=== PATIENT | female | born 1955 | race Caucasian/White ===

== ENCOUNTER 2020-12-14 09:30 | Outpatient (RCR) | payer MEDICARE, SELFPAY ==
--- NOTE | 2020-11-09 15:17 | PTOPEVAL ---
PHYSICAL THERAPY EVALUATION AND PLAN OF CARE 11-09-2020 Thank you for referring Aleida Mendez to [facility] for the diagnosis of vertigo.? Aleida is scheduled to be seen for therapy? 0-2 x/week for 5 weeks. She did not want to have treatment the week of . Then will see her 1-2x/week, with progression as needed for vestibular issues. Please review, sign, date and return this plan of care LYNETTE. I agree with and certify that the following plan of care is medically necessary. Referring Physician Date Attending Provider: Mercy Olivia NP PT Outpatient Evaluation Start: 11/09/20 14:04 Document 11/09/20 14:00 KATHARINE (Rec: 11/09/20 15:17 KATHARINE [id number]) Therapy Assessment Status Outpatient Past Medical History Past Medical History Source of Past Medical History Patient Neurological History Hx Neurological Disorders No Significant History Cardiovascular History Hx Other Cardiac Disorders Yes: low heart rate; Respiratory History Hx Respiratory Disorders No Significant History Gastrointestinal History Hx Gastrointestinal Disorders No Significant History Genitourinary History Hx Genitourinary Disorders No Significant History Musculoskeletal History Hx Arthritis Yes: knee Hx Joint Replacement Yes: L TKR; Hx Orthopedic Surgery Yes: L ACL repair; Other History Hx Cancer Yes: melanoma right calf, lymph node removal Evaluation Information Problem Diagnosis dizziness Onset October 10, 2020 Prior Level of Function Activity Level (Last 3 Months) Occupation retired Medications Home Meds (Include: OTC, RX, Vitamins, benadryl before bedtime-- to Herbals, Dose, Route,and Frequency) assess effect on dizziness, Query Text:Home Med Entries Will No woke up stuffy and stopped Longer Recall From Past Visits. Home taking, did not affect Meds Must Be Re-entered With Each Visit. dizziness; no prescription meds; Comments Additional Prior Level of Function active lifestyle when do not Comments have dizzy spells; Pain Assessment Timing of Pain Assessment Timing of Pain Assessment Assessment Pain Scale Pain Scale Used Numeric (1 - 10) Self Report Pain Assessment Bilateral Head, Occiptial Reported Pain Level 0 Pain Description Pressure,Throbbing Other Pain Description when dizziness passes, have throbbing headache back of head, 1-2 hr Lowest Pain Intensity 0 Greatest Pain Intensity 6 Pain Score Pain Score 0: Self Report Cervical and Lumbar ROM Cervical ROM Cervical ROM Comments sitting active cervical ROM WNL without pain Gait Assessment Gait Assessment Ambulation Assistive Devices None
--- NOTE | 2020-12-14 10:01 | PTOPEVAL ---
PHYSICAL THERAPY DISCHARGE 12-14-20 Refer to the clinical summary below. The PT goals were achieved, therefore, she will be discharged from PT at this time. Thank you for referring Aleida Mendez to [facility].? Please review, sign, date and return this discharge report LYNETTE. I agree with and certify that the following plan of care is medically necessary. Referring Physician Date Attending Provider: Mercy Olivia NP Document 12/14/20 09:30 KATHARINE (Rec: 12/14/20 10:01 KATHARINE [id number]) Assessment Status Discharge Subjective Information Aleida reports: feeling better Query Text:As Reported By Patient/ , less dizziness, when do have Family dizziness- clears in few seconds; at home, is doing all of her usual activities, except not doing yoga since gym closed; dizzy with quick head motions; no problems getting up out of bed or moving in bed; had a follow up appointment with , have orders for MRI, but since she is feeling better, does not need that she is going to have the MRI done; self assessment with the Dizziness Handicap Index is 10/100; Pain Assessment Timing of Pain Assessment Timing of Pain Assessment Assessment Self Report Self Report Pain Level 0 Pain Score Pain Score 0: Self Report Vestibular Evaluation Vestibular Testing Vestibular Testing Comments - pick something up off floor without any s/s - 360' turn to R and L without any s/s - walk 50' with head turn R/L without any s/s; with head turn up/down with report unsteady in legs - gaze stabilization with walking forward/backwards with head movements up/down and R/ L without any s/s; no loss of balance with activities; Safety Assessment Patient Safety Factors Affecting Safety No Concerns Rehab Teaching Rehab Teaching Teaching Topic Rehab Teaching Topic Components Exercise,Home Program As Pertains To Plan of Care Discussion Recipient Patient Learning Preferences Audio,Demonstration,Discussion
== END 2020-12-15 08:09 | disposition home or self-care (01) ==
LOC: ANHPT 09:30
PROVIDERS: PCP Internal Medicine; Referring Provider Nurse Practitioner; Visit Provider Nurse Practitioner
DX: R42 Dizziness and giddiness (principal)
CPT/HCPCS: 97110; 97162

== ENCOUNTER → 2021-03-02 00:41 | Outpatient (CLI) | payer MEDICARE, SELFPAY ==
[2021-03-02 19:49] LABS: SARS-CoV-2 RNA PCR Negative
== END ==
PROVIDERS: PCP Internal Medicine; Visit Provider Internal Medicine Gastroenterology
DX: Z01.812 Encounter for preprocedural laboratory examination (principal); Z20.822 Contact with and (suspected) exposure to COVID-19
CPT/HCPCS: C9803; U0003; U0005

== ENCOUNTER 2021-03-05 00:28 | Day surgery (SDC) | payer MEDICARE, SELFPAY ==
[2021-02-15 13:49] VITALS: BMI 30.2
[2021-03-05 06:17] VITALS: BMI 31.1
[2021-03-05 06:19] VITALS: BP 137/87; PULSE 54; RESP 16; TEMP 36.4; O2SAT 100
[2021-03-05] MEDS: LACTATED RINGERS 1,000 ML 150 ML IV CONT (06:30)
--- NOTE | 2021-03-05 07:12 | WPDANESEPPF ---
Anes - Initial Pre Proc Eval Procedure: Operation Date: 03/05/21 07:30 Proposed Procedures p Screening Colonoscopy - Isaac Nicholas MD Date/Time: 03/05/21 07:12 Surgeon: Isaac Nicholas MD Pre Op Diagnosis: Neoplasm Screening Patient Data Age: 65 Gender: F Height: 5 ft 2 in Weight: 77.2 kg Last Vital Signs Temp 97.5 F L 03/05/21 06:19 Pulse 54 L 03/05/21 06:19 Resp 16 03/05/21 06:19 BP 137/87 03/05/21 06:19 Pulse Ox 100 03/05/21 06:19 Allergies Allergy/AdvReac Type Severity Reaction Status Date / Time olopatadine Allergy Mild itchy OU Verified 03/05/21 06:16 Home Medications Medication Instructions Recorded Confirmed Type valacyclovir 1 gram tablet 2,000 mg PO Q12H PRN #30 tablet 12/07/20 02/15/21 Rx triamcinolone acetonide 1 applic TOPICAL BID PRN 02/15/21 02/15/21 History Patient hx anesthesia problems: none Family hx anesthesia problems: none PMFSH Past Medical History Medical History (Updated 12/07/20 @ 09:03 by Mercy Olivia NP) ACL tear 1998 Allergies Arthritis Melanoma Surgical History Surgical History (Updated 10/27/20 @ 07:53 by Marquita Mercado) History of knee replacement 2019 History of tubal ligation 1987 Family History Family History (Updated 10/27/20 @ 07:56 by Marquita Mercado) Father Cerebrovascular accident Hypertension Grandparent Parkinsons Heart disease Cancer Social History Social History (Updated 10/27/20 @ 07:54 by Marquita Mercado) Smoking status: Never smoker Alcohol intake: current Drinks per week: 3 Substance use: never Living arrangements: with family Gender identity (if verbalized by the patient): Female Spiritual care concerns: No Anes - Eval Final PreProcedure Day of Procedure 03/05/21 07:12 Patient weight: overweight Heart: bradycardia Lungs: clear to auscultation Airway: Mallampati scale class II Neurological: alert and oriented Last oral intake: >/= 8 hours ASA classification: II Emergent: no Anesthetic plan: proceed Anesthesia type and monitoring: general GIVS and standard monitoring Informed Consent: The patient's anesthetic plan and its attendant risks and benefits were discussed with the patient/family/POA. Questions were solicited and answers provided to the satisfaction of the patient/family/POA.
--- NOTE | 2021-03-05 07:29 | PM.HPGS ---
History of Present Illness History of Present Illness Consent: Risks, benefits, and alternatives have been discussed and questions answered. Patient agrees to proceed with procedure. Chief complaint: Neoplasm Screening Narrative: Aleida Mendez is a 65 year old female with colon polyps about 4 years ago. Review of Systems Constitutional: Constitutional: Denies headache(s) and Denies weakness Eyes: Eyes: Denies blurry vision ENT: Reports Normal hearing present, Denies headache(s) and Denies neck pain Cardiovascular: Cardiovascular: Denies chest pain and Denies dyspnea Respiratory: Respiratory: Denies dyspnea Gastrointestinal: Gastrointestinal: Reports no additional gastrointestinal complaints Genitourinary: Genitourinary: Denies dysuria Musculoskeletal: Musculoskeletal: Denies neck pain Integumentary/Breasts: Skin/Breast: Denies dry skin Neurologic: Reports Normal hearing present, Denies headache(s) and Denies weakness Psychiatric: Psychiatric: Denies anxiety Endocrine: Endocrine: Denies change in body appearance Hematologic/Lymphatic: Hematologic/Lymphatic: Denies easy bleeding Allergic/Immunologic: Allergic/Immunologic: Denies urticaria PMFSH Past Medical History Medical History (Updated 03/05/21 @ 07:29 by Isaac Nicholas MD) ACL tear 1998 Adenomatous colon polyp Allergies Arthritis Melanoma Surgical History Surgical History (Updated 10/27/20 @ 07:53 by Marquita Mercado) History of knee replacement 2019 History of tubal ligation 1987 Family History Family History (Updated 10/27/20 @ 07:56 by Marquita Mercado) Father Cerebrovascular accident Hypertension Grandparent Parkinsons Heart disease Cancer Social History Social History (Updated 10/27/20 @ 07:54 by Marquita Mercado) Smoking status: Never smoker Alcohol intake: current Drinks per week: 3 Substance use: never Living arrangements: with family Gender identity (if verbalized by the patient): Female Spiritual care concerns: No Meds Home Medications and Allergies Home Medications Medication Instructions Recorded Confirmed Type valacyclovir 1 gram tablet 2,000 mg PO Q12H PRN #30 tablet 12/07/20 02/15/21 Rx triamcinolone acetonide 1 applic TOPICAL BID PRN 02/15/21 02/15/21 History Allergies Allergy/AdvReac Type Severity Reaction Status Date / Time olopatadine Allergy Mild itchy OU Verified 03/05/21 06:16 Vital Signs Vital Signs - 24 hr 03/05/21 06:19 Temperature 97.5 F L Pulse Rate 54 L Respiratory Rate 16 Blood Pressure 137/87 Pulse Oximetry 100 Exam Const: General: comfortable and no acute distress HENMT: General nose exam: Normal nares present Eyes: General: appearance normal, both eyes and all related structures Neck: Neck: no JVD Resp: Auscultation: clear to auscultation bilaterally Cardio: Rate: regular rate Rhythm: regular rhythm GI: Inspection: non-distended GI Palp: Yes Soft to palpation Skin: General skin exam: normal color Neuro: General: gait normal Speech: normal speech Extrem: General: normal to inspection Psych: Mental Status: mental status grossly normal Assessment and Plan Assessment and plan (1) Adenomatous colon polyp: Code(s): D12.6 - Benign neoplasm of colon, unspecified Status: Acute Assessment and Plan: proceed with colonoscopy
[2021-03-05 07:43] VITALS: BP 109/60; PULSE 54; RESP 16; O2SAT 98
[2021-03-05 07:53] VITALS: BP 91/44; PULSE 49; RESP 23; O2SAT 100
[2021-03-05 08:03] VITALS: BP 105/69; PULSE 51; RESP 20; O2SAT 98
== END 2021-03-05 08:18 | disposition home or self-care (01) ==
PROVIDERS: PCP Internal Medicine; Visit Provider Internal Medicine Gastroenterology
PROC: 0DJD8ZZ Inspection of Lower Intestinal Tract, Via Natural or Artificial Opening Endoscopic (ICD-10-PCS; CPT 45378; principal; 2021-03-05 07:30)
DX: Z12.11 Encounter for screening for malignant neoplasm of colon (principal); K64.8 Other hemorrhoids; M19.90 Unspecified osteoarthritis, unspecified site; Z86.010 Personal history of colon polyps; Z85.820 Personal history of malignant melanoma of skin
CPT/HCPCS: G0105; J2704; J7120

== ENCOUNTER → 2021-03-15 11:00 | Outpatient (CLI) | payer MEDICARE, SELFPAY ==
--- NOTE | ~2021-03-15 | MM_ITS ---
EXAMINATION: MM screening anay BI w yamile HISTORY: Screening mammogram, family history of breast cancer in her sister. TECHNIQUE: Craniocaudal and mediolateral oblique 3-D tomosynthesis images were obtained and synthetic 2-D images were generated. CAD analysis was submitted and interpreted. COMPARISON: No prior mammogram is available for comparison at this institution. BREAST PARENCHYMAL COMPOSITION: There are scattered areas of fibroglandular density. FINDINGS: RIGHT BREAST: There is focal asymmetry in the middle third of the upper outer quadrant of the breast and a possible mass in the anterior third of the inner breast. LEFT BREAST: There is no evidence of suspicious mass, calcification, or architectural distortion to s uggest malignancy. IMPRESSION: 1. Right breast findings as above which may represent the patient's baseline however no comparison is currently available. 2. Comparison with prior mammograms is necessary. BI-RADS Category 0: Incomplete: Needs comparison with prior mammograms. Reviewed, dictated and finalized at location A. IMPRESSION: 1. Right breast findings as above which may represent the patient's baseline ho wever no comparison is currently available. 2. Comparison with prior mammograms is necessary. BI-RADS Category 0: Incomplete: Needs comparison with prior mammograms.
--- NOTE | ~2021-03-15 | DEXA_ITS ---
Bone Density Report Name: Aleida Mendez Age: 65 Sex: Female Ethnicity: White Date of : 1955 Indication: postmenopausal; screening for osteoporosis; Referring Provider: Mercy Olivia Study: Bone densitometry was performed. Exam Date: March 15, 2021 Accession number: [id number] Bone Density: Region BMD T-score Z-score Classification AP Spine (L1-L4) 1.119 0.7 2.5 Normal Femoral Neck (Left) 0.804 -0.4 1.1 Normal Total Hip (Left) 0.915 -0.2 1.0 Normal Femoral Neck (Right) 0.786 -0.6 1.0 Normal Total Hip (Right) 0.926 -0.1 1.1 Normal Total Hip Mean 0.921 -0.2 1.1 Normal World Health Organization criteria for BMD impression classify patients as: Normal (T-score at or above -1.0), Osteopenia (T-score between -1.0 and -2.5), or Osteoporosis (T-score at or below -2.5). 10-year Fracture Risk: FRAX not reported because: All T-scores for Spine Total, Hip Total, Femoral Neck at or above -1.0 Clinical Information Provided by Patient: Has used the following medications: Vitamin D, Calcium Patient maximum height was 62 Menopause Age: 47 Drinks caffeinated beverages Onset of menses at age 11 Number of children 3 Impression: The patient has normal bone mass. Discussion: BONE DENSITY IS ABOVE THE MINIMUM DESIRABLE LEVEL AT ALL SKELETAL SITES TESTED. This patient?s bone mineral density is above the minimum desirable level (T-score -1.0 or better) at all sites measured. The patient should follow a healthful lifestyle (good nutrition with adequate calcium and vitamin D, and appropriate weight-bearing exercise). Follow-Up: Consider repeating this study in 5 years or sooner if there is some new clinical indication. Reported by: [facility] on 03/15/2021 11:33:00 AM. Reviewed, dictated and finalized at location ABritta WILKINS
== END ==
PROVIDERS: PCP Internal Medicine; Visit Provider Nurse Practitioner
DX: Z12.31 Encounter for screening mammogram for malignant neoplasm of breast (principal); Z78.0 Asymptomatic menopausal state; R92.8 Other abnormal and inconclusive findings on diagnostic imaging of breast
CPT/HCPCS: 77063; 77067; 77080

== ENCOUNTER 2022-01-19 13:22 | Outpatient (CLI) | payer MEDICARE, SELFPAY ==
--- NOTE | ~2022-01-19 | MR_ITS ---
EXAMINATION: MR shoulder RT wo con DATE: 01/19/2022 14:19 INDICATION: Right shoulder pain. TECHNIQUE: Magnetic resonance imaging (MRI) of the right shoulder was performed without intravenous c ontrast. Sequences included axial PD-weighted FS FSE, coronal oblique PD-weighted FS FSE and T2-weigh fredis FS FSE, and sagittal oblique T2-weighted FS FSE and T1-weighted FSE. COMPARISON: None. FINDINGS: Coracoacromial arch: The acromion undersurface is curved in morphology (type II). There is moderate acromioclavicular join t osteoarthritis. There is mild subacromial/subdeltoid bursitis. Rotator cuff: There are small interstitial tears of distal supraspinatus tendon. There is mild infraspinatus tendin opathy. Teres minor tendon is normal. There is mild subscapularis tendinopathy. There is no asymmetri c fatty atrophy of the rotator cuff muscle bellies. Biceps tendon and glenoid labrum: Biceps tendon is in bicipital groove. There is a longitudinal split tear of biceps tendon. There is d egenerative tearing of glenoid labrum. Fluid: There is a small glenohumeral joint effusion. Bones/cartilage: There is full-thickness cartilage loss of central and anterior glenoid with subchondral cyst and oste ophytes. There is deep partial thickness cartilage loss of humeral head superiorly. There are margina l osteophytes of humeral head. IMPRESSION: 1. Severe glenohumeral joint chondrosis. 2. Moderate acromioclavicular joint osteoarthritis. 3. Small interstitial tears in distal supraspinatus tendon. 4. Longitudinal split tear of biceps tendon. 5. Mild subacromial/subdeltoid bursitis. 6. Small glenohumeral joint effusion. Reviewed, dictated and finalized at location A. ENGINEER
== END 2022-01-19 13:23 | disposition home or self-care (01) ==
PROVIDERS: PCP Internal Medicine; Visit Provider Nurse Practitioner
DX: M19.011 Primary osteoarthritis, right shoulder (principal); M75.51 Bursitis of right shoulder; M25.411 Effusion, right shoulder
CPT/HCPCS: 73221

== ENCOUNTER 2022-02-03 08:09 | Emergency (ER) | payer MEDICARE, SELFPAY ==
--- NOTE | ~2022-02-03 | CT_ITS ---
EXAMINATION: CT abdomen pelvis w con DATE: 02/03/2022 10:56 INDICATION: Abdominal pain. Nausea and vomiting. TECHNIQUE: Computed tomography (CT) of the abdomen and pelvis was performed with 100 mL Omnipaque 350 intravenous contrast. Automated exposure control and iterative reconstruction technique were employe d. The dose-length product was 750.58 mGy-cm. COMPARISON: None. FINDINGS: The visualized portions of the lung bases demonstrate mild atelectasis and mild chronic morro g disease. A calcified left lung nodule is consistent with old granulomatous disease. No pleural effu chichi. The heart size is normal. No pericardial effusion. There is a moderate-sized sliding hiatal her arian. There are cysts in the liver measuring up to 1.9 cm. The gallbladder, spleen, pancreas, adrenal glands are normal. There are cysts in the kidneys measuring up to 5 mm on the right. There is a calci fied fibroid uterus. The periuterine veins and left ovarian veins are enlarged, consistent with pelvi c venous insufficiency. The appendix is normal. There are many fluid-filled loops of small bowel diane uring normal caliber. There is mesenteric edema involving some of the small bowel loops. There is a s mall volume of pelvic ascites. There are no pathologically enlarged lymph nodes. There are surgical c lips along the right external iliac lymph node chain. There is mild lumbar spondylosis. IMPRESSION: 1. Multiple fluid-filled loops of small bowel with mesenteric edema, likely enteritis. 2. Small volume of ascites. 3. Moderate-sized sliding hiatal hernia. Reviewed, dictated and finalized at location A. IMPRESSION: 1. Multiple fluid-filled loops of small bowel with mesenteric edema, likely ent eritis. 2. Small volume of ascites. 3. Moderate-sized sliding hiatal hernia.
[2022-02-03 08:18] VITALS: BP 151/93; PULSE 56; RESP 16; TEMP 36.8; O2SAT 98
[2022-02-03 08:29] LABS: Basophils Absolute Auto 0.1 K/mm3 (0.0-0.1); Basophils Percent Auto 0.8 % (0.2-1.2); Eosinophils Percent Auto 0.5 % (0-4.4); Hematocrit 45.4 % (37.0-47.0); Hemoglobin 14.9 g/dL (12.0-15.0); Immature Granulocyte Absolute 0.03 K/mm3 (0.00-0.031); Immature Granulocyte Percent A 0.4 % (0-0.5); Lymphocytes Absolute Auto 0.93 K/mm3 (0.9-3.2); Lymphocytes Percent Auto 11.8 % (18.3-44.2); Mean Corpuscular HGB Conc 32.8 g/dl (32-36); Mean Corpuscular Hemoglobin 29.6 pg (26-34); Mean Corpuscular Volume 90.1 fl (80-100); Mean Platelet Volume 9.7 fl (7.4-10.4); Monocytes Absolute Auto 0.3 K/mm3 (0.1-0.6); Monocytes Percent Auto 3.5 % (2.6-8.5); Neutrophils Absolute Auto 6.6 K/mm3 (1.3-6.7); Platelet Count Result 216 k/mm3 (150-375); Red Blood Count 5.04 M/mm3 (4.2-5.4); Red Cell Distribution Width 13.2 % (11.5-14.5); White Blood Count 7.9 K/mm3 (4.5-10.0)
[2022-02-03 08:39] LABS: Alanine Aminotransferase 16 U/L (4-35); Albumin Level 4.6 g/dL (3.5-5.1); Alkaline Phosphatase 58 U/L (38-126); Anion Gap 5 mmol/L (8-16); Aspartate Amino Transferase 33 U/L (14-36); Bilirubin,Total 0.4 mg/dL (0.2-1.3); Blood Urea Nitrogen 28 mg/dL (7-17); Calcium 9.5 mg/dL (8.4-10.2); Carbon Dioxide 28 mmol/L (22-30); Chloride 106 mmol/L (98-107); Estimated CRCL calculation 47 ml/min; Estimated Glomerular Filt Rate 55; Glucose 140 mg/dL (65-110); Lipase 178 U/L (23-300); Potassium 4.7 mmol/L (3.4-5.0); Sodium 139 mmol/L (137-145)
--- NOTE | 2022-02-03 08:48 | ED.ABDPAIN ---
HPI - Abdominal Pain General Chief Complaint: Abdominal Pain Stated Complaint: Abd pain, vomiting Time Seen by Provider: 02/03/22 08:47 Source: patient Mode of arrival: ambulatory Limitations: no limitations History of Present Illness HPI narrative: Patient is a 66-year-old female presenting to the emergency department for evaluation of nausea, vomiting, abdominal cramping. Pt states that symptoms began last night and into this morning. Pt denies fever, but reports chills overnight. She reports cramping abdominal pain. Denies abdominal distention. Denies diarrhea or constipation. Patient reports eating tomato soup, sandwich last night. Denies any food indiscretions. No recent sick contacts. Patient denies dysuria, hematuria, frequency, hesitancy. Patient reports a stomach pain only occurs prior to her vomiting. She denies any current severe pain. Related Data Home Medications Medication Instructions Recorded Confirmed fluorouracil 5 % topical cream 1 applic TOPICAL BID 01/11/22 01/11/22 Allergies Allergy/AdvReac Type Severity Reaction Status Date / Time olopatadine Allergy Mild itchy OU Verified 03/05/21 06:16 Review of Systems Review of Systems: CONSTITUTIONAL: Denies fever, reports chills EYES: Denies visual changes, redness, or discharge. ENT: Denies rhinorrhea, congestion, sore throat, or otalgia. CARDIOVASCULAR: Denies chest pain, palpitations, or edema. RESPIRATORY: Denies cough or dyspnea. GASTROINTESTINAL: Reports abdominal pain, nausea and vomiting GENITOURINARY: Denies dysuria or hematuria. SKIN: Denies rash or itching. MUSCULOSKELETAL: Denies back pain, joint pain, or myalgia. NEUROLOGIC: Denies headache, numbness, or weakness. [facility] Past Medical History Medical History ACL tear 1998 Adenomatous colon polyp Allergies Arthritis Melanoma Surgical History Surgical History History of knee replacement 2019 History of tubal ligation 1986 Family History Family History Father Cerebrovascular accident Hypertension Grandparent Parkinsons Heart disease Cancer Social History Social History Smoking status: Never smoker Alcohol intake: current Drinks per week: 3 Substance use: never Gender identity (if verbalized by the patient): Female Spiritual care concerns: No Exam Narrative: GENERAL: Awake, alert, conversant HEAD: Normocephalic, atraumatic. EYES: PERRLA and EOMI. ENT: Nares clear, no rhinorrhea or epistaxis. Mucous membranes dry NECK: Supple. CHEST: No respiratory distress, breathing even and non labored HEART: Regular rate, sinus rhythm ABDOMEN:Non distended, nontender in all 4 quadrants, normoactive bowel sounds without borborygmi no rebound EXTREMITIES: Normal range of motion. No edema. SKIN: Warm, dry, no rash. NEURO:No focal deficits. Alert and oriented x3 Course Vital Signs Vital signs: Vital Signs Temperature 36.8 C 02/03/22 08:18 Pulse Rate 56 L 02/03/22 08:18 Respiratory Rate 16 02/03/22 08:18 Blood Pressure 151/93 H 02/03/22 08:18 Pulse Oximetry 98 02/03/22 08:18 Temperature 36.8 C 02/03/22 08:18 Pulse Rate 56 L 02/03/22 08:18 Respiratory Rate 16 02/03/22 08:18 Blood Pressure 151/93 H 02/03/22 08:18 Pulse Oximetry 98 02/03/22 08:18 MDM - Abdominal Pain MDM Narrative Medical decision making narrative: Patient presenting for evaluation of nausea, vomiting, abdominal cramping which is resolved at the time of assessment. Patient is not tachycardic, hypotensive or febrile. No pain on exam and normal active bowel sounds. IV access obtained and labs are drawn. Patient was given 2 L of IV fluids, antiemetic, pain medication and Bentyl. Patient labs are reassuring. No significant leukocytosis.
[2022-02-03] MEDS: ONDANSETRON INJ 4 MG/2 ML VIAL IV PUSH (09:23)
[2022-02-03] MEDS: SODIUM CHLORIDE 0.9% IV 1,000 ML 999 ML IV CONT ×2 (09:23→10:42)
[2022-02-03] MEDS: DICYCLOMINE HCL INJ 20 MG/2 ML VIAL IM (09:23)
[2022-02-03] MEDS: MORPHINE SULFATE (*CRX) 4 MG/ML INJ 2 MG IV PUSH (09:23)
--- NOTE | 2022-02-03 11:24 | PC.NURSE ---
Pt doing PO challenge at this time.
[2022-02-03 11:38] VITALS: BP 102/52; PULSE 52; RESP 18; O2SAT 99
--- NOTE | 2022-02-03 11:38 | PC.NURSE ---
Pt states she has mild cramping in her abdomen. IVF still infusing, will reevaluate after IVF administration.
--- NOTE | 2022-02-03 11:55 | PC.NURSE ---
Pt states she is ready for d/c.
== END 2022-02-03 11:57 | disposition home or self-care (01) ==
PROVIDERS: Emergency Provider Emergency Medicine; PCP Internal Medicine
DX: K52.9 Noninfective gastroenteritis and colitis, unspecified (principal); M19.90 Unspecified osteoarthritis, unspecified site; Z86.010 Personal history of colon polyps; Z96.659 Presence of unspecified artificial knee joint; K44.9 Diaphragmatic hernia without obstruction or gangrene
CPT/HCPCS: 36415; 74177; 80053; 83690; 85025; 96361; 96372; 96374; 96375; 99284; J0500; J2270; J2405; J7030; Q9967

== ENCOUNTER → 2022-05-10 14:20 | Outpatient (CLI) | payer MEDICARE, SELFPAY ==
--- NOTE | ~2022-05-10 | MM_ITS ---
EXAMINATION: MM screening anay BI w yamile HISTORY: Screening TECHNIQUE: Craniocaudal and mediolateral oblique 3-D tomosynthesis images were obtained and synthetic 2-D images were generated. CAD analysis was submitted and interpreted. COMPARISON: Comparison to multiple prior studies sequentially, with oldest reviewed study dated 11/2014. BREAST PARENCHYMAL COMPOSITION: There are scattered areas of fibroglandular density. FINDINGS: There is no evidence of suspicious mass, calcification, or architectural distortion to sugg est malignancy in either breast. There has been no suspicious interval change. IMPRESSION: 1. No mammographic evidence of malignancy. 2. Recommend routine screening mammography in one year. BI-RADS Category 1: Negative Reviewed, dictated and finalized at location A.
== END ==
PROVIDERS: PCP Internal Medicine; Visit Provider Nurse Practitioner
DX: Z12.31 Encounter for screening mammogram for malignant neoplasm of breast (principal)
CPT/HCPCS: 77063; 77067

== ENCOUNTER 2022-09-04 14:51 | Outpatient (CLI) | payer MEDICARE, SELFPAY ==
[2022-09-04 19:30] LABS: Basophils Absolute Auto 0.1 K/mm3 (0.0-0.1); Basophils Percent Auto 1.4 % (0.2-1.2); Eosinophils Absolute Auto 0.2 K/mm3 (0-0.3); Eosinophils Percent Auto 3.5 % (0-4.4); Hematocrit 40.7 % (37.0-47.0); Hemoglobin 13.5 g/dL (12.0-15.0); Immature Granulocyte Absolute 0.01 K/mm3 (0.00-0.031); Immature Granulocyte Percent A 0.2 % (0-0.5); Lymphocytes Absolute Auto 1.64 K/mm3 (0.9-3.2); Lymphocytes Percent Auto 28.4 % (18.3-44.2); Mean Corpuscular HGB Conc 33.2 g/dl (32-36); Mean Corpuscular Hemoglobin 29.5 pg (26-34); Mean Corpuscular Volume 88.9 fl (80-100); Monocytes Absolute Auto 0.4 K/mm3 (0.1-0.6); Monocytes Percent Auto 7.1 % (2.6-8.5); Neutrophils Absolute Auto 3.4 K/mm3 (1.3-6.7); Neutrophils Percent Auto 59.4 % (45.5-73.1); Platelet Count Result 215 k/mm3 (150-375); Red Blood Count 4.58 M/mm3 (4.2-5.4); Red Cell Distribution Width 13.2 % (11.5-14.5); White Blood Count 5.8 K/mm3 (4.5-10.0)
[2022-09-04 20:05] LABS: Alanine Aminotransferase 39 U/L (6-35); Albumin Level 4.5 g/dL (3.5-5.1); Alkaline Phosphatase 53 U/L (38-126); Anion Gap 11 mmol/L (8-16); Aspartate Amino Transferase 47 U/L (14-36); Bilirubin,Total 0.4 mg/dL (0.2-1.3); Blood Urea Nitrogen 19 mg/dL (7-17); Calcium 9.4 mg/dL (8.4-10.2); Carbon Dioxide 26 mmol/L (22-30); Chloride 103 mmol/L (98-107); Estimated Glomerular Filt Rate 55; Glucose 100 mg/dL (65-110); Potassium 3.7 mmol/L (3.4-5.0); Sodium 140 mmol/L (137-145)
== END 2022-09-04 14:52 | disposition home or self-care (01) ==
LOC: ANHGOSHLAB 14:52
PROVIDERS: PCP Internal Medicine; Visit Provider Nurse Practitioner
DX: R00.1 Bradycardia, unspecified (principal); G89.29 Other chronic pain; M25.511 Pain in right shoulder; Z01.818 Encounter for other preprocedural examination
CPT/HCPCS: 36415; 80053; 85025

== ENCOUNTER 2022-09-19 11:42 | Outpatient (CLI) | payer MEDICARE, SELFPAY ==
[2022-09-19 19:36] LABS: Alanine Aminotransferase 35 U/L (6-35); Albumin Level 4.5 g/dL (3.5-5.1); Alkaline Phosphatase 64 U/L (38-126); Aspartate Amino Transferase 41 U/L (14-36); Bilirubin,Total 0.4 mg/dL (0.2-1.3)
== END 2022-09-19 11:43 | disposition home or self-care (01) ==
LOC: ANHGOSHLAB 11:46
PROVIDERS: PCP Internal Medicine; Visit Provider Nurse Practitioner
DX: R74.8 Abnormal levels of other serum enzymes (principal)
CPT/HCPCS: 36415; 80076

== ENCOUNTER 2022-12-18 12:30 | Outpatient (RCR) | payer MEDICARE, SELFPAY ==
--- NOTE | 2022-10-03 11:58 | PTOPEVAL1 ---
Assessment and note entered by Melina Jackson, PT, DPT Evaluation Information Assessment Status Evaluation Diagnosis R shoulder repair Onset 09/26/22 Subjective Information Pt states she underwent a R RTC repair. She states there was too much damage when they went in that they were unable to repair the RTC and ended up just performing a biceps release. Per the pt, she will probably need a total shoulder replacement in 5-10 years. She states she has not been wearing her sling when sitting at home, and has been doing her post-op exercises diligently. Reported Pain Level Pain Score 2: Self Report Assessment PT Clinical Summary Aleida presents to therapy today for her initial evaluation following a R shoulder debridement with biceps tendon release performed on 09/26/22. She reports well managed pain without pain medication. Today she demonstrates decreased passive ROM with active shoulder flexion to 45 deg . Skilled physical therapy services are indicated to improve active and passive ROM, to improve functional strength, to improve functional mobility, to manage pain, and to return to baseline function. Plan of Care Interventions Electrical Stimulation,Hot Pack/Cold Pack,Manual Therapy,Neuro Re-education,Patient/Caregiver Educati,Therapeutic Activities,Therapeutic Exercise PT Services Indicated Yes Treatment Frequency and 2x/wk for 5 wks Duration These treatments will address the objective and functional deficits as defined above. The patient will be advanced safely and appropriately in order for the patient to progress towards his/her prior level of function. Additional exercises will be introduced and as well as a comprehensive home exercise program upon discharge, if needed, ?to ensure carryover of functional gains achieved in the clinic. This treatment plan has been reviewed and agreement upon by the patient.
[2022-11-07 10:05] VITALS: BP_SYST 125
--- NOTE | 2022-11-07 11:49 | PTOPPROG ---
Assessment and note entered by Melina Jackson, PT, DPT Evaluation Information Assessment Status Progress Diagnosis R shoulder repair Onset 09/26/22 Subjective Information Pt states her mobility has improved. She states her pain has improved but she still has pain, especially at night. She reports good compliance with her HEP. Pt reports 45% improvement in overall symptoms. She states her biggest limitation is strength and her shoulder locking up regularly. Assessment PT Clinical Summary Aleida presents to therapy today for her progress report following 7 visits of skilled therapy to treat her post-op R shoulder arthroscopic debridement and biceps tendon release. Today she demonstrates improved active ROM compared to her initial visit. Her strength, pain, ROM, and overall mobility is progressing as expected. She reports good compliance with her HEP and is progressing well towards her therapy goals. Continuation of skilled therapy services are indicated to continue progressing towards goals, to progress through surgical protocol, to improve impairment, and to promote unlimited functional mobility. Plan of Care Interventions Electrical Stimulation,Hot Pack/Cold Pack,Manual Therapy,Neuro Re-education,Patient/Caregiver Educati,Therapeutic Activities,Therapeutic Exercise PT Services Indicated Yes Treatment Frequency and 2x/wk for 5 wks Duration These treatments will address the objective and functional deficits as defined above. The patient will be advanced safely and appropriately in order for the patient to progress towards his/her prior level of function. Additional exercises will be introduced and as well as a comprehensive home exercise program upon discharge, if needed, ?to ensure carryover of functional gains achieved in the clinic. This treatment plan has been reviewed and agreement upon by the patient.
[2022-12-13 08:56] VITALS: BP_SYST 165
--- NOTE | 2022-12-13 09:41 | PTOPPROG ---
Assessment and note entered by Isis Suárez DPT Evaluation Information Assessment Status Progress Diagnosis R shoulder repair Onset 09/26/22 Subjective Information Pt reports highest pain in the last week 2/10. Continued difficulty with lifting heavy like laundry baskets, mixing bowls, and reports she has dropped a few things recently. Difficulty driving and turning the wheel or putting a coat on. Cannot curl the back of her hair. Generally aches in the evening, some trouble sleeping. Not doing her typical exercise routine yet. Overall feels improvements, is able to do more and is having less pain. Reports she is not yet 100% , thinks she is about 75% back to normal. Assessment PT Clinical Summary The patient has made good progress overall in therapy. She reports decreased pain to 2/10 at the highest and is able to do more at home. She demonstrates improved shoulder range of motion and strength. She continues to lack full strength compared to her left, and reports difficulty with activities at home like lifting heavy bowls, laundry baskets, etc. Due to her progress but continued pain and limitations she will benefit from further therapy to return to prior level of function. Plan of Care Interventions Electrical Stimulation,Hot Pack/Cold Pack,Manual Therapy,Neuro Re-education,Patient/Caregiver Education,Therapeutic Activities,Therapeutic Exercise,Self-Care/Home Management PT Services Indicated Yes Treatment Frequency and 1-2 times a week for 4 weeks Duration These treatments will address the objective and functional deficits as defined above. The patient will be advanced safely and appropriately in order for the patient to progress towards his/her prior level of function. Additional exercises will be introduced and as well as a comprehensive home exercise program upon discharge, if needed, ?to ensure carryover of functional gains achieved in the clinic. This treatment plan has been reviewed and agreement upon by the patient.
--- NOTE | 2022-12-23 14:34 | PCPTNOTE ---
Patient called & cancelled both scheduled appointments this week d/t being out of town.
--- NOTE | 2022-12-27 17:01 | PCPTNOTE ---
This treatment is being continued on visit number [id number]. Please see documentation on both accounts to view progress. Completed interventions, outcomes, and problems have been marked as Inactive to facilitate the copying of the Care plan routine for recurring accounts.
== END 2022-12-27 09:03 | disposition home or self-care (01) ==
LOC: ANHGOSHPT 12:30
PROVIDERS: PCP Internal Medicine; Visit Provider Orthopaedic Surgery
DX: S43.431D Superior glenoid labrum lesion of right shoulder, subsequent encounter (principal); M75.101 Unspecified rotator cuff tear or rupture of right shoulder, not specified as traumatic; Z98.890 Other specified postprocedural states
CPT/HCPCS: 97014; 97110; 97112; 97140; 97161; G0283

== ENCOUNTER 2023-01-07 09:27 | Outpatient (CLI) | payer MEDICARE, SELFPAY ==
[2023-01-07 15:34] LABS: Basophils Absolute Auto 0.1 K/mm3 (0.0-0.1); Basophils Percent Auto 1.8 % (0.2-1.2); Eosinophils Absolute Auto 0.1 K/mm3 (0-0.3); Eosinophils Percent Auto 2.9 % (0-4.4); Hematocrit 41.2 % (37.0-47.0); Hemoglobin 13.7 g/dL (12.0-15.0); Immature Granulocyte Absolute 0.01 K/mm3 (0.00-0.031); Immature Granulocyte Percent A 0.2 % (0-0.5); Lymphocytes Absolute Auto 1.64 K/mm3 (0.9-3.2); Lymphocytes Percent Auto 36.4 % (18.3-44.2); Mean Corpuscular HGB Conc 33.3 g/dl (32-36); Mean Corpuscular Hemoglobin 29.8 pg (26-34); Mean Corpuscular Volume 89.6 fl (80-100); Monocytes Absolute Auto 0.3 K/mm3 (0.1-0.6); Monocytes Percent Auto 6.9 % (2.6-8.5); Neutrophils Absolute Auto 2.3 K/mm3 (1.3-6.7); Neutrophils Percent Auto 51.8 % (45.5-73.1); Platelet Count Result 220 k/mm3 (150-375); Red Cell Distribution Width 13.1 % (11.5-14.5); White Blood Count 4.5 K/mm3 (4.5-10.0)
[2023-01-07 15:50] LABS: Alanine Aminotransferase 21 U/L (6-35); Albumin Level 4.4 g/dL (3.5-5.1); Alkaline Phosphatase 62 U/L (38-126); Anion Gap 5 mmol/L (8-16); Aspartate Amino Transferase 31 U/L (14-36); Bilirubin,Total 0.4 mg/dL (0.2-1.3); Blood Urea Nitrogen 15 mg/dL (7-17); Calcium 8.6 mg/dL (8.4-10.2); Carbon Dioxide 29 mmol/L (22-30); Chloride 103 mmol/L (98-107); Cholesterol 196 mg/dL (0-200); Estimated Glomerular Filt Rate > 60; Glucose 101 mg/dL (65-110); HDL Direct 58 mg/dL; Potassium 4.2 mmol/L (3.4-5.0); Sodium 137 mmol/L (137-145); Triglycerides 60 mg/dL (<150)
[2023-01-07 16:01] LABS: LDL Cholesterol Direct 93 mg/dL
[2023-01-07 19:45] LABS: Iron 61 ug/dL (37-170)
[2023-01-07 21:21] LABS: Percent Iron Saturation 18 % (20-50)
[2023-01-07 21:40] LABS: Thyroid Stimulating Hormone Reflex 0.967 uIU/mL (0.465-4.68)
== END 2023-01-07 09:28 | disposition home or self-care (01) ==
LOC: ANHGOSHLAB 09:29
PROVIDERS: Clinical Nurse Specialist; PCP Internal Medicine; Visit Provider Internal Medicine
DX: R74.8 Abnormal levels of other serum enzymes (principal); Z13.220 Encounter for screening for lipoid disorders; E55.9 Vitamin D deficiency, unspecified; R00.1 Bradycardia, unspecified; R23.8 Other skin changes
CPT/HCPCS: 36415; 80053; 80061; 82248; 82306; 82728; 83540; 83550; 84443; 85025; 97110; 97112

== ENCOUNTER 2023-01-15 09:00 | Outpatient (RCR) | payer MEDICARE, SELFPAY ==
--- NOTE | 2022-12-27 17:01 | PCPTNOTE ---
The treatment documented on this account is a continuation of the treatment documented on visit number [id number]. Please see documentation on both accounts to view progress. The Plan of Care has been transitioned and updated within the new V#. I have addressed and agree with the discipline specific Problems, Interventions, and Goals for the current certification period. Completed interventions, outcomes, and problems have been marked as Inactive to facilitate the copying of the Care plan routine for recurring accounts.
--- NOTE | 2022-12-30 08:08 | PCPTNOTE ---
Patient called & cancelled scheduled appointment this date due to being sick.
--- NOTE | 2023-01-15 12:51 | PTOPDC ---
Assessment and note entered by Melina Jackson, PT, DPT Evaluation Information Diagnosis R shoulder debridement and biceps tendon release Onset 09/26/23 Subjective Information Overall pt states she is doing really well. Pt states in the last couple weeks she has seen a lot of improvement and can do just about everything . She states she is a little sore today because she increased her exercises. She reports no neck pain, and very minimal shoulder soreness. She reports 75% return to baseline function. Reported Pain Level Pain Score 2: Self Report Assessment PT Clinical Summary Aleida presents to therapy today for her progress report following 21 visits of skilled therapy to treat her R shoulder debridement with biceps tendon release. Today she demonstrates R shoulder active ROM that is within 10 deg of her L shoulder and strength that is 80-90% of her uninvolved side. She reports no functional limitations at this time and has met all of the goals of her surgical protocol. She will therefore be discharged from skilled therapy services at this time. Plan of Care PT Services Indicated No Treatment Frequency and to be discharged Duration
== END 2023-02-10 11:02 | disposition home or self-care (01) ==
LOC: ANHGOSHPT 09:00
PROVIDERS: PCP Internal Medicine; Visit Provider Orthopaedic Surgery
DX: S43.431D Superior glenoid labrum lesion of right shoulder, subsequent encounter (principal); M75.101 Unspecified rotator cuff tear or rupture of right shoulder, not specified as traumatic; M19.011 Primary osteoarthritis, right shoulder; Z98.890 Other specified postprocedural states
CPT/HCPCS: 97110; 97112; 97530

== ENCOUNTER → 2023-02-19 08:58 | Outpatient (CLI) | payer MEDICARE, SELFPAY ==
--- NOTE | ~2023-02-19 | MMUS_ITS ---
EXAMINATION: MM diagnostic anay BI w yamile, US breast LT limited HISTORY: Left breast pain TECHNIQUE: Additional 3-D tomosynthesis images of the breasts were performed and synthetic 2-D images were generated. CAD analysis was submitted and interpreted. High resolution Limited left breast ultr asound was performed. COMPARISON: Comparison to multiple prior studies sequentially, with oldest reviewed study dated 09/25. BREAST PARENCHYMAL COMPOSITION: Breast composed of scattered areas of fibroglandular density FINDINGS: MAMMOGRAPHIC FINDINGS: The breasts are stable without suspicious mass, clustered calcifications or architectural distortion in either breast to suggest malignancy. ULTRASOUND: Limited left breast ultrasound: Normal heterogeneous echotexture without focal mass. IMPRESSION: 1. No evidence for malignancy in either breast. 2. Routine yearly screening mammogram and regular clinical breast examination are recommended. BI-RADS Category 1: Negative Reviewed, dictated and finalized at location A. IMPRESSION: 1. No evidence for malignancy in either breast. 2. Routine yearly screening mammogram and regular clinical breast examination a re recommended. BI-RADS Category 1: Negative
== END ==
PROVIDERS: PCP Internal Medicine; Visit Provider Nurse Practitioner
DX: R92.8 Other abnormal and inconclusive findings on diagnostic imaging of breast (principal)
CPT/HCPCS: 76642; 77062; 77066; G0279

== ENCOUNTER 2023-11-05 01:46 | Day surgery (SDC) | payer MEDICARE, SELFPAY ==
[2023-10-22 15:26] VITALS: BMI 32.8
--- NOTE | 2023-11-03 11:40 | SUR.PREOP ---
Patient called regarding upcoming procedure. Message left on patient's voicemail regarding preop instructions, appointment times, and procedure prep.
[2023-11-05 10:10] VITALS: BP 147/86; PULSE 57; RESP 18; TEMP 36.6; O2SAT 99; BMI 33.1
[2023-11-05] MEDS: LACTATED RINGERS 1,000 ML 150 ML IV CONT (10:30)
--- NOTE | 2023-11-05 11:04 | PM.HPGS ---
History of Present Illness History of Present Illness Consent: Risks, benefits, and alternatives have been discussed and questions answered. Patient agrees to proceed with procedure. Chief complaint: GERD without esophagitis Narrative: Aleida Mendez is a 68 year old female with gerd and regurgitation sensation after bending over, using omeprazole 20 mg but she says that 40 mg dose was helping more. Had EGD but many years ago. Review of Systems Constitutional: Constitutional: Denies headache(s) and Denies weakness Eyes: Eyes: Denies blurry vision ENT: Reports Normal hearing present, Denies headache(s) and Denies neck pain Cardiovascular: Cardiovascular: Denies chest pain and Denies dyspnea Respiratory: Respiratory: Denies dyspnea Gastrointestinal: Gastrointestinal: Reports no additional gastrointestinal complaints Genitourinary: Genitourinary: Denies dysuria Musculoskeletal: Musculoskeletal: Denies neck pain Integumentary/Breasts: Skin/Breast: Denies dry skin Neurologic: Reports Normal hearing present, Denies headache(s) and Denies weakness Psychiatric: Psychiatric: Denies anxiety Endocrine: Endocrine: Denies change in body appearance Hematologic/Lymphatic: Hematologic/Lymphatic: Denies easy bleeding Allergic/Immunologic: Allergic/Immunologic: Denies urticaria PMFSH Past Medical History Medical History ACL tear 1998 Adenomatous colon polyp Allergies Arthritis Basal cell carcinoma (BCC) Encounter for Papanicolaou smear for cervical cancer screening Melanoma Surgical History Surgical History History of knee replacement 2019 History of tubal ligation 1987 Status post reverse arthroplasty of right shoulder Family History Family History Father Cerebrovascular accident Hypertension Grandparent Parkinsons Heart disease Cancer Social History Social History Smoking status: Never smoker Alcohol intake: current Drinks per week: 3 Alcohol use details: GLASSES WINE Substance use: never Substance use type: does not use Lack of Transportation: No Lack of Food: Never True Current Housing: I Have Housing Concerned About Future Housing: No Difficulty Paying Gas/Electric Bills: No Difficulty Paying for Meds: No Currently Unemployed: No Education: Bachelor's Degree Difficulty w/ Childcare or Family Care: No Living arrangements: with family Additional living arrangements comments: Occupation/Education: retired Gender identity (if verbalized by the patient): Female Sexual Orientation (if Verbalized by the Patient): Straight or Heterosexual Spiritual care concerns: No Meds Home Medications and Allergies Home Medications Medication Instructions Recorded Confirmed Type valacyclovir 1 gram tablet 2,000 mg PO Q12H PRN cold sores 03/03/23 11/05/23 Rx #30 tabs omeprazole 20 mg capsule,delayed 20 mg PO DAILY PRN abdominal 07/21/23 11/05/23 Rx release discomfort #90 caps Elderberry 100 mg PO DAILY 10/22/23 11/05/23 History ascorbic acid (vitamin C) 250 mg 250 mg PO DAILY 10/22/23 11/05/23 History tablet vitamin B complex 1 cap PO DAILY 10/22/23 11/05/23 History Allergies Allergy/AdvReac Type Severity Reaction Status Date / Time olopatadine Allergy Mild itchy OU Verified 11/05/23 10:16 Vital Signs Vital Signs - 24 hr 11/05/23 10:10 Temperature 97.8 F Pulse Rate 57 L Respiratory Rate 18 Blood Pressure 147/86 H Pulse Oximetry 99 Oxygen Delivery Room Air Exam Const: General: comfortable and no acute distress HENMT: Face/Nose/Sinus: Normal nares present Eyes: General: appearance normal, both eyes and all related structures Neck: Neck: no JVD Resp: Auscultation: clear to auscultation bilaterally Car
--- NOTE | 2023-11-05 11:07 | WPDANESEPPF ---
Anes - Initial Pre Proc Eval Procedure: Operation Date: 11/05/23 11:00 Proposed Procedures p Esophagogastroduodenoscopy - Isaac Nicholas MD Date/Time: 11/05/23 11:07 Surgeon: Isaac Nicholas MD Pre Op Diagnosis: GERD without esophagitis Patient Data Age: 68 Gender: F Height: 1.57 m Weight: 82.2 kg Last Vital Signs Temp 97.8 F 11/05/23 10:10 Pulse 57 L 11/05/23 10:10 Resp 18 11/05/23 10:10 BP 147/86 H 11/05/23 10:10 Pulse Ox 99 11/05/23 10:10 O2 Del Method Room Air 11/05/23 10:10 Allergies Allergy/AdvReac Type Severity Reaction Status Date / Time olopatadine Allergy Mild itchy OU Verified 11/05/23 10:16 Home Medications Medication Instructions Recorded Confirmed Type valacyclovir 1 gram tablet 2,000 mg PO Q12H PRN cold sores 03/03/23 11/05/23 Rx #30 tabs Elderberry 100 mg PO DAILY 10/22/23 11/05/23 History ascorbic acid (vitamin C) 250 mg 250 mg PO DAILY 10/22/23 11/05/23 History tablet vitamin B complex 1 cap PO DAILY 10/22/23 11/05/23 History omeprazole 40 mg capsule,delayed 40 mg PO .daily #90 caps 11/05/23 11/05/23 Rx release Patient hx anesthesia problems: none Family hx anesthesia problems: none Results Review: All pre-operative results and documents have been reviewed as part of the pre-operative evaluation. [facility] Past Medical History Medical History ACL tear 1998 Adenomatous colon polyp Allergies Arthritis Basal cell carcinoma (BCC) Encounter for Papanicolaou smear for cervical cancer screening Melanoma Surgical History Surgical History History of knee replacement 2019 History of tubal ligation 1987 Status post reverse arthroplasty of right shoulder Family History Family History Father Cerebrovascular accident Hypertension Grandparent Parkinsons Heart disease Cancer Social History Social History Smoking status: Never smoker Alcohol intake: current Drinks per week: 3 Alcohol use details: GLASSES WINE Substance use: never Substance use type: does not use Lack of Transportation: No Lack of Food: Never True Current Housing: I Have Housing Concerned About Future Housing: No Difficulty Paying Gas/Electric Bills: No Difficulty Paying for Meds: No Currently Unemployed: No Education: Bachelor's Degree Difficulty w/ Childcare or Family Care: No Living arrangements: with family Additional living arrangements comments: Occupation/Education: retired Gender identity (if verbalized by the patient): Female Sexual Orientation (if Verbalized by the Patient): Straight or Heterosexual Spiritual care concerns: No Anes - Eval Final PreProcedure Day of Procedure 11/05/23 11:07 Patient weight: obese Heart: regular rate and rhythm Lungs: clear to auscultation Airway: Mallampati scale class II Neurological: alert and oriented Last oral intake: >/= 8 hours ASA classification: III Emergent: no Anesthetic plan: proceed Anesthesia type and monitoring: general GIVS and standard monitoring Results Review: All pre-operative results and documents have been reviewed as part of the pre-operative evaluation. Informed Consent: The patient's anesthetic plan and its attendant risks and benefits were discussed with the patient/family/POA. Questions were solicited and answers provided to the satisfaction of the patient/family/POA.
[2023-11-05 11:24] VITALS: BP 114/66; PULSE 51; RESP 20; O2SAT 99
[2023-11-05 11:34] VITALS: BP 125/63; PULSE 51; RESP 25; O2SAT 100
[2023-11-05 11:44] VITALS: BP 139/81; PULSE 53; RESP 20; O2SAT 100
== END 2023-11-05 11:50 | disposition home or self-care (01) ==
PROVIDERS: PCP Internal Medicine; Visit Provider Internal Medicine Gastroenterology
PROC: 0DJ08ZZ Inspection of Upper Intestinal Tract, Via Natural or Artificial Opening Endoscopic (ICD-10-PCS; CPT 43235; principal; 2023-11-05 11:00)
DX: K21.00 Gastro-esophageal reflux disease with esophagitis, without bleeding (principal); K44.9 Diaphragmatic hernia without obstruction or gangrene; K29.50 Unspecified chronic gastritis without bleeding; E66.9 Obesity, unspecified; Z68.33 Body mass index [BMI] 33.0-33.9, adult
CPT/HCPCS: 43239; 88305; J2704; J7120

== ENCOUNTER 2024-01-13 08:14 | Outpatient (CLI) | payer MEDICARE, SELFPAY ==
[2024-01-13 14:19] LABS: Basophils Absolute Auto 0.1 K/mm3 (0.0-0.1); Basophils Percent Auto 1.3 % (0.2-1.2); Eosinophils Absolute Auto 0.1 K/mm3 (0-0.3); Hematocrit 42.6 % (37.0-47.0); Hemoglobin 13.8 g/dL (12.0-15.0); Immature Granulocyte Absolute 0.01 K/mm3 (0.00-0.031); Immature Granulocyte Percent A 0.2 % (0-0.5); Lymphocytes Absolute Auto 1.75 K/mm3 (0.9-3.2); Mean Corpuscular HGB Conc 32.4 g/dl (32-36); Mean Corpuscular Hemoglobin 28.9 pg (26-34); Mean Corpuscular Volume 89.1 fl (80-100); Mean Platelet Volume 10.1 fl (7.4-10.4); Monocytes Absolute Auto 0.3 K/mm3 (0.1-0.6); Monocytes Percent Auto 6.8 % (2.6-8.5); Neutrophils Absolute Auto 2.5 K/mm3 (1.3-6.7); Neutrophils Percent Auto 51.7 % (45.5-73.1); Platelet Count Result 202 k/mm3 (150-375); Red Blood Count 4.78 M/mm3 (4.2-5.4); Red Cell Distribution Width 13.2 % (11.5-14.5); White Blood Count 4.7 K/mm3 (4.5-10.0)
[2024-01-13 15:04] LABS: Alanine Aminotransferase 21 U/L (6-35); Albumin Level 4.4 g/dL (3.5-5.1); Alkaline Phosphatase 56 U/L (38-126); Anion Gap 5 mmol/L (8-16); Aspartate Amino Transferase 66 U/L (14-36); Bilirubin,Total 0.5 mg/dL (0.2-1.3); Blood Urea Nitrogen 21 mg/dL (7-17); Calcium 9.5 mg/dL (8.4-10.2); Carbon Dioxide 26 mmol/L (22-30); Chloride 108 mmol/L (98-107); Cholesterol 198 mg/dL (0-200); Estimated Glomerular Filt Rate 55; Glucose 90 mg/dL (65-110); HDL Direct 54 mg/dL; Sodium 139 mmol/L (137-145); Triglycerides 78 mg/dL (<150)
[2024-01-13 15:17] LABS: Vitamin D 25 Hydroxy 49.2 ng/mL
[2024-01-13 15:20] LABS: LDL Cholesterol Direct 100 mg/dL
[2024-01-16 03:11] LABS: Thyroid Peroxidase Antibodies <1 IU/mL (<9)
== END 2024-01-13 08:15 | disposition home or self-care (01) ==
PROVIDERS: PCP Internal Medicine; Visit Provider Clinical Nurse Specialist
DX: R00.1 Bradycardia, unspecified (principal); Z13.29 Encounter for screening for other suspected endocrine disorder; R42 Dizziness and giddiness; R53.83 Other fatigue; E55.9 Vitamin D deficiency, unspecified; R74.8 Abnormal levels of other serum enzymes; Z13.220 Encounter for screening for lipoid disorders
CPT/HCPCS: 36415; 80053; 80061; 82306; 84443; 85025; 86376

== ENCOUNTER 2024-01-29 07:39 | Outpatient (CLI) | payer MEDICARE, SELFPAY ==
--- NOTE | ~2024-01-29 | MM_ITS ---
EXAMINATION: MM screening anay BI w yamile HISTORY: Screening mammogram TECHNIQUE: Craniocaudal and mediolateral oblique 3-D tomosynthesis images were obtained and synthetic 2-D images were generated. CAD analysis was submitted and interpreted. COMPARISON: 02/19/2023 diagnostic bilateral mammogram and limited left breast ultrasound 05/10/2022, 03/15/2021 bilateral screening mammogram examinations BREAST PARENCHYMAL COMPOSITION: There are scattered areas of fibroglandular density. FINDINGS: There is no evidence of suspicious mass, calcification, or architectural distortion to sugg est malignancy in either breast. There has been no suspicious interval change. IMPRESSION: 1. No mammographic evidence of malignancy. 2. Recommend routine screening mammography in one year. BI-RADS Category 1: Negative Reviewed, dictated and finalized at location A. ER MACHINE
== END 2024-01-29 07:40 | disposition home or self-care (01) ==
PROVIDERS: PCP Internal Medicine; Visit Provider Nurse Practitioner
DX: Z12.31 Encounter for screening mammogram for malignant neoplasm of breast (principal)
CPT/HCPCS: 77063; 77067

== ENCOUNTER 2024-03-25 10:00 | Outpatient (CLI) | payer MEDICARE, SELFPAY ==
[2024-03-25 19:17] LABS: Alanine Aminotransferase 18 U/L (6-35); Albumin Level 4.3 g/dL (3.5-5.1); Alkaline Phosphatase 60 U/L (38-126); Aspartate Amino Transferase 37 U/L (14-36); Bilirubin,Total 0.5 mg/dL (0.2-1.3)
[2024-03-25 20:55] LABS: Hepatitis C Virus Antibody Negative (Negative)
== END 2024-03-25 10:01 | disposition home or self-care (01) ==
PROVIDERS: PCP Nurse Practitioner; Visit Provider Nurse Practitioner
DX: R74.8 Abnormal levels of other serum enzymes (principal)
CPT/HCPCS: 36415; 80076; 86803

== ENCOUNTER 2024-07-27 13:15 | Outpatient (RCR) | payer MEDICARE, SELFPAY ==
--- NOTE | 2024-06-28 16:13 | OPREHPOC ---
Outpatient Therapy Plan of Care This is a Multidisciplinary Plan of Care that may contain components documented by all disciplines (PT, OT, and ST.) PT Problem 1 PT Problem #1 Knowledge Deficit PT Goal 1 Goal Pt to be IND with issued HEP Target Visit 2 PT Problem 2 PT Problem #2 Pain PT Goal 1 Goal Pt to report 75% improvement in overall symptoms. Target Visit 8 PT Goal 2 Goal Pt to report R shoulder pain no greater than 3/10 in the last week. Target Visit 8 PT Problem 3 PT Problem #3 Impaired Range of Motion PT Goal 1 Goal Pt to improve R shoulder abduction ROM to 140 deg. Target Visit 6 PT Goal 2 Goal Pt to report equal stretch sensations with cervical ROM PT Problem 4 PT Problem #4 Impaired Strength PT Goal 1 Goal Pt to be able to lift 10lb overhead without an increase in pain. Target Visit 6
--- NOTE | 2024-06-28 16:13 | PTOPEVAL1 ---
Assessment and note entered by Melina Jackson, PT, DPT Evaluation Information Assessment Status Evaluation Diagnosis R pectoralis muscle strain ICD-10 Condition Codes (PT) M25.511 Subjective Information Pt states about 6 weeks ago she was doing yardwork and got a pain in her anterior shoulder. She states she has been to her ortho doctor since and they do not think she has damaged her RTC. She had a R RTC release and debridement 09/2022. She states she gets intermittent pain into the R side of her neck. She states the pain has gotten progressively better but is still lingering. She enjoys playing golf, momo classes, and doing land scaping. Reported Pain Level Pain Score 0: Self Report Assessment PT Clinical Summary Pt presents to therapy today for her initial evaluation with a diagnosis of a R pectoralis muscle strain. Today she demonstrates decreased cervical and R shoulder ROM with pain felt in the anterior R shoulder. She demonstrate equal strength zahra with a minor increase in pain on the R side. She has forward and rounded shoulders zahra. Skilled therapy services are indicated to address the deficits noted above, to limit pain, and to return to PLOF. Plan of Care Interventions Electrical Stimulation,Hot Pack/Cold Pack,Manual Therapy,Neuro Re-education,Patient/Caregiver Educati,Therapeutic Activities,Therapeutic Exercise PT Services Indicated Yes Treatment Frequency and 1x/wk for 6 visits Duration These treatments will address the objective and functional deficits as defined above. The patient will be advanced safely and appropriately in order for the patient to progress towards his/her prior level of function. Additional exercises will be introduced and as well as a comprehensive home exercise program upon discharge, if needed, ?to ensure carryover of functional gains achieved in the clinic. This treatment plan has been reviewed and agreement upon by the patient.
--- NOTE | 2024-07-14 10:07 | PCPTNOTE ---
Patient was canceled 07/12/24 due to therapist out of clinic.
--- NOTE | 2024-07-27 13:51 | PTOPDC ---
Assessment and note entered by Melina Jackson, PT, DPT Evaluation Information Assessment Status Discharge Diagnosis R pectoralis muscle strain ICD-10 Condition Codes (PT) M25.511 Subjective Information Pt states she is doing as well as she can expect. She states she still wakes up a little sore but states she is from how she sleeps at night. She states she has only had pain once time in the last week and this was when lifting a heavy box. Pt reports 99% return to PLOF. Reported Pain Level Pain Score 0: Self Report Assessment PT Clinical Summary Pt has completed 4 visits of skilled therapy to treat her R pec strain. Today she demonstrates ROM and strength that is back to her baseline, just slightly decreased from her L side. She has met or progressed well towards all her therapy goals and no longer requires skilled services. She will be d/c'ed at this time.
== END 2024-07-27 16:09 | disposition home or self-care (01) ==
LOC: ANHGOSHPT 13:15
PROVIDERS: PCP Nurse Practitioner; Visit Provider Physician Assistant
DX: S29.011A Strain of muscle and tendon of front wall of thorax, initial encounter (principal); Z98.890 Other specified postprocedural states
CPT/HCPCS: 97110; 97112; 97161; 97530

== ENCOUNTER 2024-08-03 15:49 | Emergency (ER) | payer MEDICARE, SELFPAY ==
[2024-08-03 16:05] VITALS: BP 129/90; PULSE 91; RESP 24; TEMP 36.5; O2SAT 100
--- NOTE | 2024-08-03 16:06 | ED.DIZZY ---
HPI - Dizziness General Chief Complaint: Dizziness Stated Complaint: Lightheaded Time Seen by Provider: 08/03/24 16:06 Source: patient, RN notes reviewed and old records reviewed Mode of arrival: ambulatory Limitations: no limitations History of Present Illness HPI Narrative: patient presents with complaints of tachycardia, dizziness, shortness of breath with exertion today. Patient is an avid cyclist, has had a workup for bradycardia in the past. Reports normal heart rate is in the 50s. She states that past couple of time she has written her bike she has experienced near syncope, chest discomfort, and tachycardia. She reports that most recent incident was about 45 minutes prior to arrival. She still uncomfortable on her arrival today. She denies any chest pain, but does complain of some discomfort. She reports that she had some associated nausea earlier, this has since subsided. She voices no other concerns or complaints today. MD elicited complaint: dizziness, lightheadedness and near syncope Onset (ago): hour(s) Timing: sudden onset Severity: similar to previous episodes Description: lightheadedness, off-balance and near-syncope Context: exertion Related Data Home Medications Medication Instructions Recorded Confirmed ascorbic acid (vitamin C) 250 mg 250 mg PO DAILY 10/22/23 08/03/24 tablet folic acid 1 mg tablet 1 mg PO DAILY 06/03/24 08/03/24 methotrexate sodium 2.5 mg tablet 15 mg PO WEEKLY 06/03/24 08/03/24 famotidine 20 mg tablet 20 mg PO DAILY 08/03/24 08/03/24 Allergies Allergy/AdvReac Type Severity Reaction Status Date / Time olopatadine Allergy Mild itchy OU Verified 08/03/24 16:02 Review of Systems Review of Systems: All systems reviewed & are unremarkable except as noted in HPI and below Constitutional: Constitutional: Reports as per HPI and Reports no additional constitutional complaints ENT: Reports system reviewed and no additional complaints, except as documented and Reports as per HPI Cardiovascular: Cardiovascular: Reports as per HPI, Reports no additional cardiovascular complaints, Reports rapid heart rate, Reports palpitations, Reports dyspnea and Reports dyspnea on exertion Respiratory: Respiratory: Reports as per HPI, Reports no additional respiratory complaints and Reports dyspnea on exertion Gastrointestinal: Gastrointestinal: Reports no additional gastrointestinal complaints PMFSH Past Medical History Medical History ACL tear 1998 Adenomatous colon polyp Allergies Arthritis Basal cell carcinoma (BCC) Encounter for Papanicolaou smear for cervical cancer screening Lichenoid dermatitis Melanoma Surgical History Surgical History History of knee replacement 2018 History of tubal ligation 1987 Status post reverse arthroplasty of right shoulder Family History Family History Father Cerebrovascular accident Hypertension Grandparent Parkinsons Heart disease Cancer Social History Social History Smoking status: Never smoker Alcohol intake: current Drinks per week: 3 Alcohol use details: GLASSES WINE Substance use: never Substance use type: does not use Lack of Transportation: No Lack of Food: Never True Current Housing: I Have Housing Concerned About Future Housing: No Difficulty Paying Gas/Electric Bills: No Difficulty Paying for Meds: No Currently Unemployed: No Education: Bachelor's Degree Difficulty w/ Childcare or Family Care: No Living arrangements: with family Additional living arrangements comments: Occupation/Education: retired Gender identity (if verbalized by the patient): Female Sexual Orientation (if Verbalized by the Patient): Straight or Heterosexual Spiritual care concerns: No C
--- NOTE | 2024-08-03 16:12 | ECG_ITS ---
Test Date: 2024-08-03 16:23:18 Measurements Intervals [place] Rate: 73 P: 44 NM: 154 QRS: -19 QRSD: 90 T: 40 QT: 394 QTc: 434 Interpretive Statements SINUS RHYTHM POSSIBLE LEFT ATRIAL ENLARGEMENT INCOMPLETE RIGHT BUNDLE BRANCH BLOCK POOR R WAVE PROGRESSION BASELINE ARTIFACT- II, III, AVF BORDERLINE ECG No previous ECG available for comparison Electronically Signed On 08-03-2024 16:52:38 CDT by Benedict Cortez D.O.
== END 2024-08-03 16:43 | disposition short-term general hospital (02) ==
PROVIDERS: Emergency Provider Nurse Practitioner Family; PCP Internal Medicine
DX: R55 Syncope and collapse (principal); M19.90 Unspecified osteoarthritis, unspecified site; Z85.828 Personal history of other malignant neoplasm of skin; Z85.820 Personal history of malignant melanoma of skin
CPT/HCPCS: 93005; 99215; G0463

== ENCOUNTER 2024-08-03 17:10 | Emergency (ER) | payer MEDICARE, SELFPAY ==
[2024-08-03 17:11] VITALS: BP 139/82; PULSE 71; RESP 16; TEMP 36.9; O2SAT 100
--- NOTE | 2024-08-03 17:28 | PC.NURSE ---
PT DECIDED TO LEAVE D/T WAIT TIME, WILL FOLLOW UP WITH PCP AND ASSET PROTECTION REPRESENTATIVE IN AM
== END 2024-08-03 18:12 | disposition left against medical advice (07) ==
LOC: ANHED 17:56
PROVIDERS: PCP Internal Medicine
DX: R42 Dizziness and giddiness (principal)
CPT/HCPCS: 99199

== ENCOUNTER 2024-09-29 10:05 | Outpatient (CLI) | payer MEDICARE, SELFPAY ==
--- NOTE | 2024-09-29 10:23 | EST_ITS ---
Patient Info Name: Aleida Mendez Age: 69 years : 1955 Gender: Female Ht: 62 in Wt: 180 lbs BSA: 1.92 m2 HR: 54 bpm BP: 114 / 67 mmHg Exam Date: 09/29/2024 10:32 AM Exam Location: Echo Lab Patient Status: Outpatient Admit Date: 09/29/2024 Staff Ordering Physician: Benedict Cortez DO Attending Provider: Benedict Cortez DO Exercise Technologist: Disha Hendrickson RDCS Exercise Physician: Benedict Cortez DO Exam Type: CA stress test treadmill Study Info A treadmill exercise stress test was performed. Summary 1. 1. Negative Noe exercise stress test for ischemic ST changes by ECG criteria. 2. 2. Reduced functional capacity, achieving 7 METs of workload. 3. 3. Appropriate HR response to exercise. 4. 4. Appropriate HR recovery at 1 minute post exercise. 5. 5. No imaging with stress testing. 6. 6. Patient informed of the above results. Protocol: Noe Stress ECG Details Stage: REST Duration (min): 5 min : 55 sec Speed (mph): 0.0 Grade (%): 0 HR (bpm): 54 SBP (mmHg): 114 DBP (mmHg): 67 METS: --- Stage: REST Duration (min): 11 min : 20 sec Speed (mph): 0.0 Grade (%): 0 HR (bpm): 68 SBP (mmHg): 114 DBP (mmHg): 67 METS: --- Stage: STAGE 1 Duration (min): 1 min : 0 sec Speed (mph): 1.7 Grade (%): 10 HR (bpm): 99 SBP (mmHg): 114 DBP (mmHg): 67 METS: --- Stage: STAGE 1 Duration (min): 2 min : 0 sec Speed (mph): 1.7 Grade (%): 10 HR (bpm): 124 SBP (mmHg): 114 DBP (mmHg): 67 METS: --- Stage: STAGE 1 Duration (min): 3 min : 0 sec Speed (mph): 1.7 Grade (%): 10 HR (bpm): 130 SBP (mmHg): 157 DBP (mmHg): 75 METS: --- Stage: STAGE 2 Duration (min): 1 min : 0 sec Speed (mph): 2.5 Grade (%): 12 HR (bpm): 134 SBP (mmHg): 157 DBP (mmHg): 75 METS: --- Stage: STAGE 2 Duration (min): 2 min : 0 sec Speed (mph): 2.5 Grade (%): 12 HR (bpm): 139 SBP (mmHg): 137 DBP (mmHg): 55 METS: --- Stage: STAGE 2 Duration (min): 2 min : 0 sec Speed (mph): 2.5 Grade (%): 12 HR (bpm): 139 SBP (mmHg): 137 DBP (mmHg): 55 METS: --- Stage: RECOVERY Duration (min): 0 min : 59 sec Speed (mph): 0.0 Grade (%): 0 HR (bpm): 113 SBP (mmHg): 137 DBP (mmHg): 55 METS: --- Stage: RECOVERY Duration (min): 1 min : 59 sec Speed (mph): 0.0 Grade (%): 0 HR (bpm): 90 SBP (mmHg): 137 DBP (mmHg): 55 METS: --- Stage: RECOVERY Duration (min): 2 min : 59 sec Speed (mph): 0.0 Grade (%): 0 HR (bpm): 73 SBP (mmHg): 146 DBP (mmHg): 67 METS: --- Stage: RECOVERY Duration (min): 3 min : 13 sec Speed (mph): 0.0 Grade (%): 0 HR (bpm): 76 SBP (mmHg): 146 DBP (mmHg): 67 METS: --- Rest HR: 68 bpm Peak HR: 139 bpm Rest Sys BP: 114 mmHg Peak Sys BP: 157 mmHg Max Pred HR: 151 bpm % Max Pred HR: 92 % Target HR: 128 bpm Max RPP: 21,823 bpm*mmHg Garcia Score: 1 Termination Reason: Reached target heart rate or workload Cardiac Symptoms: Shortness of breath Max ST Seg Deviation: -0.80 mm Total Time: 5 min : 0 sec Rest Carvalho BP: 67 mmHg Peak Carvalho BP: 75 mmHg Angina Score: None Total METS: 7.1 Resting ECG Sinus rhythm, IRBBB. Stress ECG No ST changes. Arrhythmias None. Report Signatures
--- NOTE | 2024-09-29 10:23 | ECHO_ITS ---
Patient Info Name: Aleida Mendez Age: 69 years : 1955 Gender: Female Ht: 62 in Wt: 180 lbs BSA: 1.92 m2 HR: 62 bpm BP: 114 / 67 mmHg Heart Rhythm: Sinus Rhythm Technical Quality: Good Exam Date: 09/29/2024 10:36 AM Exam Location: Echo Lab Patient Status: Outpatient Admit Date: 09/29/2024 Staff Ordering Physician: Benedict Cortez DO Acute Care Registered Nurse: Disha Hendrickson RDCS Attending Provider: Benedict Cortez DO Referring Physician: Diego LORENZ; Exam Type: CA echo doppler color flow Study Info Indications R06.09 - Other forms of dyspnea Complete two-dimensional, color flow and Doppler transthoracic echocardiogram is performed. Summary 1. Complete two-dimensional, color flow and Doppler transthoracic echocardiogram is performed. 2. Left ventricular chamber dimension is normal. 3. Left ventricular systolic function is normal, estimated at 60-65%. 4. The left ventricular diastolic function is grade I diastolic dysfunction. 5. E/e' 5 is not elevated. 6. There is trace mitral valve regurgitation. 7. No pulmonary hypertension, estimated pulmonary arterial systolic pressure is 23 mmHg. 8. There is trace pulmonic regurgitation. Left Ventricle E/e' 5 is not elevated. Left ventricular chamber dimension is normal. Left ventricular systolic function is normal, estimated at 60-65%. The left ventricular diastolic function is grade I diastolic dysfunction. Right Ventricle Right ventricular systolic function is normal and with normal TAPSE 2.1 cm. Right ventricular chamber dimension is normal. Left Atria Left atrial chamber dimension is normal. Right Atria Right atrial chamber dimension is normal. Aortic Valve The aortic valve is trileaflet. There is no aortic valve stenosis. There is no aortic valve regurgitation. Pulmonic Valve There is trace pulmonic regurgitation. Mitral Valve There is no mitral valve stenosis. There is trace mitral valve regurgitation. Tricuspid Valve There is no tricuspid valve regurgitation. No pulmonary hypertension, estimated pulmonary arterial systolic pressure is 23 mmHg. Pericardium/Pleural There is no pericardial effusion. Inferior Vena Cava Normal inferior vena cava with >50% collapse upon inspiration consistent with normal right atrial pressure, 5 mmHg. Aorta The aortic root size at the sinus of Valsalva is normal. Left Ventricular Outflow Tract Name Value Normal LVOT 2D LVOT Diameter 2.0 cm LVOT Doppler LVOT Peak Gradient 4 mmHg LVOT Mean Gradient 2 mmHg LVOT VTI 22 cm LVOT VTI/AV VTI Ratio 0.7 LVOT Stroke Volume 65 ml LVOT CO 3.4 l/min LVOT CI 1.8 l/min/m2 Pulmonic Valve Name Value Normal RVOT Doppler RVOT Peak Gradient 1 mmHg PV Doppler PV Peak Gradient 3 mmHg Mitral Valve Name Value Normal MV Doppler MV Decel Dukes 181 cm/s2 MV PHT 67 ms MV Area (PHT) 3.3 cm2 4.0-5.0 MV Diastolic Function MV E Peak Velocity 42 cm/s MV A Peak Velocity 54 cm/s MV E/A 0.8 MV Decel Time 231 ms MV Annular TDI MV E/e' (Septal) 5.9 <=8.0 MV E/e' (Lateral) 4.5 <=8.0 MV E/e' (Average) 5.2 Tricuspid Valve Name Value Normal TV Regurgitation Doppler TR Peak Velocity 215 cm/s TR Peak Gradient 18 mmHg Estimated PAP/RSVP RA Pressure 5 mmHg <=5 PA Systolic Pressure 23 mmHg <36 RV Systolic Pressure 23 mmHg <36 Aorta Name Value Normal Ascending Aorta Ao Root Diameter (MM) 2.5 cm Ao Root Diam Index (MM) 1.3 cm/m2 Aortic Valve Name Value Normal AV Doppler AV Peak Velocity 152 cm/s AV Peak Gradient 9 mmHg AV Mean Gradient 5 mmHg AV VTI 30 cm AV Area (Cont Eq VTI) 2.2 cm2 >=3.0 AV Area (Cont Eq Reagan) 2.0 cm2 AV Regurgitation 2D LVOT Area 3.0 cm2 Ventricles Name Value Normal LV Dimensions 2D/MM IVS Diastolic Thickness (2D) 1.0 cm 0.6-1.0 LVID Diastole (2D) 4.4 cm 3.8-5.2 LVIW Diastolic Thickness (2D) 0.9 cm 0.6-0.9 LVID Systole (2D) 2.4 cm 2.2-3.5 LVOT Diameter 2.0 cm LV Mass (2D Cubed) 133.47 g 67.00-162.00 LV Mass Index (2D Cubed) 69 g/m2 43-95 Relative Wall Thickness (2D) 0.41 LV Fractional Shortening/Ejection Fraction 2D/MM LV Fractional Shortening (2D) 46 % 27-45 LV EF (2D Teicholz) 78 % 54-74 LV Diastolic Volume (4C MOD) 63 ml LV EF (4C MOD) 72 % LV Diastolic Volume (2C MOD) 54 ml LV EF (2C MOD) 71 % LV Diastolic Volume (BP MOD) 59 ml 46-106 LV Diastolic Volume Index (BP MOD) 31 ml/m2 29-61 LV Systolic Volume (BP MOD) 17 ml 14-42 LV Systolic Volume Index (BP MOD) 9 ml/m2 8-24 LV EF (BP MOD) 71 % 54-74 LV Diastolic Length (4C) 7.5 cm LV Systolic Length (4C) 6.2 cm LV Stroke Volume (4C MOD) 45 ml Atria Name Value Normal LA Dimensions LA Dimension (MM) 4.5 cm 2.7-3.8 LA Volume (4C A-L) 46 ml LA Volume (BP A-L) 46 ml RA Dimensions RA Area (4C) 11.9 cm2 <=18.0 Report Signatures
== END 2024-09-29 10:06 | disposition home or self-care (01) ==
LOC: ANHCARD 10:09
PROVIDERS: PCP Internal Medicine; Visit Provider Internal Medicine Cardiovascular Disease
DX: R06.09 Other forms of dyspnea (principal)
CPT/HCPCS: 93017; 93306

== ENCOUNTER 2024-10-15 10:56 | Emergency (ER) | payer MEDICARE, SELFPAY ==
--- NOTE | ~2024-10-15 | XR_ITS ---
EXAMINATION: XR chest 2V DATE: 10/15/2024 11:31 INDICATION: Cough and congestion TECHNIQUE: frontal and lateral views of the chest were obtained. COMPARISON: None FINDINGS: Mild linear opacities in the bilateral lower lung zones and favor discoid atelectasis over pneumonia. No pulmonary edema, pleural effusion or pneumothorax. The cardiomediastinal silhouette is normal. Mi ld thoracic spondylosis. IMPRESSION: 1. Mild linear opacities in the bilateral lower lung zones and favor discoid atelectasis over pneumon ia. Reviewed, dictated and finalized at location B. PING COORDINATOR IMPRESSION: 1. Mild linear opacities in the bilateral lower lung zones and favor discoid at electasis over pneumonia.
--- NOTE | 2024-10-15 11:08 | ED.URI ---
HPI - URI/Sore Throat General Chief Complaint: Upper Respiratory Infection Stated Complaint: cold symptoms Time Seen by Provider: 10/15/24 11:09 Source: patient Mode of arrival: ambulatory Limitations: no limitations History of Present Illness HPI Narrative: Aleida is a 69-year-old female patient presenting to the clinic today with complaints of productive cough, chest congestion, fatigue, shortness of breath, and body aches. She reports symptoms have been going on over the past 2-3 days. She reports that she was seen at the end of July/beginning of August and was prescribed doxycycline for a upper respiratory infection. States she does take methotrexate. She denies any fever or chills. MD elicited complaint: cough, nasal congestion and other ( chest congestion) Related Data Home Medications Medication Instructions Recorded Confirmed ascorbic acid (vitamin C) 250 mg 250 mg PO DAILY 10/22/23 10/15/24 tablet folic acid 1 mg tablet 1 mg PO DAILY 06/03/24 10/15/24 methotrexate sodium 2.5 mg tablet 15 mg PO WEEKLY 06/03/24 10/15/24 famotidine 20 mg tablet 20 mg PO DAILY 08/03/24 10/15/24 Allergies Allergy/AdvReac Type Severity Reaction Status Date / Time olopatadine Allergy Mild itchy OU Verified 10/15/24 11:10 Review of Systems Review of Systems: Pertinent positives per HPI. Patient denies any fever, chills, rash, headache, visual changes, dizziness, shortness of breath, chest pain, palpitations, nausea, vomiting, diarrhea, constipation, abdominal pain, or any urinary issues. [facility] Past Medical History Medical History ACL tear 1998 Adenomatous colon polyp Allergies Arthritis Basal cell carcinoma (BCC) Encounter for Papanicolaou smear for cervical cancer screening Lichenoid dermatitis Melanoma Surgical History Surgical History History of knee replacement 2019 History of tubal ligation 1987 Status post reverse arthroplasty of right shoulder Family History Family History Father Cerebrovascular accident Hypertension Grandparent Parkinsons Heart disease Cancer Social History Social History Smoking status: Never smoker Alcohol intake: current Drinks per week: 3 Alcohol use details: GLASSES WINE Substance use: never Substance use type: does not use Do You Feel Safe in your Home?: Yes Lack of Transportation: No Lack of Food: Never True Current Housing: I Have Housing Concerned About Future Housing: No Difficulty Paying Gas/Electric Bills: No Difficulty Paying for Meds: No Currently Unemployed: No Education: Bachelor's Degree Difficulty w/ Childcare or Family Care: No Living arrangements: with family Additional living arrangements comments: Occupation/Education: retired Gender identity (if verbalized by the patient): Female Sexual Orientation (if Verbalized by the Patient): Straight or Heterosexual Spiritual care concerns: No Comments At the time of my signature, I reviewed and agree with the nursing past medical, surgical, social, and family history. There is no relevant family history pertinent to the patient complaint. Exam Narrative: General: Well-developed, well nourished, in no apparent distress Head: Normocephalic, atraumatic Eyes: Pupils equally round and reactive to light bilaterally, EOM intact, sclera and conjunctive clear, no discharge, lids normal Ears: TMs intact and clear, ear canals clear, no drainage, grossly hearing normal. Nose: Nares patent, clear nasal discharge, no inflammation, no sinus tenderness. Mouth: Oral pharynx without lesions or masses, good dentition, MMM. Neck: Supple, trachea midline, no enlargement of anterior or posterior cervical nodes, no thyroid masses or goiter palpable. Cardio: Regular rate and rhythm, s1 and s2 normal, no murmur appreciated. Resp: Fine expiratory crackles and bilateral posterior lobe, no rhonchi, wheezing or rubs Course Course Emergency Course: Portions of this record may have been created with voice recognition software. Level of Care: Express Care Visit Vital Signs Vital signs: Vital Signs Temperature 37.4 C 10/15/24 11:14 Pulse Rate 74 10/15/24 11:14 Respiratory Rate 16 10/15/24 11:14 Blood Pressure 133/88 10/15/24 11:14 Pulse Oximetry 97 10/15/24 11:14 Temperature 37.4 C 10/15/24 11:14 Pulse Rate 74 10/15/24 11:14 Respiratory Rate 16 10/15/24 11:14 Blood Pressure 133/88 10/15/24 11:14 Pulse Oximetry 97 10/15/24 11:14 Vital signs reviewed MDM - URI/Sore Throat MDM Narrative Medical decision making narrative: At the time of visit patient is resting comfortably on the exam table. Patient appears to be nontoxic. Labs: COVID and influenza testing was negative in the clinic today. Diagnostics: Chest x-ray shows favoring discoid atelectasis over pneumonia. Plan: Patient is immunocompromised. I suspect patient has URI with cough and congestion as well has discoid atelectasis. Prescription for azithromycin, prednisone, and albuterol inhaler was sent to the pharmacy. Recommend patient contact her brand engineer who is prescribing her methotrexate to be sure that prednisone is okay for her to take at this time. She voiced understanding. Supportive measures were discussed with the patient and they voiced understanding discharge instructions and agrees to treatment plan. Return precautions reviewed Differential Diagnosis Differential diagnosis: Likely upper respiratory infection, otitis media, sinusitis, viral infection, bronchitis, influenza, pharyngitis and other (COVID) Lab Data Labs: Lab Results 10/15/24 Range/Units 11:44 POC Influenza A Ag Negative (Negative) POC Influenza B Ag Negative (Negative) POC SARS CoV-2 Ag Negative (Negative) Imaging Data Radiologist's impression: ITS Impressions Chest X-Ray 10/15/24 12:20 IMPRESSION: 1. Mild linear opacities in the bilateral lower lung zones and favor discoid atelectasis over pneumonia. Discharge Plan Discharge Clinical Impression: Upper respiratory infection with cough and congestion, Acute atelectasis Patient Disposition: Home, Self-Care Condition: Stable Instructions: Antibiotic Form, Cold Symptoms (ED), Atelectasis (ED) Additional Instructions: Chest x-ray shows likely discoid atelectasis over pneumonia COVID and influenza testing was negative in the clinic today Take prescription medications only as prescribed-prednisone, azithromycin, and albuterol inhaler Increase fluids and stay well hydrated Tylenol/motrin for pain/fever Flonase and OTC antihistamines as directed Vicks vapor rub to open sinuses Sinus rinses for congestion Cepacol spray, cough drops, throat lozenges, warm tea with honey/lemon, gargle salt water to soothe throat BRAT diet for diarrhea Clear liquids x 24 hours then advance as tolerated for nausea/vomiting Go to the ED if you develop a worsening in your condition- high fever not controlled by Tylenol or Motrin, dehydration, weakness, lethargy, shortness of breath, or chest pain. Follow up with your PCP in 3-5 days if symptoms persist. Prescriptions: New azithromycin 250 mg tablet See Rx Instructions .ROUTE .COMPLEX Qty: 6 0RF Rx Instructions: For 250 mg dose pack: take 500 mg today (day 1), then 250 mg for 4 days (days 2-5) prednisone 20 mg tablet 40 mg PO DAILY 5 Days Qty: 10 0RF albuterol sulfate 90 mcg/actuation HFA aerosol inhaler 2 puff inhalation Q4-6H PRN (Reason: shortness of breath or wheezing) 30 Days Qty: 8.5 0RF No Action famotidine 20 mg Tablet 20 mg PO DAILY ascorbic acid (vitamin C) 250 mg Tablet 250 mg PO DAILY valacyclovir 1 gram tablet 2,000 mg PO Q12H PRN (Reason: cold sores) Qty: 30 1RF Rx Instructions: Take 2000 mg PO q 12 hours x 1 day for cold sore flare methotrexate sodium 2.5 mg tablet 15 mg PO WEEKLY folic acid 1 mg tablet 1 mg PO DAILY venlafaxine 75 mg capsule,extended release 24hr 75 mg PO DAILY Qty: 90 1RF Follow-up/Referrals: Lance Agee DO [Primary Care Provider] - Time of Disposition: 12:33 Quality NIHSS Nursing Documentation ED NIHSS nursing documentation: reviewed/agree
[2024-10-15 11:14] VITALS: BP 133/88; PULSE 74; RESP 16; TEMP 37.4; O2SAT 97
[2024-10-15 11:47] LABS: EDCOVIDSCREEN Negative (Negative); EDINFLUASCREEN Negative (Negative); EDINFLUBSCREEN Negative (Negative)
== END 2024-10-15 12:38 | disposition home or self-care (01) ==
PROVIDERS: Emergency Provider Nurse Practitioner Family; PCP Internal Medicine
DX: J06.9 Acute upper respiratory infection, unspecified (principal); J98.11 Atelectasis; Z79.899 Other long term (current) drug therapy
CPT/HCPCS: 71046; 87426; 87804; 99213; G0463

== ENCOUNTER 2024-11-27 13:06 | Emergency (ER) | payer MEDICARE, SELFPAY ==
--- NOTE | 2024-11-27 13:15 | ED_ITS ---
HPI - URI/Sore Throat General Chief Complaint: Upper Respiratory Infection Stated Complaint: Cold Symptoms Time Seen by Provider: 11/27/24 13:10 Source: patient Mode of arrival: ambulatory Limitations: no limitations History of Present Illness HPI Narrative: Patient is a 69-year-old female who presents with burning sensation in chest and cough that started yesterday. Patient has taken anything for symptoms. Patient had similar symptoms the beginning of October and was seen by PCP. Patient was not prescribed anything at that time. Patient was given azithromycin and steroids 10/15 from this Urgent Care. Denies any fever, chills, nausea, diarrhea. Related Data Home Medications ?Medication ?Instructions ?Recorded ?Confirmed ?Last Taken ?Type ascorbic acid (vitamin C) 250 mg 250 mg PO DAILY 10/22/23 10/25/24 Unknown History tablet folic acid 1 mg tablet 1 mg PO DAILY 06/03/24 10/25/24 Unknown History methotrexate sodium 2.5 mg tablet 15 mg PO WEEKLY 06/03/24 10/25/24 Unknown History famotidine 20 mg tablet 20 mg PO DAILY 08/03/24 10/25/24 Unknown History Allergies Allergy/AdvReac Type Severity Reaction Status Date / Time olopatadine Allergy Mild itchy OU Verified 10/25/24 14:05 Review of Systems Review of Systems: All systems reviewed & are unremarkable except as noted in HPI and below Constitutional: Constitutional: Denies body ache(s), Denies chills, Denies fatigue, Denies fever(s), Denies headache(s), Denies malaise and Denies weakness Eyes: Eyes: Denies blurry vision, Denies itchy eyes and Denies loss of vision ENT: Denies otalgia, Denies headache(s), Denies nasal congestion, Denies sinus pain and Denies sore throat Cardiovascular: Cardiovascular: Denies chest pain, Denies irregular heart rhythm and Denies dyspnea Respiratory: Respiratory: Reports cough and Denies dyspnea Gastrointestinal: Gastrointestinal: Denies abdominal pain, Denies diarrhea, Denies nausea and Denies vomiting Musculoskeletal: Musculoskeletal: Denies back pain, Denies myalgias and Denies arthralgias Integumentary/Breasts: Skin/Breast: Denies pruritus and Denies rash Neurologic: Denies headache(s), Denies loss of vision and Denies weakness Psychiatric: Psychiatric: Reports no additional psychiatric complaints Endocrine: Endocrine: Denies fatigue Allergic/Immunologic: Allergic/Immunologic: Denies itchy eyes PMFSH Past Medical History Medical History Lichenoid dermatitis Basal cell carcinoma (BCC) Encounter for Papanicolaou smear for cervical cancer screening Adenomatous colon polyp Arthritis Melanoma Allergies ACL tear 1998 Surgical History Surgical History Status post reverse arthroplasty of right shoulder History of tubal ligation 1987 History of knee replacement 2019 Family History Family History Father Cerebrovascular accident Hypertension Grandparent Parkinsons Heart disease Cancer Social History Social History Smoking status: Never smoker Alcohol intake: current Drinks per week: 3 Alcohol use details: GLASSES WINE Substance use: never Substance use type: does not use Do You Feel Safe in your Home?: Yes Lack of Transportation: No Lack of Food: Never True Current Housing: I Have Housing Concerned About Future Housing: No Difficulty Paying Gas/Electric Bills: No Difficulty Paying for Meds: No Currently Unemployed: No Education: Bachelor's Degree Difficulty w/ Childcare or Family Care: No Living arrangements: with family Additional living arrangements comments: Occupation/Education: retired Gender identity (if verbalized by the patient): Female Sexual Orientation (if Verbalized by the Patient): Straight or Heterosexual Spiritual care concerns: No Comments At time of signature, agree with nursing past medical, surgical, social and family history. There is no relevant family history pertinent to the presenting complaint. Exam Const: General: cooperative, healthy appearing, comfortable, no acute distress and well nourished Nutritional Appearance: well nourished Orientation/consciousness: patient oriented x3 Limitations: no limitations HENMT: Head: normal to inspection, normocephalic and atraumatic Ears: hearing grossly normal bilaterally, external ears normal, TM's normal bilaterally, EAC's normal and no periauricular adenopathy Face/Nose/Sinus: Normal external nose present, Normal nasal mucous membranes and turbinates present, normal facial exam, sinuses nontender and face symmetric Face and sinus: normal facial exam, sinuses nontender and face symmetric Mouth: Yes Normal oral and palatal mucosa present, Yes lip normal, Yes tongue normal, Yes Normal salivary glands and ducts present, Yes oropharynx normal and Yes moist mucous membranes Teeth and gingiva: dentition normal Throat: posterior oropharynx normal, tonsils normal and uvula midline Eyes: General: appearance normal, both eyes and all related structures Alignment and Position: alignment normal and position normal Periorbital: periorbital findings normal Eyelids: eyelids normal Pupils: Equal, round and reactive pupils present Neck: Neck: normal visual inspection, full ROM, no lymphadenopathy and supple Chest: Chest palpation & inspection: normal inspection of the chest and normal palpation of entire chest wall Resp: Effort & Inspection: normal respiratory effort and able to speak in complete sentences Auscultation: clear to auscultation bilaterally, no crackles, no rales, no rhonchi and no wheezes Cardio: Rate: regular rate Rhythm: regular rhythm Heart sounds: S1 normal heart sound present and S2 normal heart sound present GI: Inspection: normal to inspection Skin: General skin exam: normal color and no rashes or lesions noted Neuro: General: patient oriented x3 and moves all extremities Cranial nerves: Yes Equal, round and reactive pupils present Speech: normal speech Gait exam (Neuro): Normal gait present Extrem: General: normal to inspection, full ROM and no edema Psych: Appearance: grossly normal and well kempt Mental Status: mental status grossly normal Speech and movement: Normal speech and movement present Affect: normal affect Attitude: cooperative Thought process: Normal thought process present Course Course Emergency Course: Discharge instructions reviewed with patient, as well as provided in writing per nursing staff. The instructions also include specific and strict return/GO TO THE ER as well as f/u information. All questions have been answered, and the patient deny any further questions with discharge and discharge plan. Portions of this record may have been created with voice recognition software Level of Care: Express Care Visit Vital Signs Vital signs: Vital Signs Temperature 37.3 C 11/27/24 13:18 Pulse Rate 66 11/27/24 13:18 Respiratory Rate 16 11/27/24 13:18 Pulse Oximetry 98 11/27/24 13:18 Temperature 37.3 C 11/27/24 13:18 Pulse Rate 66 11/27/24 13:18 Respiratory Rate 16 11/27/24 13:18 Blood Pressure 130/79 11/27/24 13:33 Pulse Oximetry 98 11/27/24 13:18 Reviewed MDM - URI/Sore Throat MDM Narrative Medical decision making narrative: Pt well hydrated appearing, in no respiratory distress, hemodynamically stable. Recommend supportive care. The patient is stable at time of discharge the clinical impression was discussed and the patient was given the opportunity to ask questions, which were addressed as completely as possible given the information available at present. Anticipatory guidance and return to care precautions were discussed and the importance of primary care follow-up was stressed and encouraged. The patient voiced understanding of the plan, indications to return, and the need for follow-up. Differential diagnosis considered: [place] virus, strep pharyngitis, allergic rhinitis, upper respiratory tract infection, sinusitis, rhinosinusitis, nasopharyngitis. viral pharyngitis, otitis media, otitis externa, otitis effusion, foreign body, cerumen impaction, viral syndrome, and influenza.? Exam findings show no acute concerns or changes; patient is non-toxic appearing and is in no distress.? Patient is appropriate for outpatient treatment and follow- up.? Medical Records Attestation: I reviewed the patient's medical records. Discharge Plan Discharge Clinical Impression: Upper respiratory infection Qualifiers: URI type: unspecified viral URI Qualified Code(s): J06.9 - Acute upper respiratory infection, unspecified Patient Disposition: Home, Self-Care Condition: Stable Instructions: Upper Respiratory Infection (ED) Additional Instructions: use Tessalon Perles as needed for cough. use at home Inhaler regularly. Your symptoms are likely due to a viral illness, which is not treated with antibiotics. Viral symptoms can be present for up to a few weeks. -Alternate Tylenol and Motrin per package directions for fever or pain. -Antihistamine medication such as Benadryl/Zyrtec at night and Claritin/Jasmyn during the day can help improve symptoms. -Use Flonase twice a day for 5 days then daily to help reduce the inflammation and dry up your sinuses. -You can also use Sudafed behind the pharmacy counter(12 or 24 hour). Be sure to drink plenty of water with these medications at least 8 ounces with every dose and it is important to drink 8 to 10 glasses of water per day. Water is a natural decongestant -Eat and drink things that are easy to swallow, like tea or soup, or popsicles. -Oral rinses such as: Salt water gargles and/or may use topical anesthetic (eg. Chloraseptic spray) or lozenges to relieve dryness or throat pain). -Frequent hand washing or hand plastic surgery technician is one of the best ways to prevent spr ead of infection. -Using a vaporizer or humidifier at night will also help thin secretions and help with coughing up phlegm. -Follow up with primary care provider in 3-5 days if condition is not improving - For new or worsening symptoms go directly to the nearest ER Patient Language: Frisian Prescriptions: New benzonatate 100 mg capsule 100 mg PO BID PRN (Reason: cough) Qty: 14 0RF No Action famotidine 20 mg Tablet 20 mg PO DAILY albuterol sulfate 90 mcg/actuation HFA aerosol inhaler 2 puff inhalation Q4-6H PRN (Reason: shortness of breath or wheezing) 30 Days Qty: 8.5 0RF ascorbic acid (vitamin C) 250 mg Tablet 250 mg PO DAILY methotrexate sodium 2.5 mg tablet 15 mg PO WEEKLY folic acid 1 mg tablet 1 mg PO DAILY venlafaxine 75 mg capsule,extended release 24hr 75 mg PO DAILY Qty: 90 1RF valacyclovir 1 gram tablet 2,000 mg PO Q12H PRN (Reason: cold sores) Qty: 30 1RF Rx Instructions: Take 2000 mg PO q 12 hours x 1 day for cold sore flare Follow-up/Referrals: Lance Agee DO [Primary Care Provider] - 3 Days Time of Disposition: 13:29
[2024-11-27 13:18] VITALS: PULSE 66; RESP 16; TEMP 37.3; O2SAT 98
[2024-11-27 13:33] VITALS: BP 130/79
== END 2024-11-27 13:34 | disposition home or self-care (01) ==
PROVIDERS: Emergency Provider Nurse Practitioner Family; PCP Internal Medicine
DX: J06.9 Acute upper respiratory infection, unspecified (principal); M19.90 Unspecified osteoarthritis, unspecified site; Z85.820 Personal history of malignant melanoma of skin; Z85.828 Personal history of other malignant neoplasm of skin
CPT/HCPCS: 99213; G0463

== ENCOUNTER 2024-12-14 15:10 | Outpatient (CLI) | payer MEDICARE, SELFPAY ==
[2024-12-14 19:53] LABS: Basophils Absolute Auto 0.1 K/mm3 (0.0-0.1); Eosinophils Absolute Auto 0.1 K/mm3 (0-0.3); Eosinophils Percent Auto 2.4 % (0-4.4); Hematocrit 38.2 % (37.0-47.0); Hemoglobin 12.4 g/dL (12.0-15.0); Immature Granulocyte Absolute 0.01 K/mm3 (0.00-0.031); Immature Granulocyte Percent A 0.2 % (0-0.5); Lymphocytes Absolute Auto 1.47 K/mm3 (0.9-3.2); Lymphocytes Percent Auto 24.7 % (18.3-44.2); Mean Corpuscular HGB Conc 32.5 g/dl (32-36); Mean Corpuscular Volume 95.5 fl (80-100); Mean Platelet Volume 10.2 fl (7.4-10.4); Monocytes Absolute Auto 0.3 K/mm3 (0.1-0.6); Monocytes Percent Auto 5.4 % (2.6-8.5); Neutrophils Absolute Auto 3.9 K/mm3 (1.3-6.7); Neutrophils Percent Auto 66.3 % (45.5-73.1); Platelet Count Result 240 k/mm3 (150-375); Red Cell Distribution Width 14.5 % (11.5-14.5); White Blood Count 5.9 K/mm3 (4.5-10.0)
[2024-12-14 19:58] LABS: Alanine Aminotransferase 36 U/L (6-35); Alkaline Phosphatase 47 U/L (38-126); Anion Gap 8 mmol/L (4-12); Aspartate Amino Transferase 41 U/L (14-36); Bilirubin,Total 0.5 mg/dL (0.2-1.3); Blood Urea Nitrogen 27 mg/dL (7-17); Calcium 9.1 mg/dL (8.4-10.2); Carbon Dioxide 28 mmol/L (22-30); Chloride 102 mmol/L (98-107); Estimated Glomerular Filt Rate 53; Glucose 91 mg/dL (65-110); Potassium 4.1 mmol/L (3.4-5.0); Sodium 138 mmol/L (137-145)
[2024-12-14 20:49] LABS: Erythrocyte Sedimentation Rate 14 mm/hr (0-20)
--- OUTSIDE RECORDS SUMMARY | 2024-12-16 19:35 | XMS_ITS | Clinical Summary ---
Author Organization [facility] [employer] Address [address] [place] [address] Care Team Providers Care Charrer Name Role Phone Lance Agee DO Primary Care Provider [phone] Source Comments [facility],non-owned Affiliates and Associated Physician Practices is amultiple site organization consisting of ambulatory clinics and hospital sitesin [place], [place], [place] and [place]. This disclosure is being madepursuant to the Care Everywhere program and may not contain all information available regarding this patient. Last updated 18.[facility] [employer] Allergies Active Allergy Reactions Criticality Noted Date Comments Olopatadine Eye Itching 11/28/2022 Medications * Be aware that medications may not be up to date on this document. Alwaysverify current medications with the patient. Medication Sig Dispensed Refills Start Date End Date Status valACYclovir (VALTREX) 1 GM tablet Take 1 (one) tablet by mouth as needed Active fluorouracil (EFUDEX) 5 % cream Apply to affected area twice daily for 2-3 weeks, or as tolerated. 40 g 11/22/2021 Active meloxicam (Mobic) 15 MG tablet Take 1 (one) tablet by mouth as needed Active venlafaxine XR 24hr (Effexor XR) 75 MG capsule Take 1 (one) capsule by mouth daily with breakfast Active clobetasol (Temovate) 0.05 % solutionIndications: Rash and other nonspecific skin eruption,Scalp itch Apply to affected scalp daily as needed. 30 days supply. 50 mL 1 04/14/2024 Active betamethasone dipropionate augmented (Diprolene Af) 0.05 % creamIndications:Patrick h and other nonspecific skin eruption APPLY TOPICALLY TO THE AFFECTED AREA TWICE DAILY 50 g 5 04/20/2024 Active famotidine (Pepcid) 40 MG tablet Take 1 (one) tablet by mouth once daily Active folic acid (Folvite) 1 MG tabletIndications:Li chenoid dermatitis Take 1 (one) tablet by mouth once daily 100 tablet 5 05/26/2024 Active methotrexate 2.5 MG tabletIndications:Li chenoid dermatitis Take 6 (six) tablets by mouth every 7 days 78 tablet 10/29/2024 Active albuterol HFA (Proventil; Ventolin; Proair) 108 (90 Base) MCG/ACT inhaler INHALE 2 PUFFS BY MOUTH EVERY 4 TO 6 HOURS NEEDED FOR SHORTNESS OF BREATH OR WHEEZING 10/15/2024 Active Active Problems Problem Noted Date Diagnosed Date Scar of eyelid 12/04/2023 Actinic keratosis 07/19/2022 Neoplasm of uncertain behavior of skin 2 History of nonmelanoma skin cancer 07/19/2022 Seborrheic keratoses 07/19/2022 Lentigines 07/19/2022 Multiple benign melanocytic nevi of upper and lower extremities and trunk 07/19/2022 Basal cell carcinoma (BCC) of left side of nose 10/09/2021 Osteoarthritis of left knee 11/05/2019 Mechanical low back pain 01/29/2019 Personal history of malignant melanoma of skin 0 01/11/2005 Overview (07/19/2022): Melanoma-R lower oneal Dx 03/2002 No path report Cough, unspecified 04/04/2004 Overview (07/19/2022): COUGH (04/04/2004) Skin cancer 11/16/2003 Overview (07/19/2022): BASAL CELL CARCINOMA (11/16/2003) Postmenopausal bleeding 09/16/2003 Overview (07/19/2022): POST MENOPAUSAL BLEEDING (09/16/2003) Menopausal symptoms 08/26/2003 Overview (07/19/2022): MENOPAUSE (08/26/2003) Encounters Date Type Department Care Team Description 11/12/2024 9:50 AM HOME APPLIANCES MECHANIC Office Visit [facility] - Dermatology [address] [place] [address] Opal Ladd MD Actinic keratosis (Primary Dx); Rash; Seborrheic keratoses; Lentigines; Multiple benign melanocytic nevi; Scar 11/12/2024 Travel 10/29/2024 Orders Only [facility] [address] [place] [address] Opal Ladd MD Lichenoid dermatitis 10/28/2024 Orders Only [facility] Dermatology [address] [place] [address] Opal Ladd MD 10/06/2024 1:20 PM HOME APPLIANCES MECHANIC - 10/06/2024 11:59 PM HOME APPLIANCES MECHANIC Hospital Encounter [facility] [address] [place] [address] Lance Agee, DO Discharge Disposition: Home or Self Care 10/06/2024 Travel from Last 3 Months Immunizations Name Administration Dates Next Due Covid Pfizer primary monoval ent 12+ yr 0.3mL Purple cap 10/19/2021,01/26/2021,12/27/2020 INFLUENZA VACCINE 09/02/2022,09/02/2020 Family History Medical History Relation Name Comments None Known Brother None Known Father None Known Maternal Aunt None Known Maternal Grandfather None Known Maternal Grandmother None Known Maternal Uncle None Known Mother None Known Other None Known Paternal Aunt None Known Paternal Grandfather None Known Paternal Grandmother None Known Paternal Uncle None Known Sister Asthma Neg Hx CVA Neg Hx Cancer - Breast Neg Hx Cancer - Other Neg Hx Cancer - Skin, Melanoma Neg Hx Cancer - Skin, Non Melanoma Neg Hx Eczema Neg Hx Hemophilia Neg Hx Psoriasis Neg Hx Relation Name Status Comments Brother Father Maternal Aunt Maternal Grandfather Maternal Grandmother Maternal Uncle Mother Other Paternal Aunt Paternal Grandfather Paternal Grandmother Paternal Uncle Sister Social History Tobacco Use Types Packs/Day Years Used Date Smoking Tobacco: Never Smokeless Tobacco: Never Tobacco Cessation:Counseling Given: Not Answered Alcohol Use Standard Drinks/Week Comments Yes 3 (1 standard drink = 0.6 oz pur e alcohol) Sex and Gender Information Value Date Recorded Sex Assigned at Not on file Gender Identity Not on file Sexual Orientation Not on file Last Filed Vital Signs Vital Sign Reading Time Taken Comments Blood Pressure 145/57 10/09/2021 3:32 PM HOME APPLIANCES MECHANIC Pulse 52 10/09/2021 3:32 PM HOME APPLIANCES MECHANIC Temperature - - Respiratory Rate - - Oxygen Saturation - - Inhaled Oxygen Concentration - - Weight 74.8 kg (165 lb) 10/09/2021 8:25 AM HOME APPLIANCES MECHANIC Height 157.5 cm (5' 2 ) 10/09/2021 8:25 AM HOME APPLIANCES MECHANIC Body Mass Index 30.18 10/09/2021 8:25 AM HOME APPLIANCES MECHANIC Plan of Treatment Upcoming Encounters Date Type Department Care Team (Late st Contact Info) Description 03/11/2025 9:40 AM CDT Office Visit [facility] - Dermatology [address] [place] [address], [facility] [place] [address] Opal Ladd MD [address] [place] [address] [place] [address] Health Maintenance Due Date Last Done Comments BONE DENSITY TESTING 1955 COLOGUARD (AGES 45-75) - COLON CA SCREENING 1955 COLON MONITORING 1955 COLONOSCOPY - COLON CA SCREENING 1955 CT COLONOGRAPHY - COLON CA SCREENING 1955 Colorectal Cancer Screening 1955 FIT - COLON CA SCREENING 1955 FLEX SIG - COLON CA SCREENING 1955 LIPID TESTING 1955 MAMMOGRAM 1955 MEDICARE AWV ? 12 MONTHS 1955 DTAP/TDAP/TD VACCINES (1 - Tdap) 1974 PNEUMOCOCCAL VACCINE 50+ (1 of 1 - PCV) 2005 ZOSTER VACCINE (1 of 2) 2005 COVID-19 VACCINE (4 - season) 2024 10/19/2021, 01/26/2021, 12/27/2020 INFLUENZA VACCINE (#1) 2024 2, 09/21/2021, 09/02/2020, Additional history exists DEPRESSION SCREENING 11/24/2024 Respiratory Syncytial Virus (RSV) Vaccine Pt: or over 60 yrs (1 - 1-dose 75+ series) 2030 HEPATITIS C SCREENING Completed 05/21/2024 HEPATITIS B VACCINE Aged Out No longe r eligible based on patient's age to complete this topic HIB VACCINE Aged Out No longer eligi ble based on patient's age to complete this topic HPV VACCINE Aged Out No longer eligi ble based on patient's age to complete this topic MENINGOCOCCAL (Group B) VACCINE Aged Out No longer eligible based on patient's age to complete this topic MENINGOCOCCAL VACCINE Aged Out No nuvia ivana eligible based on patient's age to complete this topic Procedures Procedure Name Priority Date/Time Associated Diagnosis Comments [place] DESTROY PREMALIG LESION, 2-14 Routine 11/12/2024 11:18 AM HOME APPLIANCES MECHANIC Actinic keratosis AZ DESTROY PREMALIG LESION, 1ST LESION Routine 11/12/2024 11:18 AM HOME APPLIANCES MECHANIC Actinic keratosis CBC W AUTO DIFFERENTIAL 10/28/2024 1:04 PM HOME APPLIANCES MECHANIC COMPREHENSIVE METABOLIC PANEL 10/28/2024 1:04 PM HOME APPLIANCES MECHANIC HEPATITIS C AB SCREEN RFLX NAAT QUANT Routine 05/21/2024 11:38 AM CDT Lichenoid dermatitis from Last 3 Months or Most Recently Relevant to Health Maintenance Results * AZ DESTROY PREMALIG LESION, 1ST LESION, [place] DESTROY PREMALIG LESION, 2-14 (11/12/2024 11:18 AM HOME APPLIANCES MECHANIC) Opla Yeh MD - 11/12/2024 11:18 AM HOME APPLIANCES MECHANIC Opal Ladd MD ? 11/12/2024 11:18 AM Liquid nitrogen was applied for 10-12 seconds to the 13 actinic keratosis and the expected blistering or scabbing reaction explained. Do not pick at the area. Patient reminded to expect hypopigmented scars from the procedure. Return if lesion fails to fully resolve. Opal Ladd MD PROCEDURE/MAHENDRA R SURGICAL ORDERABLES * (ABNORMAL) CBC WITH DIFFERENTIAL (10/28/2024 1:04 PM HOME APPLIANCES MECHANIC) White Blood Cell Count 7.4 3.8 - 10.8 Thousand/ uL [facility] RBC 4.28 3.80 - 5.10 Million/u L [facility] Hemoglobin 13.1 11.7 - 15.5 g/dL [facility] Hematocrit 41.1 35.0 - 45.0 % [facility] MCV 96.0 80.0 - 100.0 fL [facility] MCH 30.6 27.0 - 33.0 pg [facility] MCHC 31.9(L) 32.0 - 36.0 g/dL [facility] Comment: For adults, a slight decrease in the calculated MCHC value (in the range of 30 to 32 g/dL) is most likely not clinically significant; however, it should be interpreted with caution in correlation with other red cell parameters and the patient's clinical condition. RDW 13.9 11.0 - 15.0 % [facility] Platelet Count 228 140 - 400 Thousand/ uL [facility] MPV 10.4 7.5 - 12.5 fL [facility] Neutrophil Absolute 4965 1500 - 7800 cells/uL [facility] Lymphocytes Absolute 1754 850 - 3900 cells/uL [facility] Absolute Monocytes 474 200 - 950 cells/uL [facility] Eosinophils Absolute 148 15 - 500 cells/uL [facility] Basophils Absolute 59 0 - 200 cells/uL [facility] Granulocytes % 67.1 % [facility] Lymphocytes % 23.7 % [facility] Monocytes % 6.4 % [facility] Eosinophils % 2.0 % [facility] Basophils % 0.8 % [facility] Comment: Test Performed at: [id number] ??[id number] ALPA FREGOSO MD 10/28/2024 1:04 PM HOME APPLIANCES MECHANIC 10/28/2024 1:05 PM HOME APPLIANCES MECHANIC Opal Ladd MD LAB - HEMATOLO GY ORDERABLES Performing Organization Address [facility] Co de Phone Number [address] [address] * (ABNORMAL) COMPREHENSIVE METABOLIC PANEL (10/28/2024 1:04 PM HOME APPLIANCES MECHANIC) [facility] Glucose 93 65 - 99 mg/dL [facility] Comment: ? Fasting reference interval BUN 27(H) 7 - 25 mg/dL [facility] Creatinine 0.94 0.50 - 1.05 mg/dL [facility] eGFR by Cystatin C 66 > OR = 60 mL/min/1.7 3m2 [facility] BUN/Creatinine Ratio 29(H) 6 - 22 (calc) [facility] Sodium 137 135 - 146 mmol/L [facility] Potassium 4.2 3.5 - 5.3 mmol/L [facility] Chloride 102 98 - 110 mmol/L [facility] CO2 27 20 - 32 mmol/L [facility] Calcium 9.1 8.6 - 10.4 mg/dL [facility] Protein Total 6.3 6.1 - 8.1 g/dL [facility] Albumin 4.2 3.6 - 5.1 g/dL [facility] Globulin Total 2.1 1.9 - 3.7 g/dL (calc) [facility] Albumin/Globulin Ratio 2.0 1.0 - 2.5 (calc) [facility] Bilirubin Total 0.4 0.2 - 1.2 mg/dL [facility] Alkaline Phosphatase 49 37 - 153 U/L [facility] AST 20 10 - 35 U/L [facility] ALT 23 6 - 29 U/L [facility] Comment: Test Performed at: [id number] ??[id number] ALPA FREGOSO MD 10/28/2024 1:04 PM HOME APPLIANCES MECHANIC 10/28/2024 1:05 PM HOME APPLIANCES MECHANIC Opal Ladd MD LAB - CHEMISTR Y ORDERABLES Performing Organization Address [facility] Co de Phone Number [address] [address] * HEPATITIS C AB SCREEN RFLX NAAT QUANT (05/21/2024 11:38 AM CDT) [facility] Hepatitis C Antibody Non-react lucinda Non-reac tive 05/21/2024 12:46 PM CDT [facility] Comment:Hepatitis C Antibody screen indicates no serologic evidence of past or current infection with Hepatitis C Virus. Patients with unexplained liver disease who are immunocompromised or suspected of having acute Hepatitis C infection may benefit from Nucleic Acid Test (SHERRIE) for Hepatitis C Viral RNA to confirm Hepatitis C status. Blood BLOOD SPECIMEN / Unknown Lab Venipuncture / Unknown 05/21/2024 11:38 AM CDT 05/21/2024 12:02 PM CDT Opal Ladd MD LAB - CHEMISTR Y ORDERABLES [facility] [address] [place] [address], [facility] [phone] from Last 3 Months or Most Recently Relevant to Health Maintenance Care Teams Charrer Relationship Specialty Start Date End Date Lance Agee DO [facility] - General 01/26/21
--- OUTSIDE RECORDS SUMMARY | 2024-12-16 19:35 | XMS_ITS | Referral Summary ---
Author Organization [facility] Address [address] [place] [address] Care Team Providers Care Compliance Consultant Name Role Phone Salvadorash Lance Yon DO Primary Care Provider Source Comments [facility],non-owned Affiliates and Associated Physician Practices is amultiple site organization consisting of ambulatory clinics and hospital sitesin [place], [place], [place] and [place]. This disclosure is being madepursuant to the Care Everywhere program and may not contain all information available regarding this patient. Last updated 18.[facility] Encounters Date Type Department Care Team Description 11/12/2024 Travel 11/12/2024 9:50 AM GUIDANCE COUNSELOR Office Visit [facility] - [facility]erm[facility] [address] [place] [phone] Opal Ladd MD Actinic keratosis (Primary Dx); Rash; Seborrheic keratoses; Lentigines; Multiple benign melanocytic nevi; Scar 10/29/2024 Orders Only [facility] [address] [place] [phone] Opal Ladd MD Lichenoid dermatitis 10/28/2024 Orders Only [facility] [address] [place] [address] Opal Ladd MD 10/06/2024 Travel 10/06/2024 1:20 PM GUIDANCE COUNSELOR - 10/06/2024 11:59 PM [facility] Hospital Encounter [facility] OP DRAW STATION [address] [place] [phone] Lance Agee, DO Discharge Disposition: Home or Self Care from Last 3 Months Allergies Active Allergy Reactions Criticality Noted Date [...] Menopausal symptoms 08/26/2003 Overview (07/19/2022): MENOPAUSE (08/26/2003) Immunizations Name Administration Dates Next Due Vouchr primary monoval ent 12+ yr 0.3mL Purple cap 10/19/2021,01/26/2021,12/27/2020 INFLUENZA VACCINE 09/02/2022,09/02/2020 Social History Tobacco Use Types Packs/Day Years [...] Comments Blood Pressure 145/57 10/09/2021 3:32 PM GUIDANCE COUNSELOR Pulse 52 10/09/2021 3:32 PM GUIDANCE COUNSELOR Temperature - - Respiratory Rate - - Oxygen Saturation - - Inhaled Oxygen Concentration - - Weight 74.8 kg (165 lb) 10/09/2021 8:25 AM GUIDANCE COUNSELOR Height 157.5 cm (5' 2 ) 10/09/2021 8:25 AM GUIDANCE COUNSELOR Body Mass Index 30.18 10/09/2021 8:25 AM GUIDANCE COUNSELOR Plan of Treatment Upcoming Encounters Date Type Department Care Team (Late st Contact Info) Description 03/11/2025 9:40 AM CDT Office Visit [facility] - Dermatology [address] [place] [address], [place] [phone] Opal Ladd MD [facility] [facility] [address] [place] [phone] Procedures Procedure Name Priority Date/Time Associated Diagnosis Comments ME DESTROY PREMALIG LESION, 2-14 Routine 11/12/2024 11:18 AM GUIDANCE COUNSELOR Actinic keratosis ME DESTROY PREMALIG LESION, 1ST LESION Routine 11/12/2024 11:18 AM GUIDANCE COUNSELOR Actinic keratosis CBC W AUTO DIFFERENTIAL 10/28/2024 1:04 PM GUIDANCE COUNSELOR COMPREHENSIVE METABOLIC PANEL 10/28/2024 1:04 PM GUIDANCE COUNSELOR HEPATITIS C AB SCREEN RFLX NAAT QUANT Routine 05/21/2024 11:38 AM CDT Lichenoid dermatitis from Last 3 Months or Most Recently Relevant to Health Maintenance Results * ME DESTROY PREMALIG LESION, 1ST LESION, ME DESTROY PREMALIG LESION, 2-14 (11/12/2024 11:18 AM GUIDANCE COUNSELOR) Narrative Opal Ladd MD - 11/12/2024 11:18 AM GUIDANCE COUNSELOR Opal Ladd MD ? 11/12/2024 11:18 AM [...] (ABNORMAL) CBC WITH DIFFERENTIAL (10/28/2024 1:04 PM GUIDANCE COUNSELOR) White Blood Cell Count 7.4 3.8 - [...] 0.8 % [facility] Comment: Test Performed at: [facility] ??[phone] ALPA FREGOSO MD 10/28/2024 1:04 PM GUIDANCE COUNSELOR 10/28/2024 1:05 PM GUIDANCE COUNSELOR Opal Ladd MD LAB - HEMATOLO GY ORDERABLES [facility] [address] [place] [address] * (ABNORMAL) COMPREHENSIVE METABOLIC PANEL (10/28/2024 1:04 PM GUIDANCE COUNSELOR) Pathologist [facility] Glucose 93 65 - 99 mg/dL [facility] [...] 29 U/L [facility] Comment: Test Performed at: [facility] ??[phone] ALPA FREGOSO MD 10/28/2024 1:04 PM GUIDANCE COUNSELOR 10/28/2024 1:05 PM GUIDANCE COUNSELOR Opal Ladd MD LAB - CHEMISTR Y ORDERABLES [facility] [address] [place] [address] * HEPATITIS C AB SCREEN RFLX NAAT QUANT (05/21/2024 11:38 AM CDT) Pathologist [facility] Hepatitis C Antibody Non-react lucinda Non-reac tive 05/21/2024 12:46 PM CDT [facility] Comment:Hepatitis C Antibody screen [...] Ladd MD LAB - CHEMISTR Y ORDERABLES [facility] [address] [place] [address], [facility] [phone] from Last 3 Months or Most Recently Relevant to Health Maintenance Care Teams Compliance Consultant Relationship Specialty Start Date End Date Lance Agee DO PCP - General 01/26/21
--- OUTSIDE RECORDS SUMMARY | 2024-12-16 19:35 | XMS_ITS | Encounter Summary ---
Author Organization [facility] Address [address] [facility] [place] [address] Care Team Providers Care Picking Tech Name Role Phone Lance Agee DO Primary Care Provider [phone] Reason for Visit * Reason Onset Date Comments Returned Call 12/09/2022 Encounter Details Date Type Department Care Team ([facility] Contact Info) Description 12/09/2022 Telephone [facility] [address] [place] [address], [facility] [place] [address] Opal Ladd MD [address] [place] [address] [place] [address] Returned Call Social History Tobacco Use Types Packs/Day Years Used Date Smoking Tobacco: Never Smokeless Tobacco: Never Alcohol Use Standard Drinks/Week Comments Yes 3 (1 standard drink = 0.6 oz pur e alcohol) Sex and Gender Information Value Date Recorded Sex Assigned at Not on file Gender Identity Not on file Sexual Orientation Not on file documented as of this encounter Miscellaneous Notes * Telephone Encounter - Irasema Laird - 12/09/2022 8:25 AM CST Patient returning missed call from Dr Dai advise Patient stated that she can also be contacted through [employer] O[employer] documented in this encounter Plan of Treatment Upcoming Encounters Date Type Department Care Team ([facility] Contact Info) Description 03/11/2025 9:40 AM CDT Office Visit [facility] [address] [facility], [place] [phone] Opal Ladd MD [address] [facility] [address] [place] [address] documented as of this encounter Visit Diagnoses Not on filedocumented in this encounter Care Teams Picking Tech Relationship Specialty Start Date End Date Lance Agee DO PCP - General 01/26/21 documented as of this encounter
--- OUTSIDE RECORDS SUMMARY | 2024-12-16 19:35 | XMS_ITS | Patient Health Summary ---
Author Organization [facility] Address [address] [place] [address] Care Team Providers Care Injector Assembler Name Role Phone Lance Agee DO Primary Care Provider [phone] Note from [facility],non-owned Affiliates and Associated Physician Practices is amultiple site organization consisting of ambulatory clinics and hospital sitesin [place], [place], [place] and [place]. This disclosure is being madepursuant to the Care Everywhere program and may not contain all information available regarding this patient. Last updated 18.[facility] Allergies * Olopatadine(Eye Itching) Medications * Be aware that medications may not be up to date on this document. Alwaysverify current medications with the patient. * valACYclovir (VALTREX) 1 GM tablet Take 1 (one) tablet by mouth as needed * fluorouracil (EFUDEX) 5 % cream(Started 11/22/2021) Apply to affected area twice daily for 2-3 weeks, or as tolerated. * meloxicam (Mobic) 15 MG tablet Take 1 (one) tablet by mouth as needed * venlafaxine XR 24hr (Effexor XR) 75 MG capsule Take 1 (one) capsule by mouth daily with breakfast * clobetasol (Temovate) 0.05 % solution(Started 04/14/2024) Apply to affected scalp daily as needed. 30 days supply. 1 refill by 04/14/2025 * betamethasone dipropionate augmented (Diprolene Af) 0.05 % cream(Started 04/20/2024) APPLY TOPICALLY TO THE AFFECTED AREA TWICE DAILY 5 refills by 04/20/2025 * famotidine (Pepcid) 40 MG tablet Take 1 (one) tablet by mouth once daily * folic acid (Folvite) 1 MG tablet(Started 05/26/2024) Take 1 (one) tablet by mouth once daily 5 refills by 05/26/2025 * methotrexate 2.5 MG tablet(Started 10/29/2024) Take 6 (six) tablets by mouth every 7 days * albuterol HFA (Proventil; Ventolin; Proair) 108 (90 Base) MCG/ACT inhaler (Started 10/15/2024) INHALE 2 PUFFS BY MOUTH EVERY 4 TO 6 HOURS NEEDED FOR SHORTNESS OF BREATH OR WHEEZING Active Problems Problem Noted Date Diagnosed Date [...] of malignant melanoma of skin 0 01/11/2005 Cough, unspecified 04/04/2004 Skin cancer 11/16/2003 Postmenopausal bleeding 09/16/2003 Menopausal symptoms 08/26/2003 Immunizations * Covid Pfizer primary monovalent 12+ yr 0.3mL Purple cap(Given 10/19/2021, 01/26/2021, 12/27/2020) * INFLUENZA VACCINE(Given 09/02/2022, 09/02/2020) Social History Tobacco Use Types Packs/Day Years [...] Comments Blood Pressure 145/57 10/09/2021 3:32 PM SAP ARI[employer] CONSULTANT Pulse 52 10/09/2021 3:32 PM SAP [employer] CONSULTANT Temperature - - Respiratory Rate - - Oxygen Saturation - - Inhaled Oxygen Concentration - - Weight 74.8 kg (165 lb) 10/09/2021 8:25 AM SAP ARIBA CONSULTANT Height 157.5 cm (5' 2 ) 10/09/2021 8:25 AM SAP ARI[employer] CONSULTANT Body Mass Index 30.18 10/09/2021 8:25 AM SAP ARIBA CONSULTANT Procedures * WI DESTROY PREMALIG LESION, 2-14(Performed 11/12/2024) Performed for Actinic keratosis * WI DESTROY PREMALIG LESION, 1ST LESION(Performed 11/12/2024) Performed for Actinic keratosis * CBC W AUTO DIFFERENTIAL(Performed 10/28/2024) * COMPREHENSIVE METABOLIC PANEL(Performed 10/28/2024) * WI REPR CMPL WND TRUNK 2.6-7.5CM(Performed 09/14/2024) Performed for Squamous cell carcinoma of skin of chest * WI EXC SKIN MALIG 1.1-2CM TRUNK,ARM,LEG(Performed 09/14/2024) Performed for Squamous cell carcinoma of skin of chest * DERMATOPATHOLOGY(Performed 09/14/2024) Performed for Squamous cell carcinoma of skin of chest * WI REPR CMPL WND TRUNK 2.6-7.5CM(Performed 09/02/2024) Performed for Squamous cell carcinoma of back * WI EXC SKIN MALIG 1.1-2CM TRUNK,ARM,LEG(Performed 09/02/2024) Performed for Squamous cell carcinoma of back * DERMATOPATHOLOGY(Performed 09/02/2024) Performed for Squamous cell carcinoma of back * WI PHOTOCHEMOTHERAPY WITH UV-B(Performed 08/06/2024) Performed for Lichen planus-like dermatitis * WI PHOTOCHEMOTHERAPY WITH UV-B(Performed 08/02/2024) Performed for Lichen planus-like dermatitis * WI PHOTOCHEMOTHERAPY WITH UV-B(Performed 07/30/2024) Performed for Lichen planus-like dermatitis * WI PHOTOCHEMOTHERAPY WITH UV-B(Performed 07/23/2024) Performed for Lichen planus-like dermatitis * WI PHOTOCHEMOTHERAPY WITH UV-B(Performed 07/19/2024) Performed for Lichen planus-like dermatitis * COMPREHENSIVE METABOLIC PANEL(Performed 07/19/2024) Performed for Encounter for long-term (current) use of high-risk medication * CBC W AUTO DIFFERENTIAL(Performed 07/19/2024) Performed for Encounter for long-term (current) use of high-risk medication * WI PHOTOCHEMOTHERAPY WITH UV-B(Performed 07/16/2024) Performed for Lichen planus-like dermatitis * WI TANGNTL BX SKIN EA SEP ADDL(Performed 07/09/2024) Performed for Neoplasm of uncertain behavior of skin * WI TANGNTL BX SKIN SINGLE LES(Performed 07/09/2024) Performed for Neoplasm of uncertain behavior of skin * WI PHOTOCHEMOTHERAPY WITH UV-B(Performed 07/09/2024) Performed for Lichen planus-like dermatitis * DERMATOPATHOLOGY(Performed 07/09/2024) Performed for Neoplasm of uncertain behavior of skin * WI PHOTOCHEMOTHERAPY WITH UV-B(Performed 07/05/2024) Performed for Lichen planus-like dermatitis * WI PHOTOCHEMOTHERAPY WITH UV-B(Performed 07/02/2024) Performed for Interface dermatitis, lichenoid type * WI PHOTOCHEMOTHERAPY WITH UV-B(Performed 06/28/2024) Performed for Interface dermatitis, lichenoid type * WI PHOTOCHEMOTHERAPY WITH UV-B(Performed 06/25/2024) Performed for Interface dermatitis, lichenoid type * COMPREHENSIVE METABOLIC PANEL(Performed 06/22/2024) Performed for Lichenoid dermatitis, High risk medications (not anticoagulants) long-term use * CBC W AUTO DIFFERENTIAL(Performed 06/22/2024) Performed for Lichenoid dermatitis, High risk medications (not anticoagulants) long-term use * WI PHOTOCHEMOTHERAPY WITH UV-B(Performed 06/18/2024) Performed for Interface dermatitis, lichenoid type * WI PHOTOCHEMOTHERAPY WITH UV-B(Performed 06/14/2024) Performed for Interface dermatitis, lichenoid type * WI PHOTOCHEMOTHERAPY WITH UV-B(Performed 06/11/2024) Performed for Interface dermatitis, lichenoid type * WI PHOTOCHEMOTHERAPY WITH UV-B(Performed 06/07/2024) Performed for Interface dermatitis, lichenoid type * WI PHOTOCHEMOTHERAPY WITH UV-B(Performed 06/04/2024) Performed for Interface dermatitis, lichenoid type * WI PHOTOCHEMOTHERAPY WITH UV-B(Performed 05/31/2024) Performed for Interface dermatitis, lichenoid type * WI PHOTOCHEMOTHERAPY WITH UV-B(Performed 05/28/2024) Performed for Interface dermatitis, lichenoid type * WI PHOTOCHEMOTHERAPY WITH UV-B(Performed 05/24/2024) Performed for Interface dermatitis, lichenoid type * QUANTIFERON-TB GOLD PLUS 4-TUBE(Performed 05/21/2024) Performed for Lichenoid dermatitis * HEPATITIS C AB SCREEN RFLX NAAT QUANT(Performed 05/21/2024) Performed for Lichenoid dermatitis * CBC W AUTO DIFFERENTIAL(Performed 05/21/2024) Performed for Lichenoid dermatitis * COMPREHENSIVE METABOLIC PANEL(Performed 05/21/2024) Performed for Lichenoid dermatitis * HEPATITIS B SURFACE ANTIGEN W RFLX CONFIRMATION(Performed 05/21/2024) Performed for Lichenoid dermatitis, High risk medications (not anticoagulants) long-term use, Encounter for screening for other viral diseases * HEPATITIS B SURFACE ANTIBODY(Performed 05/21/2024) Performed for Lichenoid dermatitis, High risk medications (not anticoagulants) long-term use, Encounter for screening for other viral diseases * HEPATITIS B CORE ANTIBODY TOTAL(Performed 05/21/2024) Performed for Lichenoid dermatitis, High risk medications (not anticoagulants) long-term use, Encounter for screening for other viral diseases * WI PHOTOCHEMOTHERAPY WITH UV-B(Performed 05/21/2024) Performed for Interface dermatitis, lichenoid type * WI PHOTOCHEMOTHERAPY WITH UV-B(Performed 05/19/2024) Performed for Interface dermatitis, lichenoid type * WI PHOTOCHEMOTHERAPY WITH UV-B(Performed 04/30/2024) Performed for Interface dermatitis, lichenoid type * WI PHOTOCHEMOTHERAPY WITH UV-B(Performed 04/26/2024) Performed for Interface dermatitis, lichenoid type * WI PHOTOCHEMOTHERAPY WITH UV-B(Performed 04/23/2024) Performed for Interface dermatitis, lichenoid type * WI PHOTOCHEMOTHERAPY WITH UV-B(Performed 04/20/2024) Performed for Interface dermatitis, lichenoid type * WI PHOTOCHEMOTHERAPY WITH UV-B(Performed 04/16/2024) Performed for Interface dermatitis, lichenoid type * WI PHOTOCHEMOTHERAPY WITH UV-B(Performed 04/12/2024) Performed for Interface dermatitis, lichenoid type * WI PHOTOCHEMOTHERAPY WITH UV-B(Performed 04/09/2024) Performed for Interface dermatitis, lichenoid type * WI PHOTOCHEMOTHERAPY WITH UV-B(Performed 04/05/2024) Performed for Interface dermatitis, lichenoid type * WI DESTROY PREMALIG LESION, 2-14(Performed 04/02/2024) Performed for Actinic keratosis * WI DESTROY PREMALIG LESION, 1ST LESION(Performed 04/02/2024) Performed for Actinic keratosis * WI PHOTOCHEMOTHERAPY WITH UV-B(Performed 04/02/2024) Performed for Interface dermatitis, lichenoid type * WI PHOTOCHEMOTHERAPY WITH UV-B(Performed 03/31/2024) Performed for Interface dermatitis, lichenoid type * WI PHOTOCHEMOTHERAPY WITH UV-B(Performed 03/29/2024) Performed for Interface dermatitis, lichenoid type * WI PHOTOCHEMOTHERAPY WITH UV-B(Performed 03/26/2024) Performed for Interface dermatitis, lichenoid type * WI PHOTOCHEMOTHERAPY WITH UV-B(Performed 03/24/2024) Performed for Interface dermatitis, lichenoid type * WI PHOTOCHEMOTHERAPY WITH UV-B(Performed 03/22/2024) Performed for Interface dermatitis, lichenoid type * WI PHOTOCHEMOTHERAPY WITH UV-B(Performed 03/19/2024) Performed for Interface dermatitis, lichenoid type * WI PHOTOCHEMOTHERAPY WITH UV-B(Performed 03/17/2024) Performed for Interface dermatitis, lichenoid type * WI PHOTOCHEMOTHERAPY WITH UV-B(Performed 03/15/2024) Performed for Interface dermatitis, lichenoid type * WI PHOTOCHEMOTHERAPY WITH UV-B(Performed 03/12/2024) Performed for Interface dermatitis, lichenoid type * WI PHOTOCHEMOTHERAPY WITH UV-B(Performed 03/10/2024) Performed for Interface dermatitis, lichenoid type * WI PHOTOCHEMOTHERAPY WITH UV-B(Performed 03/08/2024) Performed for Interface dermatitis, lichenoid type * WI PHOTOCHEMOTHERAPY WITH UV-B(Performed 03/05/2024) Performed for Interface dermatitis, lichenoid type * WI PHOTOCHEMOTHERAPY WITH UV-B(Performed 03/03/2024) Performed for Interface dermatitis, lichenoid type * WI PHOTOCHEMOTHERAPY WITH UV-B(Performed 03/01/2024) Performed for Interface dermatitis, lichenoid type * WI PHOTOCHEMOTHERAPY WITH UV-B(Performed 02/27/2024) Performed for Interface dermatitis, lichenoid type * WI PHOTOCHEMOTHERAPY WITH UV-B(Performed 02/25/2024) Performed for Interface dermatitis, lichenoid type * WI PHOTOCHEMOTHERAPY WITH UV-B(Performed 02/23/2024) Performed for Interface dermatitis, lichenoid type * WI PHOTOCHEMOTHERAPY WITH UV-B(Performed 02/20/2024) Performed for Interface dermatitis, lichenoid type * WI PHOTOCHEMOTHERAPY WITH UV-B(Performed 02/18/2024) Performed for Interface dermatitis, lichenoid type * WI DESTROY PREMALIG LESION, 1ST LESION(Performed 02/06/2024) Performed for Actinic keratosis * WI DESTROY PREMALIG LESION, 2-14(Performed 02/06/2024) Performed for Actinic keratosis * WI PHOTOCHEMOTHERAPY WITH UV-B(Performed 02/06/2024) Performed for Interface dermatitis, lichenoid type * WI PHOTOCHEMOTHERAPY WITH UV-B(Performed 02/04/2024) Performed for Interface dermatitis, lichenoid type * WI PHOTOCHEMOTHERAPY WITH UV-B(Performed 02/02/2024) Performed for Interface dermatitis, lichenoid type * WI PHOTOCHEMOTHERAPY WITH UV-B(Performed 01/30/2024) Performed for Interface dermatitis, lichenoid type * WI PHOTOCHEMOTHERAPY WITH UV-B(Performed 01/28/2024) Performed for Interface dermatitis, lichenoid type * WI PHOTOCHEMOTHERAPY WITH UV-B(Performed 01/26/2024) Performed for Interface dermatitis, lichenoid type * WI PHOTOCHEMOTHERAPY WITH UV-B(Performed 01/23/2024) Performed for Interface dermatitis, lichenoid type * WI PHOTOCHEMOTHERAPY WITH UV-B(Performed 01/21/2024) Performed for Interface dermatitis, lichenoid type * WI PHOTOCHEMOTHERAPY WITH UV-B(Performed 01/19/2024) Performed for Interface dermatitis, lichenoid type * WI PUNCH BX SKIN SINGLE LESION(Performed 01/06/2024) Performed for Rash and other nonspecific skin eruption * WI PUNCH BX SKIN EA SEP ADDL(Performed 01/06/2024) Performed for Rash and other nonspecific skin eruption * DERMATOPATHOLOGY(Performed 01/06/2024) Performed for Rash and other nonspecific skin eruption * WI EXC SKIN MALIG 1.1-2CM TRUNK,ARM,LEG(Performed 08/28/2023) Performed for Basal cell carcinoma (BCC) of left upper arm * WI INTMD WND REPAIR TRUNK,ARM,LEG 2.6-7.5(Performed 08/28/2023) Performed for Basal cell carcinoma (BCC) of left upper arm * DERMATOPATHOLOGY(Performed 08/28/2023) Performed for Basal cell carcinoma (BCC) of left upper arm * WI DESTROY PREMALIG LESION, 2-14(Performed 08/17/2023) Performed for Actinic keratosis * WI DESTROY PREMALIG LESION, 1ST LESION(Performed 08/17/2023) Performed for Actinic keratosis * WI TANGNTL BX SKIN EA SEP ADDL(Performed 08/17/2023) Performed for Neoplasm of uncertain behavior of skin * WI TANGNTL BX SKIN SINGLE LES(Performed 08/17/2023) Performed for Neoplasm of uncertain behavior of skin * DERMATOPATHOLOGY(Performed 08/08/2023) Performed for Neoplasm of uncertain behavior of skin * WI DESTRUCT BENIGN LESION, 1-14(Performed 03/24/2023) Performed for Inflamed seborrheic keratosis * WI DESTROY PREMALIG LESION, 2-14(Performed 03/24/2023) Performed for AK (actinic keratosis) * WI DESTROY PREMALIG LESION, 1ST LESION(Performed 03/24/2023) Performed for AK (actinic keratosis) * WI TANGNTL BX SKIN SINGLE LES(Performed 03/24/2023) Performed for Neoplasm of uncertain behavior of skin * DERMATOPATHOLOGY(Performed 03/24/2023) Performed for Neoplasm of uncertain behavior of skin * WI CHMSRG MOHS MG TQ T/A/L 1ST STAG 5 BLOCKS(Performed 01/02/2023) Performed for Basal cell carcinoma of left upper arm * PROC MOHS MICRO SURGERY TRUNK/ARM/LEG(Performed 01/02/2023) Performed for Basal cell carcinoma of left upper arm * WI INTMD WND REPAIR TRUNK,ARM,LEG 7.6-12.5(Performed 01/02/2023) Performed for Basal cell carcinoma of left upper arm * WI CHMSRG MOHS MG TQ T/A/L 1ST STAG 5 BLOCKS(Performed 01/02/2023) Performed for Basal cell carcinoma (BCC) of left shoulder * WI CHMSRG MOHS MG TQ T/A/L EA ADDL STAG(Performed 01/02/2023) Performed for Basal cell carcinoma (BCC) of left shoulder * WI CHMSRG MOHS MG TQ T/A/L 1ST STAG 5 BLOCKS(Performed 01/02/2023) Performed for Basal cell carcinoma (BCC) of left upper arm * PROC MOHS MICRO SURGERY TRUNK/ARM/LEG(Performed 01/02/2023) Performed for Basal cell carcinoma (BCC) of left upper arm * WI DESTROY PREMALIG LESION, 2-14(Performed 11/28/2022) Performed for AK (actinic keratosis) * WI DESTROY PREMALIG LESION, 1ST LESION(Performed 11/28/2022) Performed for AK (actinic keratosis) * WI TANGNTL BX SKIN EA SEP ADDL(Performed 11/28/2022) Performed for Neoplasm of uncertain behavior of skin * WI TANGNTL BX SKIN SINGLE LES(Performed 11/28/2022) Performed for Neoplasm of uncertain behavior of skin * DERMATOPATHOLOGY(Performed 11/28/2022) Performed for Neoplasm of uncertain behavior of skin * WI DESTROY PREMALIG LESION, 1ST LESION(Performed 07/19/2022) Performed for Actinic keratosis * WI DESTROY PREMALIG LESION, 2-14(Performed 07/19/2022) Performed for Actinic keratosis * WI TANGNTL BX SKIN SINGLE LES(Performed 07/19/2022) Performed for Neoplasm of uncertain behavior of skin * WI TANGNTL BX SKIN EA SEP ADDL(Performed 07/19/2022) Performed for Neoplasm of uncertain behavior of skin * DERMATOPATHOLOGY(Performed 07/19/2022) Performed for Neoplasm of uncertain behavior of skin * WI TANGNTL BX SKIN SINGLE LES(Performed 04/17/2022) Performed for Neoplasm of uncertain behavior of skin * DERMATOPATHOLOGY(Performed 04/17/2022) Performed for Neoplasm of uncertain behavior of skin * WI CHMSRG MOHS MG TQ H/N/H/F/G 1ST STAG 5 BLOC(Performed 10/09/2021) Performed for Basal cell carcinoma (BCC) of left side of nose * WI CHMSRG MOHS MG TQ H/N/H/F/G EA ADDL STAG(Performed 10/09/2021) Performed for Basal cell carcinoma (BCC) of left side of nose * PROC MOHS SURG HEAD/NECK/HAND/FEET/MEHRAN(Performed 10/09/2021) Performed for Basal cell carcinoma (BCC) of left side of nose * WI TANGNTL BX SKIN SINGLE LES(Performed 09/18/2021) Performed for Neoplasm of uncertain behavior of skin * WI TANGNTL BX SKIN EA SEP ADDL(Performed 09/18/2021) Performed for Neoplasm of uncertain behavior of skin * DERMATOPATHOLOGY(Performed 09/12/2021) Performed for Neoplasm of uncertain behavior of skin * WI DESTROY PREMALIG LESION, 1ST LESION(Performed 01/31/2021) Performed for Actinic keratoses * WI DESTROY PREMALIG LESION, 2-14(Performed 01/31/2021) Performed for Actinic keratoses * WI DESTROY PREMALIG LESION, 1ST LESION(Performed 07/26/2020) Performed for Actinic keratoses * WI DESTROY PREMALIG LESION, 2-14(Performed 07/26/2020) Performed for Actinic keratoses Results * WI DESTROY PREMALIG LESION, 1ST LESION, WI DESTROY PREMALIG LESION, 2-14 (11/12/2024 11:18 AM SAP ARI[employer] CONSULTANT) Narrative Opal Ladd MD - 11/12/2024 11:18 AM SAP [employer] CONSULTANT Opal Ladd MD ? 11/12/2024 11:18 AM Liquid nitrogen was applied for 10-12 seconds to the 13 actinic keratosis and the expected blistering or scabbing reaction explained. Do not pick at the area. Patient reminded to expect hypopigmented scars from the procedure. Return if lesion fails to fully resolve. Opal Ladd MD PROCEDURE/MAHENDRA Goins SURGICAL ORDERABLES * (ABNORMAL) CBC WITH DIFFERENTIAL (10/28/2024 1:04 PM SAP ARI[employer] CONSULTANT) Only the most recent of4 resultswithin the time period is included. White Blood Cell Count 7.4 3.8 - [...] 0.8 % [facility] Comment: Test Performed at: [facility] ??[id number] ALPA FREGOSO MD 10/28/2024 1:04 PM SAP ARIBA CONSULTANT 10/28/2024 1:05 PM SAP ARI[employer] CONSULTANT Opal Ladd MD LAB - HEMATOLO GY ORDERABLES [address] [address] * (ABNORMAL) COMPREHENSIVE METABOLIC PANEL (10/28/2024 1:04 PM SAP ARIBA CONSULTANT) Only the most recent of4 resultswithin the time period is included. Glucose 93 65 - 99 mg/dL [facility] [...] 29 U/L [facility] Comment: Test Performed at: [facility]-[address] ??[id number] ALPA FREGOSO MD 10/28/2024 1:04 PM SAP ARIBA CONSULTANT 10/28/2024 1:05 PM SAP [employer]BA CONSULTANT Opal Ladd MD LAB - CHEMISTR Y ORDERABLES [address] [address] * WI EXC SKIN MALIG 1.1-2CM TRUNK,ARM,LEG, WI REPR CMPL WND TRUNK 2.6-7.5CM (09/14/2024 1:49 PM CDT) Narrative Kishor Jimenez MD - 09/14/2024 1:49 PM CDT Kishor Jimenez MD ? 09/14/2024 ??1:59 PM Elliptical Excision with Complex Closure Date of Service: 09/14/2024 Tumor Type: Squamous cell carcinoma Location: right chest Derm-Path Pre-op Lesion Size: 0.6x0.7 cm Post-op Lesion Size with Margin: 1.4x1.5 cm Surgical Margins: 0.4cm Repair Type: complex Repair Size: 4.6 cm Suture Material: 3-0 monocryl, Dermabond Level of Defect: adipose Primary Surgeon: Kishor Jimenez MD Diversity Specialist: N/A INDICATIONS: The risks of bleeding, infection, discomfort, incomplete removal, and scar formation were explained to the patient. All questions were answered. After informed consent, confirmation of site and identity, and appropriate instructions, the patient underwent the procedure as follows: PROCEDURE: Excision With the patient in a supine position, the lesion was outlined with 0.4 cm margins measuring 1.4 x 1.5 cm. An ellipse was designed around the lesion to conform to relaxed skin tension lines in an effort to minimize scarring and deformity. The patient was then positioned on the table. The lesion and surrounding skin were prepped with chlorhexidine, draped, and anesthetized with 1% lidocaine with epinephrine 1:100,100 buffered with 1:10 sodium bicarbonate. Using a #15 blade the skin was excised along premarked lines. The resulting defect extended to adipose. REPAIR: Complex Primary Surgeon: Kishor Jimenez MD Diversity Specialist: Jordyn Jenkins LPN Repair Size: 4.6 cm Sutures: 3-0 monocryl, Dermabond Width of underminin.5 cm Free margin of the nostrils, helical rim, or vermilion lip involved: NO Presence of exposed bone/cartilage/tendon/named neurovascular structure: NO Use of retention sutures: NO Indication for complex repair: extensive undermining to recruit additional tissue laxity, given the patient's inelastic skin, and reduce tension on the wound edges The wound was debeveled. Extensive undermining was performed to a distance of at least 1.5 cm (defect width perpendicular to closure is 1.4 cm) along one edge of the entire surgical defect. Complex repair was performed because inelasticity of skin made closure difficult, to avoid a deforming, depressed, and contracted scar, to minimize free margin distortion risk, and to preserve the functional anatomy. Bleeding vessels were controlled with ??monopolar electrocoagulation. The dermis and deeper layers of subcutaneous tissue were closed with buried vertical mattress sutures. Epidermal approximation was meticulously refined with dermabond, resulting in a linear closure with little to no wound tension. Dermabond was placed along the suture line.Blood loss was estimated to be less than 5cc. The area was coated with petrolatum and covered with a non-adherent dressing followed by gauze and tape. Postoperative instructions were reviewed per protocol. The patient left alert and fully oriented. The attending physician was present and always immediately available. No postoperative medications were prescribed. 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 ?? Dr. Jimenez performed the entire surgery, and documentation used to initiate this operative report. I entered the information in our [employer] DocFlowsheet with the information provided by Dr. Jimenez on his handwritten, paper format, surgical worksheet, which was then used to initiate the create of this note. Dr. Jimenez then reviewed and edited the note as needed to complete the note. Jordyn Jenkins LPN ?? I have reviewed the note, edited it as necessary and performed the entire procedure. Kishor Jimenez MD Chief Pharmacist 09/14/2024 Kishor Jimenez MD PROCEDURE/MINOR SURG ICAL ORDERABLES * DERMATOPATHOLOGY (09/14/2024 1:46 PM CDT) Only the most recent of11 resultswithin the time period is included. Case Report Dermatopathology Report ? Case: [id number] ? Authorizing Provider: ??Kishor Jimenez MD ?Collected: ? 09/14/2024 01:46 PM ? Ordering Location: ? [facility] - ??Received: ?09/14/2024 02:26 PM ? Dermatology ? Pathologist: ? Sandy Laird MD ? Specimen: ?Skin, right chest ? 4 4:04 PM CDT DERMATOPATHOLOGY LABORATORY Final Diagnosis Specimen A. SKIN, right chest: SQUAMOUS CELL CARCINOMA, WELL DIFFERENTIATED (C44.529) NOT PRESENT AT MARGIN DERMAL SCAR (L90.5) 4:04 PM [facility] DERMATOPATHOLOGY [facility]ORATORY Clinical History R/o SCC vs scar Check margins 4:04 PM [facility] DERMATOPATHOLOGY [facility]ORATORY Gross Description Specimen A: Received is one formalin filled container labeled with the patient's name and designated right chest.The specimen consists of an ellipse measuring [id number] mm and is oriented with the suture/notch at the 12 o'clock position labeled on the requisition as notch. The 12 to 6 o'clock margin is inked green. The 6 o'clock to 12 o'clock margin is inked red. The 12 o'clock tip is submitted in cassette 1. The 6 o'clock tip is submitted in cassette 2. The remainder of the ellipse is serially sectioned and submitted in cassettes 3-4. Jar 0. 4:04 PM [facility] DERMATOPATHOLOGY [facility]OR[facility] Microscopic Description Specimen A. SKIN, right chest: Arising in the epidermis and extending into the dermis there are irregularly shaped aggregates of keratinocytes showing evidence of premature cornification. This lesion is not present at the margin of the specimen. There are fibroblasts and collagen bundles oriented parallel to the skin surface with elongated blood vessels, some of which are oriented perpendicular to the skin surface. 4:04 PM [facility] DERMATOPATHOLOGY [facility]OR[facility] Disclaimer An external and internal positive and negative controls are appropriate for the histochemical, immunohistochemical and immunofluorescence stain(s) in this case (if any), except where stated explicitly. The performance characteristics of the stain(s) cited in this report were developed and its performance characteristic determined by the Dermatopathology Laboratory at [facility], directed by Dr. Codey Luna. These tests need not be, and therefore are not, approved by the [place] Food and Drug Administration. The tests are used for clinical purposes. Billing Codes Specimen Charges Stain Charges 60002 1 4:04 PM [facility] Embedded Images 4:04 PM [facility] Pathology/Cytolo gy TISSUE SPECIMEN FROM SKIN / Unknown 09/14/2024 1:46 PM CDT 09/14/2024 2:26 PM CDT Kishor Jimenez MD LAB - PATHOLOGY/CYTO LOGY ORDERABLES DERMATOPATHOLOGY LABORATORY [facility] Department of Dermatology [address], [address] [phone] * WI EXC SKIN MALIG 1.1-2CM TRUNK,ARM,LEG, WI REPR CMPL WND TRUNK 2.6-7.5CM (09/02/2024 3:19 PM CDT) Narrative Kishor Jimenez MD - 09/02/2024 3:19 PM CDT Kishor Jimenez MD ? 09/07/2024 ??2:27 PM Elliptical Excision with Complex Closure Date of Service: 09/02/2024 Tumor Type: Squamous cell carcinoma Location: Upper back Derm-Path Pre-op Lesion Size: 0.8 x 0.6 cm Post-op Lesion Size with Margin: 2.0 cm Surgical Margins: 0.4 cm Repair Type: complex Repair Size: 3.5 cm Suture Material: 3-0 monocryl Level of Defect: adipose Primary Surgeon: Kishor Jimenez MD Diversity Specialist: ALINE Fonseca INDICATIONS: The risks of bleeding, infection, discomfort, incomplete removal, and scar formation were explained to the patient. All questions were answered. After informed consent, confirmation of site and identity, and appropriate instructions, the patient underwent the procedure as follows: PROCEDURE: Excision With the patient in a supine position, the lesion was outlined with 0.4 cm margins measuring 1.6 ??x ??1.4 cm. An ellipse was designed around the lesion to conform to relaxed skin tension lines in an effort to minimize scarring and deformity. The patient was then positioned on the table. The lesion and surrounding skin were prepped with chlorhexidine, draped, and anesthetized with 1% lidocaine with epinephrine 1:100,100 buffered with 1:10 sodium bicarbonate. Using a #15 blade the skin was excised along premarked lines. The resulting defect extended to adipose. REPAIR: Complex Primary Surgeon: Kishor Jimenez MD Diversity Specialist: ALINE Fonseca Repair Size: 3.5 cm Sutures: 3-0 monocryl Width of underminin.5 cm Free margin of the nostrils, helical rim, or vermilion lip involved: NO Presence of exposed bone/cartilage/tendon/named neurovascular structure: NO Use of retention sutures: NO Indication for complex repair: extensive undermining to recruit additional tissue laxity, given the patient's inelastic ??skin, and reduce tension on the wound edges The wound was debeveled. Extensive undermining was performed to a distance of at least 1.5 cm (defect width perpendicular to closure is 1.4 cm) along one edge of the entire surgical defect. Complex repair was performed because inelasticity of skin made closure difficult, to avoid a deforming, depressed, and contracted scar, to ??minimize free margin distortion risk, and to preserve the functional anatomy. Bleeding vessels were controlled with monopolar electrocoagulation. The dermis and deeper layers of subcutaneous tissue were closed with buried vertical mattress sutures. Epidermal approximation was meticulously refined with 3-0 Monocryl3 sutures, resulting in a linear closure with little to no wound tension. Blood loss was estimated to be less than 5cc. The area was coated with petrolatum and covered with a non-adherent dressing followed by gauze and tape. Postoperative instructions were reviewed per protocol. The patient left alert and fully oriented. The attending physician was present and always immediately available. No postoperative medications were prescribed. 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 ?? Dr. Jimenez performed the entire surgery, and documentation used to initiate this operative report. I entered the information in our [employer] DocFlowsheet with the information provided by Dr. Jimenez on his handwritten, paper format, surgical worksheet, which was then used to initiate the create of this note. Dr. Jimenez then reviewed and edited the note as needed to complete the note. Olamide Simon MA ?? I have reviewed the note, edited it as necessary and performed the entire procedure. Kishor Jimenez MD Chief Pharmacist 09/02/2024 Kishor Jimenez MD PROCEDURE/MINOR SURG ICAL ORDERABLES * WI PHOTOCHEMOTHERAPY WITH UV-B (08/06/2024 10:29 AM CDT) Narrative Elizabeth Estrella LPN - 08/06/2024 10:29 AM CDT Elizabeth Estrella LPN ? 08/06/2024 10:33 AM Treatment Rx #: 57 Erythema Grade: No Erythema Emollient applied with assistance: Yes Treatment Comments: Tolerated last treatment well Total Body Dose mJ Change: Increased .025 mJ/cm2: 1.575 Time (min): 2:08 Total Body Dose Comments: [facility] Exposure Face (mJ): Treat Goggles/protective glasses: Yes Genitals (mJ): N/A Exposure Comments: SPF applied to face prior to treatment Opal Ladd MD PROCEDURE/MAHENDRA R SURGICAL ORDERABLES * WI PHOTOCHEMOTHERAPY WITH UV-B (08/02/2024 10:09 AM CDT) Narrative Mary Langston MA - 08/02/2024 10:09 AM CDT Mary Langston MA ? 08/02/2024 10:11 AM Treatment Rx #: 56 Erythema Grade: No Erythema Emollient applied with assistance: Yes Total Body Dose mJ Change: Increased .025 mJ/cm2: 1.550 Time (min): 2:27 Total Body Dose Comments: [facility] Exposure Face (mJ): Treat Goggles/protective glasses: Yes Genitals (mJ): N/A Opal Ladd MD PROCEDURE/MAHENDRA R SURGICAL ORDERABLES * WI PHOTOCHEMOTHERAPY WITH UV-B (07/30/2024 10:39 AM CDT) Narrative Elizabeth Estrella LPN - 07/30/2024 10:39 AM CDT Elizabeth Estrella LPN ? 07/30/2024 10:45 AM Treatment Rx #: 55 Erythema Grade: No Erythema Emollient applied with assistance: Yes Treatment Comments: Tolerated last treatment well Total Body Dose mJ Change: Increased .025 mJ/cm2: 1.525 Time (min): 2:05 Total Body Dose Comments: [facility] Exposure Face (mJ): Treat Goggles/protective glasses: Yes Genitals (mJ): N/A Exposure Comments: SPFapplied to face prior to treatment Opal Ladd MD PROCEDURE/MAHENDRA R SURGICAL ORDERABLES * WI PHOTOCHEMOTHERAPY WITH UV-B (07/23/2024 9:46 AM CDT) Narrative Elizabeth Estrella LPN - 07/23/2024 9:46 AM CDT Elizabeth Estrella LPN ? 07/23/2024 ??9:56 AM Treatment Rx #: 54 Erythema Grade: No Erythema Emollient applied with assistance: Yes Treatment Comments: Tolerated last treatment well Total Body Dose mJ Change: Increased .025 mJ/cm2: 1.500 Time (min): 2:23 Total Body Dose Comments: [facility] Exposure Face (mJ): Treat Goggles/protective glasses: Yes Exposure Comments: SPF applied to face Opal Ladd MD PROCEDURE/MAHENDRA R SURGICAL ORDERABLES * WI PHOTOCHEMOTHERAPY WITH UV-B (07/19/2024 10:34 AM CDT) Narrative Mary Langston MA - 07/19/2024 10:34 AM CDT Mary Langston MA ? 07/19/2024 10:40 AM Treatment Rx #: 53 Erythema Grade: No Erythema Emollient applied with assistance: Yes Treatment Comments: [facility] cabinet Total Body Dose mJ Change: Increased .025 mJ/cm2: 1.475 Time (min): 2:13 Total Body Dose Comments: [facility] Exposure Face (mJ): Treat Goggles/protective glasses: Yes Genitals (mJ): N/A Exposure Comments: spf to face prior to tx Opal Ladd MD PROCEDURE/MAHENDRA R SURGICAL ORDERABLES * WI PHOTOCHEMOTHERAPY WITH UV-B (07/16/2024 10:23 AM CDT) Narrative Elizabeth Estrella LPN - 07/16/2024 10:23 AM CDT Elizabeth Estrella LPN ? 07/16/2024 10:27 AM Treatment Rx #: 52 Erythema Grade: No Erythema Emollient applied with assistance: Yes Treatment Comments: Tolerated last treatment well Total Body Dose mJ Change: Increased .025 mJ/cm2: 1.450 Time (min): 2:16 Total Body Dose Comments: [facility] Exposure Face (mJ): Treat Goggles/protective glasses: Yes Genitals (mJ): N/A Exposure Comments: SPF applied to face prior to treatment Opal Ladd MD PROCEDURE/MAHENDRA R SURGICAL ORDERABLES * WI TANGNTL BX SKIN SINGLE LES, WI TANGNTL BX SKIN EA SEP ADDL (07/09/2024 4:29 PM CDT) Narrative Opal Ladd MD - 07/09/2024 4:29 PM CDT Opal Ladd MD ? 07/09/2024 ??4:41 PM Risks, benefits and alternatives to shave biopsy were discussed with the patient. Verbal consent was obtained. Encounter Diagnoses Name Primary? 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 Skin erosion ?? Location: R chest and upper back Skin prep: Alcohol Anesthesia: 1% lidocaine with epinephrine Hemostasis: Aluminum chloride Dressing and wound care discussed. Specimen(s) placed in a patient labeled container and sent to [facility] Dermatopathology. Patient agrees to phone call for results and message if not available. Opal Ladd MD Opal Ladd MD PROCEDURE/MAHENDRA R SURGICAL ORDERABLES * WI PHOTOCHEMOTHERAPY WITH UV-B (07/09/2024 3:00 PM CDT) Narrative Elizabeth Estrella LPN - 07/09/2024 3:00 PM CDT Elizabeth Estrella LPN ? 07/09/2024 ??3:17 PM Treatment Rx #: 51 Erythema Grade: No Erythema Emollient applied with assistance: Yes Treatment Comments: Tolerated last treatment well Total Body Dose mJ Change: Increased .025 mJ/cm2: 1.425 Time (min): 2:01 Total Body Dose Comments: [facility] Exposure Face (mJ): Treat Goggles/protective glasses: Yes Genitals (mJ): N/A Exposure Comments: Spf applied to face prior to treatment Opal Ladd MD PROCEDURE/MAHENDRA R SURGICAL ORDERABLES * WI PHOTOCHEMOTHERAPY WITH UV-B (07/05/2024 1:29 PM CDT) Narrative Mary Langston MA - 07/05/2024 1:29 PM CDT Mary Langston MA ? 07/05/2024 ??1:32 PM Treatment Rx #: 50 Erythema Grade: No Erythema Emollient applied with assistance: Yes Total Body Dose mJ Change: Increased .025 mJ/cm2: 1.400 Time (min): 2:13 Total Body Dose Comments: [facility] Exposure Face (mJ): Treat (spf to face) Goggles/protective glasses: Yes Genitals (mJ): N/A Opal Ladd MD PROCEDURE/MAHENDRA R SURGICAL ORDERABLES * WI PHOTOCHEMOTHERAPY WITH UV-B (07/02/2024 9:52 AM CDT) Narrative Elizabeth Estrella LPN - 07/02/2024 9:52 AM CDT Elizabeth Estrella LPN ? 07/02/2024 10:01 AM Treatment Rx #: 49 Erythema Grade: No Erythema Emollient applied with assistance: Yes Treatment Comments: Tolerated last treatment well Total Body Dose mJ Change: Increased .025 mJ/cm2: 1.375 Time (min): 2:08 Total Body Dose Comments: [facility] Exposure Face (mJ): Treat Goggles/protective glasses: Yes Genitals (mJ): N/A Exposure Comments: Applied Sunscreen to face prior to treatment Opal Ladd MD PROCEDURE/MAHENDRA R SURGICAL ORDERABLES * WI PHOTOCHEMOTHERAPY WITH UV-B (06/28/2024 9:47 AM CDT) Narrative Mary Langston MA - 06/28/2024 9:47 AM CDT Mary Langston MA ? 06/28/2024 ??9:56 AM Treatment Rx #: 48 (8.2.24 visit was #47) Erythema Grade: No Erythema Emollient applied with assistance: Yes Total Body Dose mJ Change: Increased .050 mJ/cm2: 1.350 Time (min): 2:10 Total Body Dose Comments: [facility] Exposure Face (mJ): Treat (with spf) Goggles/protective glasses: Yes Genitals (mJ): N/A Exposure Comments: spf to face prior to tx Opal Ladd MD PROCEDURE/MAHENDRA R SURGICAL ORDERABLES * WI PHOTOCHEMOTHERAPY WITH UV-B (06/25/2024 9:57 AM CDT) Narrative Elizabeth Estrella LPN - 06/25/2024 9:57 AM CDT Elizabeth Estrella LPN ? 06/25/2024 10:01 AM Treatment Rx #: 46 Erythema Grade: No Erythema Emollient applied with assistance: Yes Treatment Comments: Tolerated last treatment well Total Body Dose mJ Change: Increased .025 mJ/cm2: 1.325 Time (min): 2:03 Total Body Dose Comments: [facility] Exposure Face (mJ): Treat Goggles/protective glasses: Yes Genitals (mJ): N/A Exposure Comments: Applied SPF to face Opal Ladd MD PROCEDURE/MAHENDRA R SURGICAL ORDERABLES * WI PHOTOCHEMOTHERAPY WITH UV-B (06/18/2024 10:03 AM CDT) Narrative Colton Orozco - 06/18/2024 10:03 AM CDT Colton Orozco ? 06/18/2024 10:07 AM Treatment Rx #: 47 Erythema Grade: No Erythema Emollient applied with assistance: Yes Treatment Comments: tolertated last treatment well Total Body Dose mJ Change: Increased .050 mJ/cm2: 1.300 Time (min): 2:05 Total Body Dose Comments: [facility] Exposure Face (mJ): Treat Goggles/protective glasses: Yes Genitals (mJ): N/A Opal Ladd MD PROCEDURE/MAHENDRA R SURGICAL ORDERABLES * WI PHOTOCHEMOTHERAPY WITH UV-B (06/14/2024 10:44 AM CDT) Narrative Mary Langston MA - 06/14/2024 10:44 AM CDT Mary Langston MA ? 06/14/2024 10:47 AM Treatment Rx #: 46 Erythema Grade: No Erythema Emollient applied with assistance: Yes Total Body Dose mJ Change: Increased .050 mJ/cm2: 1.250 Time (min): 2:03 Total Body Dose Comments: [facility] Exposure Face (mJ): Treat Goggles/protective glasses: Yes Genitals (mJ): N/A Exposure Comments: spf to face prior to tx Opal Ladd MD PROCEDURE/MAHENDRA R SURGICAL ORDERABLES * WI PHOTOCHEMOTHERAPY WITH UV-B (06/11/2024 9:45 AM CDT) Narrative Luis Enrique Orozcoafa - 06/11/2024 9:45 AM CDT Abdshaun Segura ? 06/11/2024 ??9:46 AM Treatment Rx #: 45 Erythema Grade: No Erythema Emollient applied with assistance: Yes Treatment Comments: Tolerated last treatment well Total Body Dose mJ Change: Increased .025 mJ/cm2: 1.200 Time (min): 1:55 Total Body Dose Comments: [facility] Exposure Face (mJ): Treat Goggles/protective glasses: Yes Genitals (mJ): N/A Opal Ladd MD PROCEDURE/MAHENDRA R SURGICAL ORDERABLES * WI PHOTOCHEMOTHERAPY WITH UV-B (06/07/2024 9:52 AM CDT) Narrative Mary Langston MA - 06/07/2024 9:52 AM CDT Mary Langston MA ? 06/07/2024 ??9:55 AM Treatment Rx #: 44 Erythema Grade: No Erythema Emollient applied with assistance: Yes Total Body Dose mJ Change: Increased .025 mJ/cm2: 1.175 Time (min): 1:56 Total Body Dose Comments: [facility] Exposure Face (mJ): Treat Goggles/protective glasses: Yes Genitals (mJ): N/A Exposure Comments: spf to face prior to tx Opal Ladd MD PROCEDURE/MAHENDRA R SURGICAL ORDERABLES * WI PHOTOCHEMOTHERAPY WITH UV-B (06/04/2024 10:16 AM CDT) Narrative Colton Orozco - 06/04/2024 10:16 AM CDT Pam Segura ? 06/04/2024 10:24 AM Treatment Rx #: 43 Erythema Grade: No Erythema Emollient applied with assistance: Yes Total Body Dose mJ Change: Increased .025 mJ/cm2: 1.150 Time (min): 1:52 Total Body Dose Comments: [facility] Exposure Face (mJ): Treat (spf tx) Goggles/protective glasses: Yes Genitals (mJ): N/A Opal Ladd MD PROCEDURE/MAHENDRA R SURGICAL ORDERABLES * WI PHOTOCHEMOTHERAPY WITH UV-B (05/31/2024 9:45 AM CDT) Narrative Mary Langston MA - 05/31/2024 9:45 AM CDT Mary Langston MA ? 05/31/2024 ??9:53 AM Treatment Rx #: 42 Erythema Grade: No Erythema Emollient applied with assistance: Yes Total Body Dose mJ Change: Decreased (See comment) (25%-started MTX) mJ/cm2: 1.125 Time (min): 1:52 Total Body Dose Comments: [facility] Exposure Face (mJ): Treat Goggles/protective glasses: Yes Genitals (mJ): N/A Exposure Comments: spf to face prior to tx Opal Ladd MD PROCEDURE/MAHENDRA R SURGICAL ORDERABLES * WI PHOTOCHEMOTHERAPY WITH UV-B (05/28/2024 9:33 AM CDT) Narrative Colton Orozco - 05/28/2024 9:33 AM CDT Colton Orozco ? 05/28/2024 ??9:36 AM Treatment Rx #: 41 Erythema Grade: No Erythema Emollient applied with assistance: Yes Treatment Comments: Tolerated last treatment well Total Body Dose mJ Change: Increased .050 mJ/cm2: 1.500 Time (min): 2:22 Total Body Dose Comments: [facility] Exposure Face (mJ): Treat (spf tx) Goggles/protective glasses: Yes Genitals (mJ): N/A Opal Ladd MD PROCEDURE/MAHENDRA R SURGICAL ORDERABLES * WI PHOTOCHEMOTHERAPY WITH UV-B (05/24/2024 10:22 AM CDT) Narrative Mary Langston MA - 05/24/2024 10:22 AM CDT Mary Langston MA ? 05/24/2024 10:29 AM Treatment Rx #: 40 Erythema Grade: No Erythema Emollient applied with assistance: Yes Total Body Dose mJ Change: Increased .050 mJ/cm2: 1.450 Time (min): 2:13 Total Body Dose Comments: [facility] Exposure Face (mJ): Treat Goggles/protective glasses: Yes Genitals (mJ): N/A Exposure Comments: spf to face prior to tx Opal Ladd MD PROCEDURE/MAHENDRA R SURGICAL ORDERABLES * HEPATITIS C AB SCREEN RFLX NAAT QUANT (05/21/2024 11:38 AM CDT) Hepatitis C Antibody Non-react lucinda Non-reac tive 05/21/2024 12:46 PM CDT [facility] Comment:Hepatitis C Antibody screen indicates no serologic [...] Ladd MD LAB - CHEMISTR Y ORDERABLES [facility] [address] [place] [id number], [facility] [phone] * QUANTIFERON-TB GOLD PLUS 4-TUBE (05/21/2024 11:38 AM CDT) Pathologist [facility] QuantiFERON Mitogen Minus NIL 9.99 IU/mL 05/25/2024 3:13 PM CDT [facility] ([facility]) QuantiFERON Nil Value 0.01 IU/mL 05/25/2024 3:13 PM CDT [facility] ([facility]) QuantiFERON Plus TB1 Minus NIL 0.00 <=0.34 IU/mL 05/25/2024 3:13 PM CDT [facility] ([facility]) QuantiFERON Plus TB2 Minus NIL 0.04 <=0.34 IU/mL 05/25/2024 3:13 PM CDT [facility] ([facility]) QuantiFERON-TB Gold Plus Negative Negative 05/25/2024 3:13 PM CDT [facility] ([facility]) Comment: INTERPRETIVE INFORMATION:Quantiferon TB Gold Plus Interferon gamma release is measured for specimens from each of the four collection tubes. A qualitative result (Negative, Positive, or Indeterminate) is based on interpretation of the four values: NIL, MITOGEN minus NIL (MITOGEN-NIL), TB1 minus NIL (TB1-NIL), and TB2 minus NIL (TB2-NIL). The NIL value represents nonspecific reactivity produced by the patient specimen. The MITOGEN-NIL value serves as the positive control for the patient specimen, demonstrating successful lymphocyte activity. The TB1-NIL tube specifically detects CD4+ lymphocyte reactivity, specifically stimulated by the TB1 antigens. The TB2-NIL tube detects both CD4+ and CD8+ lymphocyte reactivity, stimulated by TB2 antigens. An overall Negative result does not completely rule out TB infection. A false-positive result in the absence of other clinical evidence of TB infection is not uncommon. Refer to: Updated Guidelines for Using Interferon Gamma Release Assays to Detect Mycobacterium tuberculosis Infection -- [place], 2010 (http://www.cdc.gov/mmwr/preview/mmwrhtml/od9579b3.htm), for more information concerning test performance in low-prevalence populations and use in occupational screening. Performed By: [employer] [address] [place] [address] Disability Insurance Hearing Officer: Dennis Salgado MD, PhD CLIA Number: [id number] Blood BLOOD SPECIMEN / Unknown Lab Venipuncture / Unknown 05/21/2024 11:38 AM CDT 05/21/2024 12:02 PM CDT Opal Ladd MD LAB - CHEMISTR Y ORDERABLES [facility] ([facility]) [address] [place] [id number], [facility] * HEPATITIS B SURFACE ANTIBODY (05/21/2024 11:38 AM CDT) [facility] Hepatitis B Virus Surface Antibody Non-react lucinda Non-react lucinda 05/21/2024 12:46 PM CDT [facility] Comment: < 8 mIU/mL Hepatitis B surface Antibody (HBsAb). Nonreactive for HBsAb - individual is considered not immune to Hepatitis B Virus infection. Hepatitis B Surface Antibody Quantitative 3.2 <8.0 mIU/mL 05/21/2024 12:46 PM CDT [facility] Comment: Hepatitis B Surface Antibody Numeric Result Interpretation: ? Nonreactive: ?<8.0 mIU/mL ? Indeterminate: ??8.0 - 12.0 mIU/mL ? Reactive: ?>12.0 mIU/mL ? Blood BLOOD SPECIMEN / Unknown Lab Venipuncture / Unknown 05/21/2024 11:38 AM CDT 05/21/2024 12:02 PM CDT Opal Ladd MD LAB - CHEMISTR Y ORDERABLES Performing Organization Address [facility] Co de Phone Number [address] [address], [facility] [phone] * HEPATITIS B CORE ANTIBODY TOTAL (05/21/2024 11:38 AM CDT) HBc Antibody Total Non-reacti ve Non-reacti ve 05/21/2024 12:46 PM CDT [facility] Blood BLOOD SPECIMEN / Unknown Lab Venipuncture / Unknown 05/21/2024 11:38 AM CDT 05/21/2024 12:02 PM CDT Opal Ladd MD LAB - CHEMISTR Y ORDERABLES Performing Organization Address City/[facility] Co de Phone Number [address] [address], [place] [phone] * HEPATITIS B SURFACE ANTIGEN W RFLX CONFIRMATION (05/21/2024 11:38 AM CDT) Hepatitis B Virus Surface Antigen Non-reacti ve Non-reacti ve 05/21/2024 12:46 PM CDT [facility] Blood BLOOD SPECIMEN / Unknown Lab Venipuncture / Unknown 05/21/2024 11:38 AM CDT 05/21/2024 12:02 PM CDT Opal Ladd MD LAB - CHEMISTR Y ORDERABLES [id number] [place] [address], [facility] [phone] * WI PHOTOCHEMOTHERAPY WITH UV-B (05/21/2024 9:45 AM CDT) Narrative Yuri Orozcoa - 05/21/2024 9:45 AM CDT Abdshaun Segura ? 05/21/2024 ??9:47 AM Treatment Rx #: 39 Erythema Grade: No Erythema Emollient applied with assistance: Yes Treatment Comments: Tolerated last treatment well Total Body Dose mJ Change: Increased .025 mJ/cm2: 1.400 Time (min): 2:07 Total Body Dose Comments: [facility] Exposure Face (mJ): Treat Goggles/protective glasses: Yes Genitals (mJ): N/A Opal Ladd MD PROCEDURE/MAHENDRA Goins SURGICAL ORDERABLES * WI PHOTOCHEMOTHERAPY WITH UV-B (05/19/2024 2:45 PM CDT) Narrative Mary Langston MA - 05/19/2024 2:45 PM CDT Mary Langston MA ? 05/19/2024 ??3:01 PM Treatment Rx #: 38 Erythema Grade: No Erythema Emollient applied with assistance: Yes Treatment Comments: last tx on 6.7.24 Total Body Dose mJ Change: Decreased (See comment) (25%) mJ/cm2: 1.375 Time (min): 2:07 Total Body Dose Comments: [facility] Exposure Face (mJ): Treat Goggles/protective glasses: Yes Genitals (mJ): N/A Opal Ladd MD PROCEDURE/MAHENDRA R SURGICAL ORDERABLES * WI PHOTOCHEMOTHERAPY WITH UV-B (04/30/2024 8:50 AM CDT) Narrative Colton Orozco - 04/30/2024 8:50 AM CDT Pam Segura ? 04/30/2024 ??8:52 AM Treatment Rx #: 37 Erythema Grade: No Erythema Emollient applied with assistance: Yes Treatment Comments: Tolerated last treatment well Total Body Dose mJ Change: Increased .050 mJ/cm2: 1.850 Time (min): 2:42 Total Body Dose Comments: [facility] Exposure Face (mJ): Treat Goggles/protective glasses: Yes Genitals (mJ): N/A Opal Ladd MD PROCEDURE/MAHENDRA R SURGICAL ORDERABLES * WI PHOTOCHEMOTHERAPY WITH UV-B (04/26/2024 9:41 AM CDT) Narrative Mary Langston MA - 04/26/2024 9:41 AM CDT Mary Langston MA ? 04/26/2024 ??9:53 AM Treatment Rx #: 36 Erythema Grade: No Erythema Emollient applied with assistance: Yes Total Body Dose mJ Change: Increased .050 mJ/cm2: 1.800 Time (min): 2:42 Total Body Dose Comments: [facility] Exposure Face (mJ): Treat Goggles/protective glasses: Yes Genitals (mJ): N/A Opal Ladd MD PROCEDURE/MAHENDRA R SURGICAL ORDERABLES * WI PHOTOCHEMOTHERAPY WITH UV-B (04/23/2024 9:39 AM CDT) Narrative Colton Orozco - 04/23/2024 9:39 AM CDT Colton Orozco ? 04/23/2024 ??9:42 AM Treatment Rx #: 35 Erythema Grade: No Erythema Emollient applied with assistance: Yes Treatment Comments: Tolerated last treatment well Total Body Dose mJ Change: Increased .050 mJ/cm2: 1.750 Time (min): 2:34 Total Body Dose Comments: [facility] cabinet Exposure Face (mJ): Treat Goggles/protective glasses: Yes Genitals (mJ): N/A Opal Ladd MD PROCEDURE/MAHENDRA R SURGICAL ORDERABLES * WI PHOTOCHEMOTHERAPY WITH UV-B (04/20/2024 10:16 AM CDT) Narrative Mary Langston MA - 04/20/2024 10:16 AM CDT Mary Langston MA ? 04/20/2024 10:46 AM Treatment Rx #: 34 Erythema Grade: No Erythema Emollient applied with assistance: Yes Total Body Dose mJ Change: Increased .050 mJ/cm2: 1.700 Time (min): 2:38 Total Body Dose Comments: [facility] cabinet Exposure Face (mJ): Treat Goggles/protective glasses: Yes Genitals (mJ): N/A Opal Ladd MD PROCEDURE/MAHENDRA R SURGICAL ORDERABLES * WI PHOTOCHEMOTHERAPY WITH UV-B (04/16/2024 9:35 AM CDT) Narrative Pam, Segura - 04/16/2024 9:35 AM CDT Abdali, Segura ? 04/16/2024 ??9:37 AM Treatment Rx #: 33 Erythema Grade: No Erythema Emollient applied with assistance: Yes Treatment Comments: Tolerated last treatment well Total Body Dose mJ Change: Increased .050 mJ/cm2: 1.650 Time (min): 2:29 Total Body Dose Comments: mills cabinet Exposure Face (mJ): Treat Goggles/protective glasses: Yes Genitals (mJ): N/A Opal Ladd MD PROCEDURE/MAHENDRA R SURGICAL ORDERABLES * WI PHOTOCHEMOTHERAPY WITH UV-B (04/12/2024 9:39 AM CDT) Narrative Mary Langston MA - 04/12/2024 9:39 AM CDT Mary Langston ? 04/12/2024 ??9:43 AM Treatment Rx #: 32 Erythema Grade: No Erythema Emollient applied with assistance: Yes Total Body Dose mJ Change: Increased .050 mJ/cm2: 1.600 Time (min): 2:34 Total Body Dose Comments: mills cabinet Exposure Face (mJ): Treat Goggles/protective glasses: Yes Genitals (mJ): N/A Opal Ladd MD PROCEDURE/MAHENDRA R SURGICAL ORDERABLES * WI PHOTOCHEMOTHERAPY WITH UV-B (04/09/2024 9:29 AM CDT) Narrative Pam Segura - 04/09/2024 9:29 AM CDT Abdali, Segura ? 04/09/2024 ??9:36 AM Treatment Rx #: 31 Erythema Grade: No Erythema Emollient applied with assistance: Yes Treatment Comments: Tolerated last treatment well Total Body Dose mJ Change: Increased .050 mJ/cm2: 1.550 Time (min): 2:21 Total Body Dose Comments: mills cabinet Exposure Face (mJ): Treat Goggles/protective glasses: Yes Genitals (mJ): N/A Opal Ladd MD PROCEDURE/MAHENDRA R SURGICAL ORDERABLES * WI PHOTOCHEMOTHERAPY WITH UV-B (04/05/2024 9:48 AM CDT) Narrative Mary Langston MA - 04/05/2024 9:48 AM CDT Mary Langston ? 04/05/2024 ??9:53 AM Treatment Rx #: 30 Erythema Grade: No Erythema Emollient applied with assistance: Yes Treatment Comments: can go to 2x weekly per Dr. Ladd Total Body Dose mJ Change: Increased .050 mJ/cm2: 1.500 Time (min): 2:23 Total Body Dose Comments: mills cabinet Exposure Face (mJ): Treat Goggles/protective glasses: Yes Genitals (mJ): N/A Opal Ladd MD PROCEDURE/MAHENDRA R SURGICAL ORDERABLES * WI DESTROY PREMALIG LESION, 1ST LESION, WI DESTROY PREMALIG LESION, 2-14 (04/02/2024 10:04 AM CDT) Narrative Opal Ladd MD - 04/02/2024 10:04 AM CDT Daly Contreras MD ? 04/02/2024 10:04 AM Diagnosis and treatment options discussed. Liquid nitrogen was applied to 2 lesions (see office visit note for locations) for 6-10 seconds each for 1 cycle. Wound care reviewed. Daly Contreras MD PGY-2 Dermatology Resident Opal Ladd MD PROCEDURE/MAHENDRA R SURGICAL ORDERABLES * WI PHOTOCHEMOTHERAPY WITH UV-B (04/02/2024 9:20 AM CDT) Narrative Colton Orozco - 04/02/2024 9:20 AM CDT Colton Orozco ? 04/02/2024 ??9:26 AM Treatment Rx #: 29 Erythema Grade: No Erythema Emollient applied with assistance: Yes Treatment Comments: Tolerated last treatment well Total Body Dose mJ Change: Increased .050 mJ/cm2: 1.450 Time (min): 2:15 Total Body Dose Comments: mills cabinet Exposure Face (mJ): Treat Goggles/protective glasses: Yes Genitals (mJ): N/A Opal Ladd MD PROCEDURE/MAHENDRA R SURGICAL ORDERABLES * WI PHOTOCHEMOTHERAPY WITH UV-B (03/31/2024 9:43 AM CDT) Narrative Mary Langston MA - 03/31/2024 9:43 AM CDT Mary Langston ? 03/31/2024 ??9:50 AM Treatment Rx #: 28 Erythema Grade: No Erythema Emollient applied with assistance: Yes Total Body Dose mJ Change: Increased .050 mJ/cm2: 1.400 Time (min): 2:09 Total Body Dose Comments: mills cabinet Exposure Face (mJ): Treat Goggles/protective glasses: Yes Genitals (mJ): N/A Opal Ladd MD PROCEDURE/MAHENDRA R SURGICAL ORDERABLES * WI PHOTOCHEMOTHERAPY WITH UV-B (03/29/2024 9:33 AM CDT) Narrative Mary Langston MA - 03/29/2024 9:33 AM CDT Mary Langston ? 03/29/2024 ??9:38 AM Treatment Rx #: 27 Erythema Grade: No Erythema Emollient applied with assistance: Yes Total Body Dose mJ Change: Increased .050 mJ/cm2: 1.350 Time (min): 2:14 Total Body Dose Comments: mills cabinet Exposure Face (mJ): Treat Goggles/protective glasses: Yes Genitals (mJ): N/A Opal Ladd MD PROCEDURE/MAHENDRA R SURGICAL ORDERABLES * WI PHOTOCHEMOTHERAPY WITH UV-B (03/26/2024 9:41 AM CDT) Narrative Colton Orozco - 03/26/2024 9:41 AM CDT Colton Orozco ? 03/26/2024 ??9:43 AM Treatment Rx #: 26 Erythema Grade: No Erythema Emollient applied with assistance: Yes Treatment Comments: Tolerated last treatment well Total Body Dose mJ Change: Increased .050 mJ/cm2: 1.300 Time (min): 2:06 Total Body Dose Comments: mills cabinet Exposure Face (mJ): Treat Goggles/protective glasses: Yes Genitals (mJ): N/A Opal Ladd MD PROCEDURE/MAHENDRA R SURGICAL ORDERABLES * WI PHOTOCHEMOTHERAPY WITH UV-B (03/24/2024 4:17 PM CDT) Narrative Mary Langston MA - 03/24/2024 4:17 PM CDT Mary Langston ? 03/24/2024 ??4:21 PM Treatment Rx #: 25 Erythema Grade: Minimally perceptible Erythema (faint pink) (breasts slight pink; no discomfort) Emollient applied with assistance: Yes Total Body Dose mJ Change: Increased .050 mJ/cm2: 1.250 Time (min): 1:47 Total Body Dose Comments: mills cabinet Exposure Face (mJ): Treat Goggles/protective glasses: Yes Genitals (mJ): N/A Opal Ladd MD PROCEDURE/MAHENDRA R SURGICAL ORDERABLES * WI PHOTOCHEMOTHERAPY WITH UV-B (03/22/2024 9:48 AM CDT) Narrative Mary Langston MA - 03/22/2024 9:48 AM CDT Mary Langston ? 03/22/2024 ??9:51 AM Treatment Rx #: 24 Erythema Grade: No Erythema Emollient applied with assistance: Yes Total Body Dose mJ Change: Increased .050 mJ/cm2: 1.200 Time (min): 2:04 Total Body Dose Comments: mills cabinet Exposure Face (mJ): Treat Goggles/protective glasses: Yes Genitals (mJ): N/A Exposure Comments: spf to face Opal Ladd MD PROCEDURE/MAHENDRA R SURGICAL ORDERABLES * WI PHOTOCHEMOTHERAPY WITH UV-B (03/19/2024 9:36 AM CDT) Narrative Colton Orozco - 03/19/2024 9:36 AM CDT Colton Orozco ? 03/19/2024 ??9:38 AM Treatment Rx #: 23 Erythema Grade: No Erythema Emollient applied with assistance: Yes Treatment Comments: Tolerated last treatment well Total Body Dose mJ Change: Increased .050 mJ/cm2: 1.150 Time (min): 1:44 Total Body Dose Comments: mills cabinet Exposure Face (mJ): Treat (spf tx) Goggles/protective glasses: Yes Genitals (mJ): N/A Exposure Comments: Held abdomen up for 0.350mJ Opal Ladd MD PROCEDURE/MAHENDRA R SURGICAL ORDERABLES * WI PHOTOCHEMOTHERAPY WITH UV-B (03/17/2024 9:39 AM CDT) Narrative Mary Langston, MA - 03/17/2024 9:39 AM CDT Mary Langston ? 03/17/2024 10:11 AM Treatment Rx #: 22 Erythema Grade: No Erythema Emollient applied with assistance: Yes Total Body Dose mJ Change: Hold dose at previous level mJ/cm2: 1.100 Time (min): 1:46 Total Body Dose Comments: mills cabinet Exposure Face (mJ): Treat Goggles/protective glasses: Yes Genitals (mJ): N/A Exposure Comments: held abdomen up for 0.325mJ @ beginning of tx; spf to face prior to tx Opal Ladd MD PROCEDURE/MAHENDRA R SURGICAL ORDERABLES * WI PHOTOCHEMOTHERAPY WITH UV-B (03/15/2024 11:53 AM CDT) Narrative Colton Orozco - 03/15/2024 11:53 AM CDT Colton Orozco ? 03/15/2024 11:56 AM Treatment Rx #: 21 Erythema Grade: Minimally perceptible Erythema (faint pink) Emollient applied with assistance: Yes Treatment Comments: Pt reports some erythema on right side Total Body Dose mJ Change: Hold dose at previous level mJ/cm2: 1.100 Time (min): 1:54 Total Body Dose Comments: mills cabinet Exposure Face (mJ): Treat Goggles/protective glasses: Yes Genitals (mJ): N/A Opal Ladd MD PROCEDURE/MAHENDRA R SURGICAL ORDERABLES * WI PHOTOCHEMOTHERAPY WITH UV-B (03/12/2024 9:44 AM CDT) Narrative Pam Segura - 03/12/2024 9:44 AM CDT Abdali, Segura ? 03/12/2024 ??9:46 AM Treatment Rx #: 20 Erythema Grade: No Erythema Emollient applied with assistance: Yes Treatment Comments: Tolerated last treatment well; no concerns for today Total Body Dose mJ Change: Increased .050 mJ/cm2: 1.100 Time (min): 1:49 Total Body Dose Comments: mills cabinet Exposure Face (mJ): Treat Goggles/protective glasses: Yes Genitals (mJ): N/A Opal Ladd MD PROCEDURE/MAHENDRA R SURGICAL ORDERABLES * WI PHOTOCHEMOTHERAPY WITH UV-B (03/10/2024 9:42 AM CDT) Narrative Pam Segura - 03/10/2024 9:42 AM CDT Pam, Segura ? 03/10/2024 ??9:44 AM Treatment Rx #: 19 Erythema Grade: Minimally perceptible Erythema (faint pink) Emollient applied with assistance: Yes Treatment Comments: Pt reports some pink areas on upper chest and abdomen; will increase dose for today and monitor for next session Total Body Dose mJ Change: Increased .050 mJ/cm2: 1.050 Time (min): 1:46 Total Body Dose Comments: mills cabinet Exposure Face (mJ): Treat Goggles/protective glasses: Yes Genitals (mJ): N/A Opal Ladd MD PROCEDURE/MAHENDRA R SURGICAL ORDERABLES * WI PHOTOCHEMOTHERAPY WITH UV-B (03/08/2024 9:37 AM CDT) Narrative Pam Segura - 03/08/2024 9:37 AM CDT Abdali, Segura ? 03/08/2024 ??9:39 AM Treatment Rx #: 18 Erythema Grade: No Erythema Emollient applied with assistance: Yes Treatment Comments: Pt reported some erythema from last visit; no sensitivity to skin Total Body Dose mJ Change: Hold dose at previous level (per pt request) mJ/cm2: 1.000 Time (min): 1:46 Total Body Dose Comments: mills cabinet Exposure Face (mJ): Treat Goggles/protective glasses: Yes Genitals (mJ): N/A Opal Ladd MD PROCEDURE/MAHENDRA R SURGICAL ORDERABLES * WI PHOTOCHEMOTHERAPY WITH UV-B (03/05/2024 9:26 AM CDT) Narrative Luis Enrique Orozcoafa - 03/05/2024 9:26 AM CDT Abdali, Segura ? 03/05/2024 ??9:34 AM Treatment Rx #: 17 Erythema Grade: No Erythema Emollient applied with assistance: Yes Treatment Comments: Tolerated last treatment well Total Body Dose mJ Change: Increased .050 mJ/cm2: 1.000 Time (min): 1:37 Total Body Dose Comments: mills cabinet Exposure Face (mJ): Treat Goggles/protective glasses: Yes Genitals (mJ): N/A Opal Ladd MD PROCEDURE/MAHENDRA R SURGICAL ORDERABLES * WI PHOTOCHEMOTHERAPY WITH UV-B (03/03/2024 8:40 AM CDT) Narrative Luis Enrique Orozcoafa - 03/03/2024 8:40 AM CDT Abdali, Segura ? 03/03/2024 ??8:42 AM Treatment Rx #: 16 Erythema Grade: No Erythema Emollient applied with assistance: Yes Treatment Comments: Tolerated last treatment well Total Body Dose mJ Change: Increased .050 mJ/cm2: 0.950 Time (min): 1:31 Total Body Dose Comments: mills cabinet Exposure Face (mJ): Treat Goggles/protective glasses: Yes Genitals (mJ): N/A Opal Ladd MD PROCEDURE/MAHENDRA R SURGICAL ORDERABLES * WI PHOTOCHEMOTHERAPY WITH UV-B (03/01/2024 9:30 AM CDT) Narrative Luis Enrique Orozcoafa - 03/01/2024 9:30 AM CDT Abdali, Segura ? 03/01/2024 ??9:32 AM Treatment Rx #: 15 Erythema Grade: No Erythema Emollient applied with assistance: Yes Treatment Comments: Tolerated last treatment well Total Body Dose mJ Change: Increased .050 mJ/cm2: 0.900 Time (min): 1:37 Total Body Dose Comments: mills cabinet Exposure Face (mJ): Treat Goggles/protective glasses: Yes Genitals (mJ): N/A Opal Ladd MD PROCEDURE/MAHENDRA R SURGICAL ORDERABLES * WI PHOTOCHEMOTHERAPY WITH UV-B (02/27/2024 9:58 AM CDT) Narrative Luis Enrique Orozcoafa - 02/27/2024 9:58 AM CDT Abdali, Segura ? 02/27/2024 10:00 AM Treatment Rx #: 14 Erythema Grade: No Erythema Emollient applied with assistance: Yes Treatment Comments: Tolerated last treatment well Total Body Dose mJ Change: Increased .050 mJ/cm2: 0.850 Time (min): 2:13 Total Body Dose Comments: red cabinet today Exposure Face (mJ): Treat Goggles/protective glasses: Yes Genitals (mJ): N/A Opal Ladd MD PROCEDURE/MAHENDRA R SURGICAL ORDERABLES * WI PHOTOCHEMOTHERAPY WITH UV-B (02/25/2024 9:36 AM CDT) Narrative Luis Enrique Orozcoafa - 02/25/2024 9:36 AM CDT Abdali, Segura ? 02/25/2024 ??9:38 AM Treatment Rx #: 13 Erythema Grade: No Erythema Emollient applied with assistance: Yes Treatment Comments: Tolerated last treatment well Total Body Dose mJ Change: Increased .050 mJ/cm2: 0.800 Time (min): 1:15 Total Body Dose Comments: mills cabinet Exposure Face (mJ): Treat Goggles/protective glasses: Yes Genitals (mJ): N/A Opal Ladd MD PROCEDURE/MAHENDRA R SURGICAL ORDERABLES * WI PHOTOCHEMOTHERAPY WITH UV-B (02/23/2024 9:37 AM CDT) Narrative Luis Enrique Orozcoafa - 02/23/2024 9:37 AM CDT Abdali, Segura ? 02/23/2024 ??9:39 AM Treatment Rx #: 12 Erythema Grade: No Erythema Emollient applied with assistance: Yes Treatment Comments: Tolerated last treatment well Total Body Dose mJ Change: Increased .050 mJ/cm2: 0.750 Time (min): 1:22 Total Body Dose Comments: mills cabinet Exposure Face (mJ): Treat Goggles/protective glasses: Yes Genitals (mJ): N/A Opal Ladd MD PROCEDURE/MAHENDRA R SURGICAL ORDERABLES * WI PHOTOCHEMOTHERAPY WITH UV-B (02/20/2024 9:34 AM CDT) Narrative Pam, Segura - 02/20/2024 9:34 AM CDT Abdali, Segura ? 02/20/2024 ??9:36 AM Treatment Rx #: 11 Erythema Grade: No Erythema Emollient applied with assistance: Yes Treatment Comments: Tolerated last treatment well Total Body Dose mJ Change: Increased .050 mJ/cm2: 0.700 Time (min): 1:13 Total Body Dose Comments: mills cabinet Exposure Face (mJ): Treat Goggles/protective glasses: Yes Genitals (mJ): N/A Opal Ladd MD PROCEDURE/MAHENDRA R SURGICAL ORDERABLES * WI PHOTOCHEMOTHERAPY WITH UV-B (02/18/2024 9:36 AM CDT) Narrative Abdali, Segura - 02/18/2024 9:36 AM CDT Abdali, Segura ? 02/18/2024 ??9:38 AM Treatment Rx #: 10 Erythema Grade: No Erythema Emollient applied with assistance: Yes Treatment Comments: Tolerated last treatment well Total Body Dose mJ Change: Hold dose at previous level mJ/cm2: 0.650 Time (min): 1:04 Total Body Dose Comments: mills cabinet Exposure Face (mJ): Treat Goggles/protective glasses: Yes Genitals (mJ): N/A Opal Ladd MD PROCEDURE/MAHENDRA R SURGICAL ORDERABLES * WI DESTROY PREMALIG LESION, 2-14, WI DESTROY PREMALIG LESION, 1ST LESION (02/06/2024 11:45 AM CDT) Narrative Opal Ladd MD - 02/06/2024 11:45 AM CDT Damien Elliott MD ? 02/06/2024 11:45 AM Diagnosis and treatment options discussed. Cryotherapy (Liquid Nitrogen) to 2 lesions for 4-6 seconds each. Number of cycles: 1. Wound care reviewed. Opal Ladd MD PROCEDURE/MAHENDRA R SURGICAL ORDERABLES * WI PHOTOCHEMOTHERAPY WITH UV-B (02/06/2024 10:43 AM CDT) Narrative Luis Enrique Orozcoafa - 02/06/2024 10:43 AM CDT Abdali, Segura ? 02/06/2024 10:47 AM Treatment Rx #: 9 Erythema Grade: No Erythema Emollient applied with assistance: Yes Treatment Comments: Tolerated last treatment well Total Body Dose mJ Change: Increased .050 mJ/cm2: 0.650 Time (min): 1:10 Total Body Dose Comments: mills cabinet Exposure Face (mJ): Treat Goggles/protective glasses: Yes Genitals (mJ): N/A Opal Ladd MD PROCEDURE/MAHENDRA R SURGICAL ORDERABLES * WI PHOTOCHEMOTHERAPY WITH UV-B (02/04/2024 9:35 AM CDT) Narrative Luis Enrique Orozcoafa - 02/04/2024 9:35 AM CDT Abdali, Segura ? 02/04/2024 ??9:37 AM Treatment Rx #: 8 Erythema Grade: No Erythema Emollient applied with assistance: Yes Treatment Comments: Tolerated last treatment well Total Body Dose mJ Change: Increased .050 mJ/cm2: 0.600 Time (min): 1:03 Total Body Dose Comments: mills cabinet Exposure Face (mJ): Treat Goggles/protective glasses: Yes Genitals (mJ): N/A Opal Ladd MD PROCEDURE/MAHENDRA R SURGICAL ORDERABLES * WI PHOTOCHEMOTHERAPY WITH UV-B (02/02/2024 9:37 AM CDT) Narrative Pam, Segura - 02/02/2024 9:37 AM CDT Abdali, Segura ? 02/02/2024 ??9:39 AM Treatment Rx #: 7 Erythema Grade: No Erythema Emollient applied with assistance: Yes Treatment Comments: Tolerated last treatment well Total Body Dose mJ Change: Increased .050 mJ/cm2: 0.550 Time (min): 1:00 Total Body Dose Comments: mills cabinet Exposure Face (mJ): Treat Goggles/protective glasses: Yes Genitals (mJ): N/A Opal Ladd MD PROCEDURE/MAHENDRA R SURGICAL ORDERABLES * WI PHOTOCHEMOTHERAPY WITH UV-B (01/30/2024 9:26 AM SAP ARIBA CONSULTANT) Narrative Luis Enrique Orozcoafa - 01/30/2024 9:26 AM SAP ARIBA CONSULTANT Abdali, Segura ? 01/30/2024 ??9:33 AM Treatment Rx #: 6 Erythema Grade: No Erythema Emollient applied with assistance: Yes Treatment Comments: Tolerated last treatment well Total Body Dose mJ Change: Increased .050 mJ/cm2: 0.500 Time (min): 0:56 Total Body Dose Comments: mills cabinet Exposure Face (mJ): Treat Goggles/protective glasses: Yes Genitals (mJ): N/A Opal Ladd MD PROCEDURE/MAHENDRA R SURGICAL ORDERABLES * WI PHOTOCHEMOTHERAPY WITH UV-B (01/28/2024 10:58 AM SAP ARIBA CONSULTANT) Narrative Luis Enrique Orozcoafa - 01/28/2024 10:58 AM SAP ARIBA CONSULTANT Abdali, Segura ? 01/28/2024 11:01 AM Treatment Rx #: 5 Erythema Grade: No Erythema Emollient applied with assistance: Yes Treatment Comments: Tolerated last treatment well Total Body Dose mJ Change: Increased .050 mJ/cm2: 0.450 Time (min): 0:48 Total Body Dose Comments: mills cabinet Exposure Face (mJ): Treat Goggles/protective glasses: Yes Genitals (mJ): N/A Opal Ladd MD PROCEDURE/MAHENDRA R SURGICAL ORDERABLES * WI PHOTOCHEMOTHERAPY WITH UV-B (01/26/2024 9:48 AM SAP ARIBA CONSULTANT) Narrative Pam Segura - 01/26/2024 9:48 AM SAP ARIBA CONSULTANT Abdali, Segura ? 01/26/2024 ??9:51 AM Treatment Rx #: 4 Erythema Grade: No Erythema Emollient applied with assistance: Yes Treatment Comments: Tolerated last treatment well Total Body Dose mJ Change: Increased .050 mJ/cm2: 0.400 Time (min): 0:41 Total Body Dose Comments: mills cabinet Exposure Face (mJ): Treat Goggles/protective glasses: Yes Genitals (mJ): N/A Opal Ladd MD PROCEDURE/MAHENDRA R SURGICAL ORDERABLES * WI PHOTOCHEMOTHERAPY WITH UV-B (01/23/2024 9:34 AM SAP ARIBA CONSULTANT) Narrative Luis Enrique Orozcoafa - 01/23/2024 9:34 AM SAP ARIBA CONSULTANT Abdali, Segura ? 01/23/2024 ??9:35 AM Treatment Rx #: 3 Erythema Grade: No Erythema Emollient applied with assistance: Yes Treatment Comments: Tolerated last treatment well Total Body Dose mJ Change: Increased .050 mJ/cm2: 0.350 Time (min): 0:37 Total Body Dose Comments: mills cabinet Exposure Face (mJ): Treat Goggles/protective glasses: Yes Genitals (mJ): N/A Opal Ladd MD PROCEDURE/MAHENDRA R SURGICAL ORDERABLES * WI PHOTOCHEMOTHERAPY WITH UV-B (01/21/2024 9:43 AM SAP ARIBA CONSULTANT) Narrative Yuri Orozcoa - 01/21/2024 9:43 AM SAP ARIBA CONSULTANT Abdali, Segura ? 01/21/2024 ??9:45 AM Treatment Rx #: 2 Erythema Grade: No Erythema Emollient applied with assistance: Yes Treatment Comments: Tolerated initial tx well Total Body Dose mJ Change: Increased .050 mJ/cm2: 0.300 Time (min): 0:32 Total Body Dose Comments: mills cabinet Exposure Face (mJ): Treat Goggles/protective glasses: Yes Genitals (mJ): N/A Opal Ladd MD PROCEDURE/MAHENDRA R SURGICAL ORDERABLES * WI PHOTOCHEMOTHERAPY WITH UV-B (01/19/2024 10:24 AM SAP ARIBA CONSULTANT) Narrative Pam Segura - 01/19/2024 10:24 AM SAP ARIBA CONSULTANT Abdali, Segura ? 01/19/2024 10:27 AM Treatment Rx #: 1 Erythema Grade: No Erythema Emollient applied with assistance: Yes Treatment Comments: Initial tx Total Body Dose mJ Change: Other (See comment) (Initial tx) mJ/cm2: 0.250 Time (min): 0:28 Total Body Dose Comments: mills cabinet Exposure Face (mJ): Treat Goggles/protective glasses: Yes Genitals (mJ): N/A Opal Ladd MD PROCEDURE/MAHENDRA R SURGICAL ORDERABLES * WI PUNCH BX SKIN EA SEP ADDL, WI PUNCH BX SKIN SINGLE LESION (01/06/2024 2:31 PM SAP ARIBA CONSULTANT) Narrative Irwin Huynh MD - 01/06/2024 2:31 PM SAP ARIBA CONSULTANT Blaine Barbosa MD ? 01/06/2024 ??2:32 PM Risks, benefits and alternatives to punch biopsy were discussed with the patient. Verbal consent was obtained. Location: R upper arm, L upper back Punch biopsy: 4 mm Skin prep: Alcohol Anesthesia: 0.25% bupivacaine with epinephrine Closure: 4-0 nylon suture Dressing and wound care discussed. Patient agrees to phone call for results and message if not available. Blaine Barbosa MD [facility] Dermatology Resident, PGY-4 Irwin Huynh MD PROCEDURE/MINOR SURG ICAL ORDERABLES * WI INTMD WND REPAIR TRUNK,ARM,LEG 2.6-7.5, WI EXC SKIN MALIG 1.1-2CM TRUNK,ARM,LEG (08/28/2023 2:49PM CDT) Narrative Kishor Jimenez MD - 08/28/2023 2:49 PM CDT Kishor Jimenez MD ? 08/28/2023 ??3:54 PM Elliptical Excision with Intermediate Closure Date of Service: 08/28/2023 Tumor Type: Basal cell carcinoma Location: left upper arm Derm-Path B Lesion Size: 1.0 x 0.8 cm Repair Type: Intermediate Repair Size: 5.8 cm Suture Material: 4-0 monocryl Level of Defect: adipose Surgical Margins: 0.4cm Primary Surgeon: Kishor Jimenez MD Diversity Specialist: ALINE Laguerre INDICATIONS: The risks of bleeding, infection, discomfort, incomplete removal, and scar formation were explained to the patient. All questions were answered. After informed consent, confirmation of site and identity, and appropriate instructions, the patient underwent the procedure as follows: PROCEDURE: With the patient in a supine position, the lesion was outlined with 0.4 cm margins measuring 1.8 x 1.6 cm. An ellipse was designed around the lesion to conform to relaxed skin tension lines in an effort to minimize scarring and deformity. The patient was then positioned on the table. The lesion and surrounding skin were prepped with chlorhexidine, draped, and anesthetized with 1% lidocaine with epinephrine 1:100,100 buffered with 1:10 sodium bicarbonate. Using a #15 blade the skin was excised along premarked lines. The resulting defect extended to adipose. Wound margins were undermined to limit functional deformity/impairment of adjacent structures. Bleeding vessels were controlled with ??monopolar electrodesiccation. The dermis and subcutaneous tissue were closed with buried vertical mattress sutures. Epidermal approximation was meticulously refined with 4.0 monocryl sutures, resulting in a linear closure with little to no wound tension. Blood loss was estimated to be less than 5cc. The area was coated with petrolatum and covered with a non-adherent dressing followed by gauze and tape. Postoperative instructions were reviewed per protocol. The patient left alert and fully oriented. The attending physician was present and always immediately available. Dr. Jimenze performed the entire surgery, and documentation used to initiate this operative report. I entered the information in our [employer] DocFlowsheet with the information provided by Dr. Jimenez on his handwritten, paper format, surgical worksheet, which was then used to initiate the create of this note. Dr. Jimenez then reviewed and edited the note as needed to complete the note. Sofía Blanco GROUP HOME COUNSELOR I have reviewed the note, edited it as necessary and performed the entire procedure. Kishor Jimenez MD Chief Pharmacist 08/28/2023 Kishor Jimenez MD PROCEDURE/MINOR SURG ICAL ORDERABLES * WI DESTROY PREMALIG LESION, 1ST LESION, WI DESTROY PREMALIG LESION, 2-14 (08/17/2023 10:56 AM CDT) Narrative Opal Ladd MD - 08/17/2023 10:56 AM CDT Opal Ladd MD ? 08/17/2023 10:57 AM Liquid nitrogen was applied for 10-12 seconds to the 8 actinic keratosis and the expected blistering or scabbing reaction explained. Do not pick at the area. Patient reminded to expect hypopigmented scars from the procedure. Return if lesion fails to fully resolve. Opal Ladd MD PROCEDURE/MAHENDRA R SURGICAL ORDERABLES * WI TANGNTL BX SKIN SINGLE LES, WI TANGNTL BX SKIN EA SEP ADDL (08/17/2023 10:56 AM CDT) Narrative Opal Ladd MD - 08/17/2023 10:56 AM CDT Opal Ladd MD ? 08/17/2023 10:57 AM Risks, benefits and alternatives to shave biopsy were discussed with the patient. Verbal consent was obtained. Encounter Diagnoses Name Primary? ? ? Actinic keratosis ? Neoplasm of uncertain behavior of skin Yes ? ? Rash and other nonspecific skin eruption ? Seborrheic keratoses ? Lentigines ? Melanocytic nevi of trunk ? Fusion of eyelids, left ? Personal history of malignant melanoma ?? Location: L upper arm and L chest Skin prep: Alcohol Anesthesia: 1% lidocaine with epinephrine Hemostasis: Aluminum chloride Dressing and wound care discussed. Specimen(s) placed in a patient labeled container and sent to [facility] Dermatopathology. Patient agrees to phone call for results and message if not available. Opal Ladd MD Opal Ladd MD PROCEDURE/MAHENDRA R SURGICAL ORDERABLES * WI DESTRUCT BENIGN LESION, 1-14 (03/24/2023 12:19 PM CDT) Narrative Opal Ladd MD - 03/24/2023 12:19 PM CDT Opal Ladd MD ? 03/24/2023 12:19 PM Liquid nitrogen was applied for 10-12 seconds to the 1 skin lesion and the expected blistering or scabbing reaction explained. Do not pick at the area. Patient reminded to expect hypopigmented scars from the procedure. Return if lesion fails to fully resolve. Opal Ladd MD PROCEDURE/MAHENDRA R SURGICAL ORDERABLES * WI DESTROY PREMALIG LESION, 1ST LESION, WI DESTROY PREMALIG LESION, 2-14 (03/24/2023 12:18 PM CDT) Narrative Opal Ladd MD - 03/24/2023 12:18 PM CDT Opal Ladd MD ? 03/24/2023 12:19 PM Liquid nitrogen was applied for 10-12 seconds to the 9 actinic keratosis and the expected blistering or scabbing reaction explained. Do not pick at the area. Patient reminded to expect hypopigmented scars from the procedure. Return if lesion fails to fully resolve. Opal Ladd MD PROCEDURE/MAHENDRA R SURGICAL ORDERABLES * WI TANGNTL BX SKIN SINGLE LES (03/24/2023 12:18 PM CDT) Narrative Opal Ladd MD - 03/24/2023 12:18 PM CDT Opal Ladd MD ? 03/24/2023 12:19 PM Risks, benefits and alternatives to shave biopsy were discussed with the patient. Verbal consent was obtained. Encounter Diagnoses Name Primary? ? ? Neoplasm of uncertain behavior of skin Yes ? ? AK (actinic keratosis) ? Personal history of malignant melanoma of skin ? History of nonmelanoma skin cancer ? Seborrheic keratoses ? Lentigines ? Multiple benign melanocytic nevi of upper and lower extremities and trunk ? Inflamed seborrheic keratosis ?? Location: L lateral ankle Skin prep: Alcohol Anesthesia: 1% lidocaine with epinephrine Hemostasis: Aluminum chloride Dressing and wound care discussed. Specimen(s) placed in a patient labeled container and sent to [facility] Dermat[facility]. Patient agrees to [email or web address] message with results Opal Ladd MD Opal Ladd MD PROCEDURE/MAHENDRA R SURGICAL ORDERABLES * WI INTMD WND REPAIR TRUNK,ARM,LEG 7.6-12.5, WI CHMSRG MOHS MG TQ T/A/L 1ST STAG 5 BLOCKS (01/02/2023 11:40 AM SAP ARIBA CONSULTANT) Narrative Saritha Cruz MD - 01/02/2023 11:40 AM SAP ARIBA CONSULTANT Saritha Cruz MD ? 01/03/2023 ??7:16 PM Mohs Micrographic Surgery Operative Note Procedure: Mohs micrographic surgery Date of service: 01/02/2023 Location: left upper lateral arm Preop diagnosis: Basal cell carcinoma Postop diagnosis: Basal cell carcinoma Mohs AUC score: 7 Number of stages: 1 Preop size: 1.3x1.1 cm Postop size: 2.3x1.9 cm Depth of final defect: adipose Previous dermpath accession #: [id number] Repair type: intermediate Mohs accession #: [id number] Surgeon and Pathologist: Saritha Cruz MD served as both surgeon and pathologist. No other physician was involved in the cancer removal or pathology interpretation. Assistants: N/A Indications for Mohs Surgery Removal of the patient's tumor is complicated by the following clinical features: poorly-defined clinical tumor borders. Based on my medical judgement, Mohs surgery is the most appropriate treatment for this cancer compared to other treatments. I discussed alternative treatments to Mohs surgery and specifically discussed the risks and benefits of curettage, excision with permanent sections, and foregoing treatment. The rationale for Mohs was explained to the patient and consent was obtained. The risks, benefits and alternatives to therapy were discussed in detail. Specifically, the risks of infection, scarring, bleeding, prolonged wound healing, incomplete removal, allergy to anesthesia, nerve injury and recurrence were addressed. Prior to the procedure, the treatment site was clearly identified and confirmed by the patient. All components of [place] Protocol/PAUSE Rule completed. STAGE I: The patient was placed on the operating table. The cancer was identified and outlined. The entire surgical field was prepped with hibiclens. The surgical site was anesthetized using Lidocaine 1% with epinephrine 1:100,000 buffered with sodium bicarbonate 8.4% in a 1:10 ratio.The area of clinically apparent tumor was debulked with a 2 mm curette. The layer of tissue was then surgically excised using a #15 blade and was then transferred onto a specimen sheet maintaining the orientation of the specimen. Hemostasis was obtained using monopolar electrodesiccation. The wound site was then covered with a dressing while the tissue samples were processed for examination. The specimen was oriented, mapped and divided. Each section was then inked and processed in the Mohs lab using the Mohs protocol and submitted for frozen section. The histopathologic sections were reviewed by the surgeon in conjunction with the reference map. Total blocks: 1 Total slides: 3 Frozen sections were examined by the surgeon. No additional tumor was identified. No additional histologic findings appreciated. Cell morphology: N/A. No tumor seen. Pathological pattern: N/A. No tumor seen. Depth of invasion: N/A. No tumor seen. Scar tissue: Not Present Perineural invasion: Not Present Inflammation obscuring possible tumor presence: Not Present [facility]ngel [facility] CLIA # [id number] Mohs laboratory development technician: Saritha Cruz MD REPAIR: Intermediate Primary Surgeon: Saritha Cruz MD Diversity Specialist: N/A Repair Size: 4.2 cm Sutures: 4-0 monocryl The defect was identified and a marking pen was used to plan the repair. The area was infiltrated with Lidocaine 1% with epinephrine 1:100,000 buffered with sodium bicarbonate 8.4% in a 1:10 ratio, prepped with hibiclens and draped with sterile towels. The wound was debeveled and undermined widely. Cones were excised within relaxed skin tension lines on both sides of the defect. Hemostasis was obtained using monopolar electrodesiccation. The dermis and subcutaneous tissue were then approximated using buried vertical mattress sutures. Percutaneous running subcuticular sutures were carefully placed for maximum eversion and meticulous wound edge approximation. Careful attention was paid to avoid distorting any nearby free margins. The wound was cleansed with saline and ointment was applied along the wound surface. A sterile pressure dressing was applied. Wound care instructions were given verbally and in writing. The patient left the operating suite in stable condition. Patient was informed that additional refinement of the resulting surgical scar may be used as a second stage of this reconstruction. Dr. Cruz performed the entire surgery, and documentation used to initiate this operative report. I entered the information in our [facility] DocFlowsheet with the information provided by Dr. Cruz on her handwritten, paper format, surgical worksheet, which was then used to initiate the create of this note. Dr. Cruz then reviewed and edited the note as needed to complete the note. Jordyn Jenkins LPN I have reviewed the note, edited it as necessary and performed the entire procedure. Saritha Cruz MD Project Reservoir Engineer 01/02/2023 Saritha Cruz MD PROCEDURE/MINOR SURG ICAL ORDERABLES * WI CHMSRG MOHS MG TQ T/A/L EA ADDL STAG, WI CHMSRG MOHS MG TQ T/A/L 1ST STAG 5 BLOCKS (01/02/2023 11:25 AM SAP ARIBA CONSULTANT) Narrative Saritha Cruz MD - 01/02/2023 11:25 AM SAP ARIBA CONSULTANT Saritha Cruz MD ? 01/03/2023 ??7:17 PM Mohs Micrographic Surgery Operative Note Procedure: Mohs micrographic surgery Date of service: 01/02/2023 Location: left post shoulder Preop diagnosis: Basal cell carcinoma Postop diagnosis: Basal cell carcinoma Mohs AUC score: 7 Number of stages: 2 Preop size: 0.7x0.8 cm Postop size: 1.8x1.7 cm Depth of final defect: adipose Previous dermpath accession #: [id number] Repair type: intermediate Mohs accession #: [id number] Surgeon and Pathologist: Saritha Cruz MD served as both surgeon and pathologist. No other physician was involved in the cancer removal or pathology interpretation. Assistants: N/A Indications for Mohs Surgery Removal of the patient's tumor is complicated by the following clinical features: poorly-defined clinical tumor borders. Based on my medical judgement, Mohs surgery is the most appropriate treatment for this cancer compared to other treatments. I discussed alternative treatments to Mohs surgery and specifically discussed the risks and benefits of curettage, excision with permanent sections, and foregoing treatment. The rationale for Mohs was explained to the patient and consent was obtained. The risks, benefits and alternatives to therapy were discussed in detail. Specifically, the risks of infection, scarring, bleeding, prolonged wound healing, incomplete removal, allergy to anesthesia, nerve injury and recurrence were addressed. Prior to the procedure, the treatment site was clearly identified and confirmed by the patient. All components of [place] Protocol/PAUSE Rule completed. STAGE I: The patient was placed on the operating table. The cancer was identified and outlined. The entire surgical field was prepped with hibiclens. The surgical site was anesthetized using Lidocaine 1% with epinephrine 1:100,000 buffered with sodium bicarbonate 8.4% in a 1:10 ratio.The area of clinically apparent tumor was debulked with a 2 mm curette. The layer of tissue was then surgically excised using a #15 blade and was then transferred onto a specimen sheet maintaining the orientation of the specimen. Hemostasis was obtained using monopolar electrodesiccation. The wound site was then covered with a dressing while the tissue samples were processed for examination. The specimen was oriented, mapped and divided. Each section was then inked and processed in the Mohs lab using the Mohs protocol and submitted for frozen section. The histopathologic sections were reviewed by the surgeon in conjunction with the reference map. Total blocks: 1 Total slides: 3 Frozen sections were examined by the surgeon and revealed residual tumor. Tumor was indicated in red on the reference map. Cell morphology: basaloid nests with peripheral palisading and abundant mucin (nodular BCC) Pathological pattern: Basal cell carcinoma, nodular Depth of invasion: Dermis Scar tissue: Not Present Perineural invasion: Not Present Inflammation obscuring possible tumor presence: Not Present STAGE II: The patient was prepped in the same fashion as the first stage. Using a similar technique to that described above, a thin layer of tissue was removed from all areas where tumor was visible on the previous stage. The tissue was again oriented, mapped, dyed, and processed as above. Histopathologic sections were reviewed in conjunction with the reference map. Total blocks: 1 Total slides: 2 Frozen sections were examined by the surgeon and revealed: No additional tumor. Histology: No malignant cells seen in the sections examined. No additional histologic findings appreciated. [facility] CLIA # [id number] Mohs Disability Insurance Hearing Officer: Saritha Cruz MD REPAIR: Intermediate Primary Surgeon: Saritha Cruz MD Diversity Specialist: N/A Repair Size: 4.8 cm Sutures: 4-0 monocryl The defect was identified and a marking pen was used to plan the repair. The area was infiltrated with Lidocaine 1% with epinephrine 1:100,000 buffered with sodium bicarbonate 8.4% in a 1:10 ratio, prepped with hibiclens and draped with sterile towels. The wound was debeveled and undermined widely. Cones were excised within relaxed skin tension lines on both sides of the defect. Hemostasis was obtained using monopolar electrodesiccation. The dermis and subcutaneous tissue were then approximated using buried vertical mattress sutures. Percutaneous running subcuticular sutures were carefully placed for maximum eversion and meticulous wound edge approximation. Careful attention was paid to avoid distorting any nearby free margins. The wound was cleansed with saline and ointment was applied along the wound surface. A sterile pressure dressing was applied. Wound care instructions were given verbally and in writing. The patient left the operating suite in stable condition. Patient was informed that additional refinement of the resulting surgical scar may be used as a second stage of this reconstruction. Dr. Cruz performed the entire surgery, and documentation used to initiate this operative report. I entered the information in our Epic DocFlowsheet with the information provided by Dr. Cruz on her handwritten, paper format, surgical worksheet, which was then used to initiate the create of this note. Dr. Cruz then reviewed and edited the note as needed to complete the note. Jordyn Jenkins LPN I have reviewed the note, edited it as necessary and performed the entire procedure. Saritha Cruz MD Project Reservoir Engineer 01/02/2023 Saritha Cruz MD PROCEDURE/MINOR SURG ICAL ORDERABLES * WI CHMSRG MOHS MG TQ T/A/L 1ST STAG 5 BLOCKS (01/02/2023 11:22 AM SAP ARIBA CONSULTANT) Narrative Saritha Cruz MD - 01/02/2023 11:22 AM SAP ARIBA CONSULTANT Saritha Cruz MD ? 01/03/2023 ??7:18 PM Mohs Micrographic Surgery Operative Note Procedure: Mohs micrographic surgery Date of service: 01/02/2023 Location: left upper arm superior Preop diagnosis: Basal cell carcinoma Postop diagnosis: Basal cell carcinoma Mohs AUC score: 7 Number of stages: 1 Preop size: 0.6x0.6 cm Postop size: 1.2x1.1 cm Depth of final defect: adipose Previous dermpath accession #: [id number] Repair type: intermediate Mohs accession #: [id number] Surgeon and Pathologist: Saritha Cruz MD served as both surgeon and pathologist. No other physician was involved in the cancer removal or pathology interpretation. Assistants: N/A Indications for Mohs Surgery Removal of the patient's tumor is complicated by the following clinical features: poorly-defined clinical tumor borders. Based on my medical judgement, Mohs surgery is the most appropriate treatment for this cancer compared to other treatments. I discussed alternative treatments to Mohs surgery and specifically discussed the risks and benefits of curettage, excision with permanent sections, and foregoing treatment. The rationale for Mohs was explained to the patient and consent was obtained. The risks, benefits and alternatives to therapy were discussed in detail. Specifically, the risks of infection, scarring, bleeding, prolonged wound healing, incomplete removal, allergy to anesthesia, nerve injury and recurrence were addressed. Prior to the procedure, the treatment site was clearly identified and confirmed by the patient. All components of [place] Protocol/PAUSE Rule completed. STAGE I: The patient was placed on the operating table. The cancer was identified and outlined. The entire surgical field was prepped with hibiclens. The surgical site was anesthetized using Lidocaine 1% with epinephrine 1:100,000 buffered with sodium bicarbonate 8.4% in a 1:10 ratio.The area of clinically apparent tumor was debulked with a 2 mm curette. The layer of tissue was then surgically excised using a #15 blade and was then transferred onto a specimen sheet maintaining the orientation of the specimen. Hemostasis was obtained using monopolar electrodesiccation. The wound site was then covered with a dressing while the tissue samples were processed for examination. The specimen was oriented, mapped and divided. Each section was then inked and processed in the Mohs lab using the Mohs protocol and submitted for frozen section. The histopathologic sections were reviewed by the surgeon in conjunction with the reference map. Total blocks: 1 Total slides: 3 Frozen sections were examined by the surgeon. No additional tumor was identified. No additional histologic findings appreciated. Cell morphology: N/A. No tumor seen. Pathological pattern: N/A. No tumor seen. Depth of invasion: N/A. No tumor seen. Scar tissue: Not Present Perineural invasion: Not Present Inflammation obscuring possible tumor presence: Not Present [facility] CLIA # [id number] Mohs laboratory development technician: Saritha Cruz MD REPAIR: Intermediate Primary Surgeon: Saritha Cruz MD Diversity Specialist: N/A Repair Size: 3.2 cm Sutures: 4-0 monocryl The defect was identified and a marking pen was used to plan the repair. The area was infiltrated with Lidocaine 1% with epinephrine 1:100,000 buffered with sodium bicarbonate 8.4% in a 1:10 ratio, prepped with hibiclens and draped with sterile towels. The wound was debeveled and undermined widely. Cones were excised within relaxed skin tension lines on both sides of the defect. Hemostasis was obtained using monopolar electrodesiccation. The dermis and subcutaneous tissue were then approximated using buried vertical mattress sutures. Percutaneous running subcuticular sutures were carefully placed for maximum eversion and meticulous wound edge approximation. Careful attention was paid to avoid distorting any nearby free margins. The wound was cleansed with saline and ointment was applied along the wound surface. A sterile pressure dressing was applied. Wound care instructions were given verbally and in writing. The patient left the operating suite in stable condition. Patient was informed that additional refinement of the resulting surgical scar may be used as a second stage of this reconstruction. Dr. Cruz performed the entire surgery, and documentation used to initiate this operative report. I entered the information in our [employer] DocFlowsheet with the information provided by Dr. Cruz on her handwritten, paper format, surgical worksheet, which was then used to initiate the create of this note. Dr. Cruz then reviewed and edited the note as needed to complete the note. Jordyn Jenkins LPN I have reviewed the note, edited it as necessary and performed the entire procedure. Saritha Cruz MD Project Reservoir Engineer 01/02/2023 Saritha Cruz MD PROCEDURE/MINOR SURG ICAL ORDERABLES * WI DESTROY PREMALIG LESION, 1ST LESION, WI DESTROY PREMALIG LESION, 2-14 (11/28/2022 3:14 PM SAP ARIBA CONSULTANT) Narrative Opal Ladd MD - 11/28/2022 3:14 PM SAP ARIBA CONSULTANT Opal Ladd MD ? 11/28/2022 ??3:15 PM Liquid nitrogen was applied for 10-12 seconds to the 7 actinic keratosis and the expected blistering or scabbing reaction explained. Do not pick at the area. Patient reminded to expect hypopigmented scars from the procedure. Return if lesion fails to fully resolve. Opal Ladd MD PROCEDURE/MAHENDRA R SURGICAL ORDERABLES * WI TANGNTL BX SKIN SINGLE LES, WI TANGNTL BX SKIN EA SEP ADDL (11/28/2022 3:14 PM SAP ARIBA CONSULTANT) Narrative Opal Ladd MD - 11/28/2022 3:14 PM SAP ARIBA CONSULTANT Opal Ladd MD ? 11/28/2022 ??3:15 PM Risks, benefits and alternatives to shave biopsy were discussed with the patient. Verbal consent was obtained. Encounter Diagnoses Name Primary? ? ? Neoplasm of uncertain behavior of skin Yes ? ? AK (actinic keratosis) ? Basal cell carcinoma (BCC) of left upper arm ? Personal history of malignant melanoma of skin ? History of nonmelanoma skin cancer ? Seborrheic keratoses ? Lentigines ? Multiple benign melanocytic nevi of upper and lower extremities and trunk ?? Location: L upper arm superior, L posterior shoulder, L posterior calf Skin prep: Alcohol Anesthesia: 1% lidocaine with epinephrine Hemostasis: Aluminum chloride Dressing and wound care discussed. Specimen(s) placed in a patient labeled container and sent to [facility] Dermatopathology. Patient agrees to phone call for results and message if not available. Opal Ladd MD Opal Ladd MD PROCEDURE/MAHENDRA R SURGICAL ORDERABLES * WI DESTROY PREMALIG LESION, 2-14, WI DESTROY PREMALIG LESION, 1ST LESION (07/19/2022 12:21 PM CDT) Narrative Opal Ladd MD - 07/19/2022 12:21 PM CDT Arlet Patterson MD ? 07/19/2022 12:22 PM Diagnosis and treatment options discussed for AK. Verbal consent obtained. Cryotherapy (Liquid Nitrogen) performed to 8 lesions (right forearm x3, right chest x1, right eyebrow x1, right nasal dorsum x1, left forearm x1, left upper arm x1) for 5-7 seconds each. Number of cycles: 1. Wound care reviewed and post-cryotherapy handout given. Arlet Patterson MD Dermatology Resident, PGY-4 [facility], Department of Dermatology Opal Ladd MD PROCEDURE/MAHENDRA R SURGICAL ORDERABLES * WI TANGNTL BX SKIN EA SEP ADDL, WI TANGNTL BX SKIN SINGLE LES (07/19/2022 12:20 PM CDT) Opal Yeh MD - 07/19/2022 12:20 PM CDT Arlet Patterson MD ? 07/19/2022 12:21 PM Risks, benefits and alternatives to shave biopsy were discussed with the patient. Verbal consent obtained. Locations: A) left nasal ala; B) mid upper chest; C) left upper lateral arm Ddx: Rule out NMSC for A, B, and C Skin prep: Alcohol Anesthesia: 1% lidocaine with epinephrine Hemostasis: Aluminum Chloride Dressing and wound care discussed. Patient agrees to phone call for results and message if not available. Arlet Patterson MD Dermatology Resident, PGY-4 [facility], Department of Dermatology Opal Ladd MD PROCEDURE/MAHENDRA R SURGICAL ORDERABLES * WI TANGNTL BX SKIN SINGLE LES (04/17/2022 10:56 AM CDT) Narrative Magdy Castellon MD - 04/17/2022 10:56 AM CDT Jeremy Blevins MD ? 04/17/2022 10:56 AM Risks, benefits and alternatives to shave biopsy were discussed with the patient. Verbal consent was obtained. Encounter Diagnoses Name Primary? ? ? Neoplasm of uncertain behavior of skin Yes ? ? Actinic skin damage ? Lentigines ? Seborrheic keratoses ? Multiple benign melanocytic nevi of upper and lower extremities and trunk ? History of nonmelanoma skin cancer ? Personal history of malignant melanoma ? Actinic keratosis ?? Location: L parasternal Skin prep: Alcohol Anesthesia: 1% lidocaine with epinephrine Hemostasis: Aluminum chloride Dressing and wound care discussed. Specimen(s) placed in a patient labeled container and sent to [facility] Dermat[facility]. Patient agrees to phone call for results and message if not available. Jeremy Blevins MD Magdy Castellon MD PROCEDURE/MINOR SURG ICAL ORDERABLES * WI CHMSRG MOHS MG TQ H/N/H/F/G EA ADDL STAG, WI CHMSRG MOHS MG TQ H/N/H/F/G 1ST STAG 5 BLOC (10/09/2021 3:27 PM SAP ARIBA CONSULTANT) Narrative Magdy Castellon MD - 10/09/2021 3:27 PM SAP ARIBA CONSULTANT Magdy Castellon MD ? 10/10/2021 ??4:51 PM Mohs Micrographic Surgery Operative Note Procedure: Mohs micrographic surgery Date of service: 10/09/2021 Location: left nasal sidewall Preop diagnosis: Basal cell carcinoma Postop diagnosis: Basal cell carcinoma, infiltrative Mohs AUC score: 9 Number of stages: 3 Preop size: 1.0x1.4 cm Postop size: 2.9x1.4 cm Depth of final defect: adipose Previous dermpath accession #: [id number] Repair type: advancement flap Mohs accession #: [id number] Surgeon and Pathologist: Magdy Castellon MD served as both surgeon and pathologist. No other physician was involved in the cancer removal or pathology interpretation. Assistants: Gregory Indications for Mohs Surgery Removal of the patient's tumor is complicated by the following clinical features: Clinical area critical for tissue conservation (Area H: central face, eyelids, eyebrows, nose, lips, chin, ear, periauricular, mosque, genitalia, hands, feet, ankles, nail units and areola), large tumor size, poorly-defined clinical tumor borders. Based on my medical judgement, Mohs surgery is the most appropriate treatment for this cancer compared to other treatments. I discussed alternative treatments to Mohs surgery and specifically discussed the risks and benefits of curettage, excision with permanent sections, and foregoing treatment. The rationale for Mohs was explained to the patient and consent was obtained. The risks, benefits and alternatives to therapy were discussed in detail. Specifically, the risks of infection, scarring, bleeding, prolonged wound healing, incomplete removal, allergy to anesthesia, nerve injury and recurrence were addressed. Prior to the procedure, the treatment site was clearly identified and confirmed by the patient. All components of [place] Protocol/PAUSE Rule completed. STAGE I: The patient was placed on the operating table. The cancer was identified and outlined. The entire surgical field was prepped with iodine. The surgical site was anesthetized using Lidocaine 1% with epinephrine 1:100,000 buffered with sodium bicarbonate 8.4% in a 1:10 ratio.The area of clinically apparent tumor was debulked with a 2 mm curette. The layer of tissue was then surgically excised using a #15 blade and was then transferred onto a specimen sheet maintaining the orientation of the specimen. A small adjacent scab was identified on the left superior nasal sidewall and scouting biopsy was performed to determine diagnosis with vertical frozen section interpretation by Dr. Castellon. Hemostasis was obtained using monopolar electrodesiccation. The wound site was then covered with a dressing while the tissue samples were processed for examination. The specimen was oriented, mapped and divided. Each section was then inked and processed in the Mohs lab using the Mohs protocol and submitted for frozen section. The histopathologic sections were reviewed by the surgeon in conjunction with the reference map. Total blocks: 1 Total slides: 3 Frozen sections were examined by the surgeon and revealed residual tumor. Tumor was indicated in red on the reference map. Cell morphology: small, angulated aggregates of atypical basaloid cells with surrounding stromal change Pathological pattern: Basal cell carcinoma, infiltrative Depth of invasion: Dermis Scar tissue: Not Present Perineural invasion: Not Present Inflammation obscuring possible tumor presence: Not Present The frozen vertical sections of the adjacent biopsy were examined by the surgeon and revealed partial-thickness squamous atypia consistent actinic keratosis within the epidermis and no malignancy. Total blocks: 1 Total slides: 1 STAGE II: The patient was prepped in the same fashion as the first stage. Using a similar technique to that described above, a thin layer of tissue was removed from all areas where tumor was visible on the previous stage. The tissue was again oriented, mapped, dyed, and processed as above. Histopathologic sections were reviewed in conjunction with the reference map. Total blocks: 1 Total slides: 2 Frozen sections were examined by the surgeon and revealed residual tumor. Tumor was indicated in red on the reference map. No additional histologic findings appreciated. STAGE III: The patient was prepped in the same fashion as the first stage. Using a similar technique to that described above, a thin layer of tissue was removed from all areas where tumor was visible on the previous stage. The tissue was again oriented, mapped, dyed, and processed as above. Histopathologic sections were reviewed in conjunction with the reference map. Total blocks: 1 Total slides: 1 Frozen sections were examined by the surgeon and revealed: No additional tumor. Histology: No malignant cells seen in the sections examined. No additional histologic findings appreciated. [facility] CLIA # [id number] Mohs Labortaory Director: Saritha Cruz MD REPAIR: Burow? s Advancement Flap and Nasalis Sling Primary Surgeon: Magdy Castellon MD Diversity Specialist: Gregory Repair Size: 5.2x2.8 cm Sutures: 5-0 monocryl, 5-0 prolene Indication for flap: A flap was chosen because closing the wound by second intention, primary linear closure, or when skin grafting would result in a functionally unsatisfactory result. Additionally, a flap was chosen to recruit additional tissue, displace tension away from the defect and the free margin of the left nasal ala, as well as to reorient tension vectors in more favorable directions. The defect was identified and a marking pen was used to plan the repair. The area was infiltrated with Lidocaine 1% with epinephrine 1:100,000 buffered with sodium bicarbonate 8.4% in a 1:10 ratio, prepped with iodine and draped with sterile towels. The flap was incised using a #15 blade to adipose and undermined widely. The defect was debeveled and undermined and a superior standing cone was incised with retained attachment to the underlying nasalis muscle. Hemostasis was obtained using monopolar electrodesiccation. This portion of the flap was advanced and rotated into place. The lateral cheek advancement flap was incised, undermined, and lifted. It was then advanced medially and secured with buried vertical mattress sutures placed in the dermis and subcutaneous tissue. An additional standing cone was removed opposite the flap to minimize tissue deformity. Percutaneous simple running sutures were carefully placed for maximum eversion and meticulous wound edge approximation. Careful attention was paid to avoid distorting any nearby free margins. The wound was cleansed with saline and ointment was applied along the wound surface. A sterile pressure dressing was applied. Wound care instructions were given verbally and in writing. The patient left the operating suite in stable condition. Patient was informed that additional refinement of the resulting surgical scar may be used as a second stage of this reconstruction. She will return in [address] suture removal. Dr. Castellon performed the entire surgery, and documentation used to initiate this operative report. I entered the information in our [employer] DocFlowsheet with the information provided by Dr. Castellon on her handwritten, paper format, surgical worksheet, which was then used to initiate the create of this note. Dr. Castellon then reviewed and edited the note as needed to complete the note. Jordyn Jenkins LPN Additional procedure: Z-plasty revision of prior left lateral canthus scar Primary Surgeon: Cande Repair Size: 0.6 cm Sutures: 5-0 prolene The linear scar was identified and a marking pen was used to plan the repair. The area was infiltrated with Lidocaine 1% with epinephrine 1:100,000 buffered with sodium bicarbonate 8.4% in a 1:10 ratio, prepped with iodine and draped with sterile towels. The flaps were incised using a #15 blade to adipose and undermined widely. The flaps were carefully undermined until appropriate movement was achieved. Hemostasis was obtained using monopolar electrodesiccation. The flaps were transposed and secured with epidermal sutures. Careful attention was paid to avoid distorting any nearby free margins. The wound was cleansed with saline and ointment was applied along the wound surface. A sterile pressure dressing was applied. Wound care instructions were given verbally and in writing. The patient left the operating suite in stable condition. Patient was informed that additional refinement of the resulting surgical scar may be used as a second stage of this reconstruction. Magdy Castellon MD PROCEDURE/MINOR SURG ICAL ORDERABLES * WI TANGNTL BX SKIN EA SEP ADDL, WI TANGNTL BX SKIN SINGLE LES (09/18/2021 4:38 PM CDT) Narrative Magdy Castellon MD - 09/18/2021 4:38 PM CDT Magdy Castellon MD ? 09/18/2021 ??4:38 PM Risks, benefits and alternatives to shave biopsy were discussed with the patient. Verbal consent was obtained. Encounter Diagnoses Name Primary? ? ? Neoplasm of uncertain behavior of skin Yes ? ? Diffuse photodamage of skin ? Multiple benign melanocytic nevi of upper and lower extremities and trunk ?? Location: A. L [place], B. Left nasal ala Skin prep: Alcohol Anesthesia: 1% lidocaine with epinephrine Hemostasis: Aluminum chloride Dressing and wound care discussed. Specimen(s) placed in a patient labeled container and sent to [facility] Dermatopathology. Patient agrees to phone call for results and message if not available. Magdy Castellon MD PROCEDURE/MINOR SURG ICAL ORDERABLES * WI DESTROY PREMALIG LESION, 2-14, WI DESTROY PREMALIG LESION, 1ST LESION (01/31/2021 10:40 AM SAP ARIBA CONSULTANT) Narrative Gail Lee MD - 01/31/2021 10:40 AM SAP ARIBA CONSULTANT Miguel Guardado MD ? 01/31/2021 10:40 AM Diagnosis and treatment options discussed for AKs. Verbal consent obtained. Cryotherapy (Liquid Nitrogen) performed to 10 lesions (nose and chest) for 6-7 seconds each. Number of cycles: 1. Wound care reviewed and post-cryotherapy handout given. Miguel Guardado MD Dermatology Resident, PGY-4 01/31/2021 10:40 AM Gail Lee MD PROCEDURE/MINOR SURG ICAL ORDERABLES * WI DESTROY PREMALIG LESION, 2-14, WI DESTROY PREMALIG LESION, 1ST LESION (07/26/2020 11:57 AM CDT) Narrative Gail Lee MD - 07/26/2020 11:57 AM CDT Gail Lee MD ? 07/26/2020 11:57 AM Diagnosis and treatment options discussed. Cryotherapy (Liquid Nitrogen) to 5 lesions for 7 seconds each. Number of cycles: 1. Wound care reviewed. Gail Lee MD PROCEDURE/MINOR SURG ICAL ORDERABLES Care Teams Injector Assembler Relationship Specialty Start Date End Date Lance Agee DO PCP - General 01/26/21
--- OUTSIDE RECORDS SUMMARY | 2024-12-16 19:35 | XMS_ITS | Clinical Summary ---
Author Organization [facility] Address [facility] [place] [address] Care Team Providers Care Middle [employer] Science Teacher Name Role Phone Magdy Castellon MD Unavailable [phone] Lance Agee DO Primary Care Provider [phone] Benedict Cortez DO Unavailable [phone] Eusebia Ribeiro Unavailable [phone] Allergies Active Allergy Reactions Criticality Noted Date Comments Olopatadine Eye irritation,Swelling,Itch ing,Other (See comments) High 08/15/2003 ITCHING AND BURNING EYES 2003-08-15;EYE SWELLING/BURNING ITCHING AND BURNING EYES Medications valACYclovir (VALTREX) 1 gram tablet Take 1 tablet (1,000 mg total) by mouth as needed Active meloxicam (MOBIC) 15 mg tablet Take 1 tablet (15 mg total) by mouth daily 30 tablet 4 Active betamethasone, augmented, (DIPROLENE AF) 0.05 % cream Apply 2 Applications topically 2 (two) times a day 4 Active clobetasoL (TEMOVATE) 0.05 % external solution Apply 1 Application topically 2 (two) times a day as needed 4 Active famotidine (PEPCID) 40 mg tablet Take 1 tablet (40 mg total) by mouth daily Active folic acid (FOLVITE) 1 mg tablet Take 1 tablet (1 mg total) by mouth daily 4 Active methotrexate 2.5 mg tablet Take 6 tablets (15 mg total) by mouth once a week 4 Active venlafaxine (EFFEXOR) 75 mg tablet Take 1 tablet (75 mg total) by mouth daily 4 Active Active Problems Problem Noted Date Diagnosed Date Superior glenoid labrum lesion of right shoulder 09/03/2022 Overview (09/03/2022): Added automatically from request for surgery [id number] Arthritis of right acromioclavicular joint 09/03 Overview (09/03/2022): Added automatically from request for surgery [id number] Biceps tendinitis on right 09/03/2022 Overview (09/03/2022): Added automatically from request for surgery [id number] Tear of right rotator cuff 09/03/2022 Overview (09/03/2022): Added automatically from request for surgery [id number] Seborrheic keratoses 07/19/2022 Lentigines 07/19/2022 Multiple benign melanocytic nevi of upper and lower extremities and trunk 07/19/2022 Neoplasm of uncertain behavior of skin 2 Overview (10/10/2022): BASAL CELL CARCINOMA (11/16/2003) BASAL CELL CARCINOMA (11/16/2003) Basal cell carcinoma (BCC) of left side of nose 10/09/2021 Osteoarthritis of left knee 11/05/2019 Mechanical low back pain 01/29/2019 Cough, unspecified 04/04/2004 Overview (10/10/2022): COUGH (04/04/2004) COUGH (04/04/2004) Postmenopausal bleeding 09/16/2003 Overview (10/10/2022): POST MENOPAUSAL BLEEDING (09/16/2003) POST MENOPAUSAL BLEEDING (09/16/2003) Menopausal symptoms 08/26/2003 Overview (10/10/2022): MENOPAUSE (08/26/2003) MENOPAUSE (08/26/2003) Immunizations Name Administration Dates Next Due Influenza, Quadrivalent, Evelyn l Culture-based MDCK, Preservative Free, Antibiotic Free, Intramuscular 09/15/2020 Influenza, Unspecified 09/02/2020 Pneumococcal Conjugate PCV 13 09/15/2020 Tdap 12/07/2020 Surgical History Surgery Date Site/Laterality Comments JOINT REPLACEMENT KNEE SURGERY TUBAL LIGATION Medical History Medical History Date Comments Cancer (CMS/HCC) (HCC) melanoma r leg Hiatal hernia Osteoarthritis PONV (postoperative nausea and vomiting) Sinus bradycardia Pneumonia GERD (gastroesophageal reflux disease) Family History Medical History Relation Name Comments Arthritis Other Cancer Other Heart disease Other Hypertension Other Stroke Other Relation Name Status Comments Other Social History Tobacco Use Types Packs/Day Years Used Date Smoking Tobacco: Never Smokeless Tobacco: Never Tobacco Cessation:Counseling Given: Not Answered AUDIT-C Answer Date Recorded Q1: How often do you have a drink containing alcohol? 4 or more times a week 09/26/2022 Q2: How many drinks containi ng alcohol do you have on a typical day when you are drinking? 1 or 2 Q3: How often do you have si x or more drinks on one occasion? Never 09/26/2022 Comments No Sex and Gender Information Value Date Recorded Sex Assigned at Not on file Legal Sex Female 3:03 PM CDT Gender Identity Female 02/06/2022 8:52 AM CDT Sexual Orientation Straight 02/06/2022 8: 52 AM CDT Obstetrics History Last Filed Vital Signs Vital Sign Reading Time Taken Comments Blood Pressure 132/87 06/10/2024 8:55 AM CDT Pulse 67 06/10/2024 8:55 AM CDT Temperature 36.8 ??C (98.3 ??F) 09/26/2022 11:50 AM C DT Respiratory Rate 20 09/26/2022 11:50 AM CDT Oxygen Saturation 95% 09/26/2022 11:50 AM CDT Inhaled Oxygen Concentration - - Weight 81.6 kg (180 lb) 06/10/2024 8:55 AM CDT Height 157.5 cm (5' 2 ) 06/10/2024 8:55 AM CDT Body Mass Index 32.92 06/10/2024 8:55 AM CDT Plan of Treatment Health Maintenance Due Date Last Done Comments Breast Cancer Screening-Mammogram 1955 Colon Cancer Screening-Colonoscopy 1955 Depression Screening 1955 Fall Risk Assessment 1955 Hepatitis C Screening 1955 Osteoporosis Screening-Bone Density Scan 1955 Hepatitis B Screening 1973 Zoster Vaccine (1 of 2) 1974 Well Visit 65+ 2020 Pneumococcal vaccine 65+ (2 of 2 - PPSV23 or PCV20) 11/10/2020 09/15/2020 Covid-19 Vaccine (4 - 2023-2 5 season) 2024 10/19/2021, 01/26/2021, 12/27/2020 Influenza Vaccine (#1) 2024 2, 09/15/2020, 09/02/2020, Additional history exists DTaP/Tdap/Td Vaccine (2 - Td or Tdap) 12/07/2030 12/07/2020, 04/16/[address] [place] [address] [place] [address] [place] [address] [facility] [place] [address] MEDICARE [employer] Care Teams Middle School Science Teacher Relationship Specialty Start Date End Date Lance Agee DO [address] [place] [address] PCP - General Internal Medicine 09/18/22 Magdy Castellon MD [address] [place] [address] Estimator Project Manager Dermatology 02/08/22 Benedict Cortez DO [address] [facility] [address] [facility] [address] [place] [address] Referring Physician Cardiology 09/18/22 Eusebia Ribeiro PA [address] [place] [address] [address] [place] [address] Physician Tax Examining Technician Orthopedic Surgery 09/26/22
--- OUTSIDE RECORDS SUMMARY | 2024-12-16 19:35 | XMS_ITS | Referral Summary ---
Author Organization [facility] Address [address] [place] [address] Care Team Providers Care Thermostat Maker Name Role Phone Magdy Castellon MD Unavailable Lance Agee DO Primary Care Provider [phone] Benedict Cortez DO Unavailable [phone] Eusebia Ribeiro Unavailable [phone] Allergies Active Allergy Reactions Criticality Noted Date [...] (09/03/2022): Added automatically from request for surgery [id number] Arthritis of right acromioclavicular joint 09/03 Overview (09/03/2022): Added automatically from request for surgery [id number] Biceps tendinitis on right 09/03/2022 Overview (09/03/2022): Added automatically from request for surgery [id number] Tear of right rotator cuff 09/03/2022 Overview (09/03/2022): Added automatically from request for surgery [id number] Seborrheic keratoses 07/19/2022 Lentigines 07/19/2022 Multiple benign [...] Pneumococcal Conjugate PCV 13 09/15/2020 Tdap 12/07/2020 Social History Tobacco Use Types Packs/Day Years [...] Orientation Straight 02/06/2022 8: 52 AM CDT Last Filed Vital Signs Vital Sign Reading [...] 06/10/2024 8:55 AM CDT Plan of Treatment Not on file Insurance MEDICARE [facility] MEDICARE MEDICARE [facility] Care Teams Thermostat Maker Relationship Specialty Start Date End Date Lance Agee DO [facility] [place] [address] PCP - General Internal Medicine 09/18/22 Magdy Castellon MD [address] [place] [address] L Tacker Dermatology 02/08/22 Benedict Cortez DO [address] [facility] [address] [facility] [address] [place], [place] [id number] Referring Physician Cardiology 09/18/22 Eusebia Ribeiro PA [address] [place] [address] [address] [place] [address] Physician Mail Distribution Scheme Examiner Orthopedic Surgery 09/26/22
== END 2024-12-14 15:11 | disposition home or self-care (01) ==
LOC: ANHGOSHLAB 15:11
PROVIDERS: PCP Internal Medicine; Visit Provider Internal Medicine
DX: R74.8 Abnormal levels of other serum enzymes (principal); R10.9 Unspecified abdominal pain
CPT/HCPCS: 36415; 80053; 85025; 85652

== ENCOUNTER 2024-12-24 13:56 | Outpatient (CLI) | payer MEDICARE, SELFPAY ==
--- NOTE | ~2024-12-24 | CT_ITS ---
CLINICAL INDICATION: Right lower quadrant pain COMPARISON: 02/03/2022. TECHNIQUE: Multiple contiguous axial images of the abdomen and pelvis were performed following the ad ministration of with 100 mL Omnipaque-350 intravenous contrast The dose-length product (DLP) was 750.85 mGy-cm. Automated exposure control and iterative reconstruction technique were employed. FINDINGS/OBSERVATIONS: Visualized lower thorax: The bilateral lung bases are clear. The heart is of normal size, without pericardial effusion. Small hiatal hernia is present. Liver: Redemonstration of multiple well-circumscribed foci of decreased attenuation, similar to 202 and lik dorothea representing cysts.. The remainder of the liver otherwise enhances homogeneously. Gallbladder and biliary system: The gallbladder is only minimally distended, and otherwise unremarkable. Pancreas: The pancreas enhances homogeneously without ductal dilatation. Spleen: The spleen enhances homogeneously and is not enlarged measuring 6 cm in longitudinal dimension. Kidneys: The bilateral kidneys enhance symmetrically without hydronephrosis or renal calculi. Adrenal glands: Unremarkable. Gastrointestinal tract: Within the mid to distal small bowel is wall hyperemia and surrounding inflammatory change, findings suggesting a partial small bowel obstruction with the appearance of adhesions, tethering multiple loo ps to the right lower quadrant. Trace free fluid within the deep pelvis. Appendix: The air-filled appendix is of normal caliber (axial series, images 87-103) Vasculature: No aneurysmal dilatation of the abdominal aorta. No dissection. Marked enlargement of the left gonadal vein extending into the pelvis and supplying multiple pelvic v aricosities. Lymph nodes: No pathologically enlarged or morphologically suspicious lymph nodes within the retroperitoneum or at the root of the mesentery. Pelvic structures: The bladder is distended, and otherwise unremarkable. The uterus demonstrates bulky calcifications, likely prior fibroid disease. Extensive pelvic varicosities are also noted. Body wall and musculoskeletal: No significant degenerative disease within the lumbosacral spine. IMPRESSION: Findings suggesting a partial small bowel obstruction with multiple loops of small bowel tethered to the right lower quadrant, where multiple clips are identified. Air is identified within the colon. Additional findings suggesting pelvic congestion syndrome (by imaging) for which clinical correlation is needed. Reviewed, dictated and finalized at location A. CTOR PHYSICAL THERAPY IMPRESSION: Findings suggesting a partial small bowel obstruction with multiple loops of sm all bowel tethered to the right lower quadrant, where multiple clips are identi fied. Air is identified within the colon. Additional findings suggesting pelvic congestion syndrome (by imaging) for whic h clinical correlation is needed.
== END 2024-12-24 13:57 | disposition home or self-care (01) ==
PROVIDERS: PCP Internal Medicine; Visit Provider Internal Medicine
DX: R10.31 Right lower quadrant pain (principal)
CPT/HCPCS: 74177; Q9967

== ENCOUNTER 2025-02-04 10:29 | Outpatient (CLI) | payer MEDICARE, SELFPAY ==
--- OUTSIDE RECORDS SUMMARY | 2025-02-04 11:15 | XMS_ITS | Referral Summary ---
Author Organization [facility] Address [facility] [place] [address] Care Team Providers Care Christian Counselor Name Role Phone Magdy Castellon MD Unavailable Lance Agee DO Primary Care Provider [phone] Benedict Cortez DO Unavailable [phone] Eusebia Ribeiro Unavailable Allergies Active Allergy Reactions Criticality Noted Date [...] (09/03/2022): Added automatically from request for surgery [id number] Arthritis of right acromioclavicular joint 09/03 Overview (09/03/2022): Added automatically from request for surgery [id number] Biceps tendinitis on right 09/03/2022 Overview (09/03/2022): Added automatically from request for surgery [id number] Tear of right rotator cuff 09/03/2022 Overview (09/03/2022): Added automatically from request for surgery [id number] Seborrheic keratoses 07/19/2022 Lentigines 07/19/2022 Multiple benign [...] Overview (10/10/2022): MENOPAUSE (08/26/2003) MENOPAUSE (08/26/2003) Immunizations Immunization Administration Dates Next Due Influenza, Quadrivalent, Evelyn [...] 67 06/10/2024 8:55 AM CDT Temperature 36.8 C (98.3 F) 09/26/2022 11:50 AM CDT Respiratory Rate 20 09/26/2022 11:50 AM CDT Oxygen Saturation 95% 09/26/2022 11:50 AM CDT Inhaled Oxygen Concentration - - Weight 81.6 kg (180 lb) 06/10/2024 8:55 AM CDT Height 157.5 cm (5' 2 ) 06/10/2024 8:55 AM CDT Body Mass Index 32.92 06/10/2024 8:55 AM CDT Plan of Treatment Not [place] [address] [address] [facility] [address] [facility] MEDICARE MEDICARE [facility] Care Teams Christian Counselor Relationship Specialty Start Date End Date Lance Agee DO [address] [place] [address] PCP - General Internal Medicine 09/18/22 Magdy Castellon MD [address] [place] [address] Sewing Pattern Layout Technician Dermatology 02/08/22 Benedict Cortez DO [address] [facility] [address] [place] [address] Referring Physician Cardiology 09/18/22 Eusebia Ribeiro PA [address] [place] [address] [address] [place] [address] Physician Synthetic Cloth Binding Cutter Orthopedic Surgery 09/26/22
--- OUTSIDE RECORDS SUMMARY | 2025-02-04 11:15 | XMS_ITS | Encounter Summary ---
Author Organization [facility] Address [address] [place] [address] Care Team Providers Care Water Taxi Driver Name Role Phone Lance Agee DO Primary Care Provider [phone] Reason for Visit * Reason Onset Date Comments Returned Call 12/09/2022 Encounter Details Date Type Department Care Team ([facility] Contact Info) Description 12/09/2022 Telephone [facility] [address] [place] [address], [facility] [place] [address] Opal Ladd MD [address] [place] [address] [place] [address] Returned Call Social History Tobacco [...] that she can also be contacted through [facility] APPRENTICE documented in this encounter Plan of Treatment Upcoming Encounters Date Type Department Care Team ([facility] Contact Info) Description 03/11/2025 9:40 AM CDT Office Visit [facility] - Dermatology [address] [facility], [place] [address] Opal Ladd MD [address] [facility] [address] [place] [address] documented as of this encounter Visit Diagnoses Not on filedocumented in this encounter Care Teams Water Taxi Driver Relationship Specialty Start Date End Date Lance Agee DO PCP - General 01/26/21 documented as of this encounter
--- OUTSIDE RECORDS SUMMARY | 2025-02-04 11:15 | XMS_ITS | Patient Health Summary ---
Author Organization [facility] Address [address] [place] [address] Care Team Providers Care Machine Gun Mechanic Name Role Phone Lance Agee DO Primary Care Provider [phone] Note from [facility],non-owned Affiliates and Associated Physician Practices is amultiple site organization consisting of ambulatory clinics and hospital sitesin [place], [place], [place] and [place]. This disclosure is being madepursuant to the Care Everywhere program and may not contain all information available regarding this patient. Last updated 18.[facility] Allergies * Olopatadine(Eye Itching) Medications * Be [...] once daily 5 refills by 05/26/2025 * albuterol HFA (Proventil; Ventolin; Proair) 108 (90 Base) MCG/ACT inhaler (Started 10/15/2024) INHALE 2 PUFFS BY MOUTH EVERY 4 TO 6 HOURS NEEDED FOR SHORTNESS OF BREATH OR WHEEZING * methotrexate 2.5 MG tablet(Started 01/28/2025) Take 6 (six) tablets by mouth every 7 days Ended Medications* methotrexate 2.5 MG tablet(Started 10/29/2024)(Discontinued) Take 6 (six) tablets by mouth every 7 days Active Problems Problem Noted Date Diagnosed Date [...] Comments Blood Pressure 145/57 10/09/2021 3:32 PM TRAIN CONTROL TECHNICIAN Pulse 52 10/09/2021 3:32 PM TRAIN CONTROL TECHNICIAN Temperature - - Respiratory Rate - - Oxygen Saturation - - Inhaled Oxygen Concentration - - Weight 74.8 kg (165 lb) 10/09/2021 8:25 AM TRAIN CONTROL TECHNICIAN Height 157.5 cm (5' 2 ) 10/09/2021 8:25 AM TRAIN CONTROL TECHNICIAN Body Mass Index 30.18 10/09/2021 8:25 AM TRAIN CONTROL TECHNICIAN Procedures * HI DESTROY PREMALIG LESION, 2-14(Performed 11/12/2024) Performed for Actinic keratosis * HI DESTROY PREMALIG LESION, 1ST LESION(Performed 11/12/2024) Performed for Actinic keratosis * CBC W AUTO DIFFERENTIAL(Performed 10/28/2024) * COMPREHENSIVE METABOLIC PANEL(Performed 10/28/2024) * HI REPR CMPL WND TRUNK 2.6-7.5CM(Performed 09/14/2024) Performed for Squamous cell carcinoma of skin of chest * HI EXC SKIN MALIG 1.1-2CM TRUNK,ARM,LEG(Performed 09/14/2024) Performed for Squamous cell carcinoma of skin of chest * DERMATOPATHOLOGY(Performed 09/14/2024) Performed for Squamous cell carcinoma of skin of chest * HI REPR CMPL WND TRUNK 2.6-7.5CM(Performed 09/02/2024) Performed for Squamous cell carcinoma of back * HI EXC SKIN MALIG 1.1-2CM TRUNK,ARM,LEG(Performed 09/02/2024) Performed for Squamous cell carcinoma of back * DERMATOPATHOLOGY(Performed 09/02/2024) Performed for Squamous cell carcinoma of back * HI PHOTOCHEMOTHERAPY WITH UV-B(Performed 08/06/2024) Performed for Lichen planus-like dermatitis * HI PHOTOCHEMOTHERAPY WITH UV-B(Performed 08/02/2024) Performed for Lichen planus-like dermatitis * HI PHOTOCHEMOTHERAPY WITH UV-B(Performed 07/30/2024) Performed for Lichen planus-like dermatitis * HI PHOTOCHEMOTHERAPY WITH UV-B(Performed 07/23/2024) Performed for Lichen planus-like dermatitis * HI PHOTOCHEMOTHERAPY WITH UV-B(Performed 07/19/2024) Performed for Lichen planus-like dermatitis * COMPREHENSIVE METABOLIC PANEL(Performed 07/19/2024) Performed for Encounter for long-term (current) use of high-risk medication * CBC W AUTO DIFFERENTIAL(Performed 07/19/2024) Performed for Encounter for long-term (current) use of high-risk medication * HI PHOTOCHEMOTHERAPY WITH UV-B(Performed 07/16/2024) Performed for Lichen planus-like dermatitis * HI TANGNTL BX SKIN EA SEP ADDL(Performed 07/09/2024) Performed for Neoplasm of uncertain behavior of skin * HI TANGNTL BX SKIN SINGLE LES(Performed 07/09/2024) Performed for Neoplasm of uncertain behavior of skin * HI PHOTOCHEMOTHERAPY WITH UV-B(Performed 07/09/2024) Performed for Lichen planus-like dermatitis * DERMATOPATHOLOGY(Performed 07/09/2024) Performed for Neoplasm of uncertain behavior of skin * HI PHOTOCHEMOTHERAPY WITH UV-B(Performed 07/05/2024) Performed for Lichen planus-like dermatitis * HI PHOTOCHEMOTHERAPY WITH UV-B(Performed 07/02/2024) Performed for Interface dermatitis, lichenoid type * HI PHOTOCHEMOTHERAPY WITH UV-B(Performed 06/28/2024) Performed for Interface dermatitis, lichenoid type * HI PHOTOCHEMOTHERAPY WITH UV-B(Performed 06/25/2024) Performed for Interface dermatitis, lichenoid type * COMPREHENSIVE METABOLIC PANEL(Performed 06/22/2024) Performed for Lichenoid dermatitis, High risk medications (not anticoagulants) long-term use * CBC W AUTO DIFFERENTIAL(Performed 06/22/2024) Performed for Lichenoid dermatitis, High risk medications (not anticoagulants) long-term use * HI PHOTOCHEMOTHERAPY WITH UV-B(Performed 06/18/2024) Performed for Interface dermatitis, lichenoid type * HI PHOTOCHEMOTHERAPY WITH UV-B(Performed 06/14/2024) Performed for Interface dermatitis, lichenoid type * HI PHOTOCHEMOTHERAPY WITH UV-B(Performed 06/11/2024) Performed for Interface dermatitis, lichenoid type * HI PHOTOCHEMOTHERAPY WITH UV-B(Performed 06/07/2024) Performed for Interface dermatitis, lichenoid type * HI PHOTOCHEMOTHERAPY WITH UV-B(Performed 06/04/2024) Performed for Interface dermatitis, lichenoid type * HI PHOTOCHEMOTHERAPY WITH UV-B(Performed 05/31/2024) Performed for Interface dermatitis, lichenoid type * HI PHOTOCHEMOTHERAPY WITH UV-B(Performed 05/28/2024) Performed for Interface dermatitis, lichenoid type * HI PHOTOCHEMOTHERAPY WITH UV-B(Performed 05/24/2024) Performed for Interface [...] for screening for other viral diseases * HI PHOTOCHEMOTHERAPY WITH UV-B(Performed 05/21/2024) Performed for Interface dermatitis, lichenoid type * HI PHOTOCHEMOTHERAPY WITH UV-B(Performed 05/19/2024) Performed for Interface dermatitis, lichenoid type * HI PHOTOCHEMOTHERAPY WITH UV-B(Performed 04/30/2024) Performed for Interface dermatitis, lichenoid type * HI PHOTOCHEMOTHERAPY WITH UV-B(Performed 04/26/2024) Performed for Interface dermatitis, lichenoid type * HI PHOTOCHEMOTHERAPY WITH UV-B(Performed 04/23/2024) Performed for Interface dermatitis, lichenoid type * HI PHOTOCHEMOTHERAPY WITH UV-B(Performed 04/20/2024) Performed for Interface dermatitis, lichenoid type * HI PHOTOCHEMOTHERAPY WITH UV-B(Performed 04/16/2024) Performed for Interface dermatitis, lichenoid type * HI PHOTOCHEMOTHERAPY WITH UV-B(Performed 04/12/2024) Performed for Interface dermatitis, lichenoid type * HI PHOTOCHEMOTHERAPY WITH UV-B(Performed 04/09/2024) Performed for Interface dermatitis, lichenoid type * HI PHOTOCHEMOTHERAPY WITH UV-B(Performed 04/05/2024) Performed for Interface dermatitis, lichenoid type * HI DESTROY PREMALIG LESION, 2-14(Performed 04/02/2024) Performed for Actinic keratosis * HI DESTROY PREMALIG LESION, 1ST LESION(Performed 04/02/2024) Performed for Actinic keratosis * HI PHOTOCHEMOTHERAPY WITH UV-B(Performed 04/02/2024) Performed for Interface dermatitis, lichenoid type * HI PHOTOCHEMOTHERAPY WITH UV-B(Performed 03/31/2024) Performed for Interface dermatitis, lichenoid type * HI PHOTOCHEMOTHERAPY WITH UV-B(Performed 03/29/2024) Performed for Interface dermatitis, lichenoid type * HI PHOTOCHEMOTHERAPY WITH UV-B(Performed 03/26/2024) Performed for Interface dermatitis, lichenoid type * HI PHOTOCHEMOTHERAPY WITH UV-B(Performed 03/24/2024) Performed for Interface dermatitis, lichenoid type * HI PHOTOCHEMOTHERAPY WITH UV-B(Performed 03/22/2024) Performed for Interface dermatitis, lichenoid type * HI PHOTOCHEMOTHERAPY WITH UV-B(Performed 03/19/2024) Performed for Interface dermatitis, lichenoid type * HI PHOTOCHEMOTHERAPY WITH UV-B(Performed 03/17/2024) Performed for Interface dermatitis, lichenoid type * HI PHOTOCHEMOTHERAPY WITH UV-B(Performed 03/15/2024) Performed for Interface dermatitis, lichenoid type * HI PHOTOCHEMOTHERAPY WITH UV-B(Performed 03/12/2024) Performed for Interface dermatitis, lichenoid type * HI PHOTOCHEMOTHERAPY WITH UV-B(Performed 03/10/2024) Performed for Interface dermatitis, lichenoid type * HI PHOTOCHEMOTHERAPY WITH UV-B(Performed 03/08/2024) Performed for Interface dermatitis, lichenoid type * HI PHOTOCHEMOTHERAPY WITH UV-B(Performed 03/05/2024) Performed for Interface dermatitis, lichenoid type * HI PHOTOCHEMOTHERAPY WITH UV-B(Performed 03/03/2024) Performed for Interface dermatitis, lichenoid type * HI PHOTOCHEMOTHERAPY WITH UV-B(Performed 03/01/2024) Performed for Interface dermatitis, lichenoid type * HI PHOTOCHEMOTHERAPY WITH UV-B(Performed 02/27/2024) Performed for Interface dermatitis, lichenoid type * HI PHOTOCHEMOTHERAPY WITH UV-B(Performed 02/25/2024) Performed for Interface dermatitis, lichenoid type * HI PHOTOCHEMOTHERAPY WITH UV-B(Performed 02/23/2024) Performed for Interface dermatitis, lichenoid type * HI PHOTOCHEMOTHERAPY WITH UV-B(Performed 02/20/2024) Performed for Interface dermatitis, lichenoid type * HI PHOTOCHEMOTHERAPY WITH UV-B(Performed 02/18/2024) Performed for Interface dermatitis, lichenoid type * HI DESTROY PREMALIG LESION, 1ST LESION(Performed 02/06/2024) Performed for Actinic keratosis * HI DESTROY PREMALIG LESION, 2-14(Performed 02/06/2024) Performed for Actinic keratosis * HI PHOTOCHEMOTHERAPY WITH UV-B(Performed 02/06/2024) Performed for Interface dermatitis, lichenoid type * HI PHOTOCHEMOTHERAPY WITH UV-B(Performed 02/04/2024) Performed for Interface dermatitis, lichenoid type * HI PHOTOCHEMOTHERAPY WITH UV-B(Performed 02/02/2024) Performed for Interface dermatitis, lichenoid type * HI PHOTOCHEMOTHERAPY WITH UV-B(Performed 01/30/2024) Performed for Interface dermatitis, lichenoid type * HI PHOTOCHEMOTHERAPY WITH UV-B(Performed 01/28/2024) Performed for Interface dermatitis, lichenoid type * HI PHOTOCHEMOTHERAPY WITH UV-B(Performed 01/26/2024) Performed for Interface dermatitis, lichenoid type * HI PHOTOCHEMOTHERAPY WITH UV-B(Performed 01/23/2024) Performed for Interface dermatitis, lichenoid type * HI PHOTOCHEMOTHERAPY WITH UV-B(Performed 01/21/2024) Performed for Interface dermatitis, lichenoid type * HI PHOTOCHEMOTHERAPY WITH UV-B(Performed 01/19/2024) Performed for Interface dermatitis, lichenoid type * HI PUNCH BX SKIN SINGLE LESION(Performed 01/06/2024) Performed for Rash and other nonspecific skin eruption * HI PUNCH BX SKIN EA SEP ADDL(Performed 01/06/2024) Performed for Rash and other nonspecific skin eruption * DERMATOPATHOLOGY(Performed 01/06/2024) Performed for Rash and other nonspecific skin eruption * HI EXC SKIN MALIG 1.1-2CM TRUNK,ARM,LEG(Performed 08/28/2023) Performed for Basal cell carcinoma (BCC) of left upper arm * HI INTMD WND REPAIR TRUNK,ARM,LEG 2.6-7.5(Performed 08/28/2023) Performed for Basal cell carcinoma (BCC) of left upper arm * DERMATOPATHOLOGY(Performed 08/28/2023) Performed for Basal cell carcinoma (BCC) of left upper arm * HI DESTROY PREMALIG LESION, 2-14(Performed 08/17/2023) Performed for Actinic keratosis * HI DESTROY PREMALIG LESION, 1ST LESION(Performed 08/17/2023) Performed for Actinic keratosis * HI TANGNTL BX SKIN EA SEP ADDL(Performed 08/17/2023) Performed for Neoplasm of uncertain behavior of skin * HI TANGNTL BX SKIN SINGLE LES(Performed 08/17/2023) Performed for Neoplasm of uncertain behavior of skin * DERMATOPATHOLOGY(Performed 08/08/2023) Performed for Neoplasm of uncertain behavior of skin * HI DESTRUCT BENIGN LESION, 1-14(Performed 03/24/2023) Performed for Inflamed seborrheic keratosis * HI DESTROY PREMALIG LESION, 2-14(Performed 03/24/2023) Performed for AK (actinic keratosis) * HI DESTROY PREMALIG LESION, 1ST LESION(Performed 03/24/2023) Performed for AK (actinic keratosis) * HI TANGNTL BX SKIN SINGLE LES(Performed 03/24/2023) Performed for Neoplasm of uncertain behavior of skin * DERMATOPATHOLOGY(Performed 03/24/2023) Performed for Neoplasm of uncertain behavior of skin * HI CHMSRG MOHS MG TQ T/A/L 1ST STAG 5 BLOCKS(Performed 01/02/2023) Performed for Basal cell carcinoma of left upper arm * PROC MOHS MICRO SURGERY TRUNK/ARM/LEG(Performed 01/02/2023) Performed for Basal cell carcinoma of left upper arm * HI INTMD WND REPAIR TRUNK,ARM,LEG 7.6-12.5(Performed 01/02/2023) Performed for Basal cell carcinoma of left upper arm * HI CHMSRG MOHS MG TQ T/A/L 1ST STAG 5 BLOCKS(Performed 01/02/2023) Performed for Basal cell carcinoma (BCC) of left shoulder * HI CHMSRG MOHS MG TQ T/A/L EA ADDL STAG(Performed 01/02/2023) Performed for Basal cell carcinoma (BCC) of left shoulder * HI CHMSRG MOHS MG TQ T/A/L 1ST STAG 5 BLOCKS(Performed 01/02/2023) Performed for Basal cell carcinoma (BCC) of left upper arm * PROC MOHS MICRO SURGERY TRUNK/ARM/LEG(Performed 01/02/2023) Performed for Basal cell carcinoma (BCC) of left upper arm * HI DESTROY PREMALIG LESION, 2-14(Performed 11/28/2022) Performed for AK (actinic keratosis) * HI DESTROY PREMALIG LESION, 1ST LESION(Performed 11/28/2022) Performed for AK (actinic keratosis) * HI TANGNTL BX SKIN EA SEP ADDL(Performed 11/28/2022) Performed for Neoplasm of uncertain behavior of skin * HI TANGNTL BX SKIN SINGLE LES(Performed 11/28/2022) Performed for Neoplasm of uncertain behavior of skin * DERMATOPATHOLOGY(Performed 11/28/2022) Performed for Neoplasm of uncertain behavior of skin * HI DESTROY PREMALIG LESION, 1ST LESION(Performed 07/19/2022) Performed for Actinic keratosis * HI DESTROY PREMALIG LESION, 2-14(Performed 07/19/2022) Performed for Actinic keratosis * HI TANGNTL BX SKIN SINGLE LES(Performed 07/19/2022) Performed for Neoplasm of uncertain behavior of skin * HI TANGNTL BX SKIN EA SEP ADDL(Performed 07/19/2022) Performed for Neoplasm of uncertain behavior of skin * DERMATOPATHOLOGY(Performed 07/19/2022) Performed for Neoplasm of uncertain behavior of skin * HI TANGNTL BX SKIN SINGLE LES(Performed 04/17/2022) Performed for Neoplasm of uncertain behavior of skin * DERMATOPATHOLOGY(Performed 04/17/2022) Performed for Neoplasm of uncertain behavior of skin * HI CHMSRG MOHS MG TQ H/N/H/F/G 1ST STAG 5 BLOC(Performed 10/09/2021) Performed for Basal cell carcinoma (BCC) of left side of nose * HI CHMSRG MOHS MG TQ H/N/H/F/G EA ADDL STAG(Performed 10/09/2021) Performed for Basal cell carcinoma (BCC) of left side of nose * PROC MOHS SURG HEAD/NECK/HAND/FEET/MEHRAN(Performed 10/09/2021) Performed for Basal cell carcinoma (BCC) of left side of nose * HI TANGNTL BX SKIN SINGLE LES(Performed 09/18/2021) Performed for Neoplasm of uncertain behavior of skin * HI TANGNTL BX SKIN EA SEP ADDL(Performed 09/18/2021) Performed for Neoplasm of uncertain behavior of skin * DERMATOPATHOLOGY(Performed 09/12/2021) Performed for Neoplasm of uncertain behavior of skin * HI DESTROY PREMALIG LESION, 1ST LESION(Performed 01/31/2021) Performed for Actinic keratoses * HI DESTROY PREMALIG LESION, 2-14(Performed 01/31/2021) Performed for Actinic keratoses * HI DESTROY PREMALIG LESION, 1ST LESION(Performed 07/26/2020) Performed for Actinic keratoses * HI DESTROY PREMALIG LESION, 2-14(Performed 07/26/2020) Performed for Actinic keratoses Results * HI DESTROY PREMALIG LESION, 1ST LESION, HI DESTROY PREMALIG LESION, 2-14 (11/12/2024 11:18 AM TRAIN CONTROL TECHNICIAN) Narrative Opal Ladd MD - 11/12/2024 11:18 AM TRAIN CONTROL TECHNICIAN Opal Ladd MD 11/12/2024 11:18 AM Liquid nitrogen was applied for 10-12 seconds to the 13 actinic keratosis and the expected blistering or scabbing reaction explained. Do not pick at the area. Patient reminded to expect hypopigmented scars from the procedure. Return if lesion fails to fully resolve. Opal Ladd MD PROCEDURE/MAHENDRA R SURGICAL ORDERABLES * (ABNORMAL) CBC WITH DIFFERENTIAL (10/28/2024 1:04 PM TRAIN CONTROL TECHNICIAN) Only the most recent of4 resultswithin the [...] 0.8 % [facility] Comment: Test Performed at: [employer] [id number] ALPA FREGOSO MD 10/28/2024 1:04 PM TRAIN CONTROL TECHNICIAN 10/28/2024 1:05 PM TRAIN CONTROL TECHNICIAN Opal Ladd MD LAB - HEMATOLO GY ORDERABLES [address] [address] * (ABNORMAL) COMPREHENSIVE METABOLIC PANEL (10/28/2024 1:04 PM TRAIN CONTROL TECHNICIAN) Only the most recent of4 resultswithin the time period is included. Glucose 93 65 - 99 mg/dL [facility] Comment: Fasting reference interval BUN 27(H) 7 - [...] 29 U/L [facility] Comment: Test Performed at: [facility] [employer] [phone] ALPA FREGOSO MD 10/28/2024 1:04 PM TRAIN CONTROL TECHNICIAN 10/28/2024 1:05 PM TRAIN CONTROL TECHNICIAN Opal Ladd MD LAB - CHEMISTR Y ORDERABLES [address] [address] * HI EXC SKIN MALIG 1.1-2CM TRUNK,ARM,LEG, HI REPR CMPL WND TRUNK 2.6-7.5CM (09/14/2024 1:49 PM CDT) Narrative Kishor Jimenez MD - 09/14/2024 1:49 PM CDT Kishor Jimenez MD 09/14/2024 1:59 PM Elliptical Excision with Complex Closure Date of Service: 09/14/2024 Tumor Type: Squamous cell carcinoma Location: right chest Derm-Path Pre-op Lesion Size: 0.6x0.7 cm Post-op Lesion Size with Margin: 1.4x1.5 cm Surgical Margins: 0.4cm Repair Type: complex Repair Size: 4.6 cm Suture Material: 3-0 monocryl, Dermabond Level of Defect: adipose Primary Surgeon: Kishor Jimenez MD Dress Shoe Inspector: N/A INDICATIONS: The risks of bleeding, infection, [...] REPAIR: Complex Primary Surgeon: Kishor Jimenez MD Dress Shoe Inspector: Jordyn Jenkins LPN Repair Size: 4.6 cm [...] patient will follow up with their primary project intern. Dr. Jimenez performed the entire surgery, and documentation used to initiate this operative report. I entered the information in our [employer] DocFlowsheet with the information provided by Dr. Jimenez on his handwritten, paper format, surgical worksheet, which was then used to initiate the create of this note. Dr. Jimenez then reviewed and edited the note as needed to complete the note. Jordyn Jenkins LPN I have reviewed the note, edited it as necessary and performed the entire procedure. Kishor Jimenez MD Net Mender 09/14/2024 Kishor Jimenez MD PROCEDURE/MINOR SURG ICAL ORDERABLES * DERMATOPATHOLOGY (09/14/2024 1:46 PM CDT) Only the most recent of11 resultswithin the time period is included. Case Report Dermatopathology Report Case: [id number] Authorizing Provider: Kishor Jimenez MD Collected: 09/14/2024 01:46 PM Ordering Location: [facility] - Received: 09/14/2024 02:26 PM Dermatology Pathologist: Sandy Laird MD Specimen: Skin, right chest 4:04 PM CDT DERMATOPATHOLOGY LABORATORY Final Diagnosis Specimen A. SKIN, right chest: SQUAMOUS CELL CARCINOMA, WELL DIFFERENTIATED (C44.529) NOT PRESENT AT MARGIN DERMAL SCAR (L90.5) 4:04 PM CDT DERMATOPATHOLOGY LABORATORY Clinical History R/o SCC vs scar Check margins 4:04 PM CDT DERMATOPATHOLOGY LABORATORY Gross Description Specimen A: Received is one formalin filled container labeled with the patient's name and designated right chest.The specimen consists of an ellipse measuring [id number] mm and is oriented with the suture/notch [...] in cassettes 3-4. Jar 0. 4:04 PM CDT DERMATOPATHOLOGY LABORATORY Microscopic Description Specimen A. SKIN, [...] perpendicular to the skin surface. 4:04 PM CDT DERMATOPATHOLOGY LABORATORY Disclaimer An external and internal positive and negative controls are appropriate for the histochemical, immunohistochemical and immunofluorescence stain(s) in this case (if any), except where stated explicitly. The performance characteristics of the stain(s) cited in this report were developed and its performance characteristic determined by the Dermatopathology Laboratory at [facility], directed by Dr. Codey Luna. These tests need not be, and therefore are not, approved by the [place] Food and Drug Administration. The tests are used for clinical purposes. Billing Codes Specimen Charges Stain Charges 94630 1 4 4:04 PM CDT DERMATOPATHOLOGY LABORATORY Embedded Images 4:04 PM CDT DERMATOPATHOLOGY LABORATORY Pathology/Cytolo gy TISSUE SPECIMEN FROM SKIN / Unknown 09/14/2024 1:46 PM CDT 09/14/2024 2:26 PM CDT Kishor Jimenez MD LAB - PATHOLOGY/CYTO LOGY ORDERABLES DERMATOPATHOLOGY LABORATORY [facility] Department of Dermatology [address] [phone] * HI EXC SKIN MALIG 1.1-2CM TRUNK,ARM,LEG, HI REPR CMPL WND TRUNK 2.6-7.5CM (09/02/2024 3:19 PM CDT) Narrative Kishor Jimenez MD - 09/02/2024 3:19 PM CDT Kishor Jimenez MD 09/07/2024 2:27 PM Elliptical Excision with Complex Closure Date of Service: 09/02/2024 Tumor Type: Squamous cell carcinoma Location: Upper back Derm-Path Pre-op Lesion Size: 0.8 x 0.6 cm Post-op Lesion Size with Margin: 2.0 cm Surgical Margins: 0.4 cm Repair Type: complex Repair Size: 3.5 cm Suture Material: 3-0 monocryl Level of Defect: adipose Primary Surgeon: Kishor Jimenez MD Dress Shoe Inspector: ALINE Fonseca INDICATIONS: The risks of bleeding, infection, discomfort, incomplete removal, and scar formation were explained to the patient. All questions were answered. After informed consent, confirmation of site and identity, and appropriate instructions, the patient underwent the procedure as follows: PROCEDURE: Excision With the patient in a supine position, the lesion was outlined with 0.4 cm margins measuring 1.6 x 1.4 cm. An ellipse was designed around the [...] REPAIR: Complex Primary Surgeon: Kishor Jimenez MD Dress Shoe Inspector: ALINE Fonseca Repair Size: 3.5 cm Sutures: [...] patient will follow up with their primary project intern. Dr. Jimenez performed the entire surgery, and [...] to complete the note. Olamide Simon MA I have reviewed the note, edited it as necessary and performed the entire procedure. Kishor Jimenez MD Net Mender 09/02/2024 Kishor Jimenez MD PROCEDURE/MINOR SURG ICAL ORDERABLES * HI PHOTOCHEMOTHERAPY WITH UV-B (08/06/2024 10:29 AM CDT) Narrative Elizabeth Estrella LPN - 08/06/2024 10:29 AM CDT Elizabeth Estrella LPN 08/06/2024 10:33 AM Treatment Rx #: [id number] [...] Ladd MD PROCEDURE/MAHENDRA R SURGICAL ORDERABLES * HI PHOTOCHEMOTHERAPY WITH UV-B (08/02/2024 10:09 AM CDT) Narrative Mary Langston MA - 08/02/2024 10:09 AM CDT Mary Langston MA 08/02/2024 10:11 AM Treatment Rx #: 56 Erythema Grade: No Erythema Emollient applied with assistance: Yes Total Body Dose mJ Change: Increased .025 mJ/cm2: 1.550 Time (min): 2:27 Total Body Dose Comments: mills cabinet Exposure Face (mJ): Treat Goggles/protective glasses: Yes Genitals (mJ): N/A Opal Ladd MD PROCEDURE/MAHENDRA R SURGICAL ORDERABLES * HI PHOTOCHEMOTHERAPY WITH UV-B (07/30/2024 10:39 AM CDT) Narrative Elizabeth Estrella LPN - 07/30/2024 10:39 AM CDT Elizabeth Estrella LPN 07/30/2024 10:45 AM Treatment Rx #: 55 [...] Ladd MD PROCEDURE/MAHENDRA R SURGICAL ORDERABLES * HI PHOTOCHEMOTHERAPY WITH UV-B (07/23/2024 9:46 AM CDT) Narrative Elizabeth Estrella LPN - 07/23/2024 9:46 AM CDT Elizabeth Estrella LPN 07/23/2024 9:56 AM Treatment Rx #: 54 Erythema Grade: No Erythema Emollient applied with assistance: Yes Treatment Comments: Tolerated last treatment well Total Body Dose mJ Change: Increased .025 mJ/cm2: 1.500 Time (min): 2:23 Total Body Dose Comments: [facility] cabinet Exposure Face (mJ): Treat Goggles/protective glasses: Yes Exposure Comments: SPF applied to face Opal Ladd MD PROCEDURE/MAHENDRA R SURGICAL ORDERABLES * HI PHOTOCHEMOTHERAPY WITH UV-B (07/19/2024 10:34 AM CDT) Narrative Mary Langston MA - 07/19/2024 10:34 AM CDT Mary Langston MA 07/19/2024 10:40 AM Treatment Rx #: 53 [...] Ladd MD PROCEDURE/MAHENDRA R SURGICAL ORDERABLES * HI PHOTOCHEMOTHERAPY WITH UV-B (07/16/2024 10:23 AM CDT) Narrative Elizabeth Estrella LPN - 07/16/2024 10:23 AM CDT Elizabeth Estrella LPN 07/16/2024 10:27 AM Treatment Rx #: [id number] [...] Ladd MD PROCEDURE/MAHENDRA R SURGICAL ORDERABLES * HI TANGNTL BX SKIN SINGLE LES, HI TANGNTL BX SKIN EA SEP ADDL (07/09/2024 4:29 PM CDT) Narrative Opal Ladd MD - 07/09/2024 4:29 PM CDT Opal Ladd MD 07/09/2024 4:41 PM Risks, benefits and alternatives to shave biopsy were discussed with the patient. Verbal consent was obtained. Encounter Diagnoses Name Primary? 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 Specimen(s) placed in a patient labeled container and sent to [facility] Dermatopathology. Patient agrees to phone call for results and message if not available. Opal Ladd MD Opal Ladd MD PROCEDURE/MAHENDRA R SURGICAL ORDERABLES * HI PHOTOCHEMOTHERAPY WITH UV-B (07/09/2024 3:00 PM CDT) Narrative Elizabeth Estrella LPN - 07/09/2024 3:00 PM CDT Elizabeth Estrella LPN 07/09/2024 3:17 PM Treatment Rx #: 51 Erythema Grade: [...] Ladd MD PROCEDURE/MAHENDRA R SURGICAL ORDERABLES * HI PHOTOCHEMOTHERAPY WITH UV-B (07/05/2024 1:29 PM CDT) Narrative Mary Langston MA - 07/05/2024 1:29 PM CDT Mary Langston MA 07/05/2024 1:32 PM Treatment Rx #: 50 Erythema Grade: No Erythema Emollient applied with assistance: Yes Total Body Dose mJ Change: Increased .025 mJ/cm2: 1.400 Time (min): 2:13 Total Body Dose Comments: mills cabinet Exposure Face (mJ): Treat (spf to face) Goggles/protective glasses: Yes Genitals (mJ): N/A Opal Ladd MD PROCEDURE/MAHENDRA R SURGICAL ORDERABLES * HI PHOTOCHEMOTHERAPY WITH UV-B (07/02/2024 9:52 AM CDT) Narrative Elizabeth Estrella LPN - 07/02/2024 9:52 AM CDT Elizabeth Estrella LPN 07/02/2024 10:01 AM Treatment Rx #: 49 [...] Ladd MD PROCEDURE/MAHENDRA R SURGICAL ORDERABLES * HI PHOTOCHEMOTHERAPY WITH UV-B (06/28/2024 9:47 AM CDT) Narrative Mary Langston MA - 06/28/2024 9:47 AM CDT Mary Langston MA 06/28/2024 9:56 AM Treatment Rx #: 48 (8.2.24 visit [...] Ladd MD PROCEDURE/MAHENDRA R SURGICAL ORDERABLES * HI PHOTOCHEMOTHERAPY WITH UV-B (06/25/2024 9:57 AM CDT) Narrative Elizabeth Estrella LPN - 06/25/2024 9:57 AM CDT Elizabeth Estrella LPN 06/25/2024 10:01 AM Treatment Rx #: 46 [...] Ladd MD PROCEDURE/MAHENDRA R SURGICAL ORDERABLES * HI PHOTOCHEMOTHERAPY WITH UV-B (06/18/2024 10:03 AM CDT) Narrative Colton Orozco - 06/18/2024 10:03 AM CDT Colton Orozco 06/18/2024 10:07 AM Treatment Rx #: 47 Erythema Grade: No Erythema Emollient applied with assistance: Yes Treatment Comments: tolertated last treatment well Total Body Dose mJ Change: Increased .050 mJ/cm2: 1.300 Time (min): 2:05 Total Body Dose Comments: mills cabinet Exposure Face (mJ): Treat Goggles/protective glasses: Yes Genitals (mJ): N/A Opal Ladd MD PROCEDURE/MAHENDRA R SURGICAL ORDERABLES * HI PHOTOCHEMOTHERAPY WITH UV-B (06/14/2024 10:44 AM CDT) Narrative Mary Langston MA - 06/14/2024 10:44 AM CDT Mary Langston MA 06/14/2024 10:47 AM Treatment Rx #: 46 Erythema Grade: No Erythema Emollient applied with assistance: Yes Total Body Dose mJ Change: Increased .050 mJ/cm2: 1.250 Time (min): 2:03 Total Body Dose Comments: mills cabinet Exposure Face (mJ): Treat Goggles/protective glasses: Yes Genitals (mJ): N/A Exposure Comments: spf to face prior to tx Opal Ladd MD PROCEDURE/MAHENDRA R SURGICAL ORDERABLES * HI PHOTOCHEMOTHERAPY WITH UV-B (06/11/2024 9:45 AM CDT) Narrative Luis Enrique Orozcoafa - 06/11/2024 9:45 AM CDT Pam Segura 06/11/2024 9:46 AM Treatment Rx #: 45 Erythema Grade: No Erythema Emollient applied with assistance: Yes Treatment Comments: Tolerated last treatment well Total Body Dose mJ Change: Increased .025 mJ/cm2: 1.200 Time (min): 1:55 Total Body Dose Comments: mills cabinet Exposure Face (mJ): Treat Goggles/protective glasses: Yes Genitals (mJ): N/A Opal Ladd MD PROCEDURE/MAHENDRA R SURGICAL ORDERABLES * HI PHOTOCHEMOTHERAPY WITH UV-B (06/07/2024 9:52 AM CDT) Narrative Mary Langston MA - 06/07/2024 9:52 AM CDT Mary Langston MA 06/07/2024 9:55 AM Treatment Rx #: 44 Erythema Grade: No Erythema Emollient applied with assistance: Yes Total Body Dose mJ Change: Increased .025 mJ/cm2: 1.175 Time (min): 1:56 Total Body Dose Comments: mills cabinet Exposure Face (mJ): Treat Goggles/protective glasses: Yes Genitals (mJ): N/A Exposure Comments: spf to face prior to tx Opal Ladd MD PROCEDURE/MAHENDRA R SURGICAL ORDERABLES * HI PHOTOCHEMOTHERAPY WITH UV-B (06/04/2024 10:16 AM CDT) Narrative Colton Orozco - 06/04/2024 10:16 AM CDT Luis Enrique Orozcoafa 06/04/2024 10:24 AM Treatment Rx #: 43 Erythema Grade: No Erythema Emollient applied with assistance: Yes Total Body Dose mJ Change: Increased .025 mJ/cm2: 1.150 Time (min): 1:52 Total Body Dose Comments: mills cabinet Exposure Face (mJ): Treat (spf tx) Goggles/protective glasses: Yes Genitals (mJ): N/A Opal Ladd MD PROCEDURE/MAHENDRA R SURGICAL ORDERABLES * HI PHOTOCHEMOTHERAPY WITH UV-B (05/31/2024 9:45 AM CDT) Narrative Mary Langston MA - 05/31/2024 9:45 AM CDT Mary Langston MA 05/31/2024 9:53 AM Treatment Rx #: 42 Erythema Grade: No Erythema Emollient applied with assistance: Yes Total Body Dose mJ Change: Decreased (See comment) (25%-started MTX) mJ/cm2: 1.125 Time (min): 1:52 Total Body Dose Comments: mills cabinet Exposure Face (mJ): Treat Goggles/protective glasses: Yes Genitals (mJ): N/A Exposure Comments: spf to face prior to tx Opal Ladd MD PROCEDURE/MAHENDRA R SURGICAL ORDERABLES * HI PHOTOCHEMOTHERAPY WITH UV-B (05/28/2024 9:33 AM CDT) Narrative Colton Orozco - 05/28/2024 9:33 AM CDT Colton Orozco 05/28/2024 9:36 AM Treatment Rx #: 41 Erythema Grade: No Erythema Emollient applied with assistance: Yes Treatment Comments: Tolerated last treatment well Total Body Dose mJ Change: Increased .050 mJ/cm2: 1.500 Time (min): 2:22 Total Body Dose Comments: mills cabinet Exposure Face (mJ): Treat (spf tx) Goggles/protective glasses: Yes Genitals (mJ): N/A Opal Ladd MD PROCEDURE/MAHENDRA R SURGICAL ORDERABLES * HI PHOTOCHEMOTHERAPY WITH UV-B (05/24/2024 10:22 AM CDT) Narrative Mary Langston MA - 05/24/2024 10:22 AM CDT Mary Langston MA 05/24/2024 10:29 AM Treatment Rx #: 40 [...] RFLX NAAT QUANT (05/21/2024 11:38 AM CDT) [facility] Hepatitis C Antibody Non-react lucinda Non-reac tive 05/21/2024 12:46 PM CDT [facility] Comment:Hepatitis C Antibody screen indicates [...] - CHEMISTR Y ORDERABLES Performing Organization Address City/State/[facility] Co de Phone Number [facility] [address] [place] [address], [facility] [phone] * QUANTIFERON-TB GOLD PLUS 4-TUBE (05/21/2024 11:38 AM CDT) [facility] QuantiFERON Mitogen Minus NIL 9.99 IU/mL 05/25/2024 3:13 PM CDT [email or web address] ([facility]) QuantiFERON Nil Value 0.01 IU/mL 05/25/2024 3:13 PM CDT [facility]) QuantiFERON Plus TB1 Minus NIL 0.00 <=0.34 IU/mL 05/25/2024 3:13 PM CDT [facility] ([facility]) QuantiFERON Plus TB2 Minus NIL 0.04 <=0.34 IU/mL 05/25/2024 3:13 PM CDT [facility] ([facility]) QuantiFERON-TB Gold Plus Negative Negative 05/25/2024 3:13 PM CDT [facility] [employer] [facility]) Comment: INTERPRETIVE INFORMATION:Quantiferon TB Gold Plus [...] Mycobacterium tuberculosis Infection -- [place], 2010 (http://www.cdc.gov/mmwr/preview/mmwrhtml/ys0519r5.htm), for more information concerning test performance in low-prevalence populations and use in occupational screening. Performed By: [employer] [address] [place] [address] Management Developer: Dennis Salgado MD, PhD CLIA Number: [id number] Blood BLOOD SPECIMEN / Unknown Lab Venipuncture / Unknown 05/21/2024 11:38 AM CDT 05/21/2024 12:02 PM CDT Opal Ladd MD LAB - CHEMISTR Y ORDERABLES [employer] [facility]) [address] [place] [address] * HEPATITIS B SURFACE ANTIBODY (05/21/2024 11:38 AM CDT) Hepatitis B Virus Surface Antibody Non-react lucinda Non-react lucinda 05/21/2024 12:46 PM CDT [facility] Comment: < 8 mIU/mL Hepatitis B surface Antibody (HBsAb). Nonreactive for HBsAb - individual is considered not immune to Hepatitis B Virus infection. Hepatitis B Surface Antibody Quantitative 3.2 <8.0 mIU/mL 05/21/2024 12:46 PM CDT [facility] Comment: Hepatitis B Surface Antibody Numeric Result Interpretation: Nonreactive: <8.0 mIU/mL Indeterminate: 8.0 - 12.0 mIU/mL Reactive: >12.0 mIU/mL Blood BLOOD SPECIMEN / Unknown Lab Venipuncture / Unknown 05/21/2024 11:38 AM CDT 05/21/2024 12:02 PM CDT Opal Ladd MD LAB - CHEMISTR Y ORDERABLES [address] [address], [facility] [phone] * HEPATITIS B CORE ANTIBODY TOTAL (05/21/2024 11:38 AM CDT) HBc Antibody Total Non-reacti ve Non-reacti ve 05/21/2024 12:46 PM CDT [facility] Blood BLOOD SPECIMEN / Unknown Lab Venipuncture / Unknown 05/21/2024 11:38 AM CDT 05/21/2024 12:02 PM CDT Opal Ladd MD LAB - CHEMISTR Y ORDERABLES [address] [address], [facility] [phone] * HEPATITIS B SURFACE ANTIGEN W RFLX CONFIRMATION (05/21/2024 11:38 AM CDT) Hepatitis B Virus Surface Antigen Non-reacti ve Non-reacti ve 05/21/2024 12:46 PM CDT [facility] Blood BLOOD SPECIMEN / Unknown Lab Venipuncture / Unknown 05/21/2024 11:38 AM CDT 05/21/2024 12:02 PM CDT Opal Ladd MD LAB - CHEMISTR Y ORDERABLES [id number] [place] [address], [facility] [phone] * HI PHOTOCHEMOTHERAPY WITH UV-B (05/21/2024 9:45 AM CDT) Narrative Colton Orozco - 05/21/2024 9:45 AM CDT Colton Orozco 05/21/2024 9:47 AM Treatment Rx #: 39 Erythema Grade: No Erythema Emollient applied with assistance: Yes Treatment Comments: Tolerated last treatment well Total Body Dose mJ Change: Increased .025 mJ/cm2: 1.400 Time (min): 2:07 Total Body Dose Comments: mills cabinet Exposure Face (mJ): Treat Goggles/protective glasses: Yes Genitals (mJ): N/A Opal Ladd MD PROCEDURE/MAHENDRA R SURGICAL ORDERABLES * HI PHOTOCHEMOTHERAPY WITH UV-B (05/19/2024 2:45 PM CDT) Narrative Mary Langston MA - 05/19/2024 2:45 PM CDT Mary Langston MA 05/19/2024 3:01 PM Treatment Rx #: 38 Erythema Grade: No Erythema Emollient applied with assistance: Yes Treatment Comments: last tx on 04.30.24 Total Body Dose mJ Change: Decreased (See comment) (25%) mJ/cm2: 1.375 Time (min): 2:07 Total Body Dose Comments: mills cabinet Exposure Face (mJ): Treat Goggles/protective glasses: Yes Genitals (mJ): N/A Opal Ladd MD PROCEDURE/MAHENDRA R SURGICAL ORDERABLES * HI PHOTOCHEMOTHERAPY WITH UV-B (04/30/2024 8:50 AM CDT) Narrative Colton Orozco - 04/30/2024 8:50 AM CDT Colton Orozco 04/30/2024 8:52 AM Treatment Rx #: 37 Erythema Grade: No Erythema Emollient applied with assistance: Yes Treatment Comments: Tolerated last treatment well Total Body Dose mJ Change: Increased .050 mJ/cm2: 1.850 Time (min): 2:42 Total Body Dose Comments: mills cabinet Exposure Face (mJ): Treat Goggles/protective glasses: Yes Genitals (mJ): N/A Opal Ladd MD PROCEDURE/MAHENDRA R SURGICAL ORDERABLES * HI PHOTOCHEMOTHERAPY WITH UV-B (04/26/2024 9:41 AM CDT) Narrative Mary Langston MA - 04/26/2024 9:41 AM CDT Mary Langston MA 04/26/2024 9:53 AM Treatment Rx #: 36 Erythema Grade: No Erythema Emollient applied with assistance: Yes Total Body Dose mJ Change: Increased .050 mJ/cm2: 1.800 Time (min): 2:42 Total Body Dose Comments: mills cabinet Exposure Face (mJ): Treat Goggles/protective glasses: Yes Genitals (mJ): N/A Opal Ladd MD PROCEDURE/MAHENDRA R SURGICAL ORDERABLES * HI PHOTOCHEMOTHERAPY WITH UV-B (04/23/2024 9:39 AM CDT) Narrative Colton Orozco - 04/23/2024 9:39 AM CDT Colton Orozco 04/23/2024 9:42 AM Treatment Rx #: 35 Erythema Grade: No Erythema Emollient applied with assistance: Yes Treatment Comments: Tolerated last treatment well Total Body Dose mJ Change: Increased .050 mJ/cm2: 1.750 Time (min): 2:34 Total Body Dose Comments: mills cabinet Exposure Face (mJ): Treat Goggles/protective glasses: Yes Genitals (mJ): N/A Opal Ladd MD PROCEDURE/MAHENDRA R SURGICAL ORDERABLES * HI PHOTOCHEMOTHERAPY WITH UV-B (04/20/2024 10:16 AM CDT) Narrative Mary Langston MA - 04/20/2024 10:16 AM CDT Mary Langston MA 04/20/2024 10:46 AM Treatment Rx #: 34 Erythema Grade: No Erythema Emollient applied with assistance: Yes Total Body Dose mJ Change: Increased .050 mJ/cm2: 1.700 Time (min): 2:38 Total Body Dose Comments: mills cabinet Exposure Face (mJ): Treat Goggles/protective glasses: Yes Genitals (mJ): N/A Opal Ladd MD PROCEDURE/MAHENDRA R SURGICAL ORDERABLES * HI PHOTOCHEMOTHERAPY WITH UV-B (04/16/2024 9:35 AM CDT) Narrative Yuri Orozcoa - 04/16/2024 9:35 AM CDT Abdali Segura 04/16/2024 9:37 AM Treatment Rx #: 33 Erythema Grade: No Erythema Emollient applied with assistance: Yes Treatment Comments: Tolerated last treatment well Total Body Dose mJ Change: Increased .050 mJ/cm2: 1.650 Time (min): 2:29 Total Body Dose Comments: mills cabinet Exposure Face (mJ): Treat Goggles/protective glasses: Yes Genitals (mJ): N/A Opal Ladd MD PROCEDURE/MAHENDRA R SURGICAL ORDERABLES * HI PHOTOCHEMOTHERAPY WITH UV-B (04/12/2024 9:39 AM CDT) Narrative Mary Langston MA - 04/12/2024 9:39 AM CDT Mary Langston 04/12/2024 9:43 AM Treatment Rx #: 32 Erythema Grade: No Erythema Emollient applied with assistance: Yes Total Body Dose mJ Change: Increased .050 mJ/cm2: 1.600 Time (min): 2:34 Total Body Dose Comments: mills cabinet Exposure Face (mJ): Treat Goggles/protective glasses: Yes Genitals (mJ): N/A Opal Ladd MD PROCEDURE/MAHENDRA R SURGICAL ORDERABLES * HI PHOTOCHEMOTHERAPY WITH UV-B (04/09/2024 9:29 AM CDT) Narrative Luis Enrique Orozcoafa - 04/09/2024 9:29 AM CDT Floresali Segura 04/09/2024 9:36 AM Treatment Rx #: 31 Erythema Grade: No Erythema Emollient applied with assistance: Yes Treatment Comments: Tolerated last treatment well Total Body Dose mJ Change: Increased .050 mJ/cm2: 1.550 Time (min): 2:21 Total Body Dose Comments: mills cabinet Exposure Face (mJ): Treat Goggles/protective glasses: Yes Genitals (mJ): N/A Opal Ladd MD PROCEDURE/MAHENDRA R SURGICAL ORDERABLES * HI PHOTOCHEMOTHERAPY WITH UV-B (04/05/2024 9:48 AM CDT) Narrative Mary Langston MA - 04/05/2024 9:48 AM CDT Mary Langston 04/05/2024 9:53 AM Treatment Rx #: 30 Erythema Grade: No Erythema Emollient applied with assistance: Yes Treatment Comments: can go to 2x weekly per Dr. Ladd Total Body Dose mJ Change: Increased .050 mJ/cm2: 1.500 Time (min): 2:23 Total Body Dose Comments: mills cabinet Exposure Face (mJ): Treat Goggles/protective glasses: Yes Genitals (mJ): N/A Opal Ladd MD PROCEDURE/MAHENDRA R SURGICAL ORDERABLES * HI DESTROY PREMALIG LESION, 1ST LESION, HI DESTROY PREMALIG LESION, 2-14 (04/02/2024 10:04 AM CDT) Opal Yeh MD - 04/02/2024 10:04 AM CDT Daly Contreras MD 04/02/2024 10:04 AM Diagnosis and treatment options discussed. Liquid nitrogen was applied to 2 lesions (see office visit note for locations) for 6-10 seconds each for 1 cycle. Wound care reviewed. Daly Contreras MD PGY-2 Dermatology Resident Opal Ladd MD PROCEDURE/MAHENDRA R SURGICAL ORDERABLES * HI PHOTOCHEMOTHERAPY WITH UV-B (04/02/2024 9:20 AM CDT) Narrative Colton Orozco - 04/02/2024 9:20 AM CDT Colton Orozco 04/02/2024 9:26 AM Treatment Rx #: 29 Erythema Grade: No Erythema Emollient applied with assistance: Yes Treatment Comments: Tolerated last treatment well Total Body Dose mJ Change: Increased .050 mJ/cm2: 1.450 Time (min): 2:15 Total Body Dose Comments: mills cabinet Exposure Face (mJ): Treat Goggles/protective glasses: Yes Genitals (mJ): N/A Opal Ladd MD PROCEDURE/MAHENDRA R SURGICAL ORDERABLES * HI PHOTOCHEMOTHERAPY WITH UV-B (03/31/2024 9:43 AM CDT) Narrative Mary Langston MA - 03/31/2024 9:43 AM CDT Mary Langston 03/31/2024 9:50 AM Treatment Rx #: 28 Erythema Grade: No Erythema Emollient applied with assistance: Yes Total Body Dose mJ Change: Increased .050 mJ/cm2: 1.400 Time (min): 2:09 Total Body Dose Comments: mills cabinet Exposure Face (mJ): Treat Goggles/protective glasses: Yes Genitals (mJ): N/A Opal Ladd MD PROCEDURE/MAHENDRA R SURGICAL ORDERABLES * HI PHOTOCHEMOTHERAPY WITH UV-B (03/29/2024 9:33 AM CDT) Narrative Mary Langston MA - 03/29/2024 9:33 AM CDT Mary Langston 03/29/2024 9:38 AM Treatment Rx #: 27 Erythema Grade: No Erythema Emollient applied with assistance: Yes Total Body Dose mJ Change: Increased .050 mJ/cm2: 1.350 Time (min): 2:14 Total Body Dose Comments: mills cabinet Exposure Face (mJ): Treat Goggles/protective glasses: Yes Genitals (mJ): N/A Opal Ladd MD PROCEDURE/MAHENDRA R SURGICAL ORDERABLES * HI PHOTOCHEMOTHERAPY WITH UV-B (03/26/2024 9:41 AM CDT) Narrative Colton Orozco - 03/26/2024 9:41 AM CDT Colton Orozco 03/26/2024 9:43 AM Treatment Rx #: 26 Erythema Grade: No Erythema Emollient applied with assistance: Yes Treatment Comments: Tolerated last treatment well Total Body Dose mJ Change: Increased .050 mJ/cm2: 1.300 Time (min): 2:06 Total Body Dose Comments: mills cabinet Exposure Face (mJ): Treat Goggles/protective glasses: Yes Genitals (mJ): N/A Opal Ladd MD PROCEDURE/MAHENDRA R SURGICAL ORDERABLES * HI PHOTOCHEMOTHERAPY WITH UV-B (03/24/2024 4:17 PM CDT) Narrative Mary Langston MA - 03/24/2024 4:17 PM CDT Mary Langston 03/24/2024 4:21 PM Treatment Rx #: 25 Erythema Grade: Minimally perceptible Erythema (faint pink) (breasts slight pink; no discomfort) Emollient applied with assistance: Yes Total Body Dose mJ Change: Increased .050 mJ/cm2: 1.250 Time (min): 1:47 Total Body Dose Comments: mills cabinet Exposure Face (mJ): Treat Goggles/protective glasses: Yes Genitals (mJ): N/A Opal Ladd MD PROCEDURE/MAHENDRA R SURGICAL ORDERABLES * HI PHOTOCHEMOTHERAPY WITH UV-B (03/22/2024 9:48 AM CDT) Narrative Mary Langston MA - 03/22/2024 9:48 AM CDT Mary Langston 03/22/2024 9:51 AM Treatment Rx #: 24 Erythema Grade: No Erythema Emollient applied with assistance: Yes Total Body Dose mJ Change: Increased .050 mJ/cm2: 1.200 Time (min): 2:04 Total Body Dose Comments: mills cabinet Exposure Face (mJ): Treat Goggles/protective glasses: Yes Genitals (mJ): N/A Exposure Comments: spf to face Opal Ladd MD PROCEDURE/MAHENDRA R SURGICAL ORDERABLES * HI PHOTOCHEMOTHERAPY WITH UV-B (03/19/2024 9:36 AM CDT) Narrative Colton Orozco - 03/19/2024 9:36 AM CDT Colton Orozco 03/19/2024 9:38 AM Treatment Rx #: 23 Erythema Grade: [...] Ladd MD PROCEDURE/MAHENDRA R SURGICAL ORDERABLES * HI PHOTOCHEMOTHERAPY WITH UV-B (03/17/2024 9:39 AM CDT) Narrative Mary Langston MA - 03/17/2024 9:39 AM CDT Mary Langston 03/17/2024 10:11 AM Treatment Rx #: 22 [...] Ladd MD PROCEDURE/MAHENDRA R SURGICAL ORDERABLES * HI PHOTOCHEMOTHERAPY WITH UV-B (03/15/2024 11:53 AM CDT) Narrative Colton Orozco - 03/15/2024 11:53 AM CDT Pam Segura 03/15/2024 11:56 AM Treatment Rx #: 21 [...] Ladd MD PROCEDURE/MAHENDRA R SURGICAL ORDERABLES * HI PHOTOCHEMOTHERAPY WITH UV-B (03/12/2024 9:44 AM CDT) Narrative Luis Enrique Orozcoafa - 03/12/2024 9:44 AM CDT Floresali, Segura 03/12/2024 9:46 AM Treatment Rx #: 20 Erythema Grade: No Erythema Emollient applied with assistance: Yes Treatment Comments: Tolerated last treatment well; no concerns for today Total Body Dose mJ Change: Increased .050 mJ/cm2: 1.100 Time (min): 1:49 Total Body Dose Comments: mills cabinet Exposure Face (mJ): Treat Goggles/protective glasses: Yes Genitals (mJ): N/A Opal Ladd MD PROCEDURE/MAHENDRA R SURGICAL ORDERABLES * HI PHOTOCHEMOTHERAPY WITH UV-B (03/10/2024 9:42 AM CDT) Narrative Pam, Segura - 03/10/2024 9:42 AM CDT Abdali, Segura 03/10/2024 9:44 AM Treatment Rx #: 19 Erythema Grade: [...] Ladd MD PROCEDURE/MAHENDRA R SURGICAL ORDERABLES * HI PHOTOCHEMOTHERAPY WITH UV-B (03/08/2024 9:37 AM CDT) Narrative Pam Segura - 03/08/2024 9:37 AM CDT Abdali, Segura 03/08/2024 9:39 AM Treatment Rx #: 18 Erythema Grade: [...] Ladd MD PROCEDURE/MAHENDRA R SURGICAL ORDERABLES * HI PHOTOCHEMOTHERAPY WITH UV-B (03/05/2024 9:26 AM CDT) Narrative Floresali, Segura - 03/05/2024 9:26 AM CDT Abdali, Segura 03/05/2024 9:34 AM Treatment Rx #: 17 Erythema Grade: No Erythema Emollient applied with assistance: Yes Treatment Comments: Tolerated last treatment well Total Body Dose mJ Change: Increased .050 mJ/cm2: 1.000 Time (min): 1:37 Total Body Dose Comments: mills cabinet Exposure Face (mJ): Treat Goggles/protective glasses: Yes Genitals (mJ): N/A Opal Ladd MD PROCEDURE/MAHENDRA R SURGICAL ORDERABLES * HI PHOTOCHEMOTHERAPY WITH UV-B (03/03/2024 8:40 AM CDT) Narrative Pam Segura - 03/03/2024 8:40 AM CDT Abdali, Segura 03/03/2024 8:42 AM Treatment Rx #: 16 Erythema Grade: No Erythema Emollient applied with assistance: Yes Treatment Comments: Tolerated last treatment well Total Body Dose mJ Change: Increased .050 mJ/cm2: 0.950 Time (min): 1:31 Total Body Dose Comments: mills cabinet Exposure Face (mJ): Treat Goggles/protective glasses: Yes Genitals (mJ): N/A Opal Ladd MD PROCEDURE/MAHENDRA R SURGICAL ORDERABLES * HI PHOTOCHEMOTHERAPY WITH UV-B (03/01/2024 9:30 AM CDT) Narrative Pam Segura - 03/01/2024 9:30 AM CDT Floresali Segura 03/01/2024 9:32 AM Treatment Rx #: 15 Erythema Grade: No Erythema Emollient applied with assistance: Yes Treatment Comments: Tolerated last treatment well Total Body Dose mJ Change: Increased .050 mJ/cm2: 0.900 Time (min): 1:37 Total Body Dose Comments: mills cabinet Exposure Face (mJ): Treat Goggles/protective glasses: Yes Genitals (mJ): N/A Opal Ladd MD PROCEDURE/MAHENDRA R SURGICAL ORDERABLES * HI PHOTOCHEMOTHERAPY WITH UV-B (02/27/2024 9:58 AM CDT) Narrative Pam, Segura - 02/27/2024 9:58 AM CDT Abdali, Segura 02/27/2024 10:00 AM Treatment Rx #: 14 Erythema Grade: No Erythema Emollient applied with assistance: Yes Treatment Comments: Tolerated last treatment well Total Body Dose mJ Change: Increased .050 mJ/cm2: 0.850 Time (min): 2:13 Total Body Dose Comments: red cabinet today Exposure Face (mJ): Treat Goggles/protective glasses: Yes Genitals (mJ): N/A Opal Ladd MD PROCEDURE/MAHENDRA R SURGICAL ORDERABLES * HI PHOTOCHEMOTHERAPY WITH UV-B (02/25/2024 9:36 AM CDT) Narrative Pam Segura - 02/25/2024 9:36 AM CDT Abdali, Segura 02/25/2024 9:38 AM Treatment Rx #: 13 Erythema Grade: No Erythema Emollient applied with assistance: Yes Treatment Comments: Tolerated last treatment well Total Body Dose mJ Change: Increased .050 mJ/cm2: 0.800 Time (min): 1:15 Total Body Dose Comments: mills cabinet Exposure Face (mJ): Treat Goggles/protective glasses: Yes Genitals (mJ): N/A Opal Ladd MD PROCEDURE/MAHENDRA R SURGICAL ORDERABLES * HI PHOTOCHEMOTHERAPY WITH UV-B (02/23/2024 9:37 AM CDT) Narrative Pam Segura - 02/23/2024 9:37 AM CDT Floresali Segura 02/23/2024 9:39 AM Treatment Rx #: 12 Erythema Grade: No Erythema Emollient applied with assistance: Yes Treatment Comments: Tolerated last treatment well Total Body Dose mJ Change: Increased .050 mJ/cm2: 0.750 Time (min): 1:22 Total Body Dose Comments: mills cabinet Exposure Face (mJ): Treat Goggles/protective glasses: Yes Genitals (mJ): N/A Opal Ladd MD PROCEDURE/MAHENDRA R SURGICAL ORDERABLES * HI PHOTOCHEMOTHERAPY WITH UV-B (02/20/2024 9:34 AM CDT) Narrative Floresali, Segura - 02/20/2024 9:34 AM CDT Abdali, Segura 02/20/2024 9:36 AM Treatment Rx #: 11 Erythema Grade: No Erythema Emollient applied with assistance: Yes Treatment Comments: Tolerated last treatment well Total Body Dose mJ Change: Increased .050 mJ/cm2: 0.700 Time (min): 1:13 Total Body Dose Comments: mills cabinet Exposure Face (mJ): Treat Goggles/protective glasses: Yes Genitals (mJ): N/A Opal Ladd MD PROCEDURE/MAHENDRA R SURGICAL ORDERABLES * HI PHOTOCHEMOTHERAPY WITH UV-B (02/18/2024 9:36 AM CDT) Narrative Luis Enrique Orozcoafa - 02/18/2024 9:36 AM CDT Abdshaun Segura 02/18/2024 9:38 AM Treatment Rx #: 10 Erythema Grade: No Erythema Emollient applied with assistance: Yes Treatment Comments: Tolerated last treatment well Total Body Dose mJ Change: Hold dose at previous level mJ/cm2: 0.650 Time (min): 1:04 Total Body Dose Comments: mills cabinet Exposure Face (mJ): Treat Goggles/protective glasses: Yes Genitals (mJ): N/A Opal Ladd MD PROCEDURE/MAHENDRA R SURGICAL ORDERABLES * HI DESTROY PREMALIG LESION, 2-14, HI DESTROY PREMALIG LESION, 1ST LESION (02/06/2024 11:45 AM CDT) Opal Yeh MD - 02/06/2024 11:45 AM CDT Damien Elliott MD 02/06/2024 11:45 AM Diagnosis and treatment options discussed. Cryotherapy (Liquid Nitrogen) to 2 lesions for 4-6 seconds each. Number of cycles: 1. Wound care reviewed. Opal Ladd MD PROCEDURE/MAHENDRA R SURGICAL ORDERABLES * HI PHOTOCHEMOTHERAPY WITH UV-B (02/06/2024 10:43 AM CDT) Narrative Luis Enrique Orozcoafa - 02/06/2024 10:43 AM CDT Luis Enrique Orozcoafa 02/06/2024 10:47 AM Treatment Rx #: 9 Erythema Grade: No Erythema Emollient applied with assistance: Yes Treatment Comments: Tolerated last treatment well Total Body Dose mJ Change: Increased .050 mJ/cm2: 0.650 Time (min): 1:10 Total Body Dose Comments: mills cabinet Exposure Face (mJ): Treat Goggles/protective glasses: Yes Genitals (mJ): N/A Opal Ladd MD PROCEDURE/MAHENDRA R SURGICAL ORDERABLES * HI PHOTOCHEMOTHERAPY WITH UV-B (02/04/2024 9:35 AM CDT) Narrative Pam Segura - 02/04/2024 9:35 AM CDT Abdali, Segura 02/04/2024 9:37 AM Treatment Rx #: 8 Erythema Grade: No Erythema Emollient applied with assistance: Yes Treatment Comments: Tolerated last treatment well Total Body Dose mJ Change: Increased .050 mJ/cm2: 0.600 Time (min): 1:03 Total Body Dose Comments: mills cabinet Exposure Face (mJ): Treat Goggles/protective glasses: Yes Genitals (mJ): N/A Opal Ladd MD PROCEDURE/MAHENDRA R SURGICAL ORDERABLES * HI PHOTOCHEMOTHERAPY WITH UV-B (02/02/2024 9:37 AM CDT) Narrative Yuri Orozcoa - 02/02/2024 9:37 AM CDT Pam Segura 02/02/2024 9:39 AM Treatment Rx #: 7 Erythema Grade: No Erythema Emollient applied with assistance: Yes Treatment Comments: Tolerated last treatment well Total Body Dose mJ Change: Increased .050 mJ/cm2: 0.550 Time (min): 1:00 Total Body Dose Comments: mills cabinet Exposure Face (mJ): Treat Goggles/protective glasses: Yes Genitals (mJ): N/A Opal Ladd MD PROCEDURE/MAHENDRA R SURGICAL ORDERABLES * HI PHOTOCHEMOTHERAPY WITH UV-B (01/30/2024 9:26 AM TRAIN CONTROL TECHNICIAN) Narrative Pam Segura - 01/30/2024 9:26 AM TRAIN CONTROL TECHNICIAN Floresali Segura 01/30/2024 9:33 AM Treatment Rx #: 6 Erythema Grade: No Erythema Emollient applied with assistance: Yes Treatment Comments: Tolerated last treatment well Total Body Dose mJ Change: Increased .050 mJ/cm2: 0.500 Time (min): 0:56 Total Body Dose Comments: mills cabinet Exposure Face (mJ): Treat Goggles/protective glasses: Yes Genitals (mJ): N/A Opal Ladd MD PROCEDURE/MAHENDRA R SURGICAL ORDERABLES * HI PHOTOCHEMOTHERAPY WITH UV-B (01/28/2024 10:58 AM TRAIN CONTROL TECHNICIAN) Narrative Luis Enrique Orozcoafa - 01/28/2024 10:58 AM TRAIN CONTROL TECHNICIAN Floresali Segura 01/28/2024 11:01 AM Treatment Rx #: 5 Erythema Grade: No Erythema Emollient applied with assistance: Yes Treatment Comments: Tolerated last treatment well Total Body Dose mJ Change: Increased .050 mJ/cm2: 0.450 Time (min): 0:48 Total Body Dose Comments: mills cabinet Exposure Face (mJ): Treat Goggles/protective glasses: Yes Genitals (mJ): N/A Opal Ladd MD PROCEDURE/MAHENDRA R SURGICAL ORDERABLES * HI PHOTOCHEMOTHERAPY WITH UV-B (01/26/2024 9:48 AM TRAIN CONTROL TECHNICIAN) Narrative Colton Orozco - 01/26/2024 9:48 AM TRAIN CONTROL TECHNICIAN Yuri Orozcoa 01/26/2024 9:51 AM Treatment Rx #: 4 Erythema Grade: No Erythema Emollient applied with assistance: Yes Treatment Comments: Tolerated last treatment well Total Body Dose mJ Change: Increased .050 mJ/cm2: 0.400 Time (min): 0:41 Total Body Dose Comments: mills cabinet Exposure Face (mJ): Treat Goggles/protective glasses: Yes Genitals (mJ): N/A Opal Ladd MD PROCEDURE/MAHENDRA R SURGICAL ORDERABLES * HI PHOTOCHEMOTHERAPY WITH UV-B (01/23/2024 9:34 AM TRAIN CONTROL TECHNICIAN) Narrative Colton Orozco - 01/23/2024 9:34 AM TRAIN CONTROL TECHNICIAN Colton Orozco 01/23/2024 9:35 AM Treatment Rx #: 3 Erythema Grade: No Erythema Emollient applied with assistance: Yes Treatment Comments: Tolerated last treatment well Total Body Dose mJ Change: Increased .050 mJ/cm2: 0.350 Time (min): 0:37 Total Body Dose Comments: mills cabinet Exposure Face (mJ): Treat Goggles/protective glasses: Yes Genitals (mJ): N/A Opal Ladd MD PROCEDURE/MAHENDRA R SURGICAL ORDERABLES * HI PHOTOCHEMOTHERAPY WITH UV-B (01/21/2024 9:43 AM TRAIN CONTROL TECHNICIAN) Narrative Colton Orozco - 01/21/2024 9:43 AM TRAIN CONTROL TECHNICIAN Colton Orozco 01/21/2024 9:45 AM Treatment Rx #: 2 Erythema Grade: No Erythema Emollient applied with assistance: Yes Treatment Comments: Tolerated initial tx well Total Body Dose mJ Change: Increased .050 mJ/cm2: 0.300 Time (min): 0:32 Total Body Dose Comments: mills cabinet Exposure Face (mJ): Treat Goggles/protective glasses: Yes Genitals (mJ): N/A Opal Ladd MD PROCEDURE/MAHENDRA R SURGICAL ORDERABLES * HI PHOTOCHEMOTHERAPY WITH UV-B (01/19/2024 10:24 AM TRAIN CONTROL TECHNICIAN) Narrative Colton Orozco - 01/19/2024 10:24 AM TRAIN CONTROL TECHNICIAN Colton Orozco 01/19/2024 10:27 AM Treatment Rx #: 1 Erythema Grade: No Erythema Emollient applied with assistance: Yes Treatment Comments: Initial tx Total Body Dose mJ Change: Other (See comment) (Initial tx) mJ/cm2: 0.250 Time (min): 0:28 Total Body Dose Comments: mills cabinet Exposure Face (mJ): Treat Goggles/protective glasses: Yes Genitals (mJ): N/A Opal Ladd MD PROCEDURE/MAHENDRA R SURGICAL ORDERABLES * HI PUNCH BX SKIN EA SEP ADDL, HI PUNCH BX SKIN SINGLE LESION (01/06/2024 2:31 PM TRAIN CONTROL TECHNICIAN) Narrative Irwin Huynh MD - 01/06/2024 2:31 PM TRAIN CONTROL TECHNICIAN Blaine Barbosa MD 01/06/2024 2:32 PM Risks, benefits and alternatives to punch biopsy were discussed with the patient. Verbal consent was obtained. Location: R upper arm, L upper back Punch biopsy: 4 mm Skin prep: Alcohol Anesthesia: 0.25% bupivacaine with epinephrine Closure: 4-0 nylon suture Dressing and wound care discussed. Patient agrees to phone call for results and message if not available. Blaine Barbosa MD [facility] Dermatology Resident, PGY-4 Irwin Huynh MD PROCEDURE/MINOR SURG ICAL ORDERABLES * HI INTMD WND REPAIR TRUNK,ARM,LEG 2.6-7.5, HI EXC SKIN MALIG 1.1-2CM TRUNK,ARM,LEG (08/28/2023 2:49PM CDT) Narrative Kishor Jimenez MD - 08/28/2023 2:49 PM CDT Kishor Jimenez MD 08/28/2023 3:54 PM Elliptical Excision with Intermediate Closure Date of Service: 08/28/2023 Tumor Type: Basal cell carcinoma Location: left upper arm Derm-Path B Lesion Size: 1.0 x 0.8 cm Repair Type: Intermediate Repair Size: 5.8 cm Suture Material: 4-0 monocryl Level of Defect: adipose Surgical Margins: 0.4cm Primary Surgeon: Kishor Jimenez MD Dress Shoe Inspector: ALINE Laguerre INDICATIONS: The risks of bleeding, [...] adjacent structures. Bleeding vessels were controlled with monopolar electrodesiccation. The dermis and subcutaneous tissue [...] was present and always immediately available. Dr. Jimenez performed the entire surgery, and documentation used to initiate this operative report. I entered the information in our [employer] DocFlowsheet with the information provided by Dr. Jimenez on his handwritten, paper format, surgical worksheet, which was then used to initiate the create of this note. Dr. Jimenez then reviewed and edited the note as needed to complete the note. Sofía Blanco CMA I have reviewed the note, edited it as necessary and performed the entire procedure. Kishor Jimenez MD [employer] 08/28/2023 Kishor Jimenez MD PROCEDURE/MINOR SURG ICAL ORDERABLES * HI DESTROY PREMALIG LESION, 1ST LESION, HI DESTROY PREMALIG LESION, 2-14 (08/17/2023 10:56 AM CDT) Narrative Opal Ladd MD - 08/17/2023 10:56 AM CDT Opal Ladd MD 08/17/2023 10:57 AM Liquid nitrogen was applied for 10-12 seconds to the 8 actinic keratosis and the expected blistering or scabbing reaction explained. Do not pick at the area. Patient reminded to expect hypopigmented scars from the procedure. Return if lesion fails to fully resolve. Opal Ladd MD PROCEDURE/MAHENDRA R SURGICAL ORDERABLES * HI TANGNTL BX SKIN SINGLE LES, HI TANGNTL BX SKIN EA SEP ADDL (08/17/2023 10:56 AM CDT) Narrative Opal Ladd MD - 08/17/2023 10:56 AM CDT Opal Ladd MD 08/17/2023 10:57 AM Risks, benefits and alternatives to shave biopsy were discussed with the patient. Verbal consent was obtained. Encounter Diagnoses Name Primary? Actinic keratosis Neoplasm of uncertain behavior of skin Yes Rash and other nonspecific skin eruption Seborrheic keratoses Lentigines Melanocytic nevi of trunk Fusion of eyelids, left Personal history of malignant melanoma Location: L upper arm and L chest Skin prep: Alcohol Anesthesia: 1% lidocaine with epinephrine Hemostasis: Aluminum chloride Dressing and wound care discussed. Specimen(s) placed in a patient labeled container and sent to [facility] Dermatopathology. Patient agrees to phone call for results and message if not available. Opal Ladd MD Opal Ladd MD PROCEDURE/MAHENDRA R SURGICAL ORDERABLES * HI DESTRUCT BENIGN LESION, 1-14 (03/24/2023 12:19 PM CDT) Opal Yeh MD - 03/24/2023 12:19 PM CDT Opal Ladd MD 03/24/2023 12:19 PM Liquid nitrogen was applied for 10-12 seconds to the 1 skin lesion and the expected blistering or scabbing reaction explained. Do not pick at the area. Patient reminded to expect hypopigmented scars from the procedure. Return if lesion fails to fully resolve. Opal Ladd MD PROCEDURE/MAHENDRA R SURGICAL ORDERABLES * HI DESTROY PREMALIG LESION, 1ST LESION, HI DESTROY PREMALIG LESION, 2-14 (03/24/2023 12:18 PM CDT) Opal Yeh MD - 03/24/2023 12:18 PM CDT Opal Ladd MD 03/24/2023 12:19 PM Liquid nitrogen was applied for 10-12 seconds to the 9 actinic keratosis and the expected blistering or scabbing reaction explained. Do not pick at the area. Patient reminded to expect hypopigmented scars from the procedure. Return if lesion fails to fully resolve. Opal Ladd MD PROCEDURE/MAHENDRA R SURGICAL ORDERABLES * HI TANGNTL BX SKIN SINGLE LES (03/24/2023 12:18 PM CDT) Opal Yeh MD - 03/24/2023 12:18 PM CDT Opal Ladd MD 03/24/2023 12:19 PM Risks, benefits and alternatives to shave biopsy were discussed with the patient. Verbal consent was obtained. Encounter Diagnoses Name Primary? Neoplasm of uncertain behavior of skin Yes AK (actinic keratosis) Personal history of malignant melanoma of skin History of nonmelanoma skin cancer Seborrheic keratoses Lentigines Multiple benign melanocytic nevi of upper and lower extremities and trunk Inflamed seborrheic keratosis Location: L lateral ankle Skin prep: Alcohol Anesthesia: 1% lidocaine with epinephrine Hemostasis: Aluminum chloride Dressing and wound care discussed. Specimen(s) placed in a patient labeled container and sent to [facility] Dermatopathology. [facility] Opal Ladd MD Opal Ladd MD PROCEDURE/MAHENDRA R SURGICAL ORDERABLES * HI INTMD WND REPAIR TRUNK,ARM,LEG 7.6-12.5, HI CHMSRG MOHS MG TQ T/A/L 1ST STAG 5 BLOCKS (01/02/2023 11:40 AM TRAIN CONTROL TECHNICIAN) Narrative Saritha Cruz MD - 01/02/2023 11:40 AM TRAIN CONTROL TECHNICIAN Saritha Cruz MD 01/03/2023 7:16 PM Mohs Micrographic Surgery Operative Note Procedure: Mohs micrographic surgery Date of service: 01/02/2023 Location: left upper lateral arm Preop diagnosis: Basal cell carcinoma Postop diagnosis: Basal cell carcinoma Mohs AUC score: 7 Number of stages: 1 Preop size: 1.3x1.1 cm Postop size: 2.3x1.9 cm Depth of final defect: adipose Previous dermpath accession #: [id number] Repair type: intermediate Mohs accession #: [id number] [...] confirmed by the patient. All components of [place] Protocol/PAUSE Rule completed. STAGE I: The patient [...] Inflammation obscuring possible tumor presence: Not Present [facility] CLIA # [id number] Mohs agriculture laboratory technician: Saritha Cruz MD REPAIR: Intermediate Primary Surgeon: Saritha Curz MD Dress Shoe Inspector: N/A Repair Size: 4.2 cm Sutures: 4-0 [...] report. I entered the information in our [facility] DocFlowsheet with the information provided by Dr. Cruz on her handwritten, paper format, surgical worksheet, which was then used to initiate the create of this note. Dr. Cruz then reviewed and edited the note as needed to complete the note. Jordyn Jenkins LPN I have reviewed the note, edited it as necessary and performed the entire procedure. Saritha Cruz MD Compensation And Benefits Advisor 01/02/2023 Saritha Cruz MD PROCEDURE/MINOR SURG ICAL ORDERABLES * HI CHMSRG MOHS MG TQ T/A/L EA ADDL STAG, HI CHMSRG MOHS MG TQ T/A/L 1ST STAG 5 BLOCKS (01/02/2023 11:25 AM TRAIN CONTROL TECHNICIAN) Narrative Saritha Cruz MD - 01/02/2023 11:25 AM TRAIN CONTROL TECHNICIAN Saritha Cruz MD 01/03/2023 7:17 PM Mohs Micrographic Surgery Operative Note Procedure: Mohs micrographic surgery Date of service: 01/02/2023 Location: left post shoulder Preop diagnosis: Basal cell carcinoma Postop diagnosis: Basal cell carcinoma Mohs AUC score: 7 Number of stages: 2 Preop size: 0.7x0.8 cm Postop size: 1.8x1.7 cm Depth of final defect: adipose Previous dermpath accession #: [id number] Repair type: intermediate Mohs accession #: [id number] [...] confirmed by the patient. All components of [place] Protocol/PAUSE Rule completed. STAGE I: The patient [...] sections examined. No additional histologic findings appreciated. [facility] CLIA # [id number] Mohs Management Developer: Saritha Cruz MD REPAIR: Intermediate Primary Surgeon: Saritha Cruz MD Dress Shoe Inspector: N/A Repair Size: 4.8 cm Sutures: 4-0 [...] report. I entered the information in our [employer] DocFlowsheet with the information provided by Dr. Cruz on her handwritten, paper format, surgical worksheet, which was then used to initiate the create of this note. Dr. Cruz then reviewed and edited the note as needed to complete the note. Jordyn Jenkins LPN I have reviewed the note, edited it as necessary and performed the entire procedure. Saritha Cruz MD Compensation And Benefits Advisor 01/02/2023 Saritha Cruz MD PROCEDURE/MINOR SURG ICAL ORDERABLES * HI CHMSRG MOHS MG TQ T/A/L 1ST STAG 5 BLOCKS (01/02/2023 11:22 AM TRAIN CONTROL TECHNICIAN) Narrative Saritha Cruz MD - 01/02/2023 11:22 AM TRAIN CONTROL TECHNICIAN Saritha Cruz MD 01/03/2023 7:18 PM Mohs Micrographic Surgery Operative Note Procedure: Mohs micrographic surgery Date of service: 01/02/2023 Location: left upper arm superior Preop diagnosis: Basal cell carcinoma Postop diagnosis: Basal cell carcinoma Mohs AUC score: 7 Number of stages: 1 Preop size: 0.6x0.6 cm Postop size: 1.2x1.1 cm Depth of final defect: adipose Previous dermpath accession #: [id number] Repair type: intermediate Mohs accession #: [id number] [...] confirmed by the patient. All components of [place] Protocol/PAUSE Rule completed. STAGE I: The patient [...] obscuring possible tumor presence: Not Present [facility] CLIA # [id number] Mohs agriculture laboratory technician: Saritha Cruz MD REPAIR: Intermediate Primary Surgeon: Saritha Cruz MD Dress Shoe Inspector: N/A Repair Size: 3.2 cm Sutures: 4-0 [...] report. I entered the information in our [employer] DocFlowsheet with the information provided by Dr. Cruz on her handwritten, paper format, surgical worksheet, which was then used to initiate the create of this note. Dr. Cruz then reviewed and edited the note as needed to complete the note. Jordyn Jenkins LPN I have reviewed the note, edited it as necessary and performed the entire procedure. Saritha Cruz MD Compensation And Benefits Advisor 01/02/2023 Saritha Cruz MD PROCEDURE/MINOR SURG ICAL ORDERABLES * HI DESTROY PREMALIG LESION, 1ST LESION, HI DESTROY PREMALIG LESION, 2-14 (11/28/2022 3:14 PM TRAIN CONTROL TECHNICIAN) Narrative Opal Ladd MD - 11/28/2022 3:14 PM TRAIN CONTROL TECHNICIAN Opal Ladd MD 11/28/2022 3:15 PM Liquid nitrogen was applied for 10-12 seconds to the 7 actinic keratosis and the expected blistering or scabbing reaction explained. Do not pick at the area. Patient reminded to expect hypopigmented scars from the procedure. Return if lesion fails to fully resolve. Opal Ladd MD PROCEDURE/MAHENDRA R SURGICAL ORDERABLES * HI TANGNTL BX SKIN SINGLE LES, HI TANGNTL BX SKIN EA SEP ADDL (11/28/2022 3:14 PM TRAIN CONTROL TECHNICIAN) Narrative Opal Ladd MD - 11/28/2022 3:14 PM TRAIN CONTROL TECHNICIAN Opal Ladd MD 11/28/2022 3:15 PM Risks, benefits and alternatives to shave biopsy were discussed with the patient. Verbal consent was obtained. Encounter Diagnoses Name Primary? Neoplasm of uncertain behavior of skin Yes AK (actinic keratosis) Basal cell carcinoma (BCC) of left upper arm Personal history of malignant melanoma of skin History of nonmelanoma skin cancer Seborrheic keratoses Lentigines Multiple benign melanocytic nevi of upper and lower extremities and trunk Location: L upper arm superior, L posterior shoulder, L posterior calf Skin prep: Alcohol Anesthesia: 1% lidocaine with epinephrine Hemostasis: Aluminum chloride Dressing and wound care discussed. Specimen(s) placed in a patient labeled container and sent to [facility] Dermatopathology. Patient agrees to phone call for results and message if not available. Opal Ladd MD Opal Ladd MD PROCEDURE/MAHENDAR R SURGICAL ORDERABLES * HI DESTROY PREMALIG LESION, 2-14, HI DESTROY PREMALIG LESION, 1ST LESION (07/19/2022 12:21 PM CDT) Opal Yeh MD - 07/19/2022 12:21 PM CDT Arlet Patterson MD 07/19/2022 12:22 PM Diagnosis and treatment options discussed for AK. Verbal consent obtained. Cryotherapy (Liquid Nitrogen) performed to 8 lesions (right forearm x3, right chest x1, right eyebrow x1, right nasal dorsum x1, left forearm x1, left upper arm x1) for 5-7 seconds each. Number of cycles: 1. Wound care reviewed and post-cryotherapy handout given. Arlet Patterson MD Dermatology Resident, PGY-4 [facility], Department of Dermatology Opal Ladd MD PROCEDURE/MAHENDRA R SURGICAL ORDERABLES * HI TANGNTL BX SKIN EA SEP ADDL, HI TANGNTL BX SKIN SINGLE LES (07/19/2022 12:20 PM CDT) Narrative Opal Ladd MD - 07/19/2022 12:20 PM CDT Arlet Patterson MD 07/19/2022 12:21 PM Risks, benefits and alternatives [...] available. Arlet Patterson MD Dermatology Resident, PGY-4 [facility], Department of Dermatology Opal Ladd MD PROCEDURE/MAHENDRA R SURGICAL ORDERABLES * HI TANGNTL BX SKIN SINGLE LES (04/17/2022 10:56 AM CDT) Narrative Magdy Castellon MD - 04/17/2022 10:56 AM CDT Jeremy Blevins MD 04/17/2022 10:56 AM Risks, benefits and alternatives to shave biopsy were discussed with the patient. Verbal consent was obtained. Encounter Diagnoses Name Primary? Neoplasm of uncertain behavior of skin Yes Actinic skin damage Lentigines Seborrheic keratoses Multiple benign melanocytic nevi of upper and lower extremities and trunk History of nonmelanoma skin cancer Personal history of malignant melanoma Actinic keratosis Location: L parasternal Skin prep: Alcohol Anesthesia: 1% lidocaine with epinephrine Hemostasis: Aluminum chloride Dressing and wound care discussed. Specimen(s) placed in a patient labeled container and sent to [facility] Dermatopathology. Patient agrees to phone call for results and message if not available. Jeremy Blevins MD Magdy Castellon MD PROCEDURE/MINOR SURG ICAL ORDERABLES * HI CHMSRG MOHS MG TQ H/N/H/F/G EA ADDL STAG, HI CHMSRG MOHS MG TQ H/N/H/F/G 1ST STAG 5 BLOC (10/09/2021 3:27 PM TRAIN CONTROL TECHNICIAN) Narrative Magdy Castellon MD - 10/09/2021 3:27 PM Magdy Ruggiero MD 10/10/2021 4:51 PM Mohs Micrographic Surgery Operative Note Procedure: Mohs micrographic surgery Date of service: 10/09/2021 Location: left nasal sidewall Preop diagnosis: Basal cell carcinoma Postop diagnosis: Basal cell carcinoma, infiltrative Mohs AUC score: 9 Number of stages: 3 Preop size: 1.0x1.4 cm Postop size: 2.9x1.4 cm Depth of final defect: adipose Previous dermpath accession #: [id number] Repair type: advancement flap Mohs accession #: [...] eyelids, eyebrows, nose, lips, chin, ear, periauricular, baptism, genitalia, hands, feet, ankles, nail units and [...] confirmed by the patient. All components of [place] Protocol/PAUSE Rule completed. STAGE I: The patient [...] sections examined. No additional histologic findings appreciated. [facility] CLIA # [id number] Mohs Labortaory Director: Saritha Cruz MD REPAIR: Burow s Advancement Flap and Nasalis Sling Primary Surgeon: Magdy Castellon MD Dress Shoe Inspector: Gregory Repair Size: 5.2x2.8 cm Sutures: 5-0 [...] report. I entered the information in our [employer] DocFlowsheet with the information provided by Dr. [...] Castellon MD PROCEDURE/MINOR SURG ICAL ORDERABLES * HI TANGNTL BX SKIN EA SEP ADDL, HI TANGNTL BX SKIN SINGLE LES (09/18/2021 4:38 PM CDT) Narrative Magdy Castellon MD - 09/18/2021 4:38 PM CDT Magdy Castellon MD 09/18/2021 4:38 PM Risks, benefits and alternatives to shave biopsy were discussed with the patient. Verbal consent was obtained. Encounter Diagnoses Name Primary? Neoplasm of uncertain behavior of skin Yes Diffuse photodamage of skin Multiple benign melanocytic nevi of upper and lower extremities and trunk Location: A. L [place], B. Left nasal ala Skin prep: Alcohol Anesthesia: 1% lidocaine with epinephrine Hemostasis: Aluminum chloride Dressing and wound care discussed. Specimen(s) placed in a patient labeled container and sent to [facility] Dermatopathology. Patient agrees to phone call for results and message if not available. Magdy Castellon MD PROCEDURE/MINOR SURG ICAL ORDERABLES * HI DESTROY PREMALIG LESION, 2-14, HI DESTROY PREMALIG LESION, 1ST LESION (01/31/2021 10:40 AM TRAIN CONTROL TECHNICIAN) Narrative Gail Lee MD - 01/31/2021 10:40 AM TRAIN CONTROL TECHNICIAN Miguel Guardado MD 01/31/2021 10:40 AM Diagnosis and treatment options discussed for AKs. Verbal consent obtained. Cryotherapy (Liquid Nitrogen) performed to 10 lesions (nose and chest) for 6-7 seconds each. Number of cycles: 1. Wound care reviewed and post-cryotherapy handout given. Miguel Guardado MD Dermatology Resident, PGY-4 01/31/2021 10:40 AM Gail Lee MD PROCEDURE/MINOR SURG ICAL ORDERABLES * HI DESTROY PREMALIG LESION, 2-14, HI DESTROY PREMALIG LESION, 1ST LESION (07/26/2020 11:57 AM CDT) Narrative Gail Lee MD - 07/26/2020 11:57 AM CDT Gail Lee MD 07/26/2020 11:57 AM Diagnosis and treatment options discussed. Cryotherapy (Liquid Nitrogen) to 5 lesions for 7 seconds each. Number of cycles: 1. Wound care reviewed. Gail Lee MD PROCEDURE/MINOR SURG ICAL ORDERABLES Care Teams Machine Gun Mechanic Relationship Specialty Start Date End Date Lance Agee DO PCP - General 01/26/21
--- OUTSIDE RECORDS SUMMARY | 2025-02-04 11:15 | XMS_ITS | Encounter Summary ---
Author Organization [facility] Address [address] [place] [address] Care Team Providers Care Nuisance Wildlife Trapper Name Role Phone Salvadorash Lance Yon DO Primary Care Provider [phone] Encounter Details Date Type Department Care Team (Late Contact Info) Description 02/04/2025 Orders Only [facility] - Dermatology [address] [place] [phone] Opal Ladd MD [address] [place] [address] [place] [phone] Rash Social History Tobacco Use Types Packs/Day Years Used Date Smoking Tobacco: Never Smokeless Tobacco: Never Alcohol Use Standard Drinks/Week Comments Yes 3 (1 standard drink = 0.6 oz pur e alcohol) Sex and Gender Information Value Date Recorded Sex Assigned at Not on file Gender Identity Not on file Sexual Orientation Not on file documented as of this encounter Plan of Treatment Upcoming Encounters Date Type Department Care Team (Late st Contact Info) Description 03/11/2025 9:40 AM CDT Office Visit [facility] - Dermatology [address] [place] [phone] Opal Ladd MD [address] [place] [address] [place] [phone] documented as of this encounter Visit Diagnoses Diagnosis Rash Rash and other nonspecific skin eruption documented in this encounter Care Teams Nuisance Wildlife Trapper Relationship Specialty Start Date End Date Lance Agee DO PCP - General 01/26/21 documented as of this encounter
--- OUTSIDE RECORDS SUMMARY | 2025-02-04 11:15 | XMS_ITS | Clinical Summary ---
Author Organization [facility] Address [address] [facility] [place] [address] Care Team Providers Care Batch Unit Treater Name Role Phone Lance Agee DO Primary Care Provider [phone] [facility],non-owned Affiliates and Associated Physician Practices is amultiple site organization consisting of ambulatory clinics and hospital sitesin [place], [place], [place] and [place]. This disclosure is being madepursuant to the Care Everywhere program and may not contain all information available regarding this patient. Last updated 18.[facility] [email or web address] Allergies Active Allergy Reactions Criticality Noted Date [...] with breakfast Active clobetasol (Temovate) 0.05 % solutionIndication s:Rash and other nonspecific skin eruption,Scalp itch Apply to affected scalp daily as needed. 30 days supply. 50 mL 1 04/14/2024 Active betamethasone dipropionate augmented (Diprolene Af) 0.05 % creamIndications:R fadi and other nonspecific skin eruption APPLY TOPICALLY TO THE AFFECTED AREA TWICE DAILY 50 g 5 04/20/2024 Active famotidine (Pepcid) 40 MG tablet Take 1 (one) tablet by mouth once daily Active folic acid (Folvite) 1 MG tabletIndications: Lichenoid dermatitis Take 1 (one) tablet by mouth once daily 100 tablet 5 05/26/2024 Active albuterol HFA (Proventil; Ventolin; Proair) 108 (90 Base) MCG/ACT inhaler INHALE 2 PUFFS BY MOUTH EVERY 4 TO 6 HOURS NEEDED FOR SHORTNESS OF BREATH OR WHEEZING 10/15/2024 Active methotrexate 2.5 MG tabletIndications: Lichenoid dermatitis Take 6 (six) tablets by mouth every 7 days 78 tablet 01/28/2025 Active methotrexate 2.5 MG tabletIndications: Lichenoid dermatitis Take 6 (six) tablets by mouth every 7 days 78 tablet 10/29/2024 5 Discontinue d(Reorder) Active Problems Problem Noted Date Diagnosed Date [...] Encounters Date Type Department Care Team Description 02/04/2025 Orders Only [facility] - Dermatology [address] [place] [address], [place] [address] Opal Ladd MD Rash 01/28/2025 Refill [facility] - Dermatology [address] [place] [address], [place] [address] Opal Ladd MD MEDICATION REFILL 11/12/2024 9:50 AM COUTIERIER Office Visit [facility] - Dermatology [address] [place] [address], [place] [address] Opal Ladd MD Actinic keratosis (Primary Dx); Rash; Seborrheic keratoses; Lentigines; Multiple benign melanocytic nevi; Scar 11/12/2024 Travel from Last 3 Months Immunizations Name Administration Dates Next Due Covid [email or web address] primary monoval ent 12+ yr 0.3mL Purple [...] Comments Blood Pressure 145/57 10/09/2021 3:32 PM COUTIERIER Pulse 52 10/09/2021 3:32 PM COUTIERIER Temperature - - Respiratory Rate - - Oxygen Saturation - - Inhaled Oxygen Concentration - - Weight 74.8 kg (165 lb) 10/09/2021 8:25 AM COUTIERIER Height 157.5 cm (5' 2 ) 10/09/2021 8:25 AM COUTIERIER Body Mass Index 30.18 10/09/2021 8:25 AM COUTIERIER Plan of Treatment Upcoming Encounters Date Type Department Care Team (Late st Contact Info) Description 03/11/2025 9:40 AM CDT Office Visit [facility] Dermatology [address] [place] [address], [facility] [place] [address] Opal Ladd MD [address] [place] [address] [address] [place] [address] Health Maintenance Due Date Last Done Comments BONE DENSITY TESTING 1955 COLOGUARD (AGES 45-75) - COLON CA SCREENING 1955 COLON MONITORING 1955 COLONOSCOPY - COLON CA SCREENING 1955 CT COLONOGRAPHY - COLON CA SCREENING 1955 Colorectal Cancer Screening 1955 FIT - COLON CA SCREENING 1955 FLEX SIG - COLON CA SCREENING 1955 LIPID TESTING 1955 MAMMOGRAM 1955 MEDICARE AWV 12 MONTHS 1955 DTAP/TDAP/TD VACCINES (1 - Tdap) 1974 PNEUMOCOCCAL VACCINE 50+ (1 of 1 - PCV) 2005 ZOSTER VACCINE (1 of 2) 2005 COVID-19 VACCINE ( season) 2024 10/19/2021, 01/26/2021, 12/27/2020 INFLUENZA VACCINE [...] complete this topic MENINGOCOCCAL (Group B) VACCINE SHARED DECISION-MAKING Aged Out No longer eligible based on patient's age to complete this topic MENINGOCOCCAL GROUPS A/C/Y/W VACCINE Aged Out No longer eligible based on patient's age to complete this topic Procedures Procedure Name Priority Date/Time Associated Diagnosis Comments [place] DESTROY PREMALIG LESION, 2-14 Routine 11/12/2024 11:18 AM COUTIERIER Actinic keratosis [place] DESTROY PREMALIG LESION, 1ST LESION Routine 11/12/2024 11:18 AM COUTIERIER Actinic keratosis HEPATITIS C AB SCREEN RFLX NAAT QUANT Routine 05/21/2024 11:38 AM CDT Lichenoid dermatitis from Last 3 Months or Most Recently Relevant to Health Maintenance Results * [place] DESTROY PREMALIG LESION, 1ST LESION, [place] DESTROY PREMALIG LESION, 2-14 (11/12/2024 11:18 AM COUTIERIER) Narrative Opal Ldad MD - 11/12/2024 11:18 AM COUTIERIER Opal Ladd MD 11/12/2024 11:18 AM Liquid [...] lucinda Non-reac tive 05/21/2024 12:46 PM CDT [facility] Comment:Hepatitis C Antibody screen indicates no [...] Ladd MD LAB - CHEMISTR Y ORDERABLES [facility] [address] [place] [address], [facility] [phone] from Last 3 Months or Most Recently Relevant to Health Maintenance Care Teams Batch Unit Treater Relationship Specialty Start Date End Date Lance Agee DO PCP - General 01/26/21
--- OUTSIDE RECORDS SUMMARY | 2025-02-04 11:15 | XMS_ITS | Clinical Summary ---
Author Organization [facility] Address [facility] [place] [address] Care Team Providers Care Systems Test Technician Name Role Phone Magdy Castellon MD Unavailable Lance Agee DO Primary Care Provider [phone] Benedict Cortez DO Unavailable [phone] Eusebia Ribeiro Unavailable Allergies Active Allergy Reactions [...] (09/03/2022): Added automatically from request for surgery [id number] Arthritis of right acromioclavicular joint 09/03 Overview (09/03/2022): Added automatically from request for surgery [id number] Biceps tendinitis on right 09/03/2022 Overview (09/03/2022): Added automatically from request for surgery [id number] Tear of right rotator cuff 09/03/2022 Overview (09/03/2022): Added automatically from request for surgery [id number] Seborrheic keratoses 07/19/2022 Lentigines 07/19/2022 Multiple benign [...] Medical History Medical History Date Comments Cancer (HCC) melanoma r leg Hiatal hernia Osteoarthritis [...] Pneumococcal vaccine 65+ (2 of 2 - PPSV23) 11/10/2020 09/15/2020 Covid-19 Vaccine (4 - 2023-2 5 season) 2024 10/19/2021, 01/26/2021, 12/27/2020 Influenza Vaccine (#1) 2024 , 09/15/2020, 09/02/2020, Additional history exists DTaP/Tdap/Td Vaccine (2 - Td or Tdap) 12/07/2030 12/07/2020, 04/16/2004 Insurance MEDICARE AARP [facility] MEDICARE MEDICARE AARP Care Teams Systems Test Technician Relationship Specialty Start Date End Date Lance Agee DO [address] [place] [address] PCP - General Internal Medicine 09/18/22 Magdy Castellon MD [address] [place] [address] Power Digger Operator Dermatology 02/08/22 Benedict Cortez DO [address] [facility] [address] [facility] [address] [place] [address] Referring Physician Cardiology 09/18/22 Eusebia Ribeiro PA [address] [place] [address] [address] [place] [address] Physician Outside Laborer Orthopedic Surgery 09/26/22
--- OUTSIDE RECORDS SUMMARY | 2025-02-04 11:15 | XMS_ITS | Referral Summary ---
Author Organization [facility] Address [address] [facility] [place] [address] Care Team Providers Care Customer Relationship Specialist Name Role Phone Salvadorash Lance Yon DO Primary Care Provider Source Comments [facility],non-owned Affiliates and Associated Physician Practices is amultiple site organization consisting of ambulatory clinics and hospital sitesin [place], [place], [place] and [place]. This disclosure is being madepursuant to the Care Everywhere program and may not contain all information available regarding this patient. Last updated 18.[facility] Encounters Date Type Department Care Team Description 02/04/2025 Orders Only [facility] Dermatology [address] [place] [phone] Opal Ladd MD Rash 01/28/2025 Refill [facility] [address] [place] [phone] Opal Ladd MD MEDICATION REFILL 11/12/2024 Travel 11/12/2024 9:50 AM BAR ASSISTANT Office Visit [facility] Dermatology [address] [place] [phone] Opal Ladd MD Actinic keratosis (Primary Dx); Rash; Seborrheic keratoses; Lentigines; Multiple benign melanocytic nevi; Scar from Last 3 Months Allergies Active Allergy [...] (08/26/2003) Immunizations Name Administration Dates Next Due Inst[employer] primary monoval ent 12+ yr 0.3mL Purple [...] Comments Blood Pressure 145/57 10/09/2021 3:32 PM BAR ASSISTANT Pulse 52 10/09/2021 3:32 PM BAR ASSISTANT Temperature - - Respiratory Rate - - Oxygen Saturation - - Inhaled Oxygen Concentration - - Weight 74.8 kg (165 lb) 10/09/2021 8:25 AM BAR ASSISTANT Height 157.5 cm (5' 2 ) 10/09/2021 8:25 AM BAR ASSISTANT Body Mass Index 30.18 10/09/2021 8:25 AM BAR ASSISTANT Plan of Treatment Upcoming Encounters Date Type Department Care Team (Late st Contact Info) Description 03/11/2025 9:40 AM CDT Office Visit [facility] - Dermatology [address] [facility], [place] [phone] Opal Ladd MD [address] [place] [address] [address] [place] [address] Procedures Procedure Name Priority Date/Time Associated Diagnosis Comments [place] DESTROY PREMALIG LESION, 2-14 Routine 11/12/2024 11:18 AM BAR ASSISTANT Actinic keratosis [place] DESTROY PREMALIG LESION, 1ST LESION Routine 11/12/2024 11:18 AM BAR ASSISTANT Actinic keratosis HEPATITIS C AB SCREEN RFLX NAAT QUANT Routine 05/21/2024 11:38 AM CDT Lichenoid dermatitis from Last 3 Months or Most Recently Relevant to Health Maintenance Results * [place] DESTROY PREMALIG LESION, 1ST LESION, [place] DESTROY PREMALIG LESION, 2-14 (11/12/2024 11:18 AM BAR ASSISTANT) Narrative Opal Ladd MD - 11/12/2024 11:18 AM BAR ASSISTANT Opal Ladd MD 11/12/2024 11:18 AM Liquid [...] lucinda Non-reac tive 05/21/2024 12:46 PM CDT [facility] Comment:Hepatitis C Antibody screen indicates no [...] Ladd MD LAB - CHEMISTR Y ORDERABLES [facility] [address] [place] [address], [facility] [phone] from Last 3 Months or Most Recently Relevant to Health Maintenance Care Teams Customer Relationship Specialist Relationship Specialty Start Date End Date Lance Agee DO PCP - General 01/26/21
[2025-02-04 18:49] LABS: Cholesterol 166 mg/dL (0-200); HDL Direct 53 mg/dL; Triglycerides 54 mg/dL (<150)
[2025-02-04 19:00] LABS: LDL Cholesterol Direct 81 mg/dL
[2025-02-04 19:10] LABS: Vitamin D 25 Hydroxy 52.2 ng/mL
== END 2025-02-04 10:30 | disposition home or self-care (01) ==
LOC: ANHGOSHLAB 10:30
PROVIDERS: PCP Nurse Practitioner; Visit Provider Nurse Practitioner
DX: E55.9 Vitamin D deficiency, unspecified (principal); Z13.220 Encounter for screening for lipoid disorders; Z79.899 Other long term (current) drug therapy
CPT/HCPCS: 36415; 80061; 82306

== ENCOUNTER 2025-02-04 10:37 | Outpatient (CLI) | payer MEDICARE, SELFPAY ==
--- NOTE | ~2025-02-04 | US_ITS ---
Pelvic ultrasound. Clinical History: Pelvic pain Technique: Realtime transabdominal and transvaginal scanning of the pelvis was performed. Color flow Doppler and Doppler spectral analysis were performed. Findings: The uterus is anteverted. The endometrial stripe has a thickness of 6 mm. Calcified uterin e fibroid measures 2.3 cm. Neither ovary seen. No other adnexal mass seen. There is no evidence of free fluid in the cul de sac. Impression: 2.3 cm calcified uterine fibroid. Borderline thickened endometrium. Reviewed, dictated and finalized at location . Impression: 2.3 cm calcified uterine fibroid. Borderline thickened endometrium.
== END 2025-02-04 10:38 | disposition home or self-care (01) ==
PROVIDERS: PCP Nurse Practitioner; Visit Provider Nurse Practitioner Family
DX: R10.2 Pelvic and perineal pain (principal); D25.9 Leiomyoma of uterus, unspecified
CPT/HCPCS: 76830; 76856

== ENCOUNTER 2025-02-23 07:49 | Outpatient (CLI) | payer MEDICARE, SELFPAY ==
--- NOTE | ~2025-02-23 | MMUS_ITS ---
EXAMINATION: MM diagnostic anay BI w yamile, US breast RT limited HISTORY: Right breast lump TECHNIQUE: Additional 3-D tomosynthesis images of the right breast were performed and synthetic 2-D i mages were generated. CAD analysis was submitted and interpreted. High resolution Limited right breas t ultrasound was performed. COMPARISON: Comparison to multiple prior studies sequentially, with oldest reviewed study dated 11/09/2018. BREAST PARENCHYMAL COMPOSITION: Not dense: There are scattered areas of fibroglandular density. FINDINGS: MAMMOGRAPHIC FINDINGS: There are no suspicious masses, calcifications or architectural distortion in the right breast to sug gest malignancy. ULTRASOUND: Limited right breast ultrasound: Normal heterogeneous echotexture without focal solid or cystic mass. IMPRESSION: 1. No evidence for malignancy in the right breast. 2. Routine yearly screening mammogram and regular clinical breast examination are recommended. BI-RADS Category 1: Negative Reviewed, dictated and finalized at location A. IMPRESSION: 1. No evidence for malignancy in the right breast. 2. Routine yearly screening mammogram and regular clinical breast examination a re recommended. BI-RADS Category 1: Negative
== END 2025-02-23 07:50 | disposition home or self-care (01) ==
LOC: MICIMG 07:50
PROVIDERS: PCP Nurse Practitioner; Visit Provider Nurse Practitioner
DX: R92.8 Other abnormal and inconclusive findings on diagnostic imaging of breast (principal)
CPT/HCPCS: 76642; 77062; 77066; G0279

== ENCOUNTER 2025-03-03 08:07 | Outpatient (CLI) | payer MEDICARE, SELFPAY ==
--- NOTE | ~2025-03-03 | XR_ITS ---
EXAM: XR small bowel follow through - 03/03/2025 08:35 CDT History: 69 years old Female with concern for small bowel partial obstruction, h/o RLQ pain Comparison None Technique Single contrast fluoroscopic examination of the small bowel was performed with barium. Findings Recreation Activities Coordinator view of the upper abdomen obtained prior to the procedure showed an unremarkable bowel gas rita amauri. The duodenal bulb and duodenal loop were grossly unremarkable. Barium reached the colon within 45 minutes. The jejunum and ileum were normal in caliber. The mucos al pattern throughout the jejunum and ileum appeared normal. No kinking, strictures, or angulation we re present. The terminal ileum was well visualized with compression and was grossly unremarkable. Impression Unremarkable small bowel follow-through. Reviewed, dictated and finalized at location A. Impression Unremarkable small bowel follow-through.
--- OUTSIDE RECORDS SUMMARY | 2025-03-03 08:11 | XMS_ITS | Clinical Summary ---
Author Organization [facility] Address [address] [facility] [place] [address] Care Team Providers Care Metal Control Coordinator Name Role Phone Lance Agee DO Primary Care Provider [phone] Source Comments [facility],non-owned Affiliates and Associated Physician Practices is amultiple site organization consisting of ambulatory clinics and hospital sitesin [place], [place], [place] and [place]. This disclosure is being madepursuant to the Care Everywhere program and may not contain all information available regarding this patient. Last updated 18.[facility] Allergies Active Allergy Reactions Criticality Noted Date [...] (one) tablet by mouth as needed Active clobetasol (Temovate) 0.05 % solutionIndication s:Rash [...] every 7 days 78 tablet 01/28/2025 Active venlafaxine XR 24hr (Effexor XR) 37.5 MG capsule Take 1 (one) capsule by mouth daily with breakfast 02/03/2025 Active venlafaxine XR 24hr (Effexor XR) 75 MG capsule Take 1 (one) capsule by mouth daily with breakfast 5 Discontinue d(List Clean-Up) Active Problems Problem Noted Date Diagnosed Date [...] Encounters Date Type Department Care Team Description 02/24/2025 3:25 PM CDT - 02/24/2025 11:59 PM CDT Hospital Encounter [facility] OP DRAW STATION [address] [place] [address] Discharge Disposition: Home or Self Care 02/24/2025 2:40 PM CDT Office Visit [facility] - Dermatology [address] [place] [phone] Opal Ladd MD Lichenoid dermatitis (Primary Dx); Actinic keratosis; Seborrheic keratoses; Lentigines; Multiple benign melanocytic nevi; Scar 02/24/2025 Travel 02/04/2025 Orders Only [facility] - Dermatology [address] [place] [phone] Opal Ladd MD Rash 01/28/2025 Refill [facility] - Dermatology [address] [place] [phone] Opal Ladd MD MEDICATION REFILL from Last 3 Months Immunizations Name Administration Dates Next Due Covid [employer] primary monoval ent 12+ yr 0.3mL Purple [...] Comments Blood Pressure 145/57 10/09/2021 3:32 PM SALES AND MARKETING VICE PRESIDENT Pulse 52 10/09/2021 3:32 PM SALES AND MARKETING VICE PRESIDENT Temperature - - Respiratory Rate - - Oxygen Saturation - - Inhaled Oxygen Concentration - - Weight 74.8 kg (165 lb) 10/09/2021 8:25 AM SALES AND MARKETING VICE PRESIDENT Height 157.5 cm (5' 2 ) 10/09/2021 8:25 AM SALES AND MARKETING VICE PRESIDENT Body Mass Index 30.18 10/09/2021 8:25 AM SALES AND MARKETING VICE PRESIDENT Plan of Treatment Upcoming Encounters Date Type Department Care Team (Late st Contact Info) Description 07/08/2025 9:20 AM CDT Office Visit [facility] - Dermatology [address] [place] [address], [place] [phone] Opal Ladd MD [address] [place] [address] [address] [place] [address] Health Maintenance Due Date Last Done Comments [...] (4 - season) 2024 10/19/2021, 01/26/2021, 12/27/2020 DEPRESSION SCREENING 11/24/2024 INFLUENZA VACCINE (Season Ended) 2025 09/02/2022, 09/21/2021, 09/02/2020, Additional history exists Respiratory Syncytial Virus (RSV) Vaccine Pt: or [...] Procedure Name Priority Date/Time Associated Diagnosis Comments CBC W AUTO DIFFERENTIAL Routine 02/24/2025 3:40 PM CDT Lichenoid dermatitis COMPREHENSIVE METABOLIC PANEL Routine 02/24/2025 3:40 PM CDT Lichenoid dermatitis [place] DESTROY PREMALIG LESION, 2-14 Routine 02/24/2025 3:20 PM CDT Actinic keratosis MD DESTROY PREMALIG LESION, 1ST LESION Routine 02/24/2025 3:20 PM CDT Actinic keratosis HEPATITIS C AB SCREEN RFLX NAAT QUANT Routine 05/21/2024 11:38 AM CDT Lichenoid dermatitis from Last 3 Months or Most Recently Relevant to Health Maintenance Results * CBC WITH DIFFERENTIAL (02/24/2025 3:40 PM CDT) WBC 5.9 4.0 - 10.7 x10E9/L 02/24/2025 4:20 PM [facility] RBC Count 4.09 3.90 - 5.20 x10E12/L 02/24/2025 4:20 PM [facility] Hemoglobin 12.6 11.9 - 15.8 g/dL 02/24/2025 4:20 PM [facility] Hematocrit 38.0 34.8 - 46.1 % 02/24/2025 4:20 PM [facility] MCV 92.9 80.0 - 98.0 fL 02/24/2025 4:20 PM [facility] MCH 30.8 26.7 - 33.6 pg 02/24/2025 4:20 PM [facility] MCHC 33.2 31.7 - 36.3 g/dL 02/24/2025 4:20 PM [facility] RDW-CV 13.9 11.3 - 14.8 % 02/24/2025 4:20 PM [facility] Platelet Count 218 150 - 420 x10E9/L 02/24/2025 4:20 PM [facility] MPV 10.0 7.8 - 11.4 fL 02/24/2025 4:20 PM [facility] Neutrophil % 64.3 41.0 - 74.0 % 02/24/2025 4:20 PM [facility] Lymphocyte % 25.1 17.0 - 47.0 % 02/24/2025 4:20 PM [facility] Monocyte % 5.4 3.0 - 11.0 % 02/24/2025 4:20 PM [facility] Eosinophil % 3.9 0.0 - 7.0 % 02/24/2025 4:20 PM [facility] Basophil % 1.0 0.0 - 1.6 % 02/24/2025 4:20 PM [facility] Immature Granulocytes % 0.3 0.0 - 1.0 % 02/24/2025 4:20 PM T [facility] Neutrophil Absolute 3.79 1.60 - 7.50 x10E9/L 02/24/2025 4:20 PM [facility] Lymphocyte Absolute 1.48 1.00 - 4.40 x10E9/L 02/24/2025 4:20 PM [facility] Monocyte Absolute 0.32 0.15 - 1.00 x10E9/L 02/24/2025 4:20 PM [facility] Eosinophil Absolute 0.23 0.00 - 0.60 x10E9/L 02/24/2025 4:20 PM [facility] Basophil Absolute 0.06 0.00 - 0.13 x10E9/L 02/24/2025 4:20 PM [facility] Blood BLOOD SPECIMEN / Unknown Lab Venipuncture / Unknown 02/24/2025 3:40 PM CDT 02/24/2025 3:57 PM CDT Opal Ladd MD LAB - HEMATOLO GY ORDERABLES [facility] [address] [place] [address], [facility] [phone] * (ABNORMAL) COMPREHENSIVE METABOLIC PANEL (02/24/2025 3:40 PM CDT) BUN 24 7 - 26 mg/dL 02/24/2025 4:28 PM [facility] Creatinine 1.05(H) 0.56 - 0.96 mg/dL 02/24/2025 4:28 PM [facility] Sodium 139 136 - 145 mmol/L 02/24/2025 4:28 PM [facility] Potassium 4.0 3.5 - 4.5 mmol/L 02/24/2025 4:28 PM [facility] Chloride 109(H) 98 - 107 mmol/L 02/24/2025 4:28 PM [facility] CO2 22 22 - 29 mmol/L 02/24/2025 4:28 PM [facility] Glucose 96 70 - 99 mg/dL 02/24/2025 4:28 PM [facility] Calcium 9.5 8.4 - 10.2 mg/dL 02/24/2025 4:28 PM [facility] Protein Total 6.7 6.0 - 8.3 g/dL 02/24/2025 4:28 PM [facility] Albumin 4.2 3.4 - 5.0 g/dL 02/24/2025 4:28 PM [facility] Bilirubin Total 0.3 0.2 - 1.2 mg/dL 02/24/2025 4:28 PM [facility] Alkaline Phosphatase 54 40 - 150 U/L 02/24/2025 4:28 PM [facility] ALT 21 5 - 55 U/L 02/24/2025 4:28 PM [facility] AST 23 5 - 34 U/L 02/24/2025 4:28 PM [facility] Anion Gap 8 6 - 16 02/24/2025 4:28 PM [facility] BUN/Creatinine Ratio 23 7 - 23 02/24/2025 4:28 PM [facility] Osmolality Calculated 292 275 - 295 mOsm/kg 02/24/2025 4:28 PM [facility] Albumin/Globulin Ratio 1.7 1.1 - 2.3 02/24/2025 4:28 PM [facility] eGFR by CKD-EPI 58(L) >=90 mL/min/1.7 3 m2 02/24/2025 4:28 PM [facility] Blood BLOOD SPECIMEN / Unknown Lab Venipuncture / Unknown 02/24/2025 3:40 PM CDT 02/24/2025 3:57 PM T Opal Ladd MD LAB - CHEMISTR Y ORDERABLES [facility] [address] [place] [address], [facility] [phone] * MD DESTROY PREMALIG LESION, 1ST LESION, MD DESTROY PREMALIG LESION, 2-14 (02/24/2025 3:20 PM CDT) Narrative Opal Ladd MD - 02/24/2025 3:20 PM CDT Opal Ladd MD 02/24/2025 3:20 PM Liquid nitrogen was applied for 10-12 seconds to the 12 actinic keratosis and the expected blistering or scabbing reaction explained. Do not pick at the area. Patient reminded to expect hypopigmented scars from the procedure. Return if lesion fails to fully resolve. Opal Ladd MD PROCEDURE/MAHENDRA R SURGICAL ORDERABLES * HEPATITIS C AB SCREEN RFLX NAAT QUANT (05/21/2024 11:38 AM CDT) Hepatitis C Antibody Non-react lucinda Non-reac tive 05/21/2024 12:46 PM CDT [facility] Comment:Hepatitis C Antibody screen [...] Ladd MD LAB - CHEMISTR Y ORDERABLES [facility] [address] [place] [address], [facility] [phone] from Last 3 Months or Most Recently Relevant to Health Maintenance Care Teams Metal Control Coordinator Relationship Specialty Start Date End Date Lance Agee DO PCP - General 01/26/21
--- OUTSIDE RECORDS SUMMARY | 2025-03-03 08:11 | XMS_ITS | Encounter Summary ---
Author Organization [facility] Address [address] [facility] [place] [address] Care Team Providers Care Briefcase Sewer Name Role Phone Lance Agee DO Primary Care Provider [phone] Reason for Visit * Reason Onset Date Comments Returned Call 12/09/2022 Encounter Details Date Type Department Care Team (Late st Contact Info) Description 12/09/2022 Telephone [facility] [address] [facility] [place] [address] Opal Ladd MD [address] [facility] [address] [place] [address] Returned Call Social History Tobacco [...] that she can also be contacted through [employer] ING FLOOR DESK CLERK documented in this encounter Plan of Treatment Upcoming Encounters Date Type Department Care Team (Late st Contact Info) Description 07/08/2025 9:20 AM CDT Office Visit [facility] [address] [place] [address], [facility] [place] [address] Opal Ladd MD [address] [place] [address] [address] [place] [address] documented as of this encounter Visit Diagnoses Not on filedocumented in this encounter Care Teams Briefcase Sewer Relationship Specialty Start Date End Date Lance Agee DO PCP - General 01/26/21 documented as of this encounter
--- OUTSIDE RECORDS SUMMARY | 2025-03-03 08:11 | XMS_ITS | Clinical Summary ---
Author Organization [facility] Address [facility] [place] [address] Care Team Providers Care Image Processing Engineer Name Role Phone Magdy Castellon MD Unavailable [phone] Lance Agee DO Primary Care Provider [phone] Benedict Cortez DO Unavailable [phone] Eusebia Ribeiro Unavailable Allergies Active Allergy Reactions [...] (09/03/2022): Added automatically from request for surgery [id number] Arthritis of right acromioclavicular joint 09/03 Overview (09/03/2022): Added automatically from request for surgery [id number] Biceps tendinitis on right 09/03/2022 Overview (09/03/2022): Added automatically from request for surgery [id number] Tear of right rotator cuff 09/03/2022 Overview (09/03/2022): Added automatically from request for surgery [id number] Seborrheic keratoses 07/19/2022 Lentigines 07/19/2022 Multiple benign [...] season) 2024 10/19/2021, 01/26/2021, 12/27/2020 Influenza Vaccine (Season Ended) 2025 09/02/2022, 09/15/2020, 09/02/2020, Additional history exists DTaP/Tdap/Td Vaccine (2 - Td or Tdap) 12/07/2030 12/07/2020, 04/16/2004 Insurance MEDICARE AARP [facility] MEDICARE MEDICARE AARP Care Teams Image Processing Engineer Relationship Specialty Start Date End Date Lance Agee DO [address] [place] [address] PCP - General Internal Medicine 09/18/22 Magdy Castellno MD [address] [place] [address] Bobcat Driver/Labor Dermatology 02/08/22 Benedict Cortez DO [address] [facility] [address] [facility] [address] [place] [address] Referring Physician Cardiology 09/18/22 Eusebia Ribeiro PA [address] [place] [address] [address] [place] [address] Physician Box Attacher Orthopedic Surgery 09/26/22
--- OUTSIDE RECORDS SUMMARY | 2025-03-03 08:11 | XMS_ITS | Referral Summary ---
Author Organization [facility] Address [facility] [place] [address] Care Team Providers Care Senior Product Development Scientist Name Role Phone Magdy Castellon MD Unavailable Lance Agee DO Primary Care Provider [phone] Benedict Cortez DO Unavailable [phone] Eusebia Ribeiro Unavailable Allergies Active Allergy Reactions [...] (09/03/2022): Added automatically from request for surgery [id number] Arthritis of right acromioclavicular joint 09/03 Overview (09/03/2022): Added automatically from request for surgery [id number] Biceps tendinitis on right 09/03/2022 Overview (09/03/2022): Added automatically from request for surgery [id number] Tear of right rotator cuff 09/03/2022 Overview (09/03/2022): Added automatically from request for surgery [id number] Seborrheic keratoses 07/19/2022 Lentigines 07/19/2022 Multiple benign [...] Immunization Administration Dates Next Due Influenza, Quadrivalent, Eevlyn l Culture-based MDCK, Preservative Free, Antibiotic Free, [...] of Treatment Not [place] [address] MEDIC[address] [facility] [place] [address] [facility] MEDICARE MEDICARE [facility] Care Teams Senior Product Development Scientist Relationship Specialty Start Date End Date Lance Agee DO [address] [place] [address] PCP - General Internal Medicine 09/18/22 Magdy Castellon MD [address] [place] [address] Charging Crane Operator Dermatology 02/08/22 Beneidct Cortez DO [address] [facility] [address] [place] [address] Referring Physician Cardiology 09/18/22 Eusebia Ribeiro PA [address] [place] [address] [address] [place] [address] Physician Lease Administrator Orthopedic Surgery 09/26/22
== END 2025-03-03 08:08 | disposition home or self-care (01) ==
LOC: ANHIMG 08:08
PROVIDERS: PCP Nurse Practitioner; Visit Provider Nurse Practitioner Family
DX: K52.9 Noninfective gastroenteritis and colitis, unspecified (principal); K56.600 Partial intestinal obstruction, unspecified as to cause
CPT/HCPCS: 74250

== ENCOUNTER 2025-09-09 12:44 | Emergency (ER) | payer MEDICARE, SELFPAY ==
[2025-09-09 12:59] VITALS: BP 160/83; PULSE 59; RESP 16; TEMP 36.8; O2SAT 100
--- NOTE | 2025-09-09 13:10 | ED.GENADULT ---
HPI - General Adult General Chief complaint: Nausea/Vomiting/Diarrhea Stated complaint: dizziness/abdomen pain Time Seen by Provider: 09/09/25 13:05 Source: patient, RN notes reviewed and old records reviewed Mode of arrival: ambulatory Limitations: no limitations History of Present Illness HPI narrative: 70-year-old female who presents to [facility] with complaints of diarrhea after eating continuously for the last 6 days. Patient reports that she just returned last night from trip to [facility] and [place]. Patient reports that she has been on malaria prevention drug since the 22 of August of Atovaquone Proguanil. Patient reports some dizziness and some intermittent cramping sensation in the abdomen especially right side of abdomen, No pain on palpation of abdomen. Patient is drinking liquid IV solution presently, Patient reports no fevers, chills, or sweats, denies any headaches. Patient reports that she had melanoma in right lower leg and had procedure where dye was injuected to follow lymph nodes into groin and has some clips in right groin where some removed. MD complaint: diarrhea, dizziness, recent return from [place] Onset (ago): day(s) (6) Severity: moderate Quality: other (cramping abdomen) Treatments prior to arrival: other (liquid IV) Related Data Home Medications ?Medication ?Instructions ?Recorded ?Confirmed ?Last Taken ?Type ascorbic acid (vitamin C) 250 mg 250 mg PO DAILY 10/22/23 03/04/25 Unknown History tablet folic acid 1 mg tablet 1 mg PO DAILY 06/03/24 03/04/25 Unknown History methotrexate sodium 2.5 mg tablet 15 mg PO WEEKLY 06/03/24 03/04/25 Unknown History atovaquone 250 mg-proguanil 100 mg tablet 09/09/25 Unknown History tablet Allergies Allergy/AdvReac Type Severity Reaction Status Date / Time olopatadine Allergy Mild itchy OU Verified 09/09/25 13:04 Review of Systems Review of Systems: CONSTITUTIONAL: Denies fever, chills, or sweats. EYES: Denies visual changes, redness, or discharge. ENT: Denies rhinorrhea, congestion, sore throat, or otalgia. CARDIOVASCULAR: Denies chest pain, palpitations, or edema. RESPIRATORY: Denies cough or dyspnea. GASTROINTESTINAL: Reports cramping abdominal pain,no nausea, vomiting, positive for diarrhea for 6 days just returned from trip from [facility]. GENITOURINARY: Denies dysuria or hematuria. SKIN: Denies rash or itching. MUSCULOSKELETAL: Denies back pain, joint pain, or myalgia. NEUROLOGIC: Denies headache, numbness, or weakness. PSYCHIATRIC: Denies anxiety or depression. All systems reviewed & are unremarkable except as noted in HPI and below PMFSH Past Medical History Medical History Lichenoid dermatitis Basal cell carcinoma (BCC) Encounter for Papanicolaou smear for cervical cancer screening Adenomatous colon polyp Arthritis Melanoma Allergies ACL tear 1998 Surgical History Surgical History Status post reverse arthroplasty of right shoulder History of tubal ligation 1986 History of knee replacement 2018 Family History Family History Father Cerebrovascular accident Hypertension Grandparent Parkinsons Heart disease Cancer Social History Social History Smoking status: Never smoker Alcohol intake: current Drinks per week: 3 Alcohol use details: GLASSES WINE Substance use: never Substance use type: does not use Do You Feel Safe in your Home?: Yes Lack of Transportation: No Lack of Food: Never True Current Housing: I Have Housing Concerned About Future Housing: No Difficulty Paying Gas/Electric Bills: No Difficulty Paying for Meds: No Currently Unemployed: No Education: Bachelor's Degree Difficulty w/ Childcare or Family Care: No Living arrangements: with family Additional living arrangements comments: Occupation/Education: retired Gender identity (if verbalized by the patient): Female Sexual Orientation (if Verbalized by the Patient): Straight or Heterosexual Spiritual care concerns: No Comments At time of signature, agree with nursing past medical, surgical, social and family history. There is no relevant family history pertinent to the presenting complaint Exam Narrative: GENERAL:ill-appearing, well-nourished, and in no acute distress. HEAD: Normocephalic, atraumatic. EYES: PERRLA and EOMI. ENT: Nares clear, no rhinorrhea or epistaxis. Mucous membranes moist.TM's normal with good light reflex, throat pink with no swelling. NECK: Supple. no lymphadenopathy CHEST: Clear to auscultation. No respiratory distress. SAO2 100% on room air HEART: Regular rate and rhythm. No murmur heard. Normal peripheral pulses. ABDOMEN: Soft, nontender to palpation, reports some cramping to abdomen, nondistended, normal active bowel sounds. EXTREMITIES: Normal range of motion. No edema. SKIN: Warm, dry, no rash. NEURO: No focal deficits. Alert and oriented x3. Course Course Emergency Course: Patient is aware of diagnosis, understands and agrees to treatment plan.? Anticipatory guidance given.? Patient agrees to follow-up as directed and is aware of reasons to seek care at the emergency department. is agreeable for transfer.. Portions of this record may have been created with voice recognition software Level of Care: Express Care Visit Vital Signs Vital signs: Vital Signs Temperature 36.8 C 09/09/25 12:59 Pulse Rate 59 L 09/09/25 12:59 Respiratory Rate 16 09/09/25 12:59 Blood Pressure 160/83 H 09/09/25 12:59 Pulse Oximetry 100 09/09/25 12:59 Temperature 36.8 C 09/09/25 12:59 Pulse Rate 64 09/09/25 13:15 Respiratory Rate 16 09/09/25 12:59 Blood Pressure 166/95 H 09/09/25 13:15 Pulse Oximetry 100 09/09/25 12:59 reviewed Transfer Transfered to: [place] Transportation: Other (per private car) Transfer rationale: diarrhea for the past 6 days recently returned from trip to [place], feels some dizziness minimal nausea with no vomiting, some cramping of abdomen. Has been on malaria prevention medication, possible dehydration Accepting physician: Pj Transfer comments: to [place] ED per private car Medical Decision Making [facility] Narrative Medical decision making narrative: 1320 Call placed to the ED at [place] [facility] and VS, condition update, PMH reviewed with Deandra Em with Dr Oliva accepting patient for transfer. Differential Diagnosis Differential Diagnosis: travelers diarrhea, gastroenteritis, infectious colitis, diarrhea, partial bowel obstruction, dehydration Medical Records Medical records reviewed: Yes I reviewed the external patient's medical records. Vital Signs Vital Signs: Vital Signs Temperature 36.8 C 09/09/25 12:59 Pulse Rate 59 L 09/09/25 12:59 Respiratory Rate 16 09/09/25 12:59 Blood Pressure 160/83 H 09/09/25 12:59 Pulse Oximetry 100 09/09/25 12:59 Temperature 36.8 C 09/09/25 12:59 Pulse Rate 64 09/09/25 13:15 Respiratory Rate 16 09/09/25 12:59 Blood Pressure 166/95 H 09/09/25 13:15 Pulse Oximetry 100 09/09/25 12:59 reviewed Critical Care Time Critical Care Time Critical Care Time: No Discharge Plan Discharge Clinical Impression: Traveler's diarrhea, Dehydration Patient Disposition: Acute Care Hospital Condition: Stable Patient Language: Italian Prescriptions: No Action atovaquone-proguanil 250-100 mg tablet albuterol sulfate 90 mcg/actuation HFA aerosol inhaler 2 puff inhalation Q4-6H PRN (Reason: shortness of breath or wheezing) 30 Days Qty: 8.5 0RF famotidine 40 mg tablet 40 mg PO BID Qty: 180 3RF ascorbic acid (vitamin C) 250 mg Tablet 250 mg PO DAILY methotrexate sodium 2.5 mg tablet 15 mg PO WEEKLY folic acid 1 mg tablet 1 mg PO DAILY valacyclovir 1 gram tablet 2,000 mg PO Q12H PRN (Reason: cold sores) Qty: 30 1RF Rx Instructions: Take 2000 mg PO q 12 hours x 1 day for cold sore flare venlafaxine 37.5 mg capsule,extended release 24hr 37.5 mg PO DAILY Qty: 90 0RF Follow-up/Referrals: Lance Agee DO [Primary Care Provider, Internal Medicine] Time of Disposition: 13:27 Quality [place] Coma Scale Eyes: Open Verbal: Oriented and Alert Motor: Follows Commands [place] Coma Total Score: 15
[2025-09-09 13:14] VITALS: BP 160/86; PULSE 57
[2025-09-09 13:15] VITALS: BP 166/95; BP 168/86; PULSE 56; PULSE 64
== END 2025-09-09 13:27 | disposition short-term general hospital (02) ==
PROVIDERS: Emergency Provider Registered Nurse; PCP Internal Medicine
DX: A09 Infectious gastroenteritis and colitis, unspecified (principal); M19.90 Unspecified osteoarthritis, unspecified site; Z85.820 Personal history of malignant melanoma of skin; Z85.828 Personal history of other malignant neoplasm of skin
CPT/HCPCS: 99212; G0463

== ENCOUNTER 2025-09-09 14:04 | Emergency (ER) | payer MEDICARE, SELFPAY ==
--- OUTSIDE RECORDS SUMMARY | 2025-09-09 14:06 | XMS_ITS | Patient Health Record ---
Author Organization [facility] Address [address] [place] [id number] Care Team Providers Care Upholstery Trimmer Name Role Phone Julesroma Caesar Unavailable [phone] Allergies Allergen (clinical drug ingredient) Drug/Non Drug Allergy documented on EMR Reaction Allergy Type Onset Date Status tramadol Tramadol HCl Unknown Drug Allergy Acti ve Reason For Referral No Information Social History Tobacco Use: Social History Observation Description Date Details (start date - stop date) Never Smoker NA - NA Social History Drugs/Alcohol: Social Info Question Answer Notes Alcohol Screen Did you have a drink containing alcohol in the past year? Yes How often did you have a drink containing alcohol in the past year? 2 to 3 times a week (3 points) How many drinks did you have on a typical day when you were drinking in the past year? 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) Active confirmed Problem Acquired cavus deformity of right foot (5460573115023506 ) Acquired cavus deformity of right foot (M21.6X1) Active confirmed Plan Of Treatment No Information Insurance Providers Payer Name Payer Address Payer Phone Subscriber Number Group Number Insured Name Patient Relationship to Insured Coverage Start Date Coverage End Date [facility] [address] [place], [place] [id number] Aleida Mendez Self - patient is the insured Medical (General) History Medical History History ICD Code cancer history seasonal allergies Surgical History Surgery Date(Month/Year) Mohs procedure 1998 ACl replacement
--- OUTSIDE RECORDS SUMMARY | 2025-09-09 14:06 | XMS_ITS | Encounter Summary ---
Author Organization [facility] Address [address] [facility] [place] [address] Care Team Providers Care Hand Brush Filler Name Role Phone Lance Agee DO Primary Care Provider Reason for Visit * Reason Onset Date Comments Returned Call 12/09/2022 Encounter Details Date Type Department Care Team (Late st Contact Info) Description 12/09/2022 Telephone [facility] [address] [facility] [place] [address] Opal Ladd MD [address] [facility] [facility] [address] [place] [address] Returned Call Social History Tobacco Use Types Packs/Day Years Used Date Smoking Tobacco: Never Smokeless Tobacco: Never Alcohol Use Standard Drinks/Week Comments Yes 3 (1 standard drink = 0.6 oz pur e alcohol) Comments Unknown Sex and Gender Information Value Date Recorded Sex Assigned at Not on file Legal Sex Female 8:46 AM CDT Gender Identity Not on file Sexual Orientation Not on file documented as of this encounter Miscellaneous Notes * Telephone Encounter - Irasema Laird - 12/09/2022 8:25 AM CST Patient returning missed call from Dr Dai advise Patient stated that she can also be contacted through mychart AND AND CONTROL OFFICER documented in this encounter Plan of Treatment Upcoming Encounters Date Type Department Care Team (Late st Contact Info) Description 10/14/2025 9:50 AM COMMAND AND CONTROL OFFICER Office Visit [facility] Dermatology [address] [place] [address], [place] [address] Opal Ladd MD [address] [place] [address] [address] [place] [phone] documented as of this encounter Visit Diagnoses Not on filedocumented in this encounter Care Teams Hand Brush Filler Relationship Specialty Start Date End Date Lance Agee DO PCP - General 01/26/21 documented as of this encounter
--- OUTSIDE RECORDS SUMMARY | 2025-09-09 14:06 | XMS_ITS | Encounter Summary ---
Author Organization [facility] Address [address] [place] [address] Care Team Providers Care Family Living Educator Name Role Phone Lance Agee DO Primary Care Provider [phone] Encounter Details Date Type Department Care Team (Late Contact Info) Description 07/13/2025 Results Follow-Up [facility] Derm[facility]ology [address] [place] [phone] Opal Ladd MD [address] [place] [address] [place] [phone] Social History Tobacco Use Types Packs/Day Years [...] Encounters Date Type Department Care Team (Late Contact Info) Description 10/14/2025 9:50 AM DJANGO DEVELOPER Office Visit [facility]erm[facility] [address] [place] [phone] Opal Ladd MD [address] [place] [address] [address] [place] [address] documented as of this encounter Visit Diagnoses Not on filedocumented in this encounter Care Teams Family Living Educator Relationship Specialty Start Date End Date Lance Agee DO PCP - General 01/26/21 documented as of this encounter
--- OUTSIDE RECORDS SUMMARY | 2025-09-09 14:06 | XMS_ITS | Clinical Summary ---
Author Organization [facility] Address [address] [place] [address] Care Team Providers Care Surgical Garment Assembler Name Role Phone Lance Agee DO Primary Care Provider [phone] Source Comments [facility],non-owned Affiliates and Associated Physician Practices is amultiple site organization consisting of ambulatory clinics and hospital sitesin [place], [place], [place] and [place]. This disclosure is being madepursuant to the Care Everywhere program and may not contain all information available regarding this patient. Last updated 18.[facility] Allergies Active Allergy Reactions Criticality Noted Date Comments Olopatadine Eye Itching 11/28/2022 Medications * Be aware that medications may not be up to date on this document. Alwaysverify current medications with the patient. valACYclovir (VALTREX) 1 GM tablet Take 1 (one) tablet by mouth as needed Active fluorouracil (EFUDEX) 5 % cream Apply to affected area twice daily for 2-3 weeks, or as tolerated. 40 g Active meloxicam (Mobic) 15 MG tablet Take 1 (one) tablet by mouth as needed Active famotidine (Pepcid) 40 MG tablet Take 1 (one) tablet by mouth once daily Active folic acid (Folvite) 1 MG tabletIndicatio ns:Lichenoid dermatitis Take 1 (one) tablet by mouth once daily 100 tablet 5 4 Active albuterol HFA (Proventil; Ventolin; Proair) 108 (90 Base) MCG/ACT inhaler INHALE 2 PUFFS BY MOUTH EVERY 4 TO 6 HOURS NEEDED FOR SHORTNESS OF BREATH OR WHEEZING 4 Active venlafaxine XR 24hr (Effexor XR) 37.5 MG capsule Take 1 (one) capsule by mouth daily with breakfast 5 Active cephalexin (Keflex) 500 MG capsuleIndicati ons:Skin and Skin Structure Infection Take 1 (one) capsule by mouth 3 times daily Reasons: Infection of the Skin and/or Skin Structures 21 capsule 5 Active methotrexate 2.5 MG tabletIndicatio ns:Lichenoid dermatitis Take 6 (six) tablets by mouth every 7 days (once a week) 78 tablet 5 Active Active Problems Problem Noted Date Diagnosed [...] Encounters Date Type Department Care Team Description 07/13/2025 Results Follow-Up [facility] - Dermatology [address] [place] [phone] Opal Ladd MD 07/11/2025 Travel 07/08/2025 9:20 AM CDT Office Visit [facility] - Dermatology [address] [place] [phone] Opal Ladd MD Actinic keratosis (Primary Dx); Lichenoid dermatitis; Actinic cheilitis; Seborrheic keratoses; Lentigines; Multiple benign melanocytic nevi; Scar; High risk medications (not anticoagulants) long-term use; Personal history of malignant melanoma; History of nonmelanoma skin cancer; Neoplasm of uncertain behavior of skin 07/08/2025 Travel 06/23/2025 Telephone [facility] - Dermatology [address] [place] [phone] Kishor Jimenez MD Wound Care 06/22/2025 Results Follow-Up [facility] - Dermatology [address] [place] [phone] Opal Ladd MD 06/17/2025 Orders Only [facility] Dermatology [address] [place] [phone] Opal Ladd MD Lichenoid dermatitis 06/17/2025 Refill [facility] Derm[facility]ology [address] [place] [phone] Opal Ladd MD MEDICATION REFILL 06/15/2025 Telephone [facility] Dermatology [address] [place] [phone] Kishor Jimenez MD Wound Care from Last 3 Months Immunizations Immunization Administration Dates Next Due Covid Pfizer primary [...] Comments Blood Pressure 145/57 10/09/2021 3:32 PM SETTER OFF Pulse 52 10/09/2021 3:32 PM SETTER OFF Temperature - - Respiratory Rate - - Oxygen Saturation - - Inhaled Oxygen Concentration - - Weight 74.8 kg (165 lb) 10/09/2021 8:25 AM SETTER OFF Height 157.5 cm (5' 2) 10/09/2021 8:25 AM SETTER OFF Body Mass Index 30.18 10/09/2021 8:25 AM SETTER OFF Plan of Treatment Upcoming Encounters Date Type Department Care Team (Late st Contact Info) Description 10/14/2025 9:50 AM SETTER OFF Office Visit [facility] - Dermatology [address] [place] [phone] Opal Ladd MD [address] [place] [phone] Health Maintenance Due Date Last Done Comments [...] 2005 ZOSTER VACCINE (1 of 2) 2005 DEPRESSION SCREENING 11/24/2024 COVID-19 VACCINE (4 - 2024- season) 2025 10/19/2021, 01/26/2021, 12/27/2020 INFLUENZA VACCINE (#1) 2025 2, 09/21/2021, 09/02/2020, Additional history exists Respiratory Syncytial [...] Comments [place] DESTROY PREMALIG LESION, 2-14 Routine 07/08/2025 10:27 AM CDT Actinic keratosis AZ DESTROY PREMALIG LESION, 1ST LESION Routine 07/08/2025 10:27 AM CDT Actinic keratosis AZ TANGNTL BX SKIN SINGLE LES Routine 07/08/2025 10:26 AM CDT Neoplasm of uncertain behavior of skin DERMATOPATHOLOGY Routine 07/08/2025 9:40 AM CDT Neoplasm of uncertain behavior of skin COMPREHENSIVE METABOLIC PANEL Routine 06/21/2025 12:01 PM CDT Lichenoid dermatitis CBC W AUTO DIFFERENTIAL Routine 06/21/20 12:01 PM CDT Lichenoid dermatitis HEPATITIS C AB SCREEN RFLX NAAT QUANT Routine 05/21/2024 11:38 AM CDT Lichenoid dermatitis from Last 3 Months or Most Recently Relevant to Health Maintenance Results * AZ DESTROY PREMALIG LESION, 1ST LESION, [place] DESTROY PREMALIG LESION, 2-14 (07/08/2025 10:27 AM CDT) Opal Yeh MD - 07/08/2025 10:27 AM CDT Opal Ladd MD 07/14/2025 9:44 AM Diagnosis and treatment options discussed. Cryotherapy (Liquid Nitrogen) to 5 AK x 6-7 seconds each. Number of cycles: 1. Wound care reviewed. Location: 2 right lateral eyebrow, left lateral upper forehead, 2 upper lip us Opal Ladd MD PROCEDURE/MINOR SURGIC AL ORDERABLES Final Result * AZ TANGNTL BX SKIN SINGLE LES (07/08/2025 10:26 AM CDT) Opal Yeh MD - 07/08/2025 10:26 AM CDT Opal Ladd MD 07/14/2025 9:44 AM Risks, benefits and alternatives to shave biopsy were discussed with the patient. Verbal consent was obtained. Encounter Diagnoses Name Primary? Lichenoid dermatitis Actinic cheilitis Actinic keratosis Yes Seborrheic keratoses Lentigines Multiple benign melanocytic nevi Scar High risk medications (not anticoagulants) long-term use Personal history of malignant melanoma History of nonmelanoma skin cancer Neoplasm of uncertain behavior of skin Location: left dorsal thigh Skin prep: alcohol Anesthesia: 1% lidocaine with epinephrine Hemostasis: monopolar electrocoagulation Dressing and wound care discussed. Specimen(s) placed in a patient labeled container and sent to [facility]. Patient agrees to phone call for results and message if not available. Jane Melchor DO us Opal Ladd MD PROCEDURE/MINOR SURGIC AL ORDERABLES Final Result * DERMATOPATHOLOGY (07/08/2025 9:40 AM CDT) Case Report Dermatopathology Report Case: [id number] Authorizing Provider: Opal Ladd, Collected: 07/08/2025 09:40 AM Ordering Location: [facility] - Received: 07/11/2025 06:21 AM Dermatology Pathologist: Brianna Luna MD Specimen: Skin, left dorsal thigh 12:25 PM CDT DERMATOPATHOLOGY LABORATORY Final Diagnosis Specimen A. SKIN, left dorsal thigh: BASAL CELL CARCINOMA, SUPERFICIAL MULTIFOCAL (C44.719) 12:25 PM CDT DERMATOPATHOLOGY LABORATORY at 1225 CDT Clinical History Favor LPLK; Includes BCC 12:25 PM CDT DERMATOPATHOLOGY LABORATORY Gross Description Specimen A: Received is one formalin filled container labeled with the patient's name and designated left dorsal thigh. The specimen consists of a shave biopsy measuring 8x5x1 mm. Jar 0. 12:25 PM CDT DERMATOPATHOLOGY LABORATORY Microscopic Description Specimen A. SKIN, left dorsal thigh: Attached to the undersurface of the epidermis, there are small aggregates of basaloid cells with a high nuclear to cytoplasmic ratio and peripheral palisading. 12:25 PM CDT DERMATOPATHOLOGY LABORATORY Disclaimer An external and internal positive and negative controls are appropriate for the histochemical, immunohistochemical and immunofluorescence stain(s) in this case (if any), except where stated explicitly. The performance characteristics of the stain(s) cited in this report were developed and its performance characteristic determined by the Dermatopathology Laboratory at [facility], directed by Dr. Codey Luna. These tests need not be, and therefore are not, approved by the [place] Food and Drug Administration. The tests are used for clinical purposes. Billing Codes Specimen Charges Stain Charges 71555 1 5 12:25 PM CDT DERMATOPATHOLOGY LABORATORY Embedded Images 12:25 PM CDT DERMATOPATHOLOGY LABORATORY Pathology/Cytolo gy TISSUE SPECIMEN FROM SKIN / Unknown Collection / Unknown 07/08/2025 9:40 AM CDT 07/11/2025 6:21 AM CDT Opal Ladd MD LAB - PATHOLOGY/CYTOLO GY ORDERABLES Final Result DERMATOPATHOLOGY LABORATORY [facility] - Department of Dermatology [address], [address] [phone] * (ABNORMAL) CBC WITH DIFFERENTIAL (06/21/2025 12:01 PM CDT) White Blood Cell Count 5.1 3.8 - 10.8 Thousand/ uL [facility] RBC 4.63 3.80 - 5.10 Million/u L [facility] Hemoglobin 13.7 11.7 - 15.5 g/dL [facility] Hematocrit 43.7 35.0 - 45.0 % [facility] MCV 94.4 80.0 - 100.0 fL [facility] MCH 29.6 27.0 - 33.0 pg [facility] MCHC 31.4(L) 32.0 - 36.0 g/dL [facility] Comment: For adults, a slight decrease in the calculated MCHC value (in the range of 30 to 32 g/dL) is most likely not clinically significant; however, it should be interpreted with caution in correlation with other red cell parameters and the patient's clinical condition. RDW 13.8 11.0 - 15.0 % [facility] Platelet Count 207 140 - 400 Thousand/ uL [facility] MPV 10.2 7.5 - 12.5 fL [facility] Neutrophil Absolute 3478 1500 - 7800 cells/uL [facility] Lymphocytes Absolute 1158 850 - 3900 cells/uL [facility] Absolute Monocytes 291 200 - 950 cells/uL [facility] Eosinophils Absolute 112 15 - 500 cells/uL [facility] Basophils Absolute 61 0 - 200 cells/uL [facility] Granulocytes % 68.2 % [facility] Lymphocytes % 22.7 % [facility] Monocytes % 5.7 % [facility] Eosinophils % 2.2 % [facility] Basophils % 1.2 % [facility] Comment: Test Performed at: [email or web address] [address] ALPA FREGOSO MD Blood BLOOD SPECIMEN / Unknown 06/21/2025 12:01 PM CDT 06/21/2025 12:02 PM CDT us Opal Ladd MD LAB - HEMATOLOGY ORDER CINDY Final Result [address] [address] * COMPREHENSIVE METABOLIC PANEL (06/21/2025 12:01 PM CDT) Glucose 88 65 - 99 mg/dL [facility] Comment: Fasting reference interval BUN 24 7 - 25 mg/dL [facility] Creatinine 1.00 0.50 - 1.05 mg/dL [facility] eGFR by Cystatin C 61 > OR = 60 mL/min/1. 73m2 [facility] BUN/Creatinine Ratio SEE NOTE: 6 - 22 (calc) [facility] Comment: Not Reported: BUN and Creatinine are within reference range. Sodium 139 135 - 146 mmol/L [facility] Potassium 4.6 3.5 - 5.3 mmol/L [facility] Chloride 104 98 - 110 mmol/L [facility] CO2 28 20 - 32 mmol/L [facility] Calcium 9.3 8.6 - 10.4 mg/dL [facility] Protein Total 6.4 6.1 - 8.1 g/dL [facility] Albumin 4.4 3.6 - 5.1 g/dL [facility] Globulin Total 2.0 1.9 - 3.7 g/dL (calc) [facility] Albumin/Globulin Ratio 2.2 1.0 - 2.5 (calc) [facility] Bilirubin Total 0.4 0.2 - 1.2 mg/dL [facility] Alkaline Phosphatase 53 37 - 153 U/L [facility] AST 21 10 - 35 U/L [facility] ALT 17 6 - 29 U/L [facility] Comment: Test Performed at: [email or web address] [address] ALPA FREGOSO MD Blood BLOOD SPECIMEN / Unknown 06/21/2025 12:01 PM CDT 06/21/2025 12:02 PM CDT Opal Ladd MD LAB - CHEMISTRY ORDERA BLES Final Result [facility] [address] [place] [address] * HEPATITIS C AB SCREEN RFLX NAAT QUANT (05/21/2024 11:38 AM CDT) Hepatitis C Antibody Non-react lucinda Non-reac tive 05/21/2024 12:46 PM CDT [facility] Comment:Hepatitis C Antibody screen indicates [...] PM CDT Opal Ladd MD LAB - CHEMISTRY ORDERA BLES Final Result [facility] [address] [place] [address], [facility] [phone] from Last 3 Months or Most Recently Relevant to Health Maintenance Insurance [employer] [facility] [place] [address] [place] [address] MEDICARE Care Teams Surgical Garment Assembler Relationship Specialty Start Date End Date Lance Agee DO [facility] - General 01/26/21
--- OUTSIDE RECORDS SUMMARY | 2025-09-09 14:06 | XMS_ITS | Clinical Summary ---
Author Organization [facility] Address [facility] [place] [address] Care Team Providers Care Buyers' Agent Name Role Phone Magdy Castellon MD Unavailable Lance Agee DO Primary Care Provider Benedict Cortez DO Unavailable [phone] Eusebia Ribeiro Unavailable [phone] Allergies Active Allergy Reactions Criticality Noted Date [...] (09/03/2022): Added automatically from request for surgery [id number] Arthritis of right acromioclavicular joint 09/03 Overview (09/03/2022): Added automatically from request for surgery [id number] Biceps tendinitis on right 09/03/2022 Overview (09/03/2022): Added automatically from request for surgery [id number] Tear of right rotator cuff 09/03/2022 Overview (09/03/2022): Added automatically from request for surgery [id number] Seborrheic keratoses 07/19/2022 Lentigines 07/19/2022 Multiple benign [...] 8:55 AM CDT Height 157.5 cm (5' 2) 06/10/2024 8:55 AM CDT Body Mass Index [...] Pneumococcal vaccine 65+ (2 of 2 - PPSV23, PCV20, or PCV21) 11/10/2020 09/15/2020 Covid-19 Vaccine (4 - 2024-2 6 season) 2025 10/19/2021, 01/26/2021, 12/27/2020 Influenza Vaccine (#1) 2025 2, 09/15/2020, 09/02/2020, Additional history exists DTaP/Tdap/Td Vaccine (2 - Td or Tdap) 12/07/2030 12/07/2020, 04/16/[address] [place] [address] [place] [id number] [facility] [place] [id number] MEDICARE [employer] Care Teams Buyers' Agent Relationship Specialty Start Date End Date Lance Agee DO [address] [place] [address] PCP - General Internal Medicine 09/18/22 Magdy Castellon MD [address] [place] [address] Securities Analyst Dermatology 02/08/22 Benedict Cortez DO [address] [facility] [address] [facility] [address] [place] [address] Referring Physician Cardiology 09/18/22 Eusebia Ribeiro PA [address] [place] [address] [address] [address] Physician [facility] 09/26/22
[2025-09-09 14:18] VITALS: BP 169/102; PULSE 55; RESP 16; TEMP 36.8; O2SAT 99
--- NOTE | 2025-09-09 14:19 | PC.NURSE ---
Contacted by ED registration regarding patient c/o diarrhea, nausea and vomiting with recent return from [place] 4 days ago. They report that patient is able to control diarrhea and is not vomiting at this time. I advised staff to have her don a mask and to initiate contact precautions when placed in room.
--- NOTE | 2025-09-09 15:20 | ED.GENADULT ---
HPI - General Adult General Chief complaint: Nausea/Vomiting/Diarrhea <Natasha Leo March, MOTOR VEHICLE ASSEMBLY SUPERVISOR - Last Filed: 09/09/25 15:26> Stated complaint: dizzy, diarrhea <Natasha Leo March, MOTOR VEHICLE ASSEMBLY SUPERVISOR - Last Filed: 09/09/25 15:26> Time Seen by Provider: 09/09/25 15:20 <Natasha Leo March, MOTOR VEHICLE ASSEMBLY SUPERVISOR - Last Filed: 09/09/25 15:26> Focused HPI: Aleida Mendez is a 70 y/o female who presents with reports of leaving Aug 21 for [place], then [facility], and back to [place] and returned yesterday. She was told not to drink the water a few times she accidentaly brushed her teeth with the water, she states that she ate all of the food there- and she says 6 days ago she started to get diarrhea where she felt that she could see the food come right out of her what she had just eaten, She says not water diarrhea, more soft mushy stools, then a couple days ago she got really wiped out and had to lay down for 2 hours because of the frequent soft stools - only happens right after she eats. Denies fever /chills. + abdominal cramping before the stool but now having some cramping off and on without BM's. Denies vomiting. Denies any gross blood in stool GENERAL: no acute distress. HEAD: Normocephalic, atraumatic. CHEST: Clear to auscultation. ?No respiratory distress. HEART: Regular rate and rhythm.? NEURO: ?Alert and oriented x3. Patient screened in triage and initial orders placed.? ?Additional care and disposition to be based upon?diagnostic testing and treatment. <Natasha Leo March, MOTOR VEHICLE ASSEMBLY SUPERVISOR - Last Filed: 09/09/25 15:26> Related Data Home medications: Home Medications ?Medication ?Instructions ?Recorded ?Confirmed ?Last Taken ?Type ascorbic acid (vitamin C) 250 mg 250 mg PO DAILY 10/22/23 03/04/25 Unknown History tablet folic acid 1 mg tablet 1 mg PO DAILY 06/03/24 03/04/25 Unknown History methotrexate sodium 2.5 mg tablet 15 mg PO WEEKLY 06/03/24 03/04/25 Unknown History atovaquone 250 mg-proguanil 100 mg tablet 09/09/25 Unknown History tablet <Natasha Leo March, - Last Filed: 09/09/25 15:26> Allergies/adverse reactions: Allergies Allergy/AdvReac Type Severity Reaction Status Date / Time olopatadine Allergy Mild itchy OU Verified 09/09/25 13:04 <Natasha Leo March,N - Last Filed: 09/09/25 15:26> Review of Systems Review of Systems: As reviewed above in HPI <Cedrick Ambrocio MD - Last Filed: 09/10/25 06:45> [facility] Past Medical History Medical History: Medical History Lichenoid dermatitis Basal cell carcinoma (BCC) Encounter for Papanicolaou smear for cervical cancer screening Adenomatous colon polyp Arthritis Melanoma Allergies ACL tear 1998 <Natasha Leo March, MOTOR VEHICLE ASSEMBLY SUPERVISOR - Last Filed: 09/09/25 15:26> Surgical History Surgical History: Surgical History Status post reverse arthroplasty of right shoulder History of tubal ligation 1987 History of knee replacement 2018 <Natasha Leo March,N - Last Filed: 09/09/25 15:26> Family History Family History: Family History Father Cerebrovascular accident Hypertension Grandparent Parkinsons Heart disease Cancer <Natasha Leo March,N - Last Filed: 09/09/25 15:26> Social History Social History: Social History Smoking status: Never smoker Alcohol intake: current Drinks per week: 3 Alcohol use details: GLASSES WINE Substance use: never Substance use type: does not use Do You Feel Safe in your Home?: Yes Lack of Transportation: No Lack of Food: Never True Current Housing: I Have Housing Concerned About Future Housing: No Difficulty Paying Gas/Electric Bills: No Difficulty Paying for Meds: No Currently Unemployed: No Education: Bachelor's Degree Difficulty w/ Childcare or Family Care: No Living arrangements: with family Additional living arrangements comments: Occupation/Education: retired Gender identity (if verbalized by the patient): Female Sexual Orientation (if Verbalized by the Patient): Straight or Heterosexual Spiritual care concerns: No <Natasha Em APRN - Last Filed: 09/09/25 15:26> Exam Narrative: GENERAL: [Well-appearing, well-nourished, and in no acute distress.] HEAD: [Normocephalic, atraumatic.] EYES: [PERRLA and EOMI.] ENT: Nares clear, no rhinorrhea or epistaxis. Mucous membranes moist. NECK: Supple. CHEST: [Clear to auscultation. No respiratory distress.] HEART: [Regular rate and rhythm]. No murmur heard. [Normal peripheral pulses.] ABDOMEN: soft and nondistended, Nontender to palpation, no rigidity or guarding EXTREMITIES: Normal range of motion. [No edema.] SKIN: Warm, dry, no rash. NEURO: [No focal deficits]. Alert and oriented [x3.] PSYCH: [Normal mood and affect.] <Cedrick Ambrocio MD - Last Filed: 09/10/25 06:45> Course Vital Signs Vital signs: Vital Signs Temperature 36.8 C 09/09/25 14:18 Pulse Rate 55 L 09/09/25 14:18 Respiratory Rate 16 09/09/25 14:18 Blood Pressure 169/102 H 09/09/25 14:18 Pulse Oximetry 99 09/09/25 14:18 Temperature 36.8 C 09/09/25 14:18 Pulse Rate 55 L 09/09/25 14:18 Respiratory Rate 16 09/09/25 14:18 Blood Pressure 169/102 H 09/09/25 14:18 Pulse Oximetry 99 09/09/25 14:18 <Natasha Em, MOTOR VEHICLE ASSEMBLY SUPERVISOR - Last Filed: 09/09/25 15:26> Vital Signs Temperature 36.8 C 09/09/25 14:18 Pulse Rate 55 L 09/09/25 14:18 Respiratory Rate 16 09/09/25 14:18 Blood Pressure 169/102 H 09/09/25 14:18 Pulse Oximetry 99 09/09/25 14:18 Temperature 36.8 C 09/09/25 14:18 Pulse Rate 55 L 09/09/25 14:18 Respiratory Rate 16 09/09/25 14:18 Blood Pressure 169/102 H 09/09/25 14:18 Pulse Oximetry 99 09/09/25 14:18 <Cedrick Ambrocio MD - Last Filed: 09/10/25 06:45> Medical Decision Making MDM Narrative Medical decision making narrative: 70 y/o female who presents with reports of leaving Aug 21 for [place], then [facility], and back to [place] and returned yesterday. She was told not to drink the water a few times she accidentaly brushed her teeth with the water, she states that she ate all of the food there- and she says 6 days ago she started to get diarrhea where she felt that she could see the food come right out of her what she had just eaten, She says not water diarrhea, more soft mushy stools, then a couple days ago she got really wiped out and had to lay down for 2 hours because of the frequent soft stools - only happens right after she eats. Denies fever /chills. + abdominal cramping before the stool but now having some cramping off and on without BM's. Denies vomiting. Denies any gross blood in stool patient is a soft nontender nondistended abdomen. Does not appear dehydrated. Moist mucous membranes. Awake alert oriented. no fever, tachypnea, tachycardia. Overall very well-appearing with symptoms consistent with traveler's diarrhea. Given her recent travel will attempt to get a stool culture to see what bacteria or parasite potentially is growing and treat her empirically. For laboratory studies were obtained earlier in triage which showed no leukocytosis, no elevations in LFTs above her baseline, creatinine around baseline. Normal electrolytes. She is tolerating oral intake and not having any symptoms or pain while here in the emergency department. Was started on ciprofloxacin and Flagyl for traveler's diarrhea as well as Bentyl for anti spasmodic. Discussed going home with this treatment regimen and she will follow-up with her PCP about result. Given return precautions and safe for DC. <Cedrick Ambrocio MD - Last Filed: 09/10/25 06:45> Medical Records Medical records reviewed: Yes I reviewed the external patient's medical records. <Cedrick Ambrocio MD - Last Filed: 09/10/25 06:45> Vital Signs Vital Signs: Vital Signs Temperature 36.8 C 09/09/25 14:18 Pulse Rate 55 L 09/09/25 14:18 Respiratory Rate 16 09/09/25 14:18 Blood Pressure 169/102 H 09/09/25 14:18 Pulse Oximetry 99 09/09/25 14:18 Temperature 36.8 C 09/09/25 14:18 Pulse Rate 55 L 09/09/25 14:18 Respiratory Rate 16 09/09/25 14:18 Blood Pressure 169/102 H 09/09/25 14:18 Pulse Oximetry 99 09/09/25 14:18 <Natasha Em, MOTOR VEHICLE ASSEMBLY SUPERVISOR - Last Filed: 09/09/25 15:26> Vital Signs Temperature 36.8 C 09/09/25 14:18 Pulse Rate 55 L 09/09/25 14:18 Respiratory Rate 16 09/09/25 14:18 Blood Pressure 169/102 H 09/09/25 14:18 Pulse Oximetry 99 09/09/25 14:18 Temperature 36.8 C 09/09/25 14:18 Pulse Rate 55 L 09/09/25 14:18 Respiratory Rate 16 09/09/25 14:18 Blood Pressure 169/102 H 09/09/25 14:18 Pulse Oximetry 99 09/09/25 14:18 <Cedrick Ambrocio MD - Last Filed: 09/10/25 06:45> Lab Data Lab results reviewed: Yes I reviewed the patient's lab results. <Cedrick Ambrocio MD - Last Filed: 09/10/25 06:45> Result diagrams: 09/09/25 15:38 09/09/25 15:38 <Natasha Em, MOTOR VEHICLE ASSEMBLY SUPERVISOR - Last Filed: 09/09/25 15:26> Labs: Lab Results 09/09/25 Range/Units 15:38 WBC 4.8 (4.5-10.0) K/mm3 RBC 4.35 (4.2-5.4) M/mm3 Hgb 13.2 (12.0-15.0) g/dL Hct 40.3 (37.0-47.0) % MCV 92.6 (80-100) fl MCH 30.3 (26-34) pg MCHC 32.8 (32-36) g/dl RDW 15.2 H (11.5-14.5) % Plt Count 198 (150-375) k/mm3 MPV 9.1 (7.4-10.4) fl Immature Gran % (Auto) 1.0 H (0-0.5) % Neut % (Auto) 58.7 (45.5-73.1) % Lymph % (Auto) 29.3 (18.3-44.2) % [place] % (Auto) 7.7 (2.6-8.5) % Eos % (Auto) 2.5 (0-4.4) % Baso % (Auto) 0.8 (0.2-1.2) % Lymph # (Auto) 1.41 (0.9-3.2) K/mm3 [place] # (Auto) 0.4 (0.1-0.6) K/mm3 Eos # (Auto) 0.1 (0-0.3) K/mm3 Baso # (Auto) 0.0 (0.0-0.1) K/mm3 Abs Immat Gran (auto) 0.05 H (0.00-0.031) K/mm3 Absolute Neuts (auto) 2.8 (1.3-6.7) K/mm3 Absolute Nucleated RBC 0.000 (0.0-0.012) K/mm3 Nucleated RBC % 0.0 (0.0-0.2) % Sodium 139 (137-145) mmol/L Potassium 3.8 (3.4-5.0) mmol/L Chloride 105 (98-107) mmol/L Carbon Dioxide 27 (22-30) mmol/L Anion Gap 7 (4-12) mmol/L BUN 17 D (7-17) mg/dL Creatinine 1.02 H (0.7-1.0) mg/dL Estim Creat Clear Calc 45 ml/min Estimated GFR 54 L (59 - ) Glucose 87 (65-110) mg/dL Lactic Acid 0.5 L (0.7-2.0) mmol/L Calcium 9.4 (8.4-10.2) mg/dL Total Bilirubin 0.6 (0.2-1.3) mg/dL AST 51 H (14-36) U/L ALT 58 H (6-35) U/L Alkaline Phosphatase 60 (38-126) U/L Total Protein 7.5 (6.3-8.2) g/dL Albumin 4.6 (3.5-5.1) g/dL Lipase 180 (23-300) U/L Urine Color Yellow (Yellow) Urine Appearance Cloudy H (Clear) Urine pH 5.5 (5.0-9.0) Ur Specific [place] 1.011 (1.001-1.035) Urine Protein Negative (Negative) mg/dL Urine Glucose (UA) Negative (Negative) mg/dL Urine Ketones Negative (Negative) mg/dL Ur Blood (Man) Negative (Negative) Urine Nitrate Negative (Negative) Urine Bilirubin Negative (Negative) Urine Urobilinogen 0.2 (<2.0) mg/dL Leukocyte Esterase Rfl 3+ H (Negative) LINUS/UL Urine RBC 0-2 (0-2) /hpf Urine WBC 51-100 H (0-3) /hpf Ur Squamous Epith Cells Occasional (Few) /hpf Urine Bacteria None seen /hpf Urine Casts 0-2 <Natasha Em, MOTOR VEHICLE ASSEMBLY SUPERVISOR - Last Filed: 09/09/25 15:26> Lab Results 09/09/25 Range/Units 15:38 WBC 4.8 (4.5-10.0) K/mm3 RBC 4.35 (4.2-5.4) M/mm3 Hgb 13.2 (12.0-15.0) g/dL Hct 40.3 (37.0-47.0) % MCV 92.6 (80-100) fl MCH 30.3 (26-34) pg MCHC 32.8 (32-36) g/dl RDW 15.2 H (11.5-14.5) % Plt Count 198 (150-375) k/mm3 MPV 9.1 (7.4-10.4) fl Immature Gran % (Auto) 1.0 H (0-0.5) % Neut % (Auto) 58.7 (45.5-73.1) % Lymph % (Auto) 29.3 (18.3-44.2) % [place] % (Auto) 7.7 (2.6-8.5) % Eos % (Auto) 2.5 (0-4.4) % Baso % (Auto) 0.8 (0.2-1.2) % Lymph # (Auto) 1.41 (0.9-3.2) K/mm3 [place] # (Auto) 0.4 (0.1-0.6) K/mm3 Eos # (Auto) 0.1 (0-0.3) K/mm3 Baso # (Auto) 0.0 (0.0-0.1) K/mm3 Abs Immat Gran (auto) 0.05 H (0.00-0.031) K/mm3 Absolute Neuts (auto) 2.8 (1.3-6.7) K/mm3 Absolute Nucleated RBC 0.000 (0.0-0.012) K/mm3 Nucleated RBC % 0.0 (0.0-0.2) % Sodium 139 (137-145) mmol/L Potassium 3.8 (3.4-5.0) mmol/L Chloride 105 (98-107) mmol/L Carbon Dioxide 27 (22-30) mmol/L Anion Gap 7 (4-12) mmol/L BUN 17 D (7-17) mg/dL Creatinine 1.02 H (0.7-1.0) mg/dL Estim Creat Clear Calc 45 ml/min Estimated GFR 54 L (59 - ) Glucose 87 (65-110) mg/dL Lactic Acid 0.5 L (0.7-2.0) mmol/L Calcium 9.4 (8.4-10.2) mg/dL Total Bilirubin 0.6 (0.2-1.3) mg/dL AST 51 H (14-36) U/L ALT 58 H (6-35) U/L Alkaline Phosphatase 60 (38-126) U/L Total Protein 7.5 (6.3-8.2) g/dL Albumin 4.6 (3.5-5.1) g/dL Lipase 180 (23-300) U/L Urine Color Yellow (Yellow) Urine Appearance Cloudy H (Clear) Urine pH 5.5 (5.0-9.0) Ur Specific [place] 1.011 (1.001-1.035) Urine Protein Negative (Negative) mg/dL Urine Glucose (UA) Negative (Negative) mg/dL Urine Ketones Negative (Negative) mg/dL Ur Blood (Man) Negative (Negative) Urine Nitrate Negative (Negative) Urine Bilirubin Negative (Negative) Urine Urobilinogen 0.2 (<2.0) mg/dL Leukocyte Esterase Rfl 3+ H (Negative) LINUS/UL Urine RBC 0-2 (0-2) /hpf Urine WBC 51-100 H (0-3) /hpf Ur Squamous Epith Cells Occasional (Few) /hpf Urine Bacteria None seen /hpf Urine Casts 0-2 <Cedrick Ambrocio MD - Last Filed: 09/10/25 06:45> Discharge Plan Discharge Clinical Impression: Traveler's diarrhea <Natasha Leo March, MOTOR VEHICLE ASSEMBLY SUPERVISOR - Last Filed: 09/09/25 15:26> Patient Disposition: Home <Natasha Leo March MOTOR VEHICLE ASSEMBLY SUPERVISOR - Last Filed: 09/09/25 15:26> Condition: Stable <Natasha Leo March, MOTOR VEHICLE ASSEMBLY SUPERVISOR - Last Filed: 09/09/25 15:26> Instructions: Antibiotic Form, Traveler's Diarrhea (ED), Acute Diarrhea (ED), Nutrition Tips for Relief of Diarrhea (ED) <Natasha Leo March, MOTOR VEHICLE ASSEMBLY SUPERVISOR - Last Filed: 09/09/25 15:26> Additional Instructions: symptoms consistent with traveler's diarrhea. treatment includes to antimicrobials as well as an antispasmodic. Take the antibiotics as prescribed until completion. Follow-up with your primary care provider regarding presentation to the emergency department. Return with any worsening complaints, worsening pain, developing inability to tolerate oral intake, developing severe dehydration, losing consciousness or any other issues such as intractable fever. <Natasha Em, MOTOR VEHICLE ASSEMBLY SUPERVISOR - Last Filed: 09/09/25 15:26> Patient Language: Estonian <Natasha Leo March, MOTOR VEHICLE ASSEMBLY SUPERVISOR - Last Filed: 09/09/25 15:26> Prescriptions: New metronidazole 500 mg tablet 500 mg PO Q8H 7 Days Qty: 21 0RF dicyclomine 20 mg tablet 20 mg PO TID PRN (Reason: abdominal pain) Qty: 20 0RF ciprofloxacin HCl 750 mg tablet 750 mg PO DAILY 3 Days Qty: 3 0RF No Action atovaquone-proguanil 250-100 mg tablet albuterol sulfate 90 mcg/actuation HFA aerosol inhaler 2 puff inhalation Q4-6H PRN (Reason: shortness of breath or wheezing) 30 Days Qty: 8.5 0RF famotidine 40 mg tablet 40 mg PO BID Qty: 180 3RF ascorbic acid (vitamin C) 250 mg Tablet 250 mg PO DAILY methotrexate sodium 2.5 mg tablet 15 mg PO WEEKLY folic acid 1 mg tablet 1 mg PO DAILY valacyclovir 1 gram tablet 2,000 mg PO Q12H PRN (Reason: cold sores) Qty: 30 1RF Rx Instructions: Take 2000 mg PO q 12 hours x 1 day for cold sore flare venlafaxine 37.5 mg capsule,extended release 24hr 37.5 mg PO DAILY Qty: 90 0RF <Natasha Em, MOTOR VEHICLE ASSEMBLY SUPERVISOR - Last Filed: 09/09/25 15:26> Follow-up/Referrals: Lance Agee, [Primary Care Provider, Internal Medicine] <Natasha Em, MOTOR VEHICLE ASSEMBLY SUPERVISOR - Last Filed: 09/09/25 15:26>
[2025-09-09 15:49] LABS: Hematocrit 40.3 % (37.0-47.0); Hemoglobin 13.2 g/dL (12.0-15.0); Immature Granulocyte Percent A 1.0 % (0-0.5); Lymphocytes Absolute Auto 1.41 K/mm3 (0.9-3.2); Mean Corpuscular HGB Conc 32.8 g/dl (32-36); Mean Corpuscular Hemoglobin 30.3 pg (26-34); Mean Corpuscular Volume 92.6 fl (80-100); Nucleated Red Blood Cells Absolute Auto 0.000 K/mm3 (0.0-0.012); Nucleated Red Blood Cells Perc 0.0 % (0.0-0.2); Platelet Count Result 198 k/mm3 (150-375); Red Blood Count 4.35 M/mm3 (4.2-5.4); White Blood Count 4.8 K/mm3 (4.5-10.0)
[2025-09-09 15:53] LABS: Add Urine Microscopic? YES; Appearance Urine Cloudy (Clear); Glucose Urine UA Negative (Negative); Leukocyte Esterase Ur 3+ LEU/UL (Negative); Nitrate Urine Negative (Negative); Non Pathogenic Casts 0-2; Specific Grav Ur 1.011 (1.001-1.035)
[2025-09-09 16:00] LABS: Alanine Aminotransferase 58 U/L (6-35); Albumin Level 4.6 g/dL (3.5-5.1); Alkaline Phosphatase 60 U/L (38-126); Anion Gap 7 mmol/L (4-12); Aspartate Amino Transferase 51 U/L (14-36); Bilirubin,Total 0.6 mg/dL (0.2-1.3); Blood Urea Nitrogen 17 mg/dL (7-17); Calcium 9.4 mg/dL (8.4-10.2); Carbon Dioxide 27 mmol/L (22-30); Chloride 105 mmol/L (98-107); Estimated CRCL calculation 45 ml/min; Estimated Glomerular Filt Rate 54; Glucose 87 mg/dL (65-110); Lipase 180 U/L (23-300); Potassium 3.8 mmol/L (3.4-5.0); Sodium 139 mmol/L (137-145); Total Protein 7.5 g/dL (6.3-8.2)
--- OUTSIDE RECORDS SUMMARY | 2025-09-09 19:48 | XMS_ITS | Encounter Summary ---
Author Organization [facility] Address [address] [facility] [place] [address] Care Team Providers Care Electric Power Line Examiner Name Role Phone Lance Agee DO Primary Care Provider Encounter Details Date Type Department Care Team (Late Contact Info) Description 07/13/2025 Results Follow-Up [facility] - Dermatology [address] [place] [address] [phone] Opal Ladd MD [address] [place] [address] [place] [phone] Social History Tobacco Use Types Packs/Day Years [...] (Late Contact Info) Description 10/14/2025 9:50 AM DIRECTOR OF SOLUTIONS ARCHITECTURE Office Visit [facility] - Dermatology [address] [place] [address] [phone] Opal Ladd MD [address] [place] [address] [address] [place] [address] documented as of this encounter Visit Diagnoses Not on filedocumented in this encounter Care Teams Electric Power Line Examiner Relationship Specialty Start Date End Date Lance Agee DO PCP - General 01/26/21 documented as of this encounter
--- OUTSIDE RECORDS SUMMARY | 2025-09-09 19:48 | XMS_ITS | Clinical Summary ---
Author Organization [facility] Address [facility] [place] [address] Care Team Providers Care Personal Fitness Manager Name Role Phone Magdy Castellon MD Unavailable [phone] Lance Agee DO Primary Care Provider Benedict Cortez DO Unavailable [phone] Eusebia Ribeiro Unavailable [phone] Allergies Active Allergy Reactions Criticality Noted Date [...] (09/03/2022): Added automatically from request for surgery [id number] Arthritis of right acromioclavicular joint 09/03 Overview (09/03/2022): Added automatically from request for surgery [id number] Biceps tendinitis on right 09/03/2022 Overview (09/03/2022): Added automatically from request for surgery [id number] Tear of right rotator cuff 09/03/2022 Overview (09/03/2022): Added automatically from request for surgery [id number] Seborrheic keratoses 07/19/2022 Lentigines 07/19/2022 Multiple benign [...] or Tdap) 12/07/2030 12/07/2020, 04/16/[address] [place] [address] [place] [address] [place] [address] [facility] [place] [phone] MEDICARE AARP Care Teams Personal Fitness Manager Relationship Specialty Start Date End Date Lance Agee DO [address] [place] [address] PCP - General Internal Medicine 09/18/22 Magdy Castellon MD [address] [place] [address] Director Of Labor Relations Dermatology 02/08/22 Benedict Cortez DO [address] [facility] [address] [facility] [address] [place] [address] Referring Physician Cardiology 09/18/22 Eusebia Ribeiro PA [address] [place] [address] [address], [place] [address] Physician Food Safety Field Specialist Orthopedic Surgery 09/26/22
--- OUTSIDE RECORDS SUMMARY | 2025-09-09 19:48 | XMS_ITS | Clinical Summary ---
Author Organization [email or web address] Address [address] [place] [address] Care Team Providers Care Ground Support Equipment Assembler Name Role Phone Lance Agee DO Primary Care Provider [phone] Source Comments [email or web address],non-owned Affiliates and Associated Physician Practices is amultiple site organization consisting of ambulatory clinics and hospital sitesin [place], [place], [place] and [place]. This disclosure is being madepursuant to the Care Everywhere program and may not contain all information available regarding this patient. Last updated 18.[email or web address] Allergies Active Allergy Reactions Criticality Noted Date [...] Department Care Team Description 07/13/2025 Results Follow-Up [facility] - Dermatology [address] [place] [phone] Opal Ladd MD 07/11/2025 Travel 07/08/2025 9:20 AM CDT Office Visit [facility] Derm[facility]ology [address] [place] [phone] Opal Ladd MD Actinic keratosis (Primary Dx); Lichenoid dermatitis; Actinic cheilitis; Seborrheic keratoses; Lentigines; Multiple benign melanocytic nevi; Scar; High risk medications (not anticoagulants) long-term use; Personal history of malignant melanoma; History of nonmelanoma skin cancer; Neoplasm of uncertain behavior of skin 07/08/2025 Travel 06/23/2025 Telephone [facility] Derm[facility]ology [address] [place] [phone] Kishor Jimenez MD Wound Care 06/22/2025 Results Follow-Up [facility] - Dermatology [address] [place] [phone] Opal Ladd MD 06/17/2025 Orders Only [facility] D[facility] [address] [place] [phone] Opal Ladd MD Lichenoid dermatitis 06/17/2025 Refill [facility] D[facility] [address] [place] [phone] Opal Ladd MD MEDICATION REFILL 06/15/2025 Telephone [facility] Derm[facility] [address] [place] [phone] Kishor Jimenez MD Wound Care from Last [...] Comments Blood Pressure 145/57 10/09/2021 3:32 PM TESTER SOUND Pulse 52 10/09/2021 3:32 PM TESTER SOUND Temperature - - Respiratory Rate - - Oxygen Saturation - - Inhaled Oxygen Concentration - - Weight 74.8 kg (165 lb) 10/09/2021 8:25 AM TESTER SOUND Height 157.5 cm (5' 2) 10/09/2021 8:25 AM TESTER SOUND Body Mass Index 30.18 10/09/2021 8:25 AM TESTER SOUND Plan of Treatment Upcoming Encounters Date Type Department Care Team (Late st Contact Info) Description 10/14/2025 9:50 AM TESTER SOUND Office Visit [facility] - Dermatology [address] [place] [address] Opal Ladd MD [address] [place] [id number] Health Maintenance Due Date Last Done Comments [...] Procedure Name Priority Date/Time Associated Diagnosis Comments SD DESTROY PREMALIG LESION, 2-14 Routine 07/08/2025 10:27 AM CDT Actinic keratosis SD DESTROY PREMALIG LESION, 1ST LESION Routine 07/08/2025 10:27 AM CDT Actinic keratosis SD TANGNTL BX SKIN SINGLE LES Routine 07/08/2025 [...] Recently Relevant to Health Maintenance Results * SD DESTROY PREMALIG LESION, 1ST LESION, SD DESTROY PREMALIG LESION, 2-14 (07/08/2025 10:27 AM [...] PROCEDURE/MINOR SURGIC AL ORDERABLES Final Result * SD TANGNTL BX SKIN SINGLE LES (07/08/2025 10:26 [...] a patient labeled container and sent to [facility]. Patient agrees to phone call for results and message if not available. Jane Melchor DO us Opal Ladd MD PROCEDURE/MINOR SURGIC AL ORDERABLES Final Result * DERMATOPATHOLOGY (07/08/2025 9:40 AM CDT) Case Report Dermatopathology Report Case: [id number] Authorizing Provider: Opal Ladd, Collected: 07/08/2025 09:40 AM Ordering Location: [facility] - Received: 07/11/2025 [...] characteristic determined by the Dermatopathology Laboratory at [facility], directed by Dr. Codey Luna. These tests need not be, and therefore are not, approved by the [place] Food and Drug Administration. The tests are used for clinical purposes. Billing Codes Specimen Charges Stain Charges 91211 1 5 12:25 PM CDT DERMATOPATHOLOGY LABORATORY Embedded Images 12:25 PM CDT DERMATOPATHOLOGY LABORATORY Pathology/Cytolo gy TISSUE SPECIMEN FROM SKIN / Unknown Collection / Unknown 07/08/2025 9:40 AM CDT 07/11/2025 6:21 AM CDT Opal Ladd MD LAB - PATHOLOGY/CYTOLO GY ORDERABLES Final Result DERMATOPATHOLOGY LABORATORY [facility] - Department of Dermatology [address], [address] [phone] * (ABNORMAL) CBC WITH DIFFERENTIAL (06/21/2025 12:01 [...] 1.2 % [facility] Comment: Test Performed at: [email or web address] [address] ALPA FREGOSO MD Blood BLOOD SPECIMEN / Unknown 06/21/2025 12:01 PM CDT 06/21/2025 12:02 PM CDT us Opal Ladd MD LAB - HEMATOLOGY ORDER CINDY Final Result [address] [address] * COMPREHENSIVE METABOLIC PANEL (06/21/2025 12:01 PM [...] 29 U/L [facility] Comment: Test Performed at: [email or web address] [address] ALPA FREGOSO MD Blood BLOOD SPECIMEN / Unknown 06/21/2025 12:01 PM CDT 06/21/2025 12:02 PM CDT Opal Ladd MD LAB - CHEMISTRY ORDERA BLES Final Result [facility] [address] [place] [address] * HEPATITIS C AB SCREEN RFLX NAAT QUANT (05/21/2024 11:38 AM CDT) Hepatitis C Antibody Non-react lucinda Non-reac tive 05/21/2024 12:46 PM CDT [facility] Comment:Hepatitis C Antibody screen [...] LAB - CHEMISTRY ORDERA BLES Final Result [facility] [address] [place] [address], [facility] [phone] from Last 3 Months or Most Recently Relevant to Health Maintenance Insurance [employer] [facility] [place] [address] [place] [address] MEDICARE Care Teams Ground Support Equipment Assembler Relationship Specialty Start Date End Date Lance Agee DO [facility] - General 01/26/21
--- OUTSIDE RECORDS SUMMARY | 2025-09-09 19:48 | XMS_ITS | Encounter Summary ---
Author Organization [facility] Address [address] [place] [address] Care Team Providers Care Market Survey Representative Name Role Phone Lance Agee DO Primary Care Provider Reason for Visit * Reason Onset Date Comments Returned Call 12/09/2022 Encounter Details Date Type Department Care Team (Late st Contact Info) Description 12/09/2022 Telephone [facility] [address] [facility], [facility] [place] [address] Opal Ladd MD [address] [facility] [address] [place] [address] Returned Call Social History Tobacco [...] she can also be contacted through mychart CUTTER documented in this encounter Plan of Treatment Upcoming Encounters Date Type Department Care Team (Late st Contact Info) Description 10/14/2025 9:50 AM BOLT CUTTER Office Visit [facility] Dermatology [address] [place] [address], [place] [address] Opal Ladd MD [address] [place] [address] [address] [place] [phone] documented as of this encounter Visit Diagnoses Not on filedocumented in this encounter Care Teams Market Survey Representative Relationship Specialty Start Date End Date Lance Agee DO PCP - General 01/26/21 documented as of this encounter
[2025-09-09] MEDS: DICYCLOMINE HCL 10 MG CAPSULE PO (20:28)
[2025-09-09] MEDS: CIPROFLOXACIN 250 MG TABLET 750 MG PO (20:28)
== END 2025-09-09 20:33 | disposition home or self-care (01) ==
LOC: ANHED 19:46
PROVIDERS: Nurse Practitioner Family; Emergency Provider Student in an Organized Health Care Education/Training Program; PCP Internal Medicine
DX: A09 Infectious gastroenteritis and colitis, unspecified (principal); R82.998 Other abnormal findings in urine; Z96.611 Presence of right artificial shoulder joint; Z96.659 Presence of unspecified artificial knee joint; Z85.828 Personal history of other malignant neoplasm of skin; Z86.0101 Personal history of adenomatous and serrated colon polyps; Z85.820 Personal history of malignant melanoma of skin
CPT/HCPCS: 36415; 80053; 81001; 83605; 83690; 85025; 87045; 87046; 87086; 87427; 99283; A9270

== ENCOUNTER 2025-09-14 10:18 | Outpatient (CLI) | payer MEDICARE, SELFPAY ==
--- NOTE | ~2025-09-14 | US_ITS ---
EXAMINATION: US pelvic complete w TV INDICATION: Pelvic pain Comparison:No prior studies for comparison. TECHNIQUE: Multiple transabdominal and endovaginal sonographic images of the pelvis performed. FINDINGS: The uterus measures 7.1 x 6.5 x 2.8 cm. The endometrial complex measures 6 mm there is a partially calcified uterine fibroid measuring 1.9 cm.. The ovaries are not visualized. There is no free fluid in the pelvis. There are no abnormal masses seen on either side. IMPRESSION: 1. Partially calcified uterine fibroid measuring 1.9 cm greatest dimension. Reviewed, dictated and finalized at location O.
== END 2025-09-14 10:19 | disposition home or self-care (01) ==
LOC: GOSHIMG 10:19
PROVIDERS: PCP Nurse Practitioner Obstetrics & Gynecology; Visit Provider Nurse Practitioner Family
DX: R93.89 Abnormal findings on diagnostic imaging of other specified body structures (principal); D25.9 Leiomyoma of uterus, unspecified
CPT/HCPCS: 76830; 76856

== ENCOUNTER 2025-09-22 18:25 | Emergency (ER) | payer MEDICARE, SELFPAY ==
[2025-09-22 18:44] VITALS: BP 134/89; PULSE 76; RESP 16; TEMP 37.1; O2SAT 96
[2025-09-22 18:51] LABS: EDSTREPNEGPOS1 Negative (Negative)
--- NOTE | 2025-09-22 19:27 | ED.GENADULT ---
HPI - General Adult General Chief complaint: Upper Respiratory Infection Stated complaint: Sore Throat Time Seen by Provider: 09/22/25 18:50 Source: patient and RN notes reviewed Mode of arrival: ambulatory Limitations: no limitations History of Present Illness HPI narrative: 70-year-old female patient presents today complaining of a 2 day history of white spots to her tongue and throat with a sore throat that started today. Patient was in the week ER approximately 2 weeks ago with traveler's diarrhea after a trip to [place], and was placed on a of Flagyl and Cipro, which she has finished. She is wondering if this may have caused thrush in her throat and tongue. She had been tasting metallic liver on her tongue but this has improved. Denies any upper respiratory symptoms including cough, congestion, rhinorrhea, fever. She has no discomfort to her tongue at this time. Related Data Home Medications ?Medication ?Instructions ?Recorded ?Confirmed ?Last Taken ?Type ascorbic acid (vitamin C) 250 mg 250 mg PO DAILY 10/22/23 09/22/25 Unknown History tablet folic acid 1 mg tablet 1 mg PO DAILY 06/03/24 09/22/25 Unknown History methotrexate sodium 2.5 mg tablet 7.5 mg PO WEEKLY 06/03/24 09/22/25 Unknown History cyanocobalamin (vitamin B-12) 1,000 mcg PO DAILY 09/21/25 09/22/25 Unknown History 1,000 mcg capsule venlafaxine 37.5 mg 37.5 mg PO HS 09/21/25 09/22/25 Unknown History capsule,extended release 24 hr Allergies Allergy/AdvReac Type Severity Reaction Status Date / Time olopatadine Allergy Mild itchy OU Verified 09/22/25 18:43 [facility] Past Medical History Medical History Lichenoid dermatitis Basal cell carcinoma (BCC) Encounter for Papanicolaou smear for cervical cancer screening Adenomatous colon polyp Arthritis Melanoma Allergies ACL tear 1998 Surgical History Surgical History Status post reverse arthroplasty of right shoulder History of tubal ligation 1987 History of knee replacement 2018 Family History Family History Father Cerebrovascular accident Hypertension Grandparent Parkinsons Heart disease Cancer Social History Social History Smoking status: Never smoker Alcohol intake: current Drinks per week: 2 Alcohol use details: GLASSES WINE Substance use: never Substance use type: does not use Do You Feel Safe in your Home?: Yes Lack of Transportation: No Lack of Food: Never True Current Housing: I Have Housing Concerned About Future Housing: No Difficulty Paying Gas/Electric Bills: No Difficulty Paying for Meds: No Currently Unemployed: No Education: Bachelor's Degree Difficulty w/ Childcare or Family Care: No Living arrangements: with family Additional living arrangements comments: Occupation/Education: retired Gender identity (if verbalized by the patient): Female Sexual Orientation (if Verbalized by the Patient): Straight or Heterosexual Spiritual care concerns: No Comments At time of signature, I have reviewed and agree with nursing past medical, surgical, social and family history unless otherwise noted. Please see nursing chart for further information. There is no relevant family history pertinent to the presenting complaint Exam Narrative: GENERAL: Well-appearing, well-nourished, and in no acute distress. HEAD: Normocephalic, atraumatic. EYES: EOMI. No redness or drainage. Conjunctivae normal. ENT: Mucous membranes pink and moist. Nares clear. No rhinorrhea. TMs normal bilaterally. Throat erythematous, especially on the right side, with 1 small white area of exudate on the right. Uvula midline. NECK: Normal AROM. Supple. No lymphadenopathy. CHEST: No respiratory distress. Clear to auscultation. HEART: Regular rate and rhythm. No murmur appreciated. EXTREMITIES: Normal range of motion. No edema. SKIN: Warm, dry, no rash. Capillary refill normal. Normal skin turgor. NEURO: No focal deficits. Alert and oriented x3. Gait steady. PSYCH: Normal affect. No signs of depression or anxiety. Course Course Level of Care: Express Care Visit Vital Signs Vital signs: Vital Signs Temperature 98.7 F 09/22/25 18:44 Pulse Rate 76 09/22/25 18:44 Respiratory Rate 16 09/22/25 18:44 Blood Pressure 134/89 09/22/25 18:44 Pulse Oximetry 96 09/22/25 18:44 Temperature 98.7 F 09/22/25 18:44 Pulse Rate 76 09/22/25 18:44 Respiratory Rate 16 09/22/25 18:44 Blood Pressure 134/89 09/22/25 18:44 Pulse Oximetry 96 09/22/25 18:44 Reviewed Medical Decision Making MDM Narrative Medical decision making narrative: 70-year-old female patient presents today complaining of a 2 day history of white spots to her tongue and throat with a sore throat that started today. Patient was in the week ER approximately 2 weeks ago with traveler's diarrhea after a trip to [place], and was placed on a of Flagyl and Cipro, which she has finished. She is wondering if this may have caused thrush in her throat and tongue. She had been tasting metallic taste on her tongue but this has improved. Denies any upper respiratory symptoms including cough, congestion, rhinorrhea, fever. She has no discomfort to her tongue at this time. Upon exam, Throat erythematous, especially on the right side, with 1 small white area of exudate on the right. Uvula midline. Offered to try treatment for thrush due to erythematous throat and metallic taste on the tongue, but patient declined. Rapid strep negative. Culture pending. Patient's symptoms could be due to viral illness. Discussed watchful waiting. Patient agrees to treat OTC if needed with PCP follow-up. Vital signs stable. Differential Diagnosis Differential Diagnosis: Pharyngitis, strep throat, viral syndrome, thrush Vital Signs Vital Signs: Vital Signs Temperature 98.7 F 09/22/25 18:44 Pulse Rate 76 09/22/25 18:44 Respiratory Rate 16 09/22/25 18:44 Blood Pressure 134/89 09/22/25 18:44 Pulse Oximetry 96 09/22/25 18:44 Temperature 98.7 F 09/22/25 18:44 Pulse Rate 76 09/22/25 18:44 Respiratory Rate 16 09/22/25 18:44 Blood Pressure 134/89 09/22/25 18:44 Pulse Oximetry 96 09/22/25 18:44 Lab Data Lab results reviewed: Yes I reviewed the patient's lab results. Labs: Lab Results 09/22/25 Range/Units 18:50 POC Grp A Strep Screen Negative (Negative) Critical Care Time Critical Care Time Critical Care Time: No Discharge Plan Discharge Clinical Impression: Pharyngitis Qualifiers: Pharyngitis/tonsillitis etiology: unspecified etiology Qualified Code(s): J02.9 - Acute pharyngitis, unspecified Patient Disposition: Home Condition: Stable Instructions: Pharyngitis (ED) Additional Instructions: Your rapid strep swab was negative today at [facility]. You will be notified in a few days if the culture comes back positive for strep, and appropriate antibiotics will be called in for you at that time. Take Tylenol for fever or pain. Rest and stay hydrated. Follow up with your PCP in 7 days if symptoms are not improving. Go to the ER immediately if you have any difficulty breathing or swallowing. Patient Language: Yoruba Prescriptions: No Action albuterol sulfate 90 mcg/actuation HFA aerosol inhaler 2 puff inhalation Q4-6H PRN (Reason: shortness of breath or wheezing) 30 Days Qty: 8.5 0RF famotidine 40 mg tablet 40 mg PO BID Qty: 180 3RF ascorbic acid (vitamin C) 250 mg Tablet 250 mg PO DAILY cyanocobalamin (vitamin B-12) 1,000 mcg capsule 1,000 mcg PO DAILY venlafaxine 37.5 mg capsule,extended release 24hr 37.5 mg PO HS methotrexate sodium 2.5 mg tablet 7.5 mg PO WEEKLY Patient Comments: TAKES ON SATURDAYS FOR DERMATITIS folic acid 1 mg tablet 1 mg PO DAILY valacyclovir 1 gram tablet 2,000 mg PO Q12H PRN (Reason: cold sores) Qty: 30 1RF Rx Instructions: Take 2000 mg PO q 12 hours x 1 day for cold sore flare Follow-up/Referrals: Lance Agee DO [Primary Care Provider, Internal Medicine] Time of Disposition: 19:04
== END 2025-09-22 19:13 | disposition home or self-care (01) ==
PROVIDERS: Emergency Provider Nurse Practitioner; PCP Internal Medicine
DX: J02.9 Acute pharyngitis, unspecified (principal); Z79.899 Other long term (current) drug therapy
CPT/HCPCS: 87081; 87880; 99213; G0463

== ENCOUNTER 2025-09-28 02:19 | Day surgery (SDC) | payer MEDICARE, SELFPAY ==
--- NOTE | 2025-09-21 13:12 | PC.NURSE ---
[facility] has started construction of its new state of the art ER which will open Spring 2026. With this, we anticipate parking may be a challenge for some our surgical patients and families. Parking spaces are limited but are available for all Surgical, obstetrics, and ER patients sharing this lot. If you arrive and find you are having a hard time finding a parking space, please note that we understand the challenges, please drive around the hospital and park near Hospital Entrance 1. When you enter this entrance, you can ask a volunteer to direct or take you back to the surgical waiting area to check in. We appreciate everyone?s understanding of these expected challenges while we build for your future. Report to the Outpatient Waiting Room, entrance under the green pavilion located off [address], at time __10:30 AM on date _09/28/25 . Planned Procedure Time: __12:3O PM .? Time changes happen often and if your time is changed the preop area will call you the afternoon before. - You and your visitor will be asked to self-screen and do not enter if you have any COVID symptoms. Please call surgeon if you need to reschedule. - A mask is optional within the hospital at this time. Patients may have clear liquids (water, carbonated beverages, clear teas, apple juice) until 3 hours prior to surgery ( 9:30 AM)with a maximum of 20 ounces. - No food from midnight until time of surgery and no smoking, or chewing tobacco (or any form of nicotine). No chewing gum, candy or mints. - Take only the following medications with a SIP of water on the morning of surgery: NONE DO NOT STOP ANY OF YOUR OTHER PRESCRIPTION MEDICATIONS PRIOR TO SURGERY EXCEPT THE FOLLOWING Hold all vitamins and supplements for 3 days per anesthesiologist.LAST DOSE 09/24/25 Medications to discontinue per physician NONE Please no make-up, nail macanese, hairspray, perfume, deodorant, or body powder the day of surgery.? No jewelry (including any body piercings) or valuables the day of surgery, leave them at home.? Please take a shower or bath the night before, or the morning of, surgery with an antibacterial soap.? Wear comfortable, loose fitting clothing.? Children are encouraged to wear pajamas. - Jewelry must be removed prior to entering the operating room.? Rings and piercings that are not removed may be cut off. - The hospital will not accept responsibility for valuables.? - Please leave all valuables, including medications, at home the day of surgery. If you are going home after surgery, a licensed line haul truck driver must drive you home.? - NO public transportation without another adult if you receive anesthesia. - We recommend that an adult stay with you for 24 hours following discharge. - We also recommend that you do not drive, make important decision, drink alcoholic beverages, or take any drugs that were not prescribed by your health care provider for at least 24 hours after your discharge time. For Pediatric surgeries, we recommend two adults accompany the child home. Follow any additional instructions given to you from your surgeon. Telephone instructions given to ___PATIENT and asked if any additional questions and then verbalized understanding. Patient advised to call surgeon office or pre surgery nurse liaison [phone] if any additional questions.
[2025-09-21 13:27] VITALS: BMI 32.9
[2025-09-28 09:35] VITALS: BP 136/90; PULSE 64; RESP 20; TEMP 36.6; O2SAT 97
[2025-09-28] MEDS: ACETAMINOPHEN 500 MG TABLET 1000 MG PO (09:47)
--- NOTE | 2025-09-28 10:24 | WPDHPUPDATE1 ---
History and Physical Update Update Date/Time: 09/28/25 10:24 History and Physical has been reviewed, including an updated exam of the patient. There are NO changes in the patient's condition. Risks, benefits, and alternatives have been discussed and questions answered. Patient agrees to proceed with procedure.
--- NOTE | 2025-09-28 10:34 | WPDANESEPPF ---
Anes - Initial Pre Proc Eval Procedure: Operation Date: 09/28/25 11:30 Proposed Procedures p Hysteroscopy Dilation and Curettage with Removal of Any Endometrial Lesions, If Needed - Antione Salas MD Date/Time: 09/28/25 10:34 Surgeon: Antione Salas MD Pre Op Diagnosis: Thickened Endometrium Patient Data Age: 70 Gender: F Height: 1.57 m Weight: 83 kg Last Vital Signs Temp 36.6 C 09/28/25 09:35 Pulse 64 09/28/25 09:35 Resp 20 09/28/25 09:35 BP 136/90 09/28/25 09:35 Pulse Ox 97 09/28/25 09:35 O2 Del Method Room Air 09/28/25 09:35 Allergies Allergy/AdvReac Type Severity Reaction Status Date / Time olopatadine Allergy Mild itchy OU Verified 09/28/25 09:55 Home Medications ?Medication ?Instructions ?Recorded ?Confirmed ?Type ascorbic acid (vitamin C) 250 mg 250 mg PO DAILY 10/22/23 09/28/25 History tablet folic acid 1 mg tablet 1 mg PO DAILY 06/03/24 09/28/25 History methotrexate sodium 2.5 mg tablet 7.5 mg PO WEEKLY 06/03/24 09/28/25 History albuterol sulfate 90 mcg/actuation 2 puff inhalation Q4-6H PRN 10/15/24 09/22/25 Rx aerosol inhaler shortness of breath or wheezing 30 days #8.5 grams valacyclovir 1 gram tablet 2,000 mg (2 x 1 gram) PO Q12H PRN 11/26/24 09/22/25 Rx cold sores #30 tabs famotidine 40 mg tablet 40 mg PO BID #180 tabs 01/03/25 09/28/25 Rx cyanocobalamin (vitamin B-12) 1,000 mcg PO DAILY 09/21/25 09/28/25 History 1,000 mcg capsule venlafaxine 37.5 mg 37.5 mg PO HS 09/21/25 09/28/25 History capsule,extended release 24 hr Patient hx anesthesia problems: none Family hx anesthesia problems: none Results Review: All pre-operative results and documents have been reviewed as part of the pre-operative evaluation. [facility] Past Medical History Medical History Lichenoid dermatitis Basal cell carcinoma (BCC) Encounter for Papanicolaou smear for cervical cancer screening Adenomatous colon polyp Arthritis Melanoma Allergies ACL tear 1998 Surgical History Surgical History Status post reverse arthroplasty of right shoulder History of tubal ligation 1987 History of knee replacement 2019 Family History Family History Father Cerebrovascular accident Hypertension Grandparent Parkinsons Heart disease Cancer Social History Social History Smoking status: Never smoker Alcohol intake: current Drinks per week: 3 Alcohol use details: GLASSES WINE Substance use: never Substance use type: does not use Do You Feel Safe in your Home?: Yes Lack of Transportation: No Lack of Food: Never True Current Housing: I Have Housing Concerned About Future Housing: No Difficulty Paying Gas/Electric Bills: No Difficulty Paying for Meds: No Currently Unemployed: No Education: Bachelor's Degree Difficulty w/ Childcare or Family Care: No Living arrangements: with family Additional living arrangements comments: Occupation/Education: retired Gender identity (if verbalized by the patient): Female Sexual Orientation (if Verbalized by the Patient): Straight or Heterosexual Spiritual care concerns: No Anes - Eval Final PreProcedure Day of Procedure 09/28/25 10:34 Patient weight: obese Heart: regular rate and rhythm Lungs: clear to auscultation Airway: Mallampati scale class II Neurological: alert and oriented Last oral intake: >/= 8 hours ASA classification: II Emergent: no Anesthetic plan: proceed Anesthesia type and monitoring: general and standard monitoring Results Review: All pre-operative results and documents have been reviewed as part of the pre-operative evaluation. Informed Consent: The patient's anesthetic plan and its attendant risks and benefits were discussed with the patient/family/POA. Questions were solicited and answers provided to the satisfaction of the patient/family/POA.
[2025-09-28] MEDS: ceFAZolin 2 GM in SODIUM CHLORIDE 0.9% IV 50 ML 100 ML IVPB (10:37)
[2025-09-28] MEDS: LIDOCAINE 1% LOCAL INJ 10 ML VIAL INFILTRATE (10:50)
--- NOTE | 2025-09-28 10:58 | S_PTH ---
PATIENT: Aleida Mendez LOC: [facility] U#:[id number] AGE/SX: 70/F ROOM: RE09/28/[address]: Antione Salas MD : 1955 BED: DIS: 09/28/2025 SPEC #: [id number] RECD: 09/28/25 13:24 STATUS: JOHN REQ #: [id number] ALEJANDRA: 09/28/25 10:[address]: Antione Salas DEPT: [facility] Surgical RECD BY: Freya Cordova ENTERED: 09/28/25 13:24 SP TYPE: Surgical OTHR DR: Lance Agee DO Tissues: A - Endometrial Curettings Procedures: Hematoxylin and Eosin Stain Gross and Microscopic Level 4
[2025-09-28 11:08] VITALS: BP 122/66; PULSE 61; RESP 20
[2025-09-28] MEDS: LACTATED RINGERS 1,000 ML 30 ML IV CONT (11:08)
--- NOTE | 2025-09-28 11:11 | W.PM.PROC2 ---
Procedure Note - Detailed Date of Procedure 09/28/25 Pre-op Diagnosis Thickened Endometrium Post-op Diagnosis Other ( endometrial polyp) Procedure Performed diagnostic hysteroscopy with removal of endometrial lesion and dilation and curettage Surgeon Antione Salas MD Anesthesia MAC and Local Indications abnormal ultrasound finding Findings uterus sound to 8 cm there was a 1 and have cm endometrial polyp structure at the left fundus Description of Procedure After informed consent was obtained patient was taken to the operating room and adequate IV sedation was administered. Attention was turned to the vagina. Speculum was inserted. Single-tooth tenaculum placed on the anterior lip of the cervix. cervical block obtained with 1% lidocaine plain. The uterus was sounded to 8 cm. The cervix was dilated to an 4 Vizcaino dilator. The hysteroscope was inserted into the cavity using hydrodilation. The findings were endometrial polyp at the left fundus. The IV the instrument was used to remove the polyp completely. The rest of the cavity was atrophic appearing. Curettage was performed. The hysteroscope was removed the single-tooth tenaculum was removed hemostasis was noted at the tenaculum site. Sponge count correct. The patient taken to recovery in stable condition. Estimated Blood Loss 5 Drains No Packing No Pathology Yes ( Endometrial curettings and shavings) Complications No immediate complications Condition Stable Disposition Same day [facility] Billing Surgery - Charge Forward: Surgery Billing
[2025-09-28 11:30] VITALS: BP 111/67; PULSE 57; RESP 20
[2025-09-28 12:00] VITALS: BP 129/68; PULSE 52; RESP 20
[2025-09-28 12:30] VITALS: BP 129/68; PULSE 52; RESP 20
[2025-09-28 12:45] VITALS: BP 135/69; PULSE 62; RESP 16
--- NOTE | 2025-09-28 14:01 | SUR.PHASEII ---
1245 - see discharge instructions via paper due to downtime.
== END 2025-09-28 12:50 | disposition home or self-care (01) ==
PROVIDERS: PCP Internal Medicine; Visit Provider Obstetrics & Gynecology
PROC: 0U5B8ZZ Destruction of Endometrium, Via Natural or Artificial Opening Endoscopic (ICD-10-PCS; CPT 58563; principal; 2025-09-28 11:30)
DX: R93.89 Abnormal findings on diagnostic imaging of other specified body structures (principal); N84.0 Polyp of corpus uteri; M19.90 Unspecified osteoarthritis, unspecified site; E66.9 Obesity, unspecified; Z68.33 Body mass index [BMI] 33.0-33.9, adult; Z79.51 Long term (current) use of inhaled steroids; Z98.890 Other specified postprocedural states; Z98.51 Tubal ligation status; Z86.0100 Personal history of colon polyps, unspecified; Z85.828 Personal history of other malignant neoplasm of skin; Z80.49 Family history of malignant neoplasm of other genital organs; Z82.49 Family history of ischemic heart disease and other diseases of the circulatory system
CPT/HCPCS: 58558; 88305; J0690; A9270; J2003; J2704; J3010; J7120

== ENCOUNTER 2025-10-13 09:09 | Outpatient (CLI) | payer MEDICARE, SELFPAY ==
--- NOTE | ~2025-10-13 | DEXA_ITS ---
Bone Density Report Name: AVILA NÚÑEZ Age: 70 Sex: Female Ethnicity: White Date of : 1955 Indication: postmenopausal; screening for osteoporosis; asthma or emphysema; Referring Provider: Mercy Olivia Study: Bone densitometry was performed. Exam Date: October 13, 2025 Accession number: [id number] Bone Density: Region BMD T-score Z-score Classification AP Spine(L1-L4) 1.149 0.9 3.0 Normal Femoral Neck (Left) 0.784 -0.6 1.2 Normal Total Hip (Left) 0.895 -0.4 1.1 Normal Femoral Neck (Right) 0.756 -0.8 1.0 Normal Total Hip (Right) 0.885 -0.5 1.0 Normal Total Hip Mean 0.890 -0.5 1.1 Normal World Health Organization criteria for BMD impression classify patients as: Normal (T-score at or above -1.0), Osteopenia (T-score between -1.0 and -2.5), or Osteoporosis (T-score at or below -2.5). 10-year Fracture Risk: FRAX not reported because: All T-scores for Spine Total, Hip Total, Femoral Neck at or above -1.0 Previous Exams: -- Region Exam Age BMD T-score BMD Change BMD Change Date g/cm2 vs Baseline vs Previous -- AP Spine (L1-L4) 10/13/2025 70 1.149 0.9 2.7%* 2.7%* 03/15/2021 65 1.119 0.7 Total Hip(Left) 10/13/2025 70 0.895 -0.4 -2.2% -2.2% 03/15/2021 65 0.915 -0.2 Total Hip(Right) 10/13/2025 70 0.885 -0.5 -4.5%* -4.5%* 03/15/2021 65 0.926 -0.1 -- *Denotes significance at 95% confidence level, LSC for AP Spine = 0.022 g/cm2, LSC for Total Hip = 0.027 g/cm2 Clinical Information Provided by Patient: Has 3 or more alcoholic drinks per day Has used the following medications: HRT (i.e. estrogen/hormone therapy) Has the following medical conditions: Asthma or Emphysema Patient maximum height was 62 Menopause Age: 47 Drinks caffeinated beverages Onset of menses at age 11 Number of children 3 Impression: The patient has normal bone mass. The patient has risk factors, including: excessive alcohol use. The BMD for the Total Hip(Right) decreased, changing by -4.5% since the last DXA exam. Discussion: BONE DENSITY IS ABOVE THE MINIMUM DESIRABLE LEVEL AT ALL SKELETAL SITES TESTED. This patient?s bone mineral density is above the minimum desirable level (T-score -1.0 or better) at all sites measured. The patient should follow a healthful lifestyle (good nutrition with adequate calcium and vitamin D, and appropriate weight-bearing exercise). Follow-Up: Consider repeating this study in 3 to 4 years to reassess this patient's status, or sooner if there is some new clinical indication. Reported by: ALAN on 10/13/2025 9:32:00 AM. Reviewed, dictated and finalized at location A.
== END 2025-10-13 09:10 | disposition home or self-care (01) ==
LOC: MICIMG 09:11
PROVIDERS: PCP Internal Medicine; Visit Provider Nurse Practitioner
DX: Z78.0 Asymptomatic menopausal state (principal)
CPT/HCPCS: 77080